=== PATIENT | female | born 1995 | race Caucasian/White ===

== ENCOUNTER → 2017-09-01 | Outpatient (CLI) | payer SELFPAY ==
--- NOTE | 2017-09-01 12:49 | Diagnostic Imaging Report ---
PROCEDURE: US OB SINGLE FETUS <14 WKS. TECHNIQUE: Multiple Real-time grayscale images were obtained over the gravid uterus in various projections. INDICATION: Uncertain dates. FINDINGS: There is a gestational sac within the uterus containing a single live embryo. Embryonic heart motion was noted and a rate of 158 BPM was recorded. The crown/rump length suggests the estimated gestational age is 7 weeks plus/minus 1/2 week. There are no obvious embryonic abnormalities identified. The amniotic fluid volume is within normal limits. At this time, it is not certain where the placenta will develop. The right ovary was not well visualized. The left ovary is unremarkable. IMPRESSION: 1. There is a single live intrauterine of approximately 7 weeks gestation plus/minus 1/2 week. The EDC is 04/20/2018. 2. There are no obvious embryonic abnormalities identified. Dictated by: Dictated on workstation # [id number]
== END ==
LOC: RAD 10:06
PROVIDERS: ATTEND Family Medicine
DX: Z34.01 Encounter for supervision of normal first pregnancy, first trimester (principal); Z3A.01 Less than 8 weeks gestation of pregnancy
CPT/HCPCS: 76801

== ENCOUNTER → 2017-11-27 | Outpatient (CLI) | payer MEDICAID ==
--- NOTE | 2017-11-27 14:20 | Diagnostic Imaging Report ---
INDICATION: survey TECHNIQUE: Multiple real-time grayscale images were obtained over the gravid uterus. COMPARISON: 09/01/2017. FINDINGS: The prior OB ultrasound exam of 09/01/2017 noted a single live embryo of approximately 7 weeks gestation +/- one-half week. On this exam, the fetus is again identified. The fetus is cephalic in presentation and heart motion is noted with a rate of 143 bpm recorded. There are no abnormalities identified; however, the four-chamber heart view, the three-vessel cord, and the cord insertion are not well imaged. A short-term (4-6 weeks) follow-up ultrasound exam would be recommended for further study. The growth parameters are fairly uniform and have progressed as expected since the prior exam. The amniotic fluid volume is within normal limits. The placenta is anterior and there is no previa. The cervix is identified and measures 4.5 cm in length. IMPRESSION: 1. There is a single live fetus of approximately 19 weeks 3 days gestation +/- 1.5 weeks. The EDC remains April 20, 2018. 2. There are no abnormalities identified; however, the four-chamber heart view, the cord, and the cord insertion are not well imaged. Recommendations as above. 3. The growth parameters are fairly uniform and have progressed as expected since the prior exam. Biometrical measurements are as follows: Biparietal 4.5 cm, age 19 weeks 5 days. Head circumference 16.9 cm, age 19 weeks 4 days. Abdominal circumference 14.0 cm, age 19 weeks 3 days. Femur length 3.1 cm, age 19 weeks 5 days. Sonographic estimate age: 18 weeks 5 days. Sonographic estimated date of delivery: 04/20/18. Estimated Weight: 298 gm (+/- 43 gm). LMP percentile: 51%. heart rate: 143 beats per minute. number: 1 of 1. Dictated by: Dictated on workstation # [id number]
== END ==
LOC: RAD 10:10
PROVIDERS: ATTEND Plastic Surgery
DX: Z36.89 Encounter for other specified antenatal screening (principal); Z3A.18 18 weeks gestation of pregnancy
CPT/HCPCS: 76805

== ENCOUNTER → 2018-01-01 | Outpatient (CLI) | payer MEDICAID ==
--- NOTE | 2018-01-01 19:10 | Diagnostic Imaging Report ---
INDICATION: Followup survey. TECHNIQUE: Multiple real-time grayscale images were obtained over the gravid uterus. COMPARISON: 11/27/2017. FINDINGS: There is a single live fetus in a breech presentation. heart rate was recorded at 146 beats per minute. Placenta is anterior. Amniotic fluid volume is normal. Followup survey demonstrates a four-chamber heart. There is a three-vessel cord with normal insertion. IMPRESSION: Unremarkable followup study completing the survey. No complicating features are detected. Dictated by: Dictated on workstation # [id number]
== END ==
LOC: RAD 14:42
PROVIDERS: ATTEND Family Medicine
DX: Z34.02 Encounter for supervision of normal first pregnancy, second trimester (principal); Z3A.00 Weeks of gestation of pregnancy not specified
CPT/HCPCS: 76816

== ENCOUNTER → 2018-03-03 | Outpatient (CLI) | payer MEDICAID ==
[2018-03-03 09:54] VITALS: BP 105/68
--- NOTE | 2018-03-03 10:34 | Diagnostic Imaging Report ---
INDICATION: Supervision of first in third trimester TECHNIQUE: The fetus was observed by the database modeler for purposes of a nonstress biophysical profile evaluation. FINDINGS: Intrauterine is currently in a cephalic presentation. The placenta is along the anterior aspect without evidence for previa. cardiac activity at 128 beats per minute. Lower limits of normal amount of amniotic fluid with an index at 6.4 cm. Biophysical Profile Scoring: breathin Body movement: 2 tone: 2 Amniotic fluid: 2 Total BPP Score: 8/8 IMPRESSION: 1. Normal biophysical profile score. 2. Borderline oligohydramnios. Dictated by: Dictated on workstation # [id number]
== END ==
LOC: RAD 09:05
PROVIDERS: ATTEND Family Medicine
DX: O36.8130 Decreased fetal movements, third trimester, not applicable or unspecified (principal); Z3A.00 Weeks of gestation of pregnancy not specified
CPT/HCPCS: 76819

== ENCOUNTER 2018-04-09 15:32 | Inpatient (IN) | payer MEDICAID ==
[2018-04-09] VITALS (12 sets, daily range): BP systolic 111–132; BP diastolic 58–92
[~2018-04-09] VITALS: Ht 157.5 cm; Wt 89.8 kg
[2018-04-09] MEDS: D5 LR IV SOLUTION 1,000 ML IV SCH ×2 (15:40→23:45)
[2018-04-09] MEDS ORDERED: DINOPROSTONE 10 MG (CERVIDIL) INSERT ONE (16:57)
--- OUTSIDE RECORDS SUMMARY | 2018-04-09 17:14 | XMS REPORT | Continuity of Care Document ---
Author Author [facility] Address Unknown Phone Unavailable Allergies Active Description [...] Disorder Of Childhood With Hyperactivity 12/01/2008 HARDIK UPLIDO DO 493.90 Asthma Unspecified 12/01/2008 RAE ALEXIS [...] CHRISTYA K 493.90 Asthma Unspecified 12/01/2008 PULIDO АЛЕКСАНДР CHRISTYA [...] HIDALGO APRN 493.90 Asthma Unspecified 12/01/2008 HARDIK PULIDO DO K 314.01 Attention Deficit Disorder Of [...] 380.10 Otitis Externa - Right Ear 02/10/2009 EATRAE COPELAND APRN L 380.10 Otitis Externa - [...] K 251.1 OTHER SPECIFIED HYPOGLYCEMIA 02/16/2009 EATON NEGATIVE NOTCHER, RAE L 251.1 OTHER SPECIFIED HYPOGLYCEMIA 02/16/2009 PULIDO DO, HARDIK K 251.1 OTHER SPECIFIED HYPOGLYCEMIA 02/16/2009 PULIDO DO, HARDIK K 251.1 OTHER SPECIFIED HYPOGLYCEMIA 02/16/2009 PULIDO DO, HARDIK K 251.1 OTHER SPECIFIED HYPOGLYCEMIA 02/16/2009 HIDALGO NEGATIVE NOTCHERYURYABELINO J 251.1 OTHER SPECIFIED HYPOGLYCEMIA 02/16/2009 EATON NEGATIVE NOTCHER, RAE L 251.1 OTHER SPECIFIED HYPOGLYCEMIA 02/16/2009 PULIDO DO, HARDIK K 251.1 OTHER SPECIFIED HYPOGLYCEMIA 02/16/2009 EATON NEGATIVE NOTCHER, RAE L 251.1 OTHER SPECIFIED HYPOGLYCEMIA 02/16/2009 EATON NEGATIVE NOTCHER, RAE L 251.1 OTHER SPECIFIED HYPOGLYCEMIA 02/16/2009 HIDALGO NEGATIVE NOTCHERSHANNON RiosFER J 251.1 OTHER SPECIFIED HYPOGLYCEMIA 02/16/2009 HIDALGO NEGATIVE NOTCHERSHANNON RiosFER J 251.1 OTHER SPECIFIED HYPOGLYCEMIA 02/16/2009 HIDALGO NEGATIVE NOTCHERSHANNON RiosFER J 251.1 OTHER SPECIFIED HYPOGLYCEMIA 02/16/2009 PULIDO DO, HARDIK K 251.1 OTHER SPECIFIED HYPOGLYCEMIA 02/16/2009 HIDALGO NEGATIVE NOTCHERSHANNON RiosFER J 251.1 OTHER SPECIFIED HYPOGLYCEMIA 02/16/2009 [...] DO HARDIK K 626.0 Amenorrhea 02/23/2009 EATON NEGATIVE NOTCHER, RAE L 256.4 POLYCYSTIC OVARIAN SYNDROME 02/23/2009 EATON NEGATIVE NOTCHER, RAE L 277.7 DYSMETABOLIC SYNDROME X 02/23/2009 EATON NEGATIVE NOTCHER, RAE L 462 Pharyngitis 02/23/2009 EATON NEGATIVE NOTCHER, RAE L 626.0 Amenorrhea 02/23/2009 PULIDO DO, [...] DO, HARDIK K 626.0 Amenorrhea 02/23/2009 HIDALGO NEGATIVE NOTCHERABELINO Rios J 256.4 POLYCYSTIC OVARIAN SYNDROME 02/23/2009 HIDALGO NEGATIVE NOTCHERABELINO Rios J 277.7 DYSMETABOLIC SYNDROME X 02/23/2009 HIDALGO ABELINO CARTAGENA J 462 Pharyngitis 02/23/2009 HIDALGO NEGATIVE NOTCHERABELINO Rios J 626.0 Amenorrhea 02/23/2009 EATON ORESTES CARTAGENASON L 256.4 POLYCYSTIC OVARIAN SYNDROME 02/23/2009 EATON NEGATIVE NOTCHERORESTES RiosSON L 277.7 DYSMETABOLIC SYNDROME X 02/23/2009 EATON NEGATIVE NOTCHER RAE L 462 Pharyngitis 02/23/2009 EATON NEGATIVE NOTCHER, RAE L 626.0 Amenorrhea 02/23/2009 PULIDO DO, HARDIK K 256.4 POLYCYSTIC OVARIAN SYNDROME 02/23/2009 PULIDO DO, HARDIK K 277.7 DYSMETABOLIC SYNDROME X 02/23/2009 PULIDO DO, HARDIK K 462 Pharyngitis 02/23/2009 PULIDO DO, HARDIK K 626.0 Amenorrhea 02/23/2009 EATON NEGATIVE NOTCHER, RAE L 256.4 POLYCYSTIC OVARIAN SYNDROME 02/23/2009 EATON NEGATIVE NOTCHER, RAE L 277.7 DYSMETABOLIC SYNDROME X 02/23/2009 EATON NEGATIVE NOTCHER, RAE L 462 Pharyngitis 02/23/2009 EATON NEGATIVE NOTCHER, RAE L 626.0 Amenorrhea 02/23/2009 EATON NEGATIVE NOTCHER RAE L 256.4 POLYCYSTIC OVARIAN SYNDROME 02/23/2009 EATON NEGATIVE NOTCHER, RAE L 277.7 DYSMETABOLIC SYNDROME X 02/23/2009 EATON NEGATIVE NOTCHER, RAE L 462 Pharyngitis 02/23/2009 EATON NEGATIVE NOTCHER, RAE L 626.0 Amenorrhea 02/23/2009 ABELINO HIDALGO [...] HIDALGO SHANNON CARTAGENAFER J 626.0 Amenorrhea 02/23/2009 PULIDO DO HARDIK [...] DO, HARDIK K 780.79 Malaise 03/09/2009 EATON NEGATIVE NOTCHERRAE Rios L 780.79 Malaise 03/09/2009 PULIDO DO, HARDIK K 780.79 Malaise 03/09/2009 PULIDO DO, HARDIK K 780.79 Malaise 03/09/2009 PULIDO DO, HARDIK K 780.79 Malaise 03/09/2009 ABELINO HIDALGO APRN 780.79 Malaise 03/09/2009 RAE ALEXIS APRN L 780.79 Malaise 03/09/2009 PULIDO DO, HARDIK K 780.79 Malaise 03/09/2009 EATDINORAH NEGATIVE NOTCHERRAE Rios L 780.79 Malaise 03/09/2009 EATRAE COPELAND [...] 465.9 Upper Respiratory Infection Acute 03/28/2009 EATON NEGATIVE NOTCHER, RAE L 465.9 Upper Respiratory Infection Acute 03/28/2009 PULIDO DO, HARDIK K 465.9 Upper Respiratory Infection Acute 03/28/2009 PULIDO DO, HARDIK K 465.9 Upper Respiratory Infection Acute 03/28/2009 PULIDO DO, HARDIK K 465.9 Upper Respiratory Infection Acute 03/28/2009 HIDALGO NEGATIVE NOTCHER, ABELINO J 465.9 Upper Respiratory Infection Acute 03/28/2009 EATON NEGATIVE NOTCHER, RAE L 465.9 Upper Respiratory Infection Acute 03/28/2009 PULIDO DO, HARDIK K 465.9 Upper Respiratory Infection Acute 03/28/2009 EATON NEGATIVE NOTCHER, RAE L 465.9 Upper Respiratory Infection Acute 03/28/2009 EATON NEGATIVE NOTCHER, RAE L 465.9 Upper Respiratory Infection Acute 03/28/2009 HIDALGO NEGATIVE NOTCHER, ABELINO J 465.9 Upper Respiratory Infection Acute 03/28/2009 HIDALGO NEGATIVE NOTCHER, ABELINO J 465.9 Upper Respiratory Infection Acute 03/28/2009 HIDALGO NEGATIVE NOTCHER, ABELINO J 465.9 Upper Respiratory Infection Acute 03/28/2009 PULIDO DO, HARDIK K 465.9 Upper Respiratory Infection Acute 03/28/2009 HIDALGO NEGATIVE NOTCHER, ABELINO J 465.9 Upper Respiratory Infection Acute [...] Asthma, Unspecified, With (acute) Exacerbation 03/07/2010 REUBEN NEGATIVE NOTCHER, RAE L 493.92 Asthma, Unspecified, With (acute) Exacerbation 03/07/2010 HARDIK PULIDO DO 493.92 Asthma, Unspecified, With (acute) Exacerbation 03/07/2010 HARDIK PULIDO DO 493.92 Asthma, Unspecified, With (acute) Exacerbation 03/07/2010 HARDIK PULIDO DO 493.92 Asthma, Unspecified, With (acute) Exacerbation 03/07/2010 ABELINO HIDALGO APRN 493.92 Asthma, Unspecified, With (acute) Exacerbation 03/07/2010 EATON NEGATIVE NOTCHERRAE Rios 493.92 Asthma, Unspecified, With (acute) Exacerbation 03/07/2010 HARDIK PULIDO DO 493.92 Asthma, Unspecified, With (acute) Exacerbation 03/07/2010 EATON NEGATIVE NOTCHERRAE Rios L 493.92 Asthma, Unspecified, With (acute) Exacerbation 03/07/2010 ELINORON NEGATIVE NOTCHERRAE Rios L 493.92 Asthma, Unspecified, With (acute) [...] APRNSON L 626.9 menses abnormal 10/01/2010 EATON NEGATIVE NOTCHERORESTES RiosSON L 706.1 ACNE 10/01/2010 PULIDO DO, HARDIK K 278.01 OBESITY MORBID 10/01/2010 PULIDO DO, HARDIK K 626.9 menses abnormal 10/01/2010 PULIDO DO, HARDIK K 706.1 ACNE 10/01/2010 EATON ORESTES CARTAGENASON L 278.01 OBESITY MORBID 10/01/2010 EATON ORESTES CARTAGENASON L 626.9 menses abnormal 10/01/2010 EATON NEGATIVE NOTCHERORESTES RiosSON L 706.1 ACNE 10/01/2010 EATON NEGATIVE NOTCHERORESTES RiosSON L 278.01 OBESITY MORBID 10/01/2010 EATON NEGATIVE NOTCHERORESTES RiosSON L 626.9 menses abnormal 10/01/2010 EATON [...] ALEXIS APRN 780.60 Fever, Unspecified 02/15/2011 EATON NEGATIVE NOTCHER, RAE L 786.2 Cough 02/15/2011 PULIDO DO, [...] HIDALGO ABELINO CARTAGENA 786.2 Cough 02/15/2011 EATON NEGATIVE NOTCHER, RAE L 478.19 Other Diseases Of Nasal Cavity And Sinuses 02/15/2011 EATON NEGATIVE NOTCHER, RAE L 780.60 Fever, Unspecified 02/15/2011 EATON NEGATIVE NOTCHER, RAE L 786.2 Cough 02/15/2011 PULIDO DO, HARDIK K 478.19 Other Diseases Of Nasal Cavity And Sinuses 02/15/2011 PULIDO DO, HARDIK K 780.60 Fever, Unspecified 02/15/2011 PULIDO DO, HARDIK K 786.2 Cough 02/15/2011 EATON NEGATIVE NOTCHER, RAE L 478.19 Other Diseases Of Nasal Cavity And Sinuses 02/15/2011 EATON NEGATIVE NOTCHER, RAE L 780.60 Fever, Unspecified 02/15/2011 EATON NEGATIVE NOTCHER, RAE L 786.2 Cough 02/15/2011 EATON NEGATIVE NOTCHER, RAE L 478.19 Other Diseases Of Nasal Cavity And Sinuses 02/15/2011 EATON NEGATIVE NOTCHER, RAE L 780.60 Fever, Unspecified 02/15/2011 EATON NEGATIVE NOTCHER, RAE L 786.2 Cough 02/15/2011 ABELINO HIDALGO [...] 054.9 HERPES SIMPLEX WITHOUT COMPLICATION 05/21/2011 EATON NEGATIVE NOTCHER, RAE L 034.0 Streptococcal Sore Throat 05/21/2011 EATON NEGATIVE NOTCHER, RAE L 054.9 HERPES SIMPLEX WITHOUT COMPLICATION [...] 054.9 HERPES SIMPLEX WITHOUT COMPLICATION 05/21/2011 EATON NEGATIVE NOTCHER, RAE L 034.0 Streptococcal Sore Throat 05/21/2011 EATON NEGATIVE NOTCHER, RAE L 054.9 HERPES SIMPLEX WITHOUT COMPLICATION 05/21/2011 PULIDO DO, HARDIK K 034.0 Streptococcal Sore Throat 05/21/2011 PULIDO DO, HARDIK K 054.9 HERPES SIMPLEX WITHOUT COMPLICATION 05/21/2011 EATON NEGATIVE NOTCHER, RAE L 034.0 Streptococcal Sore Throat 05/21/2011 EATON NEGATIVE NOTCHER, RAE L 054.9 HERPES SIMPLEX WITHOUT COMPLICATION 05/21/2011 EATON NEGATIVE NOTCHER, RAE L 034.0 Streptococcal Sore Throat 05/21/2011 EATON NEGATIVE NOTCHER, RAE L 054.9 HERPES SIMPLEX WITHOUT COMPLICATION [...] HERPES SIMPLEX WITHOUT COMPLICATION 05/21/2011 HIDALGO ABELINO CARATGENA 034.0 Streptococcal Sore Throat 05/21/2011 HIDALGO ABELINO [...] K 493.90 ASTHMA UNSPECIFIED 07/16/2011 PULIDO DO, HADRIK K 786.2 Cough 07/16/2011 EATON NEGATIVE NOTCHERORESTES RiosSON L 478.19 Other Diseases Of Nasal Cavity And Sinuses 07/16/2011 EATON NEGATIVE NOTCHERORESTESRAE L 493.90 ASTHMA UNSPECIFIED 07/16/2011 EATON NEGATIVE NOTCHERORESTES RiosSON L 786.2 Cough 07/16/2011 PULIDO DO, [...] CARTAGENASON L 493.90 ASTHMA UNSPECIFIED 07/16/2011 EATON NEGATIVE NOTCHER, RAE L 786.2 Cough 07/16/2011 PULIDO DO, [...] Diseases Of Nasal Cavity And Sinuses 07/16/2011 АЛЕКСАНРД PULIDO DOA K 493.90 ASTHMA UNSPECIFIED 07/16/2011 АЛЕКСАНДР PULIDO DOA K 786.2 Cough 07/16/2011 HIDALGOABELINO MUÑOZ APRN 478.19 Other Diseases Of Nasal Cavity And Sinuses 07/16/2011 ABELINO HIDAGLO APRN 493.90 ASTHMA UNSPECIFIED 07/16/2011 ABELINO HIDALGO [...] 07/25/2011 V67.9 Unspecified Follow-up Examination 07/25/2011 OWEN AMRCANO, GEOFFREY V67.9 Unspecified Follow-up Examination 07/25/2011 OWEN MARCANO, GEOFFREY V67.9 Unspecified Follow-up Examination 07/25/2011 OWEN MARCANO, GEOFFREY V67.9 Unspecified Follow-up Examination 07/25/2011 PULIDO DO, HARDIK K V67.9 Unspecified Follow-up Examination 07/25/2011 EATON NEGATIVE NOTCHER, RAE L V67.9 Unspecified Follow-up Examination 07/25/2011 PULIDO DO, HARDIK K V67.9 Unspecified Follow-up Examination 07/25/2011 PULIDO DO, HARDIK K V67.9 Unspecified Follow-up Examination 07/25/2011 PULIDO DO, HARDIK K V67.9 Unspecified Follow-up Examination 07/25/2011 ABELINO HIDALGO APRN J V67.9 Unspecified Follow-up Examination 07/25/2011 EATON NEGATIVE NOTCHER, RAE L V67.9 Unspecified Follow-up Examination 07/25/2011 PULIDO DO, HARDIK K V67.9 Unspecified Follow-up Examination 07/25/2011 EATON NEGATIVE NOTCHER, RAE L V67.9 Unspecified Follow-up Examination 07/25/2011 EATON NEGATIVE NOTCHER, RAE L V67.9 Unspecified Follow-up Examination 07/25/2011 [...] ALLERGIC RHINITIS DUE TO POLLEN 10/04/2011 EATON NEGATIVE NOTCHERRAE Rios L 477.0 ALLERGIC RHINITIS DUE TO POLLEN 10/04/2011 PULIDO DO, HARDIK K 477.0 ALLERGIC RHINITIS DUE TO POLLEN 10/04/2011 PULIDO DO, HARDIK K 477.0 ALLERGIC RHINITIS DUE TO POLLEN 10/04/2011 PULIDO DO, HARDIK K 477.0 ALLERGIC RHINITIS DUE TO POLLEN 10/04/2011 HIDALGO NEGATIVE NOTCHERABEILNO Rios J 477.0 ALLERGIC RHINITIS DUE TO POLLEN 10/04/2011 EATON NEGATIVE NOTCHER, RAE L 477.0 ALLERGIC RHINITIS DUE TO POLLEN 10/04/2011 PULIDO DO, HARDIK K 477.0 ALLERGIC RHINITIS DUE TO POLLEN 10/04/2011 EATON NEGATIVE NOTCHERRAE L 477.0 ALLERGIC RHINITIS DUE TO POLLEN 10/04/2011 EATON NEGATIVE NOTCHERRAE L 477.0 ALLERGIC RHINITIS DUE TO POLLEN 10/04/2011 HIDALGO NEGATIVE NOTCHERABELINO Rios J 477.0 ALLERGIC RHINITIS DUE TO POLLEN 10/04/2011 HIDALGO ABELINO CARTAGENA J 477.0 ALLERGIC RHINITIS DUE TO POLLEN 10/04/2011 HIDALGO NEGATIVE NOTCHERABELINO Rios J 477.0 ALLERGIC RHINITIS DUE TO POLLEN 10/04/2011 PULDIO DO, HARDIK K 477.0 ALLERGIC RHINITIS DUE [...] HARDIK PULIDO DO 463 TONSILLITIS 10/24/2011 EATON NEGATIVE NOTCHER, RAE L 463 TONSILLITIS 10/24/2011 PULIDO DO, HARDIK K 463 TONSILLITIS 10/24/2011 PULIDO DO, HARDIK K 463 TONSILLITIS 10/24/2011 PULIDO DO, HARDIK K 463 TONSILLITIS 10/24/2011 HIDALGO NEGATIVE NOTCHERABELINO Rios 463 TONSILLITIS 10/24/2011 EATON NEGATIVE NOTCHERORESTES RiosSON L 463 TONSILLITIS 10/24/2011 PULIDO DO HARDIK K 463 TONSILLITIS 10/24/2011 EATON NEGATIVE NOTCHER RAE L 463 TONSILLITIS 10/24/2011 EATON NEGATIVE NOTCHERORESTESRAE L 463 TONSILLITIS 10/24/2011 HIDALGO NEGATIVE NOTCHERABELINO Rios 463 TONSILLITIS 10/24/2011 HIDALGO NEGATIVE NOTCHERABELINO Rios 463 TONSILLITIS 10/24/2011 HIDALGO NEGATIVE NOTCHERABELINO Rios 463 TONSILLITIS 10/24/2011 PULIDO DOАЛЕКСАНДРA K 463 TONSILLITIS 10/24/2011 HIDALGO NEGATIVE NOTCHERABELINO Rios 463 TONSILLITIS 10/24/2011 PULIDO DO, HARDIK [...] K 465.9 UPPER RESPIRATORY INFECTION 03/05/2012 EATON NEGATIVE NOTCHERRAE Rios L 465.9 UPPER RESPIRATORY INFECTION 03/05/2012 PULIDO DO HARDIK K 465.9 UPPER RESPIRATORY INFECTION 03/05/2012 PULIDO DO HARDIK K 465.9 UPPER RESPIRATORY INFECTION 03/05/2012 PULIDO DO, HARDIK K 465.9 UPPER RESPIRATORY INFECTION 03/05/2012 HIDALGO ABELINO CRATAGENA 465.9 UPPER RESPIRATORY INFECTION 03/05/2012 EATON NEGATIVE NOTCHERRAE Rios L 465.9 UPPER RESPIRATORY INFECTION 03/05/2012 PULIDO DO HARDIK K 465.9 UPPER RESPIRATORY INFECTION 03/05/2012 ELINORDINORAH NEGATIVE NOTCHER, RAE L 465.9 UPPER RESPIRATORY INFECTION 03/05/2012 ELINORON NEGATIVE NOTCHER, RAE L 465.9 UPPER RESPIRATORY INFECTION 03/05/2012 HIDALGO NEGATIVE NOTCHERABELINO Rios J 465.9 UPPER RESPIRATORY INFECTION 03/05/2012 HIDALGO NEGATIVE NOTCHER, ABELINO J 465.9 UPPER RESPIRATORY INFECTION 03/05/2012 HIDALGO NEGATIVE NOTCHER, ABELINO J 465.9 UPPER RESPIRATORY INFECTION 03/05/2012 TESS CHRISTY HARDIK K 465.9 UPPER RESPIRATORY INFECTION 03/05/2012 HIDALGO NEGATIVE NOTCHER, ABELINO J 465.9 UPPER RESPIRATORY INFECTION 03/05/2012 PULIDO DO HARDIK K 465.9 UPPER RESPIRATORY INFECTION 03/31/2012 GEOFFREY WEAVER MD 461.9 SINUSITIS ACUTE [...] COMPRESSION ARTHRALGIA - SHOULDER REGION RIGHT 03/31/2012 OWEN MARCANO, GEOFFREY 786.2 cough 03/31/2012 OWNE MARCANO, GEOFFREY 461.9 SINUSITIS ACUTE 03/31/2012 GEOFFREY [...] APRN L 461.9 SINUSITIS ACUTE 03/31/2012 EATON NEGATIVE NOTCHERORESTES RiosSON L 525.9 tooth pain 03/31/2012 EATON NEGATIVE NOTCHERORESTES RiosSON L 719.41 COMPRESSION ARTHRALGIA - SHOULDER [...] PULIDO DO, HARDIK K 786.2 cough 03/31/2012 REUBNE HANKINSRAE Rios L 461.9 SINUSITIS ACUTE 03/31/2012 [...] MEDIA ACUTE SEROUS LEFT EAR 08/03/2012 EATON NEGATIVE NOTCHER, RAE L 493.92 ASTHMA WITH ACUTE EXACERBATION [...] 493.92 ASTHMA WITH ACUTE EXACERBATION 08/03/2012 EATON NEGATIVE NOTCHER, RAE L 381.01 OTITIS MEDIA ACUTE SEROUS BOTH EARS 08/03/2012 REUBEN CARTAGENA RAE L 493.92 ASTHMA WITH ACUTE EXACERBATION 08/03/2012 PULIDO АЛЕКСАНДР CHRISTYA K 381.01 OTITIS MEDIA ACUTE SEROUS BOTH EARS 08/03/2012 АЛЕКСАНДР PULIDO DOA K 493.92 ASTHMA WITH ACUTE EXACERBATION 08/03/2012 EATON NEGATIVE NOTCHER, RAE L 381.01 OTITIS MEDIA ACUTE SEROUS BOTH EARS 08/03/2012 EATON MITZI RAE L 493.92 ASTHMA WITH ACUTE EXACERBATION 08/03/2012 EATON NEGATIVE NOTCHER, RAE L 381.01 OTITIS MEDIA ACUTE SEROUS BOTH EARS 08/03/2012 EATON NEGATIVE NOTCHER, RAE L 493.92 ASTHMA WITH ACUTE EXACERBATION [...] MEDIA ACUTE SEROUS BOTH EARS 08/03/2012 HARDIK PULIDO DO K 493.92 ASTHMA WITH ACUTE EXACERBATION [...] pain feels crampy / colicky 04/15/2013 REUBEN NEGATIVE NOTCHER, RAE L 702 SKIN DISORDERS 04/15/2013 REUBEN [...] RAE L 702 SKIN DISORDERS 04/15/2013 ELINORDINORAH NEGATIVE NOTCHER, RAE L 789.00 abdominal pain feels crampy [...] CARTAGENA 461.8 OTHER ACUTE SINUSITIS 04/19/2013 EATON NEGATIVE NOTCHER RAE L 461.8 OTHER ACUTE SINUSITIS 04/19/2013 PULIDO DO, HARDIK K 461.8 OTHER ACUTE SINUSITIS 04/19/2013 EATON NEGATIVE NOTCHER RAE L 461.8 OTHER ACUTE SINUSITIS 04/19/2013 EATON NEGATIVE NOTCHER RAE L 461.8 OTHER ACUTE SINUSITIS 04/19/2013 HIDALGO ABELINO CARTAGENA 461.8 OTHER ACUTE SINUSITIS 04/19/2013 ABELINO HIDALGO APRN 461.8 OTHER ACUTE SINUSITIS 04/19/2013 HIDALGO ABELINO CARTAGENA 461.8 OTHER ACUTE SINUSITIS 04/19/2013 PULIDO DO, HARDIK K 461.8 OTHER ACUTE SINUSITIS 04/19/2013 HIDALGO NEGATIVE NOTCHERABELINO Rios 461.8 OTHER ACUTE SINUSITIS 04/19/2013 PULIDO DO, HARDIK K 461.8 OTHER ACUTE SINUSITIS 07/06/2013 PULIDO DO, HARDIK K 686.8 BACTERID 07/06/2013 PULIDO DO, HARDIK K 686.8 BACTERID 07/06/2013 PULIDO DO, HARDIK K 686.8 BACTERID 07/06/2013 HIDALGO ABELINO CARTAGENA 686.8 BACTERID 07/06/2013 EATON NEGATIVE NOTCHERORESTES RiosSON L 686.8 BACTERID 07/06/2013 PULIDO DO, HARDIK K 686.8 BACTERID 07/06/2013 EATON NEGATIVE NOTCHER RAE L 686.8 BACTERID 07/06/2013 EATON NEGATIVE NOTCHER RAE L 686.8 BACTERID 07/06/2013 ABELINO HIDALGO [...] RAE L 462 sore throat 07/20/2013 EATON NEGATIVE NOTCHER, RAE L 845.00 ANKLE SPRAIN LEFT 07/20/2013 EATON MITZI RAE L E880.9 a fall from stairs 07/20/2013 PULIDO DO, HARDIK K 462 sore throat 07/20/2013 PULIDO DO, HARDIK K 845.00 ANKLE SPRAIN LEFT 07/20/2013 PULIDO DO, HARDIK K E880.9 a fall from stairs 07/20/2013 EATON NEGATIVE NOTCHER, RAE L 462 sore throat 07/20/2013 EATON NEGATIVE NOTCHER, RAE L 845.00 ANKLE SPRAIN LEFT 07/20/2013 EATON NEGATIVE NOTCHER, RAE L E880.9 a fall from stairs 07/20/2013 EATON NEGATIVE NOTCHER, RAE L 462 sore throat 07/20/2013 EATON NEGATIVE NOTCHER, RAE L 845.00 ANKLE SPRAIN LEFT 07/20/2013 [...] ALEXIS APRN 466.0 BRONCHITIS, ACUTE 11/04/2013 RAE ALEXIS APRN 466.0 BRONCHITIS, ACUTE 11/04/2013 ABELINO HIDALGO [...] DO 079.99 UNSPECIFIED VIRAL INFECTION 09/21/2014 HARDIK PLUIDO DO 478.19 OTHER DISEASES OF NASAL CAVITY [...] Procedures Code Description [place] [address] STREP A (IN-HOUSE) 07/23/2012 38368 SPIROMETRY 07/24/2012 37891 SPIROMETRY 08/24/2012 07726 BRONCHODILATION PRE/POST 08/24/2012 05219 RESPIRATORY FLOW VOLUME LOOP 08/24/2012 84392 ROUTINE VENIPUNCTURE 09/29/2012 50695 CMP 09/29/2012 11833 LIPID PANEL 09/29/2012 60753 A1C (RML) 09/29/2012 26044 INSULIN LEVEL 09/29/2012 02198 URINE TEST (IN- HOUSE) 03/23/2013 95644 INFLUENZA A & B (IN-HOUSE) 07/06/2013 68511 CULTURE URINE 09/28/2013 59837 UA LONG DIP 09/28/2013 2000F BLOOD PRESSURE CHECK 10/13/2013 16570 CHLAMYDIA PROBE/URINE 03/22/2014 50765 GC PROBE/URINE 03/22/2014 80569 SYPHILLIS-[facility] 04/21/2014 80568 HIV ([facility]) 04/21/2014 93248 UA LONG DIP 04/21/2014 56966 TEST, URINE (IN- HOUSE) 05/18/2014 90404 THERAPUTIC INJ SQ/IM 05/18/2014 J1050 DEPO PROVERA 05/18/2014 Results Test Result Range CULTURE, URINE - 09/15/17 16:14 CULTURE, URINE, ROUTINE SEE NOTE NRG CULTURE, GENITAL - 09/15/17 16:14 CULTURE, GENITAL SEE NOTE NRG SUREPATH PAP RFX HPV mRNA E6/E7 - 09/15/17 16:14 CLINICAL INFORMATION: NRG LMP: 07/10/17 NRG PREV. PAP: NRG PREV. 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 Type Provider Facility Loc./Unit Complaint [id number] 09/21/2014 13:01:00 09/21/2014 23:59:59 CLS Outpatient HARDIK PULIDO DO [id number] 08/01/2014 14:45:00 08/01/2014 23:59:59 CLS Outpatient HIDALGO NEGATIVE NOTCHER, ABELINO J [id number] 07/26/2014 11:27:00 07/26/2014 23:59:59 CLS Outpatient PULIDO DOHARDIK [id number] 07/25/2014 14:10:00 07/25/2014 23:59:59 CLS Outpatient HIDALGO NEGATIVE NOTCHERABELINO Rios [id number] 05/18/2014 13:50:00 05/18/2014 23:59:59 CLS Outpatient PULIDO DOHARDIK [id number] 05/02/2014 16:19:00 05/02/2014 23:59:59 CLS Outpatient HIDALGO NEGATIVE NOTCHERABELINO Rios [id number] 04/21/2014 16:37:00 04/21/2014 23:59:59 CLS Outpatient ABELINO HIDALGO APRN [id number] 04/02/2014 13:37:00 04/02/2014 23:59:59 CLS Outpatient HIDALGO ABELINO CARTAGENA [id number] 03/22/2014 15:29:00 03/22/2014 23:59:59 CLS Outpatient EATON NEGATIVE NOTCHERRAE Rios [id number] 11/04/2013 12:08:00 11/04/2013 23:59:59 CLS Outpatient EATON RAE CARTAGENA [id number] 10/13/2013 11:49:00 10/13/2013 23:59:59 CLS Outpatient PULIDO DOHARDIK [id number] 09/28/2013 12:47:00 09/28/2013 23:59:59 CLS Outpatient EATON NEGATIVE NOTCHERRAE Rios [id number] 08/05/2013 15:25:00 08/05/2013 23:59:59 CLS Outpatient HIDALGO NEGATIVE NOTCHERABELINO Rios [id number] 08/03/2013 18:16:00 08/03/2013 23:59:59 CLS Outpatient PULIDO DOHARDIK [id number] 07/20/2013 17:46:00 07/20/2013 23:59:59 CLS Outpatient PULIDO DOHARDIK [id number] 07/06/2013 14:19:00 07/06/2013 23:59:59 CLS Outpatient PULIDO DOHARDIK [id number] 05/25/2013 18:34:00 05/25/2013 23:59:59 CLS Outpatient EATON NEGATIVE NOTCHERRAE [id number] 04/19/2013 15:34:00 04/19/2013 23:59:59 CLS Outpatient TESS HARDIK Pura [id number] 04/15/2013 15:53:00 04/15/2013 23:59:59 CLS Outpatient GEOFFREY WEAVER MD [id number] 03/23/2013 18:36:00 03/23/2013 23:59:59 CLS Outpatient GEOFFREY WEAVER MD [id number] 09/29/2012 10:22:00 09/29/2012 23:59:59 CLS Outpatient GEOFFREY WEAVER MD [id number] 09/22/2012 18:41:00 09/22/2012 23:59:59 CLS Outpatient [id number] 08/24/2012 15:51:00 08/24/2012 23:59:59 CLS Outpatient [id number] 08/03/2012 15:49:00 08/03/2012 23:59:59 CLS Outpatient GEOFFREY WEAVER MD [id number] 07/23/2012 14:41:00 07/23/2012 23:59:59 CLS Outpatient GEOFFREY WEAVER MD [id number] 03/03/2018 09:05:00 03/03/2018 23:59:59 CLS Outpatient MATHEUS RAY DO [facility] RAD Z34.03 SUPERVISION OF FIRST PREG,THIRD TRIMESTER [id number] 01/01/2018 14:42:00 01/01/2018 23:59:59 CLS Outpatient MATHEUS RAY DO [facility] RAD SUPERVISION OF NORMAL FIRST IN SECOND TR [id number] 11/27/2017 10:10:00 11/27/2017 23:59:59 CLS Outpatient VINOD CARMEN MD [facility] RAD Z34.02 SUPERVISION OF NORMAL FIRST PREGANCY [id number] 08/18/2017 12:58:00 08/18/2017 23:59:59 CLS Outpatient MATHEUS RAY DO [facility] RAD Z34.01 SUPERVISION OF FIRST [id number] 01/27/2018 13:00:00 01/27/2018 23:59:59 CLS Outpatient RAE ALEXIS APRN [facility] [id number] 03/20/2018 09:00:00 Document Registration [id number] 02/03/2018 11:20:00 Document Registration [id number] 01/06/2018 14:40:00 Document Registration [id number] 11/10/2017 08:40:00 Document Registration [id number] 09/22/2017 12:20:00 Document Registration [id number] 09/15/2017 08:20:00 Document Registration
[2018-04-09] MEDS ORDERED: AMPICILLIN FOR IV USE 2,000 MG in NS (IVPB) 50 ML IV SCH (18:28)
[2018-04-09] MEDS ORDERED: DINOPROSTONE 10 MG (CERVIDIL) INSERT PV NR (18:30)
[2018-04-09 18:38] LABS: BASOPHILS % (AUTO) 0 % (0-10); EOSINOPHILS # (AUTO) 0.2 10^3/uL (0.0-0.3); EOSINOPHILS % (AUTO) 1 % (0-10); HEMATOCRIT 35 % (35-52); HEMOGLOBIN 12.2 G/DL (11.5-16.0); LYMPHOCYTES # (AUTO) 2.9 X 10^3 (1.0-4.0); LYMPHOCYTES % (AUTO) 20 % (12-44); MEAN CORPUSCULAR HEMOGLOBIN 31 PG (25-34); MEAN CORPUSCULAR HGB CONC 35 G/DL (32-36); MEAN CORPUSCULAR VOLUME 90 FL (80-99); MEAN PLATELET VOLUME 10.8 FL (7.4-10.4); MONOCYTES # (AUTO) 0.7 X 10^3 (0.0-1.0); MONOCYTES % (AUTO) 5 % (0-12); NEUTROPHILS # (AUTO) 10.6 X 10^3 (1.8-7.8); NEUTROPHILS % (AUTO) 74 % (42-75); PLATELET COUNT 256 10^3/uL (130-400); RED BLOOD COUNT 3.88 10^6/uL (4.35-5.85); RED CELL DISTRIBUTION WIDTH 13.1 % (10.0-14.5); WHITE BLOOD COUNT 14.3 10^3/uL (4.3-11.0)
[2018-04-09 19:05] LABS: NEUTROPHILS % (MANUAL) 69 %
[2018-04-09 19:06] LABS: BAND NEUTROPHILS 1 %; BASOPHILS % (MANUAL) 0 %; EOSINOPHILS % (MANUAL) 0 %; LYMPHOCYTES % (MANUAL) 26 %; MONOCYTES % (MANUAL) 4 %; RBC MORPH NORMAL
[2018-04-09] MEDS ORDERED: PREN1TAB79 PO (20:43)
[2018-04-10] VITALS (63 sets, daily range): BP systolic 99–145; BP diastolic 51–98
[2018-04-10] MEDS: CATHETER FLUSH 10 ML SYR IV SCH ×2 (01:35→10:52)
[2018-04-10] MEDS ORDERED: ZOLPIDEM 5 MG (AMBIEN) TAB PO ONE (01:45)
[2018-04-10] MEDS ORDERED: NS (IVPB) 50 ML ONE (07:54)
[2018-04-10] MEDS ORDERED: AMPICILLIN 2,000 MG/20 ML (IV USE) ONE (07:54)
[2018-04-10] MEDS: D5 LR IV SOLUTION 1,000 ML IV SCH ×3 (07:57→21:33)
[2018-04-10] MEDS ORDERED: OXYTOCIN/NORMAL SALINE 500 ML IV ONE (10:26)
[2018-04-10] MEDS ORDERED: OXYTOCIN/NORMAL SALINE 500 ML IV SCH (10:28)
[2018-04-10] MEDS ORDERED: LIDOCAINE/EPI 2% 1:200,00 (XYLOCAINE) 10 ML VIAL INJ ONE (11:00)
[2018-04-10] MEDS ORDERED: MINERAL OIL CONCENTRATE 99.9% 15 ML UDC PO ONE (11:00)
--- NOTE | 2018-04-10 11:49 | Labor Progress Note ---
Labor Progress Note Labor Progress Note Date Seen by Provider: Apr 10, 2018 Time Seen by Provider: 09:15 Subjective: Patient sleeping this AM. Did well with Cervidil overnight. Denies any ctxs or LOF. Objective: VS - Last 72 Hours, by Label 04/09/18 04/09/18 04/09/18 04/09/18 15:25 15:45 16:15 16:45 Temp 98.0 Pulse 99 85 70 88 Resp 20 20 20 20 B/P (MAP) 124/82 (96) 118/73 (88) 114/66 (82) 111/64 (80) O2 Delivery Room Air Room Air Room Air Room Air 04/09/18 04/09/18 04/09/18 04/09/18 17:15 17:45 18:15 18:45 Pulse 68 80 80 88 Resp 18 18 18 18 B/P (MAP) 124/66 (85) 120/71 (87) 116/71 (86) 132/92 (105) O2 Delivery Room Air Room Air Room Air Room Air 04/09/18 04/09/18 04/09/18 04/09/18 19:14 19:45 20:08 22:27 Temp 98.0 Pulse 79 88 93 81 Resp 18 18 18 18 B/P (MAP) 125/71 (89) 112/58 (76) 119/70 (86) 122/67 (85) O2 Delivery Room Air Room Air Room Air Room Air 04/10/18 04/10/18 04:25 07:45 Temp 98.0 97.4 Pulse 67 Resp 18 B/P (MAP) 121/72 (88) O2 Delivery Room Air Cervical exam: /-3 Presentation: Vertex heart tones: Reactive Tocometer: None Assessment/Plan: Magan Arce is a (22 /Para / ,Gestational Age (wks)38.3 wga here for IOL IUGR Oligohydramnios GBS + - Start Pitocin now - Start Ampicillin now Vitals - Labs Vital Signs - I&O Vital Signs Date Time Temp Pulse Resp B/P (MAP) Pulse Ox O2 Delivery O2 Flow Rate FiO2 04/10/18 07:45 97.4 04/10/18 04:25 98.0 67 18 121/72 (88) Room Air 04/09/18 22:27 81 18 122/67 (85) Room Air 04/09/18 20:08 98.0 93 18 119/70 (86) Room Air 04/09/18 19:45 88 18 112/58 (76) Room Air 04/09/18 19:14 79 18 125/71 (89) Room Air 04/09/18 18:45 88 18 132/92 (105) Room Air 04/09/18 18:15 80 18 116/71 (86) Room Air 04/09/18 17:45 80 18 120/71 (87) Room Air 04/09/18 17:15 68 18 124/66 (85) Room Air 04/09/18 16:45 88 20 111/64 (80) Room Air 04/09/18 16:15 98.0 70 20 114/66 (82) Room Air 04/09/18 15:45 85 20 118/73 (88) Room Air 04/09/18 15:25 99 20 124/82 (96) Room Air I & O 04/10/18 07:00 Intake Total 2000 ml Balance 2000 ml Labs Laboratory Tests 04/09/18 15:40: White Blood Count 14.3H, Red Blood Count 3.88L, Hemoglobin 12.2, Hematocrit 35, Mean Corpuscular Volume 90, Mean Corpuscular Hemoglobin 31, Mean Corpuscular Hemoglobin Concent 35, Red Cell Distribution Width 13.1, Platelet Count 256, Mean Platelet Volume 10.8H, Neutrophils (%) (Auto) 74, Lymphocytes (%) (Auto) 20 , Monocytes (%) (Auto) 5, Eosinophils (%) (Auto) 1, Basophils (%) (Auto) 0, Neutrophils # (Auto) 10.6H, Lymphocytes # (Auto) 2.9, Monocytes # (Auto) 0.7, Eosinophils # (Auto) 0.2, Basophils # (Auto) 0.0, Neutrophils % (Manual) 69, Lymphocytes % (Manual) 26, Monocytes % (Manual) 4, Eosinophils % (Manual) 0, Basophils % (Manual) 0, Band Neutrophils 1, Blood Morphology Comment NORMAL JUAN JOSÉ MAX MD Apr 10, 2018 11:49 am
[2018-04-10] MEDS: AMPICILLIN FOR IV USE 1,000 MG in NS (IVPB) 50 ML IV SCH ×3 (11:53→20:00)
[2018-04-10] MEDS ORDERED: BUTORPHANOL INJ 2 MG/ML (STADOL) VIAL ONE (14:30)
[2018-04-10] MEDS ORDERED: BUTORPHANOL INJ 2 MG/ML (STADOL) VIAL IV PRN (14:45)
[2018-04-10] MEDS ORDERED: BUTORPHANOL INJ 2 MG/ML (STADOL) VIAL IV ONE (14:45)
[2018-04-10] MEDS ORDERED: SUFENTA 0.6MCG/ML BUPIVA 0.125 100 ML ONE (19:52)
[2018-04-10] MEDS ORDERED: LIDOCAINE PF 2% 5 ML (XYLOCAINE) VIAL ONE (19:57)
[2018-04-10] MEDS ORDERED: fentaNYL INJECTION 100 MCG/2 ML AMP ONE (19:57)
[2018-04-10] MEDS ORDERED: BUPIVACAINE 0.25% 30 ML (SENSORCAINE) VIAL ONE (19:57)
[2018-04-10] MEDS ORDERED: LACTATED RINGERS 1,000 ML IV ONE ×2 (20:32)
[2018-04-10] MEDS ORDERED: EPIDURAL (SUFENTA 0.6MCG/ML BUPIVA 0.125%) 100 ML BAG EPI PRN (20:45)
[2018-04-10] MEDS ORDERED: NALOXONE 0.4 MG/ML 1 ML (NARCAN) VIAL IV PRN (20:45)
[2018-04-10] MEDS ORDERED: METOCLOPRAMIDE INJ 10 MG/2 ML (REGLAN) IV PRN (20:45)
[2018-04-10] MEDS ORDERED: ONDANSETRON 4 MG/2 ML (SDV) Z0FRAN IV PRN (20:45)
[2018-04-11] VITALS (17 sets, daily range): BP systolic 97–141; BP diastolic 56–77
[2018-04-11] MEDS: AMPICILLIN FOR IV USE 1,000 MG in NS (IVPB) 50 ML IV SCH (00:39)
[2018-04-11] MEDS ORDERED: LIDOCAINE/EPI 2% 1:200,00 (XYLOCAINE) 10 ML VIAL ONE (01:29)
--- NOTE | 2018-04-11 02:40 | OB Labor & Delivery Record ---
Vag Delivery Note Vag Delivery Note Date of Delivery: 04/11/18 Preoperative Diagnosis: Magan Arce is a 22 1,Gestational Age (wks) 38with 5days Postoperative Diagnosis: Same Surgeon: ERMA BRADFORD Anesthesia: Epidural Delivery Type: Spontaneous vaginal Findings: Viable male infant, apgars 5/8, weight 5#1 Lacerations: first degree perineal, right periurethral Intact placenta with 3 vessel cord. No nuchal cord, body cord or shoulder dystocia Estimated Blood Loss: 200 ml Complications: None Condition: Stable Description of Procedure: The patient is a G1 now P1 who presented for IOL due to abnormal biophysical profile. She was admitted and informed consent was obtained. Her labor course was unremarkable. She progressed to complete dilatation and began to push. She was then set up for delivery. The 's head was delivered atraumatically in the JANEY position. The shoulders and remainder of the 's body were then delivered without difficulty. Upon delivery, the infant was placed on maternal abdomen and the mouth and nares were bulb suctioned. The cord was doubly clamped and cut and the was handed off to the pediatric staff. An intact placenta with 3-vessel cord delivered via Jenaro and there was found to be minimal bleeding.~ Vigorous fundal massage was performed and the fundus was found to be firm. IV oxytocin was given. Examination of the vagina and perineum revealed a first degree perineal laceration repaired in the usual fashion with 3-0 rapide suture and right periurethral laceration hemostatic and not requiring repair. Following the repair, sponge, instrument and needle counts were correct. Mom and baby were both in stable condition in the labor suite. Vitals - Labs Vital Signs - I&O Vital Signs 04/11/18 04/11/18 00:15 01:15 Temp 98.7 Pulse 73 Resp 20 B/P (MAP) 125/68 (87) Pulse Ox 93 O2 Delivery Room Air ERMA BRADFORD MD Apr 11, 2018 2:40 am
[2018-04-11] MEDS ORDERED: OXYTOCIN/NORMAL SALINE 500 ML IV SCH (03:31)
[2018-04-11] MEDS ORDERED: WITCH HAZEL(TUCKS) 40 EA JAR TOP PRN (03:45)
[2018-04-11] MEDS ORDERED: BENZOCAINE/MENTHOL (DERMOPLAST) 56 ML CAN TP PRN (03:45)
[2018-04-11] MEDS: IBUPROFEN 600 MG (MOTRIN) TAB PO SCH ×4 (04:07→22:25)
[2018-04-11] MEDS ORDERED: CATHETER FLUSH 10 ML SYR IV SCH (06:00)
[2018-04-11] MEDS: PRENATAL VITAMIN 1 EA TAB PO SCH (08:56)
--- NOTE | 2018-04-11 09:08 | Anesthesia-Regional Post-Op ---
Regional Patient Condition Mental Status: Alert, Oriented x3 Circulation: Same as Pre-Op Headache: Absent Sensation: Full Recovery Motor Block: Absent Post Op Complications Complications None Follow Up Care/Instructions Patient Instructions None needed. Anesthesia/Patient Condition Patient is doing well, no complaints, stable vital signs, no apparent adverse anesthesia problems. No complications reported per nursing. LILLIE BELLAMY CRNA Apr 11, 2018 09:08
[2018-04-12] MEDS: IBUPROFEN 600 MG (MOTRIN) TAB PO SCH ×4 (03:49→22:18)
[2018-04-12 03:56] VITALS: BP 111/75
[2018-04-12 05:57] LABS: BASOPHILS % (AUTO) 0 % (0-10); EOSINOPHILS # (AUTO) 0.1 10^3/uL (0.0-0.3); EOSINOPHILS % (AUTO) 1 % (0-10); HEMATOCRIT 25 % (35-52); HEMOGLOBIN 8.7 G/DL (11.5-16.0); LYMPHOCYTES # (AUTO) 3.3 X 10^3 (1.0-4.0); LYMPHOCYTES % (AUTO) 28 % (12-44); MEAN CORPUSCULAR HEMOGLOBIN 32 PG (25-34); MEAN CORPUSCULAR HGB CONC 35 G/DL (32-36); MEAN CORPUSCULAR VOLUME 93 FL (80-99); MEAN PLATELET VOLUME 10.3 FL (7.4-10.4); MONOCYTES # (AUTO) 0.5 X 10^3 (0.0-1.0); MONOCYTES % (AUTO) 4 % (0-12); NEUTROPHILS % (AUTO) 67 % (42-75); PLATELET COUNT 192 10^3/uL (130-400); RED CELL DISTRIBUTION WIDTH 13.1 % (10.0-14.5)
[2018-04-12 08:00] VITALS: BP 117/74
[2018-04-12] MEDS: PRENATAL VITAMIN 1 EA TAB PO SCH (08:19)
[2018-04-12 14:00] VITALS: BP 112/69
--- NOTE | 2018-04-12 18:04 | Postpartum Progress Note ---
Note Note Day # 1 Subjective: Patient is without complaints. Ambulating, voiding. Tolerating a regular diet without nausea or vomiting. Normal lochia. Pain is well controlled with oral pain medications. Breast feeding. Objective: Vital Signs 04/12/18 14:00 Temp 98.4 Pulse 106 Resp 18 B/P (MAP) 112/69 (83) Pulse Ox 96 O2 Delivery Room Air Physical Exam: General - Alert and oriented, no apparent distress Abdomen - Soft, appropriately tender to palpation, non-distended, fundus firm at umbilicus Extremities - no edema Assessment: G1 post- day # 1, status post spontaneous vaginal delivery. Recovering well, hemodynamically stable Asymptomatic anemia Plan: Routine care. Encourage breast feeding. Encourage ambulation. Ferrous sulfate supplementation. Plan for discharge tomorrow Vitals - Labs Vital Signs - I&O Vital Signs Date Time Temp Pulse Resp B/P (MAP) Pulse Ox O2 Delivery O2 Flow Rate FiO2 04/12/18 14:00 98.4 106 18 112/69 (83) 96 Room Air 04/12/18 08:00 97.9 90 18 117/74 (88) 100 Room Air 04/12/18 03:56 98.0 84 18 111/75 (87) Room Air 04/11/18 22:00 98.4 97 18 108/61 (77) Room Air Labs Laboratory Tests 04/12/18 04:59: White Blood Count 12.0H, Red Blood Count 2.70L, Hemoglobin 8.7#L, Hematocrit 25L , Mean Corpuscular Volume 93, Mean Corpuscular Hemoglobin 32, Mean Corpuscular Hemoglobin Concent 35, Red Cell Distribution Width 13.1, Platelet Count 192, Mean Platelet Volume 10.3, Neutrophils (%) (Auto) 67, Lymphocytes (%) (Auto) 28 , Monocytes (%) (Auto) 4, Eosinophils (%) (Auto) 1, Basophils (%) (Auto) 0, Neutrophils # (Auto) 8.0H, Lymphocytes # (Auto) 3.3, Monocytes # (Auto) 0.5, Eosinophils # (Auto) 0.1, Basophils # (Auto) 0.0 ERMA BRADFORD MD Apr 12, 2018 6:04 pm
[2018-04-12 20:46] VITALS: BP 106/73
[2018-04-13 02:30] VITALS: BP 113/83
[2018-04-13] MEDS: IBUPROFEN 600 MG (MOTRIN) TAB PO SCH ×2 (04:19→09:35)
[2018-04-13] MEDS ORDERED: FERROUS SULF 325 MG (IRON) TAB PO SCH (07:00)
[2018-04-13] MEDS: PRENATAL VITAMIN 1 EA TAB PO SCH (07:41)
[2018-04-13 09:35] VITALS: BP 116/75
[2018-04-13] MEDS ORDERED: IBUP-844 PO (13:58)
--- NOTE | 2018-04-13 14:00 | Discharge Summary ---
Diagnosis/Chief Complaint Date of Admission Apr 09, 2018 at 15:32 Date of Discharge Admission Diagnosis Admission Diagnosis 38w3d IOL for IUG, non-reassuring BPP 0/8 GBS + Discharge Diagnosis 38w3d IOL for IUGR, non-reassuring BPP 0/8 - s/p 1st degree perineal laceration, repaired GBS + - adequate antibiotic treatment Discharge Summary-OBS Procedures None. Discharge Physical Examination Allergies: Coded Allergies: No Known Drug Allergies (Unverified , 04/09/18) Vitals & I&Os Vital Sign - Last 12Hours Date Time Temp Pulse Resp B/P (MAP) Pulse Ox O2 Delivery O2 Flow Rate FiO2 04/13/18 09:35 97.5 80 16 116/75 (89) 100 Room Air General Appearance: Alert, Oriented X3, Cooperative Psych/Mental Status: Mood NL Hospital Course Routine course Discharge Instructions to patient/family Please see electronic discharge instructions given to patient. Discharge Medications Reviewed and agree with Discharge Medication list on patient's Discharge Instruction sheet Clinical Quality Measures DVT/VTE Risk/Contraindication: Risk Factor Score Per Nursin RFS Level Per Nursing on Admit: 3=High HARDIK PULIDO DO Apr 13, 2018 14:00
--- NOTE | 2018-04-13 14:00 | Discharge Instructions ---
Discharge Inst-[facility] Depart Medications New, Converted or Re-Newed RX: Other (over the counter) New Medications: Ibuprofen (Ibu) 600 Mg Tablet 600 MG PO Q6H PRN for CRAMPS, #90 TAB 0 Refills Continued Medications: Vit W-Ca,Fe,FA(<1 mg) ( Vitamins) 1 Each Tablet 1 EACH PO DAILY, TAB Follow Up/Instructions Goal/Follow Up: Follow-up with Dr. Pike in 6 weeks. Activity Activity: Activity as Tolerated Driving Instructions: You May Drive Nothing Inside Vagina: No Douching, No Needles, No Tampons Diet Discharge Diet: No Restrictions Symptoms to Report to : Bleeding Excessive, Pain Increased, Fever Over 101 Degrees F, Vaginal Bleeding Increase, Vaginal Discharge Foul, Shortness of Breath For Any Problems or Questions: Contact Your Physician HARDIK PULIDO DO Apr 13, 2018 14:00
[2018-04-13 16:05] VITALS: BP 116/75
== END 2018-04-13 16:05 | disposition home or self-care (01) | DRG 806 ==
LOC: LDRP 15:32
PROVIDERS: ADMIT Family Medicine; ATTEND Family Medicine
PROC: 3E0P7GC Introduction of Other Therapeutic Substance into Female Reproductive, Via Natural or Artificial Opening (ICD-10-PCS; 2018-04-09)
PROC: 10E0XZZ Delivery of Products of Conception, External Approach (ICD-10-PCS; principal; 2018-04-11)
PROC: 0HQ9XZZ Repair Perineum Skin, External Approach (ICD-10-PCS; 2018-04-11)
DX: O36.5930 Maternal care for other known or suspected poor fetal growth, third trimester, not applicable or unspecified (principal); O41.03X0 Oligohydramnios, third trimester, not applicable or unspecified; O70.0 First degree perineal laceration during delivery; O90.81 Anemia of the puerperium; O99.824 Streptococcus B carrier state complicating childbirth; O99.62 Diseases of the digestive system complicating childbirth; K21.9 Gastro-esophageal reflux disease without esophagitis; O99.344 Other mental disorders complicating childbirth; F41.9 Anxiety disorder, unspecified; O99.284 Endocrine, nutritional and metabolic diseases complicating childbirth; E28.2 Polycystic ovarian syndrome; O99.334 Smoking (tobacco) complicating childbirth; F17.210 Nicotine dependence, cigarettes, uncomplicated; F90.9 Attention-deficit hyperactivity disorder, unspecified type; O99.52 Diseases of the respiratory system complicating childbirth; J45.909 Unspecified asthma, uncomplicated; O28.3 Abnormal ultrasonic finding on antenatal screening of mother; Z3A.38 38 weeks gestation of pregnancy; Z37.0 Single live birth
CPT/HCPCS: 36415; 85007; 85025; 85027; 86850; 86900; 86901

== ENCOUNTER → 2018-04-09 | Outpatient (CLI) | payer MEDICAID ==
[~2018-04-09] MED LIST: IBUP-844 PO; LACTATED RINGERS 1,000 ML IV ONE; PREN1TAB79 PO
--- OUTSIDE RECORDS SUMMARY | 2018-04-09 15:26 | XMS REPORT ---
Author Author ABELINO HIDALGO [facility] Address [address] [place] [address] Care Team Providers Care Drainage Engineer Name Role Phone ABELINO HIDALGO Unavailable PROBLEMS Type Condition ICD9-CM Code ZOY06-TA Code Onset Dates Condition Status SNOMED Code Problem Smoking (tobacco) complicating , third trimester O99.333 Active 024794614 Problem Supervision of normal first in third trimester Z34.03 Active 26738613 Problem Heartburn R12 Active 66577296 Problem Constipation, unspecified K59.00 Active 55735050 Problem Diseases of the digestive system complicating , third trimester O99.613 Active 62788655 Problem Obesity complicating in third trimester O99.213 Active 613277000468 Problem UTI (urinary tract infection) in in third trimester O23.43 Active 103435176 Problem Asthma exacerbation, mild J45.901 Active 320433335 Problem Amniotic fluid index borderline low O28.8 Active 20941732 Problem 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 Active 5652654411900 Problem Tobacco abuse Z72.0 Active 27981047 Problem Spotting complicating , first trimester O26.851 Active 210501559 Problem Unspecified sexually transmitted disease A64 Active 3113378 Problem Irregular periods N92.6 Active 22102476 Problem Other infections with a predominantly sexual mode of transmission complicating , unspecified trimester O98.319 Active 86707707 Problem Nausea and vomiting during prior to 22 weeks gestation O21.9 Active 47454867 Problem Other specified related conditions, third trimester O26.893 Active 79875329 ALLERGIES Substance Reaction Event Type Date Status Ritalin hives Drug Allergy Mar, Active ENCOUNTERS Encounter Location Date Diagnosis [facility] [address] [id number] [place] [id number] Apr, [facility] [address] [place] [address] AVE [id number], [place] [id number] Mar, [facility] [id number][place] [address] Mar, Third trimester Z34.93 and Tobacco abuse Z72.0 [facility]ITALInvivodataP[facility] HERRERA [employer] ManagementYumiko [address] [id number][place] [id number] Feb, Encounter for immunization Z23 ; Smoking (tobacco) complicating , third trimester O99.333 ; Unspecified sexually transmitted disease A64 ; Supervision of normal first in third trimester Z34.03 ; Obesity complicating in third trimester O99.213 ; Heartburn R12 ; Other specified related conditions, third trimester O26.893 ; UTI (urinary tract infection) in in third trimester O23.43 ; 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 ; Asthma exacerbation, mild J45.901 ; Diseases of the digestive system complicating , third trimester O99.613 and Constipation, unspecified K59.00 [facility] [employer] [place], [place] [address] [id number], [place] [address] Feb, [facility]ITAL[facility] Networks[address] [id number], [place] [id number] Feb, Supervision of normal first in third trimester Z34.03 ; Smoking (tobacco) complicating , third trimester O99.333 ; Other specified bacterial agents as the cause of diseases classified elsewhere B96.89 ; Acute sinusitis, unspecified J01.90 ; Asthma exacerbation, mild J45.901 ; Diseases of the respiratory system complicating , third trimester O99.513 ; Amniotic fluid index borderline low O28.8 ; Constipation, unspecified K59.00 and Diseases of the digestive system complicating , third trimester O99.613 [facility] VEL[address] [id number], [place] [id number] Jan, Encounter for immunization Z23 ; Supervision of normal first in third trimester Z34.03 ; Smoking (tobacco) complicating , third trimester O99.333 ; Obesity complicating in third trimester O99.213 ; Other specified related conditions, third trimester O26.893 ; Heartburn R12 ; Decreased movements in third trimester, single or unspecified fetus O36.8130 and 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 [facility] [address] [facility] [id number], [place] [address] 14 Jan, 2018 Supervision of normal first in third trimester Z34.03 ; Smoking (tobacco) complicating , third trimester O99.333 ; Obesity complicating in third trimester O99.213 ; Heartburn R12 ; Other specified related conditions, third trimester O26.893 ; Increased urinary frequency R35.0 and UTI (urinary tract infection) in in third trimester O23.43 [address] [employer] [address] [id number], [place] [address] Jan, Dental caries K02.9 [facility]ITALTal MedicalTER [employer] Management[address] [id number], [place] [address] Jan, Dental examination Z01.20 [facility] [id number], [place] [address] Dec, Supervision of normal first in second trimester Z34.02 ; Tobacco smoking complicating in second trimester O99.332 ; Obesity complicating , second trimester O99.212 and Nausea and vomiting during prior to 22 weeks gestation O21.9 [facility] [id number], [place] [address] Nov, [facility] [address]00565100[address], [place] [address] Nov, Supervision of normal first in second trimester Z34.02 ; Tobacco smoking complicating in second trimester O99.332 and Obesity complicating , second trimester O99.212 [facility]ITALTal MedicalTER [address] [id number], [place] [address] October, Supervision of normal first in second trimester Z34.02 ; UTI (urinary tract infection) in in second trimester O23.42 ; Nausea and vomiting during prior to 22 weeks gestation O21.9 ; Obesity complicating , second trimester O99.212 and Tobacco smoking complicating in second trimester O99.332 [facility]ALT[facility] MedicalTER [address] [id number], [place] [address] October, Dental caries K02.9 ; Weight loss R63.4 and Second trimester Z34.92 [facility] [address] [id number], [place] [address] Sep, Supervision of normal first in first trimester Z34.01 ; Smoking (tobacco) complicating , first trimester O99.331 ; Obesity complicating in first trimester O99.211 ; Nausea and vomiting during prior to 22 weeks gestation O21.9 ; Other specified related conditions, first trimester O26.891 ; Unspecified sexually transmitted disease A64 and Other infections with a predominantly sexual mode of transmission complicating , unspecified trimester O98.319 [facility] [address] [id number], [place] [address] Sep, Other specified related conditions, first trimester O26.891 [facility] [address] [facility] [id number], [place] [address] Sep, Other maternal infectious and parasitic diseases complicating , second trimester O98.812 and Chlamydial infection A74.9 [facility] [address] [id number], [place] [address] Sep, Supervision of normal first in first trimester Z34.01 [facility] [employer] [id number], [place] [address] Aug, Supervision of normal first in first trimester Z34.01 ; Smoking (tobacco) complicating , first trimester O99.331 ; Spotting complicating , first trimester O26.851 ; Nausea and vomiting during prior to 22 weeks gestation O21.9 ; Dysuria R30.0 and Other specified related conditions, first trimester O26.891 [facility] [employer] [id number], [place] [address] Jul, [facility]ENTERBplatsHERRERA [address] [id number] [place] [address] Jul, Supervision of normal first in first trimester Z34.01 ; Smoking (tobacco) complicating , first trimester O99.331 and Obesity complicating in first trimester O99.211 [facility] [address] [facility] [id number], [place] [id number] 20 Jul, 2017 Encounter for test, result unknown Z32.00 [facility] HERR[facility]A [address] [place] [address] [id number], [place] [id number] 28 Mar, 2017 Strep pharyngitis J02.0 and URI with cough and congestion J06.[address] [id number], [place] [address] Feb, [facility] HERRERA[address] [id number], [place] [address] Feb, Encounter for Depo-Provera contraception Z30.42 [facility] HERRERA[address] [id number], [place] [address] Feb, Acute bronchitis, unspecified organism J20.9 ; Tobacco abuse Z72.0 ; Tobacco abuse counseling Z71.6 and Scabies B86 [address] [id number], [place] [address] Dec, Encounter for contraceptive management, unspecified Z30.9 ; Routine gynecological examination Z01.419 ; Screening for STD sexually transmitted disease Z11.3 and Encounter for Depo-Provera contraception Z30.42 [facility] HERRERA[address] [id number], [place] [id number] Nov, Urinary tract infection, site unspecified N39.0 [facility] HERRERA[address] [id number], [place] [address] Sep, Frequent urination R35.0 ; Missed period N92.6 and Contraception Z30.[address] [id number], [place] [address] Aug, Bronchitis J40 ; Tobacco abuse Z72.0 and Tobacco abuse counseling Z71.[address] [id number], [place] [address] Apr, Acute bronchitis J20.9 ; Tobacco abuse Z72.0 and Tobacco abuse counseling Z71.6 [facility] ROBISONHERRERA Iraida [address] [id number], [place] [address] Dec, Sprain of right ankle 845.00 and Strain of left foot 845.10 [facility] Khoury [address] [address] [id number], [place] [id number] October, Encounter for contraceptive management V25.9 [facility]ITAL[facility] Carroll[address] [place] [address] [id number], [place] [address] Sep, Dental examination V72.2 [facility] [address]00565100[place], [place] [address] Sep, [facility] [id number] [place] [address]69 Sep, [facility] [id number] [place] [address]- 7919 Jul, [facility] [id number] [place] [address] 1348 Jul, [facility] [id number] [place] [address]- 7978 Jul, [facility] [id number] [place] [address]- [address]277 Jul, [facility] [address]00565100[place], [place] [address] Jul, [facility] [id number] [place] [address]- 5018 Jul, [facility] [address]00565100[place], [place] [address] Jul, [facility] [id number] [place] [address]- 4590 Jul, [facility] [address] [id number], [place] [address] Jul, [facility] [place] [facility] [address] [id number] [place] [address] Jul, 2014 [facility] [place] [facility] [address] [id number] [place] [address] Jul, 2014 [facility] [place] [facility] [address] [id number] [place] [address]- 6014 Apr, [facility] [place] [facility] [address] [id number] [place] [address]- 8446 Apr, [facility] [place] [facility] [address] [id number] [place] [address]- 0495 Apr, [facility] [place] [facility] [address] [id number] [place] [address]- 0509 Apr, [facility] [place] [facility] [address] [id number] [place] [address]- 2492 Apr, [facility] [place] [facility] [address] [id number] [place] [address]- 9391 Mar, [facility] [place] [facility] [address] [id number] [place] [address]- 6397 Mar, [facility] [place] [facility] [address] [id number] [place] [address]- 8287 Mar, [facility] [place] [facility] [address] [id number] [place] [address]- 7512 Mar, [facility] [place] [facility] [address] [id number] [place] [address]- 3248 Mar, [facility] [place] [facility] [address] [id number] [place] [address]- 1591 Mar, [facility] [place] [facility] [address] [id number] [place] [address]85 Mar, [facility] [place] [facility] [address] [id number] [place] [address]- 6599 Mar, [facility] [place] [facility] [address] [id number] [place] [address]- 8324 Mar, [facility] [place] [facility] [address] [id number] [place] [address]- 9300 Mar, [facility] [place] [facility] [address] [id number] [place] [address]- 3027 Mar, [facility] [place] [facility] [address] [id number] [place] [address]- 6834 Feb, [facility] [place] [facility] [address] [id number] [place] [address]- 0390 Feb, [facility] [place] [facility] [address] [id number] [place] [address]- 7303 Dec, [facility] [place] [facility] [address] [id number] [place] [address]- 5241 Dec, [facility] [place] [facility] [address] [id number] [place] [address]- 8671 October, [facility] [place] [facility] [address] [id number] [place] [address]- 5454 October, [facility] [place] [facility] [address] [id number] [place] [address]- 3596 Sep, [facility] [place] [facility] [address] [id number] [place] [address]- 6937 Sep, [facility] [place] [facility] [address] [id number] [place] [address]- 7249 Sep, [facility] [place] [facility] [address] [id number] [place] [address]- 8137 Sep, [facility] [place] [facility] [address] [id number] [place] [address]- 3082 Sep, [facility] [place] [facility] [address] [id number] [place] [address]- 7669 Sep, [facility] [place] [facility] [address] [id number] [place] [address]- 2456 Sep, [facility] [place] [facility] [address] [id number] [place] [address]- 0157 Jul, [facility] [place] [facility] [address] [id number] [place]- 2466 Jul, [facility] [place] [facility] [address] [id number] [place] [address]- 2246 Jul, [facility] [place] [facility] [address] [id number] [place] [address]- 6456 Jul, [facility] [place] [facility] [address] [id number] [place] [address]- 2546 Jul, [facility] [place] [facility] [address] [id number] [place] [address]- 4556 Jul, [facility] [place] [facility] [address] [id number] [place] [address]- 0029 Jun, [facility] [place] [facility] [address] [id number] [place] [address]- 9348 Jun, [facility] [place] [facility] [address] [id number] [place] [address]- 9885 Jun, [facility] [place] [facility] [address] [facility] [id number] [place] [address]- 8687 Jun, [facility] [place] [facility] [address] [facility] [id number] [place] [address]472 May, [facility] [place] [facility] [address] [id number] [place] [address] 2546 May, [facility] [place] [facility] [address] [id number] [place] [address]- 2543 Mar, [facility] [place] [facility] [address] [id number] [place] [address]- 2485 Mar, [facility] [place] [facility] [address] [id number] [place]- 116[address] Mar, [facility] [place] [facility] [address] [id number] [place] 9279 Mar, [facility] [address] [id number] [place] [address]- 4910 Mar, [facility] [place] [facility] [address] [id number] [place] [address]- 4825 Sep, [facility] [place] [facility] [address] [id number] [place] [address]- 4836 Sep, [facility] [place] [facility] [address] [id number] [place] [address]- 0116 Sep, [facility] [address] [id number] [place] [address]- 2203 Aug, [facility] [place] [facility] [address] [id number] [place] [address]- 3677 Jul, [facility] [place] [facility] [address] [id number] [place] [address]- 7416 Jul, [facility] [place] [facility] [address] [id number] [place] [address]- 0332 Jul, [facility] [place] [facility] [address] [id number] [place] [address]- 8544 Jun, [facility] [place] [facility] [address] [id number] [place] [address]- 8293 Jun, [facility] [place] [facility] [address] [id number], [place] [address]- 3255 Mar, [facility] [place] [facility] [address] [id number], [place] [address]- 5192 Feb, [facility] [place] [facility] [address] [id number] [place] [address]- 1407 Feb, [facility] [place] [facility] [address] [id number] [place] [address]- 7245 October, [facility] [place] [facility] [address] [id number] [place] [address]- 6464 Sep, [facility] [place] [facility] [address] [id number], [place] [address]- 6[address] 13 Sep, 2011 [facility] [place] [facility] [address] [id number], [place] [address]- 5616 Sep, [facility] [place] [facility] [address] [facility] [id number], [place] [address]- 2546 Aug, [facility] [address] [id number] [place] [id number] Jul, [facility] [place] [facility] [address] [id number], [place] [address] 2546 Jun, [facility] [address] [id number] [place] [id number] Jun, [facility] [place] [facility] [address] [facility] [id number], [place] [address] 2546 May, [facility] [place] [facility] [address] [id number], [place] [address]- 4596 Apr, [facility] [place] [facility] [address] [id number], [place] [address]- 2403 Jan, [facility] [place] [facility] [address] [id number], [place] [address]- 2332 Sep, [facility] [place] [facility] [address] [id number], [place] [address]- 9945 15 Jul, 2010 [facility] [place] [facility] [address] [id number], [place] [address]- 8766 Feb, [facility] [place] [facility] [address] [id number], [place] [address]- 0906 May, [facility] [place] [facility] [address] [id number], [place] [address]- 6176 May, [facility] [place] [facility] [address] [facility] [id number], [place] [address]- 4698 Apr, [facility] [place] [facility] [address] [facility] [id number], [place] [address]- 2156 Mar, [facility] [place] [facility] [address] [facility] [id number] [place] [address]- 8819 Mar, [facility] [address] [facility] [id number], [place] [address]- 5826 Feb, [facility] [address] [facility] [id number], [place] [address]- 9423 Jan, [facility] [address] [facility] [id number], [place] [address]- 3292 Nov, IMMUNIZATIONS No Known Immunizations SOCIAL HISTORY Never Assessed REASON FOR VISIT OB f/u. sonali wagner PLAN OF CARE Activity Details Follow Up 1 Week, 1 Week Reason: VITAL SIGNS Height 62 in 2018-03-27 Weight 191.6 lbs 2018-03-27 Temperature 97.2 degrees Fahrenheit 2018-03-27 Heart Rate 97 bpm 2018-03-27 Respiratory Rate 18 2018-03-27 Oximetry 99 % 2018-03-27 BMI 35.044 kg/m2 2018-03-27 Blood pressure systolic 120 mmHg 2018-03-27 Blood pressure diastolic 80 mmHg 2018-03-27 MEDICATIONS Medication Instructions Dosage Frequency Start Date End Date Duration Status Ventolin HFA 108 (90 Base) MCG/ACT Inhalation every 6 hrs 2 puffs as needed 6h 13 Feb, 2018 Active Ondansetron 4 MG Orally every six hours as needed 1 tablet Aug, 30 days Active RESULTS Name Result Date Reference Range UA OB DIP (IN HOUSE) 2018-03-27 Glucose negative Protein trace PROCEDURES Procedure Date Ordered Result Body Site URINE-NO MICRO Mar 27, 2018 INSTRUCTIONS MEDICATIONS ADMINISTERED No Known Medications MEDICAL (GENERAL) HISTORY Type Description Date Medical History : due date 04/18/2018 Medical History asthma- Normal PFT 2012 Medical History allergies Medical History acid reflux Medical History anxiety Medical History PCOS Medical History ADHD Medical History Scabies Surgical History tonsillectomy and adenoidectomy Surgical History oral surgery Hospitalization History overdose on sleeping medication age 9
--- OUTSIDE RECORDS SUMMARY | 2018-04-09 15:26 | XMS REPORT ---
Author Author MATHEUS RAY Organization [facility] Address [address] [place] [address] Care Team Providers Care Corporate Executive Name Role Phone MATHEUS RAY Unavailable PROBLEMS Type Condition ICD9-CM Code EJD44-KR Code Onset Dates Condition Status SNOMED Code Problem Smoking (tobacco) complicating , third trimester O99.333 Active 405720265 Problem Supervision of normal first in third trimester Z34.03 Active 82499496 Problem Heartburn R12 Active 20716206 Problem Constipation, unspecified K59.00 Active 42471213 Problem Diseases of the digestive system complicating , third trimester O99.613 Active 10733007 Problem Obesity complicating in third trimester O99.213 Active 937055055965 Problem UTI (urinary tract infection) in in third trimester O23.43 Active 148080871 Problem Asthma exacerbation, mild J45.901 Active 043923197 Problem Amniotic fluid index borderline low O28.8 Active 97453099 Problem 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 Active 6009765429274 Problem Tobacco abuse Z72.0 Active 87216546 Problem Spotting complicating , first trimester O26.851 Active 503672761 Problem Unspecified sexually transmitted disease A64 Active 7189094 Problem Irregular periods N92.6 Active 28621479 Problem Other infections with a predominantly sexual mode of transmission complicating , unspecified trimester O98.319 Active 31771871 Problem Nausea and vomiting during prior to 22 weeks gestation O21.9 Active 41670082 Problem Other specified related conditions, third trimester O26.893 Active 61837335 ALLERGIES Substance Reaction Event Type Date Status Ritalin hives Drug Allergy Mar, Active ENCOUNTERS Encounter Location Date Diagnosis [facility] [address] [id number] [place] [id number] Apr, [facility] [address] [id number][place] [id number] Mar, [address] [id number][place] [id number] Mar, Supervision of normal first in third trimester Z34.03 ; Smoking (tobacco) complicating , third trimester O99.333 ; Obesity complicating in third trimester O99.213 ; Heartburn R12 ; Other specified related conditions, third trimester O26.893 and 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 [id number][place] [id number] Mar, Third trimester Z34.93 and Tobacco abuse Z72.[address] [id number][place] [id number] Feb, Encounter for immunization Z23 ; Smoking [...] third trimester O99.613 and Constipation, unspecified K59.[address] [id number][place] [id number] Feb, [address] [id number][place] [id number] Feb, Supervision of normal first in third [...] digestive system complicating , third trimester O99.613 [facility] [address] [id number][place] [id number] Jan, Encounter for immunization Z23 ; Supervision of normal first in third trimester Z34.03 ; Smoking (tobacco) complicating , third trimester O99.333 ; Obesity complicating in third trimester O99.213 ; Other specified related conditions, third trimester O26.893 ; Heartburn R12 ; Decreased movements in third trimester, single or unspecified fetus O36.8130 and 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 [address] [place] [id number] Jan, Supervision of normal first in third trimester Z34.03 ; Smoking (tobacco) complicating , third trimester O99.333 ; Obesity complicating in third trimester O99.213 ; Heartburn R12 ; Other specified related conditions, third trimester O26.893 ; Increased urinary frequency R35.0 and UTI (urinary tract infection) in in third trimester O23.43 [facility] [id number], [place] [id number] Jan, Dental caries K02.9 [facility] [employer] [facility] [id number] [place] [id number] Jan, Dental examination Z01.20 [address] [place] [id number] Dec, Supervision of normal first in second trimester Z34.02 ; Tobacco smoking complicating in second trimester O99.332 ; Obesity complicating , second trimester O99.212 and Nausea and vomiting during prior to 22 weeks gestation O21.9 [address] [id number] [id number] Nov, [facility] [place] [address] [id number] [place] [id number] Nov, Supervision of normal first in second trimester Z34.02 ; Tobacco smoking complicating in second trimester O99.332 and Obesity complicating , second trimester O99.212 [facility] [id number] [place] [id number] October, Supervision of normal first in second trimester Z34.02 ; UTI (urinary tract infection) in in second trimester O23.42 ; Nausea and vomiting during prior to 22 weeks gestation O21.9 ; Obesity complicating , second trimester O99.212 and Tobacco smoking complicating in second trimester O99.[address] [id number][place] [id number] October, Dental caries K02.9 ; Weight loss R63.4 and Second trimester Z34.[address] [id number], [place] [id number] Sep, Supervision of normal first in first [...] of transmission complicating , unspecified trimester O98.[address] [id number][place] [id number] Sep, Other specified related conditions, first trimester O26.891 [facility] [address] [facility] [id number], [place] [id number] Sep, Other maternal infectious and parasitic diseases complicating , second trimester O98.812 and Chlamydial infection A74.9 [address] [id number], [place] [id number] Sep, Supervision of normal first in first trimester Z34.01 [address] [facility] [address] [id number], [place] [id number] Aug, Supervision of normal first in first trimester Z34.01 ; Smoking (tobacco) complicating , first trimester O99.331 ; Spotting complicating , first trimester O26.851 ; Nausea and vomiting during prior to 22 weeks gestation O21.9 ; Dysuria R30.0 and Other specified related conditions, first trimester O26.891 [facility] [address] [place] [address] [id number], [place] [id number] Jul, [facility] [address] [id number], [place] [address] Jul, Supervision of normal first in first trimester Z34.01 ; Smoking (tobacco) complicating , first trimester O99.331 and Obesity complicating in first trimester O99.[address] [id number], [place] [id number] Jul, Encounter for test, result unknown Z32.00 [facility] [address] [id number] [place] [id number] Mar, Strep pharyngitis J02.0 and URI with cough and congestion J06.[address] [id number], [place] [id number] Feb, [facility] [address] [id number], [place] [id number] Feb, Encounter for Depo-Provera contraception Z30.42 [facility] [address] [id number], [place] [id number] Feb, Acute bronchitis, unspecified organism J20.9 ; Tobacco abuse Z72.0 ; Tobacco abuse counseling Z71.6 and Scabies B86 [address] [id number], [place] [id number] Dec, Encounter for contraceptive management, unspecified Z30.9 ; Routine gynecological examination Z01.419 ; Screening for STD sexually transmitted disease Z11.3 and Encounter for Depo-Provera contraception Z30.42 [facility] [address] [id number], [place] [id number] Nov, Urinary tract infection, site unspecified N39.[address] [id number], [place] [id number] Sep, Frequent urination R35.0 ; Missed period N92.6 and Contraception Z30.9 [facility] [address] [facility] [id number], [place] [id number] Aug, Bronchitis J40 ; Tobacco abuse Z72.0 and Tobacco abuse counseling Z71.[address] [id number], [place] [id number] Apr, Acute bronchitis J20.9 ; Tobacco abuse Z72.0 and Tobacco abuse counseling Z71.[address] [id number], [place] [id number] Dec, Sprain of right ankle 845.00 and Strain of left foot 845.[address] [id number], [place] [id number] October, Encounter for contraceptive management V25.[address] [id number], [place] [id number] Sep, Dental examination V72.2 [facility] [id number] [place] [address] Sep, [facility] [id number] [place] [address] Sep, [facility] [id number] [place] [address] Jul, [facility] [id number] [place] [address] Jul, [facility] [id number] [place] [address]- 9846 Jul, [facility] [id number] [place] [address]- [address]35 Jul, [facility] [id number] [place] [address]- 4557 Jul, [facility] [id number] [place] [address]201 Jul, [facility] [place] [facility] [address] [id number] [place] [address] Jul, 2014 [facility] [place] [facility] [address] [id number] [place] [address]- [address] Jul, 2014 [facility] [place] [facility] [address] [id number] [place] [address]- [address] Jul, 2014 [facility] [place] [facility] [address] [id number] [place] [address]- [address]39 Jul, 2014 [facility] [place] [facility] [address] [id number] [place] [address] Jul, 2014 [facility] [place] [facility] [address] [id number] [place] [address] Apr, [facility] [place] [facility] [address] [id number] [place] [address] Apr, [facility] [place] [facility] [address] [id number] [place] [address]- [address] Apr, [facility] [place] [facility] [address] [id number] [place] [address]- [address] Apr, [facility] [place] [facility] [address] [id number] [place] [address]- 2094 Apr, [facility] [place] [facility] [address] [facility] [id number] [place] [address]- 0436 30 Mar, 2014 [facility] [place] [facility] [address] [id number], [place] [address] 30 Mar, 2014 [facility] [place] [facility] [address] [id number] [place] [address]- 4785 Mar, [facility] [place] [facility] [address] [id number] [place] [address]- 2636 14 Mar, 2014 [facility] [place] [facility] [address] [id number], [place] [address]- [address] 11 Mar, 2014 [facility] [place] [facility] [address] [id number], [place] [address] 39[address] Mar, [facility] [place] [facility] [address] [id number] [place] [address]- 1717 Mar, [facility] [place] [facility] [address] [id number] [place] [address]74 Mar, [facility] [place] [facility] [address] [id number] [place] [address]- 5853 Mar, [facility] [place] [facility] [address] [id number] [place] [address]- 5206 Mar, [facility] [place] [facility] [address] [id number] [place] [address]- 8363 Mar, [facility] [place] [facility] [address] [id number] [place] [address]- 1585 Feb, [facility] [place] [facility] [address] [id number] [place] [address]- 8873 Feb, [facility] [place] [facility] [address] [id number] [place] [address]- 8193 Dec, [facility] [place] [facility] [address] [id number] [place] [address]- 8365 Dec, [facility] [place] [facility] [address] [id number] [place] [address]- 1873 October, [facility] [place] [facility] [address] [id number] [place] [address]- 2472 October, [facility] [place] [facility] [address] [id number] [place] [address]- 5039 Sep, [facility] [place] [facility] [address] [id number] [place] [address]- 9093 Sep, [facility] [place] [facility] [address] [id number] [place] [address]- 7342 Sep, [facility] [place] [facility] [address] [id number] [place] [address]- 7158 Sep, [facility] [place] [facility] [address] [id number] [place] [address]- 2633 Sep, [facility] [place] [facility] [address] [id number] [place] [address]- 4843 Sep, [facility] [place] [facility] [address] [id number] [place] [address]- 4296 Sep, [facility] [place] [facility] [address] [id number] [place] [address]- 3895 Jul, [facility] [place] [facility] [address] [id number] [place] [address]- 0840 Jul, [facility] [place] [facility] [address] [id number] [place] [address]- 1455 Jul, [facility] [place] [facility] [address] [id number] [place] [address]- 5074 Jul, [facility] [place] [facility] [address] [id number] [place] [address]- 6084 Jul, [facility] [place] [facility] [address] [id number] [place] [address]- 1402 Jul, [facility] [place] [facility] [address] [id number] [place] [address]- 0330 Jun, [facility] [place] [facility] [address] [id number] [place] [address]- 7380 Jun, [facility] [place] [facility] [address] [id number] [place] [address]- 5039 Jun, [facility] [place] [facility] [address] [id number] [place] [address]- 7988 Jun, [facility] [place] [facility] [address] [id number] [place] [address]- 4264 May, [facility] [place] [facility] [address] [id number] [place] [address]- 7168 May, [facility] [place] [facility] [address] [id number] [place] [address]- 5240 Mar, [facility] [address] [id number] [place] [address]- 2079 Mar, [facility] [place] [facility] [address] [id number] [place] [address] Mar, [facility] [place] [facility] [address] [id number] [place] [address]- 4573 Mar, [facility] [place] [facility] [address] [id number] [place] [address]- 5472 Mar, [facility] [place] [facility] [address] [id number] [place] [address]- 0566 Sep, [facility] [place] [facility] [address] [id number] [place] [address]- 4938 Sep, [facility] [place] [facility] [address] [id number] [place] [address]- 3971 Sep, [facility] [place] [facility] [address] [id number] [place] [address]- 9352 Aug, [facility] [place] [facility] [address] [id number] [place] [address]- 4517 Jul, [facility] [place] [facility] [address] [id number] [place] [address]- 2673 Jul, [facility] [place] [facility] [address] [id number] [place] [address]- 1651 Jul, [facility] [place] [facility] [address] [id number] [place] [address]- 7265 Jun, [facility] [place] [facility] [address] [id number] [place] [address]- 2167 Jun, [facility] [place] [facility] [address] [id number] [place] [address]- 2342 Mar, [facility] [place] [facility] [address] [id number] [place] [address]- 1093 Feb, [facility] [place] [facility] [address] [id number] [place] [address]- 2546 13 Feb, 2012 [facility] [address] [id number] [place] [address]- 9676 October, [facility] [address] [id number] [place] [address]- 2546 Sep, [facility] [address] [id number] [place] [address]- 2546 Sep, [facility] [address] [id number] [place] [address]- 2546 Sep, [facility] [address] [id number] [place] [address]- 2546 Aug, [facility] [address] [id number] [place] [id number] Jul, [facility] [address] [id number], [place] [address]- 2766 Jun, [facility] [address] [id number], [place] [id number] Jun, [facility] [address] [id number], [place] [address]- 0046 May, [facility] [address] [facility] [id number], [place] [address]- 2546 Apr, [facility] [address] [id number] [place] [address]- 2546 Jan, [facility] [place] [facility] [address] [id number], [place] [address]- 2546 Sep, [facility] [address] [id number], [place] [address]- [address] 15 Jul, 2010 [facility] [place] [facility] [address] [id number], [place] [address]- 2546 15 Feb, 2010 [facility] [address] [id number], [place] [address]- 0046 May, [facility] [address] [id number], [place] [address]- 9071 May, [facility] [address]00565100[place], [place] [address]- [address] Apr, [facility] [address]00565100[place], [place] [address]- 7207 Mar, [facility] [address]00565100[place], [place] [address]- 8394 Mar, [facility] [address]00565100[place], [place] [address]- 2653 Feb, [facility] [address]00565100[place], [place] [address]- [address] Jan, [facility] [address]00565100[place], [place] [address]- 1819 Nov, IMMUNIZATIONS No Known Immunizations SOCIAL HISTORY Never Assessed REASON FOR VISIT [facility] OF CARE Activity Details Follow Up 1 Week Reason:OB Visit - 38 weeks VITAL SIGNS Height 62 in 2018-04-03 Weight 197.2 lbs 2018-04-03 Heart Rate 80 bpm 2018-04-03 Respiratory Rate 16 2018-04-03 BMI 36.068 kg/m2 2018-04-03 Blood pressure systolic 122 mmHg 2018-04-03 Blood pressure diastolic 70 mmHg 2018-04-03 MEDICATIONS Medication Instructions Dosage Frequency Start Date End Date Duration Status Ondansetron 4 MG Orally every six hours as needed 1 tablet Aug, 30 days Active Ventolin HFA 108 (90 Base) MCG/ACT Inhalation every 6 hrs 2 puffs as needed 6h 13 Feb, 2018 Active RESULTS Name Result Date Reference Range UA OB DIP (IN HOUSE) 2018-04-03 Glucose neg Protein neg PROCEDURES Procedure Date Ordered Result Body Site URINE-NO MICRO Apr 03, 2018 INSTRUCTIONS MEDICATIONS ADMINISTERED No Known Medications [...]
--- OUTSIDE RECORDS SUMMARY | 2018-04-09 15:27 | XMS REPORT ---
Author Author MATHEUS RAY Organization [facility] Address [address] [place] [address] Care Team Providers Care Locum Tenens Psychiatrist Name Role Phone MATHEUS RAY Unavailable PROBLEMS Type Condition ICD9-CM Code [id number] Code Onset Dates Condition Status SNOMED Code Problem Smoking (tobacco) complicating , third trimester O99.333 Active 893346880 Problem Supervision of normal first in third trimester Z34.03 Active 31894743 Problem Heartburn R12 Active 93917983 Problem Constipation, unspecified K59.00 Active 19999551 Problem Diseases of the digestive system complicating , third trimester O99.613 Active 10696094 Problem Obesity complicating in third trimester O99.213 Active 482056593770 Problem UTI (urinary tract infection) in in third trimester O23.43 Active 561238424 Problem Asthma exacerbation, mild J45.901 Active 333145525 Problem Amniotic fluid index borderline low O28.8 Active 31034769 Problem 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 Active 3975174975368 Problem Tobacco abuse Z72.0 Active 38836541 Problem Spotting complicating , first trimester O26.851 Active 001416785 Problem Unspecified sexually transmitted disease A64 Active 0489131 Problem Irregular periods N92.6 Active 47395765 Problem Other infections with a predominantly sexual mode of transmission complicating , unspecified trimester O98.319 Active 78036356 Problem Nausea and vomiting during prior to 22 weeks gestation O21.9 Active 85943253 Problem Other specified related conditions, third trimester O26.893 Active 54968339 ALLERGIES No Information ENCOUNTERS Encounter Location Date Diagnosis [facility] [address] [id number] [place] [id number] Apr, [facility] [address] [id number] [place] [id number] Mar, [facility] [id number] [place] [id number] Feb, Encounter for immunization Z23 ; Smoking [...] third trimester O99.613 and Constipation, unspecified K59.00 [facility] [id number] [id number] Feb, [address] [id number][place] [address] Feb, Supervision of normal first in third [...] digestive system complicating , third trimester O99.[address] [id number][place] [address] Jan, Encounter for immunization Z23 ; Supervision of normal first in third trimester Z34.03 ; Smoking (tobacco) complicating , third trimester O99.333 ; Obesity complicating in third trimester O99.213 ; Other specified related conditions, third trimester O26.893 ; Heartburn R12 ; Decreased movements in third trimester, single or unspecified fetus O36.8130 and 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 [id number][place] [address] Jan, Supervision of normal first in third trimester Z34.03 ; Smoking (tobacco) complicating , third trimester O99.333 ; Obesity complicating in third trimester O99.213 ; Heartburn R12 ; Other specified related conditions, third trimester O26.893 ; Increased urinary frequency R35.0 and UTI (urinary tract infection) in in third trimester O23.[address] [address] [address] [id number], [place] [id number] Jan, Dental caries K02.9 [facility] [address] [id number][place] [id number] Jan, Dental examination Z01.20 [facility] [address] [id number][place] [address] Dec, Supervision of normal first in second trimester Z34.02 ; Tobacco smoking complicating in second trimester O99.332 ; Obesity complicating , second trimester O99.212 and Nausea and vomiting during prior to 22 weeks gestation O21.9 [facility] [address] [id number][place] [id number] Nov, [facility] [address] [id number][place] [id number] Nov, Supervision of normal first in second trimester Z34.02 ; Tobacco smoking complicating in second trimester O99.332 and Obesity complicating , second trimester O99.212 [facility] [id number][place] [id number] October, Supervision of normal first in second trimester Z34.02 ; UTI (urinary tract infection) in in second trimester O23.42 ; Nausea and vomiting during prior to 22 weeks gestation O21.9 ; Obesity complicating , second trimester O99.212 and Tobacco smoking complicating in second trimester O99.332 [facility] SoftwareE [id number], [place] [address] October, Dental caries K02.9 ; Weight loss R63.4 and Second trimester Z34.92 [facility] E [id number][place] [id number] Sep, Supervision of normal first in first [...] of transmission complicating , unspecified trimester O98.319 [facility] [address] [id number] [place] [address] Sep, Other specified related conditions, first trimester O26.891 [facility] [address] [facility] [id number][place] [address] Sep, Other maternal infectious and parasitic diseases complicating , second trimester O98.812 and Chlamydial infection A74.9 [facility] [id number] [place] [address] Sep, Supervision of normal first in first trimester Z34.01 [facility] [id number] [place] [id number] Aug, Supervision of normal first in first trimester Z34.01 ; Smoking (tobacco) complicating , first trimester O99.331 ; Spotting complicating , first trimester O26.851 ; Nausea and vomiting during prior to 22 weeks gestation O21.9 ; Dysuria R30.0 and Other specified related conditions, first trimester O26.891 [facility] [address] [id number] [place] [address] Jul, [facility] [id number] [place] [address] Jul, Supervision of normal first in first trimester Z34.01 ; Smoking (tobacco) complicating , first trimester O99.331 and Obesity complicating in first trimester O99.211 [facility] [address] [facility] [id number] [place] [id number] Jul, Encounter for test, result unknown Z32.[address] [id number], [place] [address] Mar, Strep pharyngitis J02.0 and URI with cough and congestion J06.[address] [id number], [place] [id number] Feb, [address] [id number], [place] [address] Feb, Encounter for Depo-Provera contraception Z30.[address] [id number], [place] [address] Feb, Acute bronchitis, unspecified organism J20.9 ; Tobacco abuse Z72.0 ; Tobacco abuse counseling Z71.6 and Scabies B86 [facility] [address] [facility] [id number], [place] [id number] Dec, Encounter for contraceptive management, unspecified Z30.9 ; Routine gynecological examination Z01.419 ; Screening for STD sexually transmitted disease Z11.3 and Encounter for Depo-Provera contraception Z30.[address] [id number], [place] [address] Nov, Urinary tract infection, site unspecified N39.[address] [id number], [place] [address] Sep, Frequent urination R35.0 ; Missed period N92.6 and Contraception Z30.[address] [id number], [place] [address] Aug, Bronchitis J40 ; Tobacco abuse Z72.0 and Tobacco abuse counseling Z71.[address] [id number], [place] [address] Apr, Acute bronchitis J20.9 ; Tobacco abuse Z72.0 and Tobacco abuse counseling Z71.[address] [id number], [place] [address] Dec, Sprain of right ankle 845.00 and Strain of left foot 845.10 [facility] [address] [facility] [address] [id number], [place] [id number] October, Encounter for contraceptive management V25.9 [facility] [address] [facility] [address] [id number], [place] [address] Sep, Dental examination V72.2 [facility] [address]00565100[place], [place] [address] 14 Sep, 2014 [facility] [id number] [place] [address] Sep, [facility] [id number] [place] [address]249 Jul, [facility] [id number] [place] [address]956 Jul, 2014 [facility] [id number] [place] [address]861 Jul, 2014 [facility] [address]00565100[place], [place] [address] Jul, [facility] [id number] [place] [address] 4668 Jul, 2014 [facility] [address]00565100[place], [place] [address] Jul, [facility] [address]00565100[place], [place] [address] Jul, 2014 [facility] [address]00565100[place], [place] [address] Jul, 2014 [facility] [id number] [place] [address]707[address] 6315 Jul, 2014 [facility] [address]00565100[place], [place] [address] Jul, 2014 [facility] [address]00565100[place], [place] [address] Jul, [facility] [place] [facility] [address] [id number] [place] [address]137 Apr, [facility] [place] [facility] [address] [id number] [place] [address] Apr, [facility] [place] [facility] [address] [id number] [place]- [address]959 Apr, [facility] [place] [facility] [address] [id number] [place] [address]- 9558 Apr, [facility] [place] [facility] [address] [id number] [place] [address] 7643 Apr, [facility] [place] [facility] [address] [id number] [place] [address] 40[address] Mar, [facility] [place] [facility] [address] [id number] [place] [address] 6245 Mar, [facility] [place] [facility] [address] [id number], [place] [address] Mar, [facility] [place] [facility] [address] [id number] [place] [address]- 978[address] Mar, [facility] [place] [facility] [address] [id number], [place] [address] Mar, [facility] [place] [facility] [address] [id number], [place] [address] Mar, [facility] [place] [facility] [address] [id number], [place] [address] 37[address] Mar, [facility] [place] [facility] [address] [id number], [place] [address]- 9352 Mar, [facility] [place] [facility] [address] [id number], [place] [address] 4870 Mar, [facility] [place] [facility] [address] [id number], [place] [address]- 8270 Mar, [facility] [place] [facility] [address] [id number], [place] [address]- 9468 Mar, [facility] [address] [id number] [place] [address]- 3395 Feb, [facility] [place] [facility] [address] [id number] [place] [address]- 8240 Feb, [facility] [place] [facility] [address] [id number] [place] [address]- 7218 Dec, [facility] [place] [facility] [address] [id number] [place] [address]- 2063 Dec, [facility] [place] [facility] [address] [id number] [place] [address]- 6075 October, [facility] [place] [facility] [address] [id number] [place] [address]- 8510 October, [facility] [address] [id number] [place] [address]- 1164 Sep, [facility] [place] [facility] [address] [id number] [place] [address]- 9489 Sep, [facility] [place] [facility] [address] [id number] [place] [address]- 4178 Sep, [facility] [place] [facility] [address] [facility] [id number] [place] [address]- 7277 Sep, [facility] [place] [facility] [address] [id number] [place] [address]- 5698 Sep, [facility] [place] [facility] [address] [id number], [place] [address]- 8837 Sep, [facility] [place] [facility] [address] [id number] [place] [address]- 8915 Sep, [facility] [place] [facility] [address] [id number] [place] [address]- 2282 Jul, [facility] [place] [facility] [address] [id number] [place] [address]- 2383 Jul, [facility] [place] [facility] [address] [id number] [place] [address]- 6599 Jul, [facility] [place] [facility] [address] [id number] [place] [address]- 6139 Jul, [facility] [place] [facility] [address] [id number] [place] [address]- 9347 Jul, [facility] [place] [facility] [address] [id number] [place] [address]- 5549 Jul, [facility] [place] [facility] [address] [id number] [place] [address]- 5271 Jun, [facility] [place] [facility] [address] [id number] [place] [address]- 8188 Jun, [facility] [place] [facility] [address] [id number] [place] [address]- 7030 Jun, [facility] [place] [facility] [address] [id number] [place] [address]- 4592 Jun, [facility] [place] [facility] [address] [id number] [place] [address]- 9091 May, [facility] [place] [facility] [address] [id number] [place] [address]- 9183 May, [facility] [place] [facility] [address] [id number] [place] [address]- 1756 Mar, [facility] [place] [facility] [address] [id number], [place] [address]- 7698 Mar, [facility] [place] [facility] [address] [id number] [place] [address]- 6385 Mar, [facility] [place] [facility] [address] [id number] [place] [address]- 1802 Mar, [facility] [place] [facility] [address] [id number] [place] [address]- 2498 Mar, [facility] [place] [facility] [address] [id number], [place] [address]- 2772 15 Sep, 2012 [facility] [address] [id number] [place] [address]- 3717 Sep, [facility] [address] [id number] [place] [address]- 2241 Sep, [facility] [address] [id number] [place] [address]- 7793 Aug, [facility] [address] [id number] [place] [address]- 7235 Jul, [facility] [address] [id number] [place] [address]- 9953 Jul, [facility] [address] [id number] [place]- 1326 Jul, [facility] [address] [id number] [place] [address]- 9981 Jun, [facility] [address] [id number] [place] [address]- 0075 Jun, [facility] [address] [id number] [place] [address]- 4014 Mar, [facility] [address] [id number] [place] [address]- 3770 Feb, [facility] [address] [id number] [place] [address]- 8076 Feb, [facility] [place] [facility] [address] [id number] [place] [address]- 8480 October, [facility] [address] [id number] [place] [address]- 1157 Sep, [facility] [place] [facility] [address] [id number] [place] [address]- 0568 Sep, [facility] [address] [id number], [place] [address]- 6232 Sep, [facility] [place] [facility] [address] [id number], [place] [address]- 2546 Aug, [facility] [address] [id number] [place] [id number] Jul, [facility] [place] [facility] [address] [facility] [id number] [place] [address] 2546 Jun, [facility] [address] [facility] [id number][place] [id number] Jun, [facility] [place] [facility] [address] [id number] [place] [address]- 1996 May, [facility] [place] [facility] [address] [id number] [place] [address]- 8876 Apr, [facility] [place] [facility] [address] [facility] [id number] [place] [address]- 0896 Jan, [facility] [place] [facility] [address] [place] [address]- 5617 Sep, [facility] [place] [facility] [address] [facility] [id number], [place] [address]- 8090 Jul, [facility] [place] [facility] [address] [facility] [id number] [place] [address]- 6093 Feb, [facility] [place] [facility] [address] [facility] [id number], [place]11[place]- 1024 May, [facility] [place] [facility] [address] [facility] [id number], [place] [address]- 7983 May, [facility] [place] [facility] [address] [facility] [id number], [place] [address]- 1594 Apr, [facility] [place] [facility] [address] [id number] [place] [address]- 8259 23 Mar, 2009 [facility] [place] [facility] [address] [facility] [id number], [place] [address]- 0356 Mar, [facility] [place] [facility] [address] [facility] [id number], [place] [address]- 2384 Feb, [facility] [address] [facility] [id number] [place] [address]- 8210 Jan, [facility] [address] [facility] [id number], [place] [address]- 7694 Nov, IMMUNIZATIONS No Known Immunizations SOCIAL HISTORY Never Assessed REASON FOR VISIT Medication question PLAN OF CARE VITAL SIGNS MEDICATIONS Unknown Medications RESULTS No Results PROCEDURES No Known procedures INSTRUCTIONS MEDICATIONS ADMINISTERED No Known Medications MEDICAL [...]
--- OUTSIDE RECORDS SUMMARY | 2018-04-09 15:27 | XMS REPORT ---
Author Author MATHEUS RAY Organization [facility] Address [address] [place] [address] Care Team Providers Care Hip Hop Artist Name Role Phone MATHEUS RAY Unavailable PROBLEMS Type Condition ICD9-CM Code TPP16-ZE Code Onset Dates Condition Status SNOMED Code Problem Smoking (tobacco) complicating , third trimester O99.333 Active 361861700 Problem Supervision of normal first in third trimester Z34.03 Active 93993553 Problem Heartburn R12 Active 22497017 Problem Constipation, unspecified K59.00 Active 14575100 Problem Diseases of the digestive system complicating , third trimester O99.613 Active 16237855 Problem Obesity complicating in third trimester O99.213 Active 562518155904 Problem UTI (urinary tract infection) in in third trimester O23.43 Active 775331310 Problem Asthma exacerbation, mild J45.901 Active 786967884 Problem Amniotic fluid index borderline low O28.8 Active 25580311 Problem 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 Active 3261366355056 Problem Tobacco abuse Z72.0 Active 42243169 Problem Spotting complicating , first trimester O26.851 Active 923071197 Problem Unspecified sexually transmitted disease A64 Active 9016832 Problem Irregular periods N92.6 Active 21402447 Problem Other infections with a predominantly sexual mode of transmission complicating , unspecified trimester O98.319 Active 95383800 Problem Nausea and vomiting during prior to 22 weeks gestation O21.9 Active 20260864 Problem Other specified related conditions, third trimester O26.893 Active 08854481 ALLERGIES Substance Reaction Event Type Date Status Ritalin hives Drug Allergy Feb, Active ENCOUNTERS Encounter Location Date Diagnosis [facility] [address] [id number] [place] [id number] Apr, [facility] [address] [id number][place] [id number] Mar, [facility] [address] [place], [place] [address] [id number][place] [id number] Mar, Third trimester Z34.93 and Tobacco abuse Z72.0 [facility]Sojo StudiosPura [facility] TuxeboYumiko [facility] [id number][place] [address] Feb, Encounter for immunization Z23 ; Smoking [...] third trimester O99.613 and Constipation, unspecified K59.00 [facility]ERR[facility] [address] [place] [address] [id number][place] [id number] Feb, [facility]ERSi[facility]2 [address] [id number], [place] [id number] Feb, Supervision of normal first in third [...] digestive system complicating , third trimester O99.613 [facility] VEL[address] [id number], [place] [address] Jan, Encounter for immunization Z23 ; Supervision of normal first in third trimester Z34.03 ; Smoking (tobacco) complicating , third trimester O99.333 ; Obesity complicating in third trimester O99.213 ; Other specified related conditions, third trimester O26.893 ; Heartburn R12 ; Decreased movements in third trimester, single or unspecified fetus O36.8130 and 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 [facility] [address] [facility] [id number], [place] [id number] 14 Jan, 2018 Supervision of normal first in third trimester Z34.03 ; Smoking (tobacco) complicating , third trimester O99.333 ; Obesity complicating in third trimester O99.213 ; Heartburn R12 ; Other specified related conditions, third trimester O26.893 ; Increased urinary frequency R35.0 and UTI (urinary tract infection) in in third trimester O23.43 [facility]ENTEREndocrine TechnologyTER [address] [id number], [place] [address] Jan, Dental caries K02.9 [facility]ENTEREndocrine TechnologyTER [address] [facility] [address] [id number], [place] [address] Jan, Dental examination Z01.20 [address]00565[address] [address] Dec, Supervision of normal first in second trimester Z34.02 ; Tobacco smoking complicating in second trimester O99.332 ; Obesity complicating , second trimester O99.212 and Nausea and vomiting during prior to 22 weeks gestation O21.[address] [id number], [place] [address] Nov, [address] [id number] [address] Nov, Supervision of normal first in second trimester Z34.02 ; Tobacco smoking complicating in second trimester O99.332 and Obesity complicating , second trimester O99.212 [facility]ENTEREndocrine TechnologyTER [address] [id number], [place] [address] October, Supervision of normal first in second trimester Z34.02 ; UTI (urinary tract infection) in in second trimester O23.42 ; Nausea and vomiting during prior to 22 weeks gestation O21.9 ; Obesity complicating , second trimester O99.212 and Tobacco smoking complicating in second trimester O99.332 [facility]ENTEREndocrine TechnologyTER [address] [id number], [place] [address] October, Dental caries K02.9 ; Weight loss R63.4 and Second trimester Z34.92 [facility]ENTEREndocrine TechnologyTER [address] [id number], [place] [id number] Sep, Supervision of normal first in first [...] of transmission complicating , unspecified trimester O98.319 [facility] CENTERAbiogenixHERRERA [address] [id number], [place] [address] Sep, Other specified related conditions, first trimester O26.891 [facility]ENTERGlobal QuorumVEL [address] [facility] [id number], [place] [id number] Sep, Other maternal infectious and parasitic diseases complicating , second trimester O98.812 and Chlamydial infection A74.9 [facility] [address] [id number], [place] [address] Sep, Supervision of normal first in first trimester Z34.01 [facility]ENTEREndocrine TechnologyTER [address] [id number], [place] [address] Aug, Supervision of normal first in first trimester Z34.01 ; Smoking (tobacco) complicating , first trimester O99.331 ; Spotting complicating , first trimester O26.851 ; Nausea and vomiting during prior to 22 weeks gestation O21.9 ; Dysuria R30.0 and Other specified related conditions, first trimester O26.891 [facility]ENTEREndocrine TechnologyTER [address] [id number], [place] [address] Jul, [facility]ENTEREndocrine TechnologyTER [address] [id number], [place] [address] Jul, Supervision of normal first in first trimester Z34.01 ; Smoking (tobacco) complicating , first trimester O99.331 and Obesity complicating in first trimester O99.[address] [id number], [place] [address] 20 Jul, 2017 Encounter for test, result unknown Z32.[address] [id number], [place] [address] Mar, Strep pharyngitis J02.0 and URI with cough and congestion J06.[address] [id number], [place] [id number] Feb, [address] [id number] [place] [id number] Feb, Encounter for Depo-Provera contraception Z30.[address] [id number], [place] [address] Feb, Acute bronchitis, unspecified organism J20.9 ; Tobacco abuse Z72.0 ; Tobacco abuse counseling Z71.6 and Scabies B86 [address] [id number], [place] [address] Dec, Encounter for contraceptive management, unspecified Z30.9 ; Routine gynecological examination Z01.419 ; Screening for STD sexually transmitted disease Z11.3 and Encounter for Depo-Provera contraception Z30.[address] [id number], [place] [address] Nov, Urinary tract infection, site unspecified N39.0 [facility] [address] [id number], [place] [address] Sep, Frequent urination R35.0 ; Missed period N92.6 and Contraception Z30.[address] [id number] [place] [id number] Aug, Bronchitis J40 ; Tobacco abuse Z72.0 and Tobacco abuse counseling Z71.[address] [id number], [place] [address] Apr, Acute bronchitis J20.9 ; Tobacco abuse Z72.0 and Tobacco abuse counseling Z71.6 [facility] CENTERPura Khoury [facility] [address] [id number], [place] [address] Dec, Sprain of right ankle 845.00 and Strain of left foot 845.10 [facility]ENTERBLANQUITA Khoury [facility] [address] [id number], [place] [address] October, Encounter for contraceptive management V25.9 [facility]ENTERBLANQUITA Khoury [facility] [id number], [place] [address] Sep, Dental examination V72.2 [facility] [address]00565100[place], [place] [address] Sep, [facility] [id number] [place] [address] Sep, [facility] [id number] [place] [address] Jul, [facility] [id number] [place] [address]17 Jul, [facility] [id number] [place] [address] Jul, [facility] [id number] [place] [address]13 Jul, [facility] [address]00565100[place], [place] [address] Jul, [facility] [address] [id number], [place] [address] Jul, [facility] [address] [place] [address] Jul, [facility] [id number] [place] [address] 3840 Jul, [facility] [id number] [place] [address] 6[address] Jul, [facility] [place] [facility] [address] [id number] [place] [address] Jul, 2014 [facility] [place] [facility] [address] [id number] [place] [address] Jul, 2014 [facility] [place] [facility] [address] [id number] [place] [address]- [address] Apr, [facility] [place] [facility] [address] [id number] [place] [address] Apr, [facility] [place] [facility] [address] [id number] [place] [address] Apr, [facility] [place] [facility] [address] [id number] [place] [address] 6084 Apr, [facility] [place] [facility] [address] [id number] [place] [address]- [address] Apr, [facility] [place] [facility] [address] [id number] [place] [address]- 0080 Mar, [facility] [place] [facility] [address] [id number] [place] [address]- 6693 Mar, [facility] [place] [facility] [address] [id number] [place] [address]- 0066 Mar, [facility] [place] [facility] [address] [id number] [place] [address]- 9[address] Mar, [facility] [place] [facility] [address] [id number] [place] [address]- 1422 Mar, [facility] [place] [facility] [address] [id number] [place] [address]- 39[address] Mar, [facility] [place] [facility] [address] [id number] [place] [address]- 4770 Mar, [facility] [place] [facility] [address] [id number] [place] [address]- 9018 Mar, [facility] [place] [facility] [address] [id number] [place] [address]- 2546 Mar, [facility] [place] [facility] [address] [id number] [place] [address] Mar, [facility] [place] [facility] [address] [id number] [place] [address]- 3719 Mar, [facility] [place] [facility] [address] [id number] [place] [address]- 8815 Feb, [facility] [place] [facility] [address] [id number] [place] [address]- 3468 Feb, [facility] [place] [facility] [address] [id number] [place] [address]- 7517 Dec, [facility] [place] [facility] [address] [id number] [place] [address]- 3836 Dec, [facility] [place] [facility] [address] [id number] [place] [address]- 3161 October, [facility] [place] [facility] [address] [id number] [place] [address]- 7413 October, [facility] [place] [facility] [address] [id number] [place] [address]- 4978 Sep, [facility] [place] [facility] [address] [id number] [place] [address]- 5881 Sep, [facility] [place] [facility] [address] [id number] [place] [address]- 8600 Sep, [facility] [place] [facility] [address] [id number] [place] [address]- 5418 Sep, [facility] [place] [facility] [address] [id number] [place] [address]- 1316 Sep, [facility] [place] [facility] [address] [id number] [place] [address]- 5808 Sep, [facility] [place] [facility] [address] [id number] [place] [address]- 7012 Sep, [facility] [place] [facility] [address] [id number] [place] [address]- 2805 Jul, [facility] [place] [facility] [address] [id number] [place] [address]- 6296 Jul, [facility] [place] [facility] [address] [id number] [place] [address]- 7106 Jul, [facility] [place] [facility] [address] [id number] [place] [address]- 2466 Jul, [facility] [place] [facility] [address] [id number] [place] [address]- 6714 Jul, [facility] [place] [facility] [address] [id number] [place] [address]- 0696 Jul, [facility] [place] [facility] [address] [id number] [place] [address]- 9378 Jun, [facility] [place] [facility] [address] [id number] [place] [address]- 7969 Jun, [facility] [place] [facility] [address] [id number] [place] [address]- 8692 Jun, [facility] [place] [facility] [address] [id number] [place] [address]- 3684 Jun, [facility] [place] [facility] [address] [id number] [place] [address]- 3523 May, [facility] [place] [facility] [address] [id number] [place] [address]- 0058 May, [facility] [place] [facility] [address] [id number] [place] [address]- 9675 Mar, [facility] [place] [facility] [address] [id number] [place] [address]- 3828 Mar, [facility] [place] [facility] [address] [id number] [place] [address]- 9939 24 Mar, 2013 [facility] [place] [facility] [address] [id number] [place] [address]- 0800 Mar, [facility] [address] [id number] [place] [address]- 2603 Mar, [facility] [address] [id number] [place] [address]- 4713 Sep, [facility] [address] [id number] [place] [address]- 5143 Sep, [facility] [place] [facility] [address] [id number] [place] [address]- 0594 Sep, [facility] [address] [id number] [place] [address]- 5033 Aug, [facility] [address] [id number] [place] [address]- 8974 Jul, [facility] [address] [id number] [place] [address]- 3680 Jul, [facility] [place] [facility] [address] [id number] [place] [address]- 9705 Jul, [facility] [address] [id number] [place] [address]- 1609 Jun, [facility] [address] [id number] [place] [address]- 7182 Jun, [facility] [address] [id number], [place] [address]- [address]8 Mar, [facility] [place] [facility] [address] [id number], [place] [address]- 5022 Feb, [facility] [place] [facility] [address] [id number] [place] [address]- 6804 Feb, [facility] [place] [facility] [address] [id number] [place] [address]- 3813 October, [facility] [place] [facility] [address] [id number] [place] [address]- 3182 Sep, [facility] [place] [facility] [address] [facility] [id number], [place] [address]- [address]46 13 Sep, 2011 [facility] [address] [facility] [id number], [place] [address]- 0216 Sep, [facility] [address] [facility] [id number], [place] [address]- 2546 Aug, [facility] [address] [id number] [id number] Jul, [facility] [address] [facility] [id number], [place] [address]- 2546 Jun, [facility] [address] [id number], [place] [address] Jun, [facility] [address]65100[place], [place] [address]- [address]46 May, [facility] [address]65100[place], [place] [address]- 7646 Apr, [facility] [address]65100[place], [place] [address]- 8936 Jan, [facility] [address]65100[place], [place] [address]- 8726 Sep, [facility] [address]65100[place], [place] [address]- [address] 15 Jul, 2010 [facility] [address]65100[place], [place] [address]- 1276 15 Feb, 2010 [facility] [place] [facility] [address] [facility] [id number], [place] [address]- 2406 May, [facility] [place] [facility] [address] [facility] [id number], [place] [address]- 5859 May, [facility] [place] [facility] [address] [facility] [id number], [place] [address]- 9196 Apr, [facility] [place] [facility] [address] [id number], [place] [address]- 9016 Mar, [facility] [place] [facility] [address] [facility] [id number], [place] [address]- 8[address] Mar, [facility] [address] [facility] [id number], [place] [address]- 8420 Feb, [facility] [address] [facility] [id number], [place] [address]- 7250 Jan, [facility] [address] [facility] [id number], [place] [address]- 5150 Nov, IMMUNIZATIONS No Known Immunizations SOCIAL HISTORY Never Assessed REASON FOR VISIT OB f/u PLAN OF CARE Activity Details Follow Up 1-2 weeks Reason:OB follow up VITAL SIGNS Height 62 in 2018-03-05 Weight 189.8 lbs 2018-03-05 Heart Rate 84 bpm 2018-03-05 Respiratory Rate 16 2018-03-05 BMI 34.715 kg/m2 2018-03-05 Blood pressure systolic 122 mmHg 2018-03-05 Blood pressure diastolic 68 mmHg 2018-03-05 MEDICATIONS Medication Instructions Dosage Frequency Start Date End Date Duration Status PredniSONE 20 mg Orally Once a day 2 tablets 24h Feb, Feb, 5 days Active Ondansetron 4 MG Orally every six hours as needed 1 tablet Aug, 30 days Not-Taking Complete 14-0.4 MG Orally Once a day 1 tablet 24h 30 days Active MiraLax - Orally Once a day 1 packet mixed with 8 ounces of fluid 24h Feb, Aug, 30 day(s) Active Tylenol 325 MG Orally every 4 hrs 1 tablet as needed 4h Not-Taking Promethazine-Codeine 6.25-10 MG/5ML Orally every 6 hrs 5 ml as needed 6h Feb, Feb, 10 days Active Amoxicillin 500 mg Orally 2 times a day 2 capsules 12h Feb,Feb 10 day(s) Active Ventolin HFA 108 (90 Base) MCG/ACT Inhalation every 6 hrs 2 puffs as needed 6h Feb, Active Benzonatate 200 mg Orally Three times a day 1 capsule as needed 8h Feb, Feb, 10 days Active MiraLax - Orally Once a day as directed 24h Feb, Feb, 0 days Active RESULTS Name Result Date Reference Range Ultrasound : OB, Limited 2018-03-05 PROCEDURES Procedure Date Ordered Result Body Site OB US, LIMITED, FETUS(S) Mar 05, 2018 INSTRUCTIONS MEDICATIONS ADMINISTERED No Known Medications [...]
--- OUTSIDE RECORDS SUMMARY | 2018-04-09 15:27 | XMS REPORT ---
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 Name Role Phone MATHEUS RAY Unavailable PROBLEMS Type Condition ICD9-CM Code [id number] Code Onset Dates Condition Status SNOMED Code Problem Smoking (tobacco) complicating , third trimester O99.333 Active 632862575 Problem Supervision of normal first in third trimester Z34.03 Active 14332338 Problem Heartburn R12 Active 26753726 Problem Constipation, unspecified K59.00 Active 77519823 Problem Diseases of the digestive system complicating , third trimester O99.613 Active 31186215 Problem Obesity complicating in third trimester O99.213 Active 078314886601 Problem UTI (urinary tract infection) in in third trimester O23.43 Active 595108439 Problem Asthma exacerbation, mild J45.901 Active 747997052 Problem Amniotic fluid index borderline low O28.8 Active 46454062 Problem 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 Active 0120843155754 Problem Tobacco abuse Z72.0 Active 09457395 Problem Spotting complicating , first trimester O26.851 Active 761342890 Problem Unspecified sexually transmitted disease A64 Active 6625346 Problem Irregular periods N92.6 Active 46825166 Problem Other infections with a predominantly sexual mode of transmission complicating , unspecified trimester O98.319 Active 94587876 Problem Nausea and vomiting during prior to 22 weeks gestation O21.9 Active 79168137 Problem Other specified related conditions, third trimester O26.893 Active 55973763 ALLERGIES Substance Reaction Event Type Date Status Ritalin hives Drug Allergy Feb, Active ENCOUNTERS Encounter Location Date Diagnosis [facility] [address] [id number] [place] [id number] Apr, [facility] [address] [id number] STATE [place] [id number] Mar, [facility] [address] [place], [place] [address] [id number] STATE UNIVERSITY[place] [id number] Mar, Third trimester Z34.93 and Tobacco abuse Z72.0 [facility] Connect[facility]ura [facility]ERRER[facility] STYLIGHTYumiko [facility] [id number] STATE UNIVERSITY[place] [address] Feb, Encounter for immunization Z23 ; Smoking [...] third trimester O99.613 and Constipation, unspecified K59.00 [facility] [address] STYLIGHT[address] [place] [address] [id number] STATE UNIVERSITY[place] [id number] Feb, [facility] Medical[address] [id number][place] [id number] Feb, Supervision of normal first in third [...] digestive system complicating , third trimester O99.613 [facility] VEL[address] [id number][place] [address] Jan, Encounter for immunization Z23 ; Supervision of normal first in third trimester Z34.03 ; Smoking (tobacco) complicating , third trimester O99.333 ; Obesity complicating in third trimester O99.213 ; Other specified related conditions, third trimester O26.893 ; Heartburn R12 ; Decreased movements in third trimester, single or unspecified fetus O36.8130 and 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 [facility] 120 [facility] [id number], [place] [id number] 14 Jan, 2018 Supervision of normal first in third trimester Z34.03 ; Smoking (tobacco) complicating , third trimester O99.333 ; Obesity complicating in third trimester O99.213 ; Heartburn R12 ; Other specified related conditions, third trimester O26.893 ; Increased urinary frequency R35.0 and UTI (urinary tract infection) in in third trimester O23.43 [facility] [id number] STATE UNIVERSITY, [place] [address] Jan, Dental caries K02.9 [facility] STYLIGHT[address] [facility] [address] [id number] STATE UNIVERSITY[place] [address] Jan, Dental examination Z01.20 [address]00565[address] [address] Dec, Supervision of normal first in second trimester Z34.02 ; Tobacco smoking complicating in second trimester O99.332 ; Obesity complicating , second trimester O99.212 and Nausea and vomiting during prior to 22 weeks gestation O21.[address] [id number], [place] [id number] Nov, [place] [id number] [address] Nov, Supervision of normal first in second trimester Z34.02 ; Tobacco smoking complicating in second trimester O99.332 and Obesity complicating , second trimester O99.212 [facility] [address] [id number] STATE UNIVERSITY[place] [address] October, Supervision of normal first in second trimester Z34.02 ; UTI (urinary tract infection) in in second trimester O23.42 ; Nausea and vomiting during prior to 22 weeks gestation O21.9 ; Obesity complicating , second trimester O99.212 and Tobacco smoking complicating in second trimester O99.332 [facility] [address] [id number] STATE UNIVERSITY[place] [address] October, Dental caries K02.9 ; Weight loss R63.4 and Second trimester Z34.92 [facility] [address] [id number] STATE UNIVERSITY[place] [id number] Sep, Supervision of normal first in first [...] of transmission complicating , unspecified trimester O98.319 [facility]ITALBitpagosHERRERA [address] [id number] STATE UNIVERSITY, [place] [address] Sep, Other specified related conditions, first trimester O26.891 [facility]ITALEdSurgeVEL 120 [facility] [id number], [place] [address] Sep, Other maternal infectious and parasitic diseases complicating , second trimester O98.812 and Chlamydial infection A74.9 [facility] [address] [id number] STATE UNIVERSITY, [place] [address] Sep, Supervision of normal first in first trimester Z34.01 [facility] [address] [id number] STATE UNIVERSITY[place] [id number] Aug, Supervision of normal first in first trimester Z34.01 ; Smoking (tobacco) complicating , first trimester O99.331 ; Spotting complicating , first trimester O26.851 ; Nausea and vomiting during prior to 22 weeks gestation O21.9 ; Dysuria R30.0 and Other specified related conditions, first trimester O26.891 [facility] [address] [id number] STATE UNIVERSITY[place] [address] Jul, [facility] [address] [id number] STATE UNIVERSITY[place] [id number] Jul, Supervision of normal first in first trimester Z34.01 ; Smoking (tobacco) complicating , first trimester O99.331 and Obesity complicating in first trimester O99.[address] [id number], [place] [id number] 20 Jul, 2017 Encounter for test, result unknown Z32.[address] [id number] STATE UNIVERSITY[place] [address] Mar, Strep pharyngitis J02.0 and URI with cough and congestion J06.[address] [id number] STATE UNIVERSITY[place] [address] Feb, [address] [id number] [place] [id number] Feb, Encounter for Depo-Provera contraception Z30.[address] [id number] STATE UNIVERSITY, [place] [address] Feb, Acute bronchitis, unspecified organism J20.9 ; Tobacco abuse Z72.0 ; Tobacco abuse counseling Z71.6 and Scabies B86 [address] [id number], [place] [address] Dec, Encounter for contraceptive management, unspecified Z30.9 ; Routine gynecological examination Z01.419 ; Screening for STD sexually transmitted disease Z11.3 and Encounter for Depo-Provera contraception Z30.[address] [id number] STATE UNIVERSITY[place] [id number] Nov, Urinary tract infection, site unspecified N39.0 [facility] [address] [id number] STATE UNIVERSITY[place] [address] Sep, Frequent urination R35.0 ; Missed period N92.6 and Contraception Z30.[address] [id number] [place] [id number] Aug, Bronchitis J40 ; Tobacco abuse Z72.0 and Tobacco abuse counseling Z71.[address] [id number] STATE UNIVERSITY[place] [id number] Apr, Acute bronchitis J20.9 ; Tobacco abuse Z72.0 and Tobacco abuse counseling Z71.6 [facility] Khoury [facility] [id number] STATE UNIVERSITY, [place] [id number] Dec, Sprain of right ankle 845.00 and Strain of left foot 845.10 [facility]ITALBLANQUITA Khoury [facility] [address] [id number] STATE UNIVERSITY[place] [id number] October, Encounter for contraceptive management V25.9 [facility]ITA Khoury [facility] [id number] STATE UNIVERSITY, [place] [address] Sep, Dental examination V72.2 [facility] [address]00565100[place], [place] [address] Sep, [facility] [id number] [place] [address] Sep, [facility] [id number] [place] [address]- 1481 Jul, [facility] [id number] [place] [address]- 7205 Jul, [facility] [address] [place] [address]- [address] Jul, [facility] [id number] [place] [address]- 4204 Jul, [facility] [address]65100[place], [place] [address] Jul, [facility] [address] [id number], [place] [address] Jul, [facility] [address] [place] [address]- 7270 Jul, [facility] [id number] [place] [address]- 3338 Jul, [facility] [id number] [place] [address]- 78[address] Jul, [facility] [place] [facility] [address] [id number] [place] [address] Jul, 2014 [facility] [place] [facility] [address] [id number] [place] [address]361 Jul, 2014 [facility] [place] [facility] [address] [id number] [place] [address]158 Apr, [facility] [place] [facility] [address] [id number] [place] [address]- 7882 Apr, [facility] [place] [facility] [address] [id number] [place] [address]- 6483 Apr, [facility] [place] [facility] [address] [id number] [place] [address]- 1342 Apr, [facility] [place] [facility] [address] [id number] [place] [address]- 3278 Apr, [facility] [place] [facility] [address] [id number] [place] [address]- 9346 Mar, [facility] [place] [facility] [address] [id number] [place] [address]- 6907 Mar, [facility] [place] [facility] [address] [id number] [place] [address]- 3299 Mar, [facility] [place] [facility] [address] [id number] [place] [address]- 0566 Mar, [facility] [place] [facility] [address] [id number] [place] [address]- 4070 Mar, [facility] [place] [facility] [address] [id number] [place] [address]- 2216 Mar, [facility] [place] [facility] [address] [id number] [place] [address]- 1820 Mar, [facility] [place] [facility] [address] [id number] [place] [address]- 9244 Mar, [facility] [place] [facility] [address] [id number] [place] [address]- 2546 Mar, [facility] [place] [facility] [address] [id number] [place] 8980 Mar, [facility] [place] [facility] [address] [id number] [place] [address]- 9630 Mar, [facility] [place] [facility] [address] [id number] [place] [address]- 8652 Feb, [facility] [place] [facility] [address] [id number] [place] [address]- 2620 Feb, [facility] [place] [facility] [address] [id number] [place] [address]- 7414 Dec, [facility] [place] [facility] [address] [id number] [place] [address]- 3969 Dec, [facility] [place] [facility] [address] [id number] [place] [address]- 4624 October, [facility] [place] [facility] [address] [id number] [place] [address]- 0958 October, [facility] [place] [facility] [address] [id number] [place] [address]- 1678 Sep, [facility] [place] [facility] [address] [id number] [place] [address]- 7254 Sep, [facility] [place] [facility] [address] [id number] [place] [address]- 4096 Sep, [facility] [place] [facility] [address] [id number] [place] [address]- 3889 Sep, [facility] [place] [facility] [address] [id number] [place] [address]- 6222 Sep, [facility] [place] [facility] [address] [id number] [place] [address]- 5739 Sep, [facility] [place] [facility] [address] [id number] [place] [address]- 1709 Sep, [facility] [place] [facility] [address] [id number] [place] [address]- 9988 Jul, [facility] [place] [facility] [address] [id number] [place] [address]- 7076 Jul, [facility] [place] [facility] [address] [id number] [place] [address]- 6916 Jul, [facility] [place] [facility] [address] [id number] [place] [address]- 7116 Jul, [facility] [place] [facility] [address] [id number] [place] [address]- 1409 Jul, [facility] [place] [facility] [address] [id number] [place] [address]- 7016 Jul, [facility] [place] [facility] [address] [id number] [place] [address]- 7433 Jun, [facility] [place] [facility] [address] [id number] [place] [address]- 7370 Jun, [facility] [place] [facility] [address] [id number] [place] [address]- 0401 Jun, [facility] [place] [facility] [address] [id number] [place] [address]- 6051 Jun, [facility] [place] [facility] [address] [id number] [place] [address]- 8896 May, [facility] [place] [facility] [address] [id number] [place] [address]- 9163 May, [facility] [place] [facility] [address] [id number] [place] [address]- 5814 Mar, [facility] [place] [facility] [address] [id number] [place] [address]- 5273 Mar, [facility] [place] [facility] [address] [id number] [place] [address]- 7429 24 Mar, 2013 [facility] [place] [facility] [address] [id number] [place] [address]- 1623 Mar, [facility] [address] [id number] [place] [address]- 9416 Mar, [facility] [address] [id number] [place] [address]- 7138 Sep, [facility] [address] [id number] [place] [address]- 5198 Sep, [facility] [place] [facility] [address] [id number] [place] [address]- 3417 Sep, [facility] [address] [id number] [place] [address]- 7462 Aug, [facility] [address] [id number] [place] [address]- 8708 Jul, [facility] [address] [id number] [place] [address]- 5387 Jul, [facility] [place] [facility] [address] [id number] [place] [address]- 3672 Jul, [facility] [address] [id number] [place] [address]- 8430 Jun, [facility] [address] [id number] [place] [address]- 3179 Jun, [facility] [address] [id number], [place] [address]- 2749 Mar, [facility] [place] [facility] [address] [id number], [place] [address]- 2161 Feb, [facility] [place] [facility] [address] [id number] [place] [address]- 7351 Feb, [facility] [place] [facility] [address] [id number] [place] [address]- 3211 October, [facility] [place] [facility] [address] [id number] [place] [address]- 9736 Sep, [facility] [place] [facility] [address] [facility] [id number], [place] [address]- 2546 13 Sep, 2011 [facility] [address] [facility] [id number], [place] [address]- [address] Sep, [facility] [address] [facility] [id number], [place] [address]- 2546 Aug, [facility] [address] [id number], [place] [id number] Jul, [facility] [address] [facility] [id number], [place] [address]- 2546 Jun, [facility] [address] [id number], [place] [id number] Jun, [facility] [address], [place] [address]- 2546 May, [facility] [address]100[place], [place] [address]- 7966 Apr, [facility] [address]100[place], [place] [address]- 3406 Jan, [facility] [address]100[place], [place] [address]- 2786 Sep, [facility] [address], [place] [address]- 3606 15 Jul, 2010 [facility] [address], [place] [address] 15 Feb, 2010 [facility] [place] [facility] [address] [facility] [id number], [place] [address]- 3716 May, [facility] [place] [facility] [address] [facility] [id number], [place] [address]- 1126 May, [facility] [place] [facility] [address] [facility] [id number], [place] [address]- 2426 Apr, [facility] [place] [facility] [address] [id number], [place] [address]- 5276 Mar, [facility] [place] [facility] [address] [facility] [id number], [place] [address]- 4325 Mar, [facility] [address] [facility] [id number], [place] [address]- 3728 Feb, [facility] [address] [facility] [id number], [place] [address]- 1945 Jan, [facility] [address] [facility] [id number], [place] [address]- 4044 Nov, IMMUNIZATIONS Vaccine Route Administration Date Status FLULAVAL QUAD 0.5ML (6 MO & UP) 2018 IM Intramuscular Mar 20, 2018 Administered SOCIAL HISTORY Never Assessed REASON FOR VISIT OB f/u Olegario SANDOVAL PLAN OF CARE Activity Details Follow Up 1 Week Reason: Pending Test UA OB DIP (IN HOUSE) Pending Test GC/CHLAMYDIA (SWAB OR URINE)-RAPID VITAL SIGNS Height 62 in 2018-03-20 Weight 194.5 lbs 2018-03-20 Heart Rate 80 bpm 2018-03-20 Respiratory Rate 16 2018-03-20 BMI 35.575 kg/m2 2018-03-20 Blood pressure systolic 120 mmHg 2018-03-20 Blood pressure diastolic 68 mmHg 2018-03-20 MEDICATIONS Medication Instructions Dosage Frequency Start Date End Date Duration Status Tylenol 325 MG Orally every 4 hrs 1 tablet as needed 4h Active Ondansetron 4 MG Orally every six hours as needed 1 tablet Aug, 30 days Active Complete 14-0.4 MG Orally Once a day 1 tablet 24h 30 days Active Ventolin HFA 108 (90 Base) MCG/ACT Inhalation every 6 hrs 2 puffs as needed 6h Feb, Active MiraLax - Orally Once a day 1 packet mixed with 8 ounces of fluid 24h Feb, Aug, 30 day(s) Active RESULTS Name Result Date Reference Range Ultrasound : OB, Limited 2018-03-20 PROCEDURES Procedure Date Ordered Result Body Site FLULAVAL QUAD 0.5ML (6 MO AND UP) 2018 Mar 20, 2018 SINGLE IMMUNIZATION ADMIN Mar 20, 2018 LAB NOT BILLED BY [facility] Mar 20, 2018 URINE-NO MICRO Mar 20, 2018 OB US, LIMITED, FETUS(S) Mar 20, 2018 INSTRUCTIONS MEDICATIONS ADMINISTERED No Known Medications [...]
--- OUTSIDE RECORDS SUMMARY | 2018-04-09 15:28 | XMS REPORT ---
Author Author MATHEUS RAY Organization [facility] Address [address] [place] [address] Care Team Providers Care Data Processing Equipment Repairer Name Role Phone MATHEUS RAY Unavailable PROBLEMS Type Condition ICD9-CM Code [id number] Code Onset Dates Condition Status SNOMED Code Problem Smoking (tobacco) complicating , third trimester O99.333 Active 125541257 Problem Supervision of normal first in third trimester Z34.03 Active 88153787 Problem Heartburn R12 Active 67643139 Problem Constipation, unspecified K59.00 Active 63342157 Problem Diseases of the digestive system complicating , third trimester O99.613 Active 86073146 Problem Obesity complicating in third trimester O99.213 Active 273078851767 Problem UTI (urinary tract infection) in in third trimester O23.43 Active 059115271 Problem Asthma exacerbation, mild J45.901 Active 323107313 Problem Amniotic fluid index borderline low O28.8 Active 52501483 Problem 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 Active 6070388344669 Problem Tobacco abuse Z72.0 Active 92406950 Problem Spotting complicating , first trimester O26.851 Active 458050266 Problem Unspecified sexually transmitted disease A64 Active 8753325 Problem Irregular periods N92.6 Active 13093311 Problem Other infections with a predominantly sexual mode of transmission complicating , unspecified trimester O98.319 Active 57598787 Problem Nausea and vomiting during prior to 22 weeks gestation O21.9 Active 20511167 Problem Other specified related conditions, third trimester O26.893 Active 31675968 ALLERGIES Substance Reaction Event Type Date Status Ritalin hives Drug Allergy Jan, Active ENCOUNTERS Encounter Location Date Diagnosis [facility] [address] [id number] [place] [id number] Apr, [facility] [address] [id number][place] [id number] Feb, [facility] [address] [id number], [place] [id number] Feb, [address] [id number][place] [id number] Feb, Supervision of normal first in third [...] digestive system complicating , third trimester O99.[address] [id number][place] [address] Jan, Encounter for immunization Z23 ; Supervision of normal first in third trimester Z34.03 ; Smoking (tobacco) complicating , third trimester O99.333 ; Obesity complicating in third trimester O99.213 ; Other specified related conditions, third trimester O26.893 ; Heartburn R12 ; Decreased movements in third trimester, single or unspecified fetus O36.8130 and 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 [id number][place] [address] Jan, Supervision of normal first in third trimester Z34.03 ; Smoking (tobacco) complicating , third trimester O99.333 ; Obesity complicating in third trimester O99.213 ; Heartburn R12 ; Other specified related conditions, third trimester O26.893 ; Increased urinary frequency R35.0 and UTI (urinary tract infection) in in third trimester O23.43 [facility] [address] [id number][place] [id number] Jan, Dental caries K02.[address] [id number][place] [id number] Jan, Dental examination Z01.[address] [id number][place] [address] Dec, Supervision of normal first in second trimester Z34.02 ; Tobacco smoking complicating in second trimester O99.332 ; Obesity complicating , second trimester O99.212 and Nausea and vomiting during prior to 22 weeks gestation O21.[address] [id number][place] [address] Nov, [id number] [address] Nov, Supervision of normal first in second trimester Z34.02 ; Tobacco smoking complicating in second trimester O99.332 and Obesity complicating , second trimester O99.212 [facility]reeze[facility] [id number][place] [address] October, Supervision of normal first in second trimester Z34.02 ; UTI (urinary tract infection) in in second trimester O23.42 ; Nausea and vomiting during prior to 22 weeks gestation O21.9 ; Obesity complicating , second trimester O99.212 and Tobacco smoking complicating in second trimester O99.332 [facility] [id number], [place] [address] October, Dental caries K02.9 ; Weight loss R63.4 and Second trimester Z34.92 [facility] [id number], [place] [address] Sep, Supervision of normal first in first [...] of transmission complicating , unspecified trimester O98.[address] [id number], [place] [id number] Sep, Other specified related conditions, first trimester O26.891 [facility] [address] [facility] [id number], [place] [address] Sep, Other maternal infectious and parasitic diseases complicating , second trimester O98.812 and Chlamydial infection A74.9 [facility] [address] [id number], [place] [address] Sep, Supervision of normal first in first trimester Z34.01 [facility] [address] [id number], [place] [address] Aug, Supervision of normal first in first trimester Z34.01 ; Smoking (tobacco) complicating , first trimester O99.331 ; Spotting complicating , first trimester O26.851 ; Nausea and vomiting during prior to 22 weeks gestation O21.9 ; Dysuria R30.0 and Other specified related conditions, first trimester O26.[address] [id number], [place] [id number] Jul, [facility] [address] [id number], [place] [address] Jul, Supervision of normal first in first trimester Z34.01 ; Smoking (tobacco) complicating , first trimester O99.331 and Obesity complicating in first trimester O99.[address] [id number], [place] [id number] Jul, Encounter for test, result unknown Z32.00 [facility] [address] [id number], [place] [address] Mar, Strep pharyngitis J02.0 and URI with cough and congestion J06.9 [facility] [address] [place] [address] [id number], [place] [id number] Feb, [facility] [address] [place] [id number] [place] [id number] 16 Feb, 2016 Encounter for Depo-Provera contraception Z30.42 [facility] [address] [place] [address] [id number], [place] [id number] Feb, Acute bronchitis, unspecified organism J20.9 ; Tobacco abuse Z72.0 ; Tobacco abuse counseling Z71.6 and Scabies B86 [facility] [address] [facility] [id number], [place] [address] Dec, Encounter for contraceptive management, unspecified Z30.9 ; Routine gynecological examination Z01.419 ; Screening for STD sexually transmitted disease Z11.3 and Encounter for Depo-Provera contraception Z30.[address] [id number], [place] [id number] Nov, Urinary tract infection, site unspecified N39.[address] [id number], [place] [address] Sep, Frequent urination R35.0 ; Missed period N92.6 and Contraception Z30.[address] [id number], [place] [address] Aug, Bronchitis J40 ; Tobacco abuse Z72.0 and Tobacco abuse counseling Z71.[address] [id number], [place] [address] Apr, Acute bronchitis J20.9 ; Tobacco abuse Z72.0 and Tobacco abuse counseling Z71.[address] [id number], [place] [address] Dec, Sprain of right ankle 845.00 and Strain of left foot 845.[address] [id number], [place] [address] October, Encounter for contraceptive management V25.[address] [id number], [place] [address] Sep, Dental examination V72.2 [facility] [address] [id number], [place] [address] Sep, [facility] [address] [id number], [place] [address]- [address] Sep, [facility] [address] [id number] [place] [address] Jul, 2014 [facility] [place] [facility] [address] [id number] [place] [address] Jul, 2014 [facility] [place] [facility] [address] [id number] [place] [address] Jul, 2014 [facility] [place] [facility] [address] [facility] [id number] [place] [address] Jul, 2014 [facility] [place] [facility] [address] [id number] [place] [address] Jul, 2014 [facility] [place] [facility] [address] [facility] [id number] [place] [address] Jul, 2014 [facility] [place] [facility] [address] [facility] [id number] [place] [address] Jul, 2014 [facility] [place] [facility] [address] [facility] [id number] [place] [address] Jul, 2014 [facility] [place] [facility] [address] [facility] [id number] [place] [address] Jul, 2014 [facility] [place] [facility] [address] [facility] [id number] [place] [address] Jul, 2014 [facility] [place] [facility] [address] [facility] [id number] [place] [address] Jul, 2014 [facility] [place] [facility] [address] [facility] [id number], [place] [address] Apr, [facility] [place] [facility] [address] [facility] [id number] [place] [address]- [address] Apr, [facility] [place] [facility] [address] [facility] [id number] [place] [address] Apr, [facility] [place] [facility] [address] [facility] [id number], [place] [address] Apr, [facility] [place] [facility] [address] [facility] [id number], [place] [address] Apr, [facility] [place] [facility] [address] [id number] [place] [address] Mar, [facility] [place] [facility] [address] [id number] [place] [address] Mar, [facility] [place] [facility] [address] [id number] [place] [address] Mar, [facility] [place] [facility] [address] [id number] [place] [address] 1889 Mar, [facility] [place] [facility] [address] [id number] [place] [address]- 4628 Mar, [facility] [place] [facility] [address] [id number] [place] [address]- 5[address] Mar, [facility] [place] [facility] [address] [id number] [place] [address]- 6488 Mar, [facility] [place] [facility] [address] [id number] [place] [address]- [address]1 Mar, [facility] [place] [facility] [address] [id number] [place] [address] 1931 Mar, [facility] [place] [facility] [address] [id number] [place] [address]- 1106 Mar, [facility] [place] [facility] [address] [id number] [place] [address]- 2099 Mar, [facility] [place] [facility] [address] [id number] [place] [address]- 0125 Feb, [facility] [place] [facility] [address] [id number] [place] [address]- 0672 Feb, [facility] [place] [facility] [address] [id number] [place] [address] Dec, [facility] [place] [facility] [address] [id number] [place] [address] Dec, [facility] [place] [facility] [address] [id number] [place] [address]- 277[address] October, [facility] [place] [facility] [address] [id number] [place] [address]- [address] October, [facility] [place] [facility] [address] [id number] [place] [address]- [address]20 Sep, [facility] [place] [facility] [address] [id number] [place] [address]- 5949 Sep, [facility] [place] [facility] [address] [id number] [place] [address]- [address] Sep, [facility] [place] [facility] [address] [id number] [place] [address]- 27[address] Sep, [facility] [place] [facility] [address] [facility] [id number] [place] [address]- 8847 Sep, [facility] [place] [facility] [address] [id number] [place] [address]- 9175 Sep, [facility] [place] [facility] [address] [id number] [place] [address]- 8410 Sep, [facility] [place] [facility] [address] [id number] [place] [address]- 2356 Jul, [facility] [place] [facility] [address] [facility] [id number] [place] [address]- 4077 Jul, [facility] [place] [facility] [address] [id number] [place] [address]- 5787 Jul, [facility] [place] [facility] [address] [id number] [place] [address]- 0801 Jul, [facility] [place] [facility] [address] [id number] [place] [address]- 7202 Jul, [facility] [place] [facility] [address] [id number] [place] [address]- 9311 Jul, [facility] [place] [facility] [address] [id number] [place] [address]- 2546 Jun, [facility] [place] [facility] [address] [id number] [place] [address]- 5075 Jun, [facility] [place] [facility] [address] [id number] [place] [address]- 7740 Jun, [facility] [place] [facility] [address] [id number] [place] [address]- 2771 Jun, [facility] [place] [facility] [address] [id number] [place] [address]- 4105 May, [facility] [place] [facility] [address] [id number] [place] [address]- 4318 May, [facility] [place] [facility] [address] [id number] [place] [address]90 Mar, [facility] [place] [facility] [address] [id number] [place] [address]- 0500 Mar, [facility] [place] [facility] [address] [id number] [place] [address]- 6813 Mar, [facility] [place] [facility] [address] [id number] [place] 7029 Mar, [facility] [place] [facility] [address] [id number] [place] [address]- 2438 Mar, [facility] [place] [facility] [address] [id number] [place] [address]- 5756 Sep, [facility] [place] [facility] [address] [id number] [place] [address]- 0103 Sep, [facility] [place] [facility] [address] [id number] [place] [address]- 7744 Sep, [facility] [place] [facility] [address] [id number] [place] [address]- 6359 Aug, [facility] [place] [facility] [address] [id number] [place] [address]- 4437 Jul, [facility] [place] [facility] [address] [id number] [place] [address]- 1111 Jul, [facility] [address] [id number] [place] [address]- 5336 Jul, [facility] [address] [id number] [place] [address]- 0566 Jun, [facility] [address] [id number] [place] [address]- 2170 Jun, [facility] [address] [id number] [place] [address]- 2922 Mar, [facility] [address] [id number] [place] [address]- 1257 Feb, [facility] [address] [id number] [place] [address]- 7334 Feb, [facility] [address] [id number] [place] [address]- 7771 October, [facility] [address] [id number], [place] [address]- 9316 Sep, [facility] [address] [id number], [place] [address]- 1248 Sep, [facility] [address] [id number], [place] [address]- 8939 Sep, [facility] [address] [id number], [place] [address]- 1586 Aug, [facility] [address] [facility] [id number], [place] [id number] Jul, [facility] [address] [id number], [place] [address]- 5[address] Jun, [facility] [address] [facility] [id number], [place] [id number] Jun, [facility] [address] [id number], [place] [address]- 3[address] May, [facility] [address]00565100[place], [place] [address]- 4056 Apr, [facility] [id number] [place] [address]- 3988 Jan, [facility] [address]00565100[place], [place] [address]- 0749 Sep, [facility] [id number] [place] [address]- 9536 Jul, [facility] [id number] [place] [address]- 8857 Feb, [facility] [id number] [place] [address]- 8710 May, [facility] [id number] [place] [address]58- 8258 May, [facility] [id number] [place] [address]- 3739 Apr, [facility] [address]00565100[place], [place] [address]- 7497 Mar, [facility] [id number] [place] [address]- 8669 Mar, [facility] [address]00565100[place], [place] [address]- 2178 Feb, [facility] [address]00565100[place], [place] [address]- 2277 Jan, [facility] [address] [id number], [place] [address]- 9141 Nov, IMMUNIZATIONS Vaccine Route Administration Date Status TDAP (BOOSTRIX) IM Intramuscular Feb 20, 2018 Administered SOCIAL HISTORY Never Assessed REASON FOR VISIT OB f/u-LORI salazar PLAN OF CARE Activity Details Follow Up 2 Weeks, 2 Weeks Reason: Pending Test UA OB DIP (IN HOUSE) Pending Test Ultrasound : OB, Limited VITAL SIGNS Height 62 in 2018-02-20 Weight 190.6 lbs 2018-02-20 Temperature 96.9 degrees Fahrenheit 2018-02-20 Heart Rate 80 bpm 2018-02-20 Respiratory Rate 16 2018-02-20 BMI 34.861 kg/m2 2018-02-20 Blood pressure systolic 110 mmHg 2018-02-20 Blood pressure diastolic 72 mmHg 2018-02-20 MEDICATIONS Medication Instructions Dosage Frequency Start Date End Date Duration Status Tylenol 325 MG Orally every 4 hrs 1 tablet as needed 4h Active Ondansetron 4 MG Orally every six hours as needed 1 tablet Aug, 30 days Active Complete 14-0.4 MG Orally Once a day 1 tablet 24h 30 days Active RESULTS Name Result Date Reference Range Biophysical Profile () w/ NST PROCEDURES Procedure Date Ordered Result Body Site TDAP (BOOSTRIX) Feb 20, 2018 SINGLE IMMUNIZATION ADMIN Feb 20, 2018 URINE-NO MICRO Feb 20, 2018 OB US, LIMITED, FETUS(S) Feb 20, 2018 INSTRUCTIONS MEDICATIONS ADMINISTERED No Known [...]
--- OUTSIDE RECORDS SUMMARY | 2018-04-09 15:28 | XMS REPORT ---
Author Author MATHEUS RAY Organization [facility] Address [address] [place] [address] Care Team Providers Care Bleach Boiler Filler Name Role Phone MATHEUS RAY Unavailable PROBLEMS Type Condition ICD9-CM Code QOF34-XT Code Onset Dates Condition Status SNOMED Code Problem Smoking (tobacco) complicating , third trimester O99.333 Active 185561124 Problem Supervision of normal first in third trimester Z34.03 Active 79729497 Problem Heartburn R12 Active 29824821 Problem Constipation, unspecified K59.00 Active 78006994 Problem Diseases of the digestive system complicating , third trimester O99.613 Active 17714776 Problem Obesity complicating in third trimester O99.213 Active 273264586503 Problem UTI (urinary tract infection) in in third trimester O23.43 Active 314363117 Problem Asthma exacerbation, mild J45.901 Active 615054456 Problem Amniotic fluid index borderline low O28.8 Active 63775138 Problem 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 Active 0672837848558 Problem Tobacco abuse Z72.0 Active 89762378 Problem Spotting complicating , first trimester O26.851 Active 644755066 Problem Unspecified sexually transmitted disease A64 Active 2570781 Problem Irregular periods N92.6 Active 69204082 Problem Other infections with a predominantly sexual mode of transmission complicating , unspecified trimester O98.319 Active 15993794 Problem Nausea and vomiting during prior to 22 weeks gestation O21.9 Active 86537129 Problem Other specified related conditions, third trimester O26.893 Active 42555645 ALLERGIES Substance Reaction Event Type Date Status Ritalin hives Drug Allergy Jan, Active ENCOUNTERS Encounter Location Date Diagnosis [facility] [address] [id number] [place] [id number] Apr, [facility] [address] [id number] [id number] Feb, [facility] [address] [id number][place] [id number] Feb, [address] [id number][place] [id number] Feb, Supervision of normal first in third [...] digestive system complicating , third trimester O99.[address] [id number][place] [address] Jan, Encounter for immunization Z23 ; Supervision of normal first in third trimester Z34.03 ; Smoking (tobacco) complicating , third trimester O99.333 ; Obesity complicating in third trimester O99.213 ; Other specified related conditions, third trimester O26.893 ; Heartburn R12 ; Decreased movements in third trimester, single or unspecified fetus O36.8130 and 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 [id number], [place] [id number] Jan, Supervision of normal first in third trimester Z34.03 ; Smoking (tobacco) complicating , third trimester O99.333 ; Obesity complicating in third trimester O99.213 ; Heartburn R12 ; Other specified related conditions, third trimester O26.893 ; Increased urinary frequency R35.0 and UTI (urinary tract infection) in in third trimester O23.43 [facility] [address] [id number][place] [id number] Jan, Dental caries K02.[address] [id number][place] [id number] Jan, Dental examination Z01.[address] [id number][place] [address] Dec, Supervision of normal first in second trimester Z34.02 ; Tobacco smoking complicating in second trimester O99.332 ; Obesity complicating , second trimester O99.212 and Nausea and vomiting during prior to 22 weeks gestation O21.[address] [id number][place] [address] Nov, [address] [id number] [address] Nov, Supervision of normal first in second trimester Z34.02 ; Tobacco smoking complicating in second trimester O99.332 and Obesity complicating , second trimester O99.212 [facility] [id number][place] [address] October, Supervision of normal first in second trimester Z34.02 ; UTI (urinary tract infection) in in second trimester O23.42 ; Nausea and vomiting during prior to 22 weeks gestation O21.9 ; Obesity complicating , second trimester O99.212 and Tobacco smoking complicating in second trimester O99.332 [facility] [id number][place] [address] October, Dental caries K02.9 ; Weight loss R63.4 and Second trimester Z34.92 [facility] [id number][place] [address] Sep, Supervision of normal first in first [...] of transmission complicating , unspecified trimester O98.319 [facility] [address] [id number], [place] [address] Sep, Other specified related conditions, first trimester O26.891 [facility] [address] [facility] [id number][place] [address] Sep, Other maternal infectious and parasitic diseases complicating , second trimester O98.812 and Chlamydial infection A74.9 [facility] [address] [id number][place] [address] Sep, Supervision of normal first in first trimester Z34.01 [facility] [address] [id number][place] [address] Aug, Supervision of normal first in first trimester Z34.01 ; Smoking (tobacco) complicating , first trimester O99.331 ; Spotting complicating , first trimester O26.851 ; Nausea and vomiting during prior to 22 weeks gestation O21.9 ; Dysuria R30.0 and Other specified related conditions, first trimester O26.[address] [id number], [place] [id number] Jul, [facility] [address] [id number], [place] [address] Jul, Supervision of normal first in first trimester Z34.01 ; Smoking (tobacco) complicating , first trimester O99.331 and Obesity complicating in first trimester O99.[address] [id number], [place] [address] Jul, Encounter for test, result unknown Z32.00 [facility] [address] [id number], [place] [id number] Mar, Strep pharyngitis J02.0 and URI with cough and congestion J06.9 [facility] [place] [address] [id number], [place] [id number] Feb, [facility] [address] [place] [place] [id number] [place] [id number] 16 Feb, 2016 Encounter for Depo-Provera contraception Z30.42 [facility] [place] [address] [id number], [place] [address] Feb, Acute bronchitis, unspecified organism J20.9 ; Tobacco abuse Z72.0 ; Tobacco abuse counseling Z71.6 and Scabies B86 [facility] [address] [facility] [id number][place] [address] Dec, Encounter for contraceptive management, unspecified Z30.9 ; Routine gynecological examination Z01.419 ; Screening for STD sexually transmitted disease Z11.3 and Encounter for Depo-Provera contraception Z30.[address] [id number], [place] [address] Nov, Urinary tract infection, site unspecified N39.[address] [id number], [place] [address] Sep, Frequent urination R35.0 ; Missed period N92.6 and Contraception Z30.[address] [id number], [place] [address] Aug, Bronchitis J40 ; Tobacco abuse Z72.0 and Tobacco abuse counseling Z71.[address] [id number], [place] [address] Apr, Acute bronchitis J20.9 ; Tobacco abuse Z72.0 and Tobacco abuse counseling Z71.[address] [id number], [place] [address] Dec, Sprain of right ankle 845.00 and Strain of left foot 845.[address] [id number], [place] [address] October, Encounter for contraceptive management V25.[address] [id number], [place] [id number] Sep, Dental examination V72.2 [facility] [address] [id number] [address] Sep, [facility] [address] [id number] [address] Sep, [facility] [address] [id number] [place] [address] Jul, 2014 [facility] [place] [facility] [address] [id number] [place] [address] Jul, 2014 [facility] [place] [facility] [address] [id number] [place] [address] Jul, 2014 [facility] [place] [facility] [address] [facility] [id number] [place] [address] Jul, 2014 [facility] [place] [facility] [address] [id number] [place] [address] Jul, 2014 [facility] [place] [facility] [address] [facility] [id number] [place] [address] Jul, 2014 [facility] [place] [facility] [address] [facility] [id number] [place] [address] Jul, 2014 [facility] [place] [facility] [address] [facility] [id number] [place] [address] Jul, 2014 [facility] [place] [facility] [address] [facility] [id number] [place] [address]60 Jul, 2014 [facility] [place] [facility] [address] [facility] [id number] [place] [address]- [address] Jul, 2014 [facility] [place] [facility] [address] [facility] [id number] [place] [address]- [address] Jul, 2014 [facility] [place] [facility] [address] [facility] [id number], [place] [address] Apr, [facility] [place] [facility] [address] [facility] [id number] [place] [address]- [address]86 Apr, [facility] [place] [facility] [address] [facility] [id number] [place] [address] Apr, [facility] [place] [facility] [address] [facility] [id number], [place] [address] Apr, [facility] [place] [facility] [address] [facility] [id number][place] [address]- [address] Apr, [facility] [place] [facility] [address] [id number] [place] [address]- 9263 Mar, [facility] [place] [facility] [address] [id number] [place] [address] Mar, [facility] [place] [facility] [address] [id number] [place] [address]- [address]686 Mar, [facility] [place] [facility] [address] [id number] [place] [address]- 7586 Mar, [facility] [place] [facility] [address] [id number] [place] [address]- [address]287 Mar, [facility] [place] [facility] [address] [id number] [place] [address]- 1147 Mar, [facility] [place] [facility] [address] [id number] [place] [address]- 6527 Mar, [facility] [place] [facility] [address] [id number] [place] [address]- 9817 Mar, [facility] [place] [facility] [address] [id number] [place] [address]- 6196 Mar, [facility] [place] [facility] [address] [id number] [place] [address]- [address]205 Mar, [facility] [place] [facility] [address] [id number] [place] [address]- 5884 Mar, [facility] [place] [facility] [address] [id number] [place] [address]- 7174 Feb, [facility] [place] [facility] [address] [id number] [place] [address]- 7219 Feb, [facility] [place] [facility] [address] [id number] [place] [address] Dec, [facility] [place] [facility] [address] [id number] [place] [address] Dec, [facility] [place] [facility] [address] [id number] [place] [address]- 9735 October, [facility] [place] [facility] [address] [id number] [place] [address]- [address] October, [facility] [place] [facility] [address] [id number] [place] [address]- 2391 Sep, [facility] [place] [facility] [address] [id number] [place] [address]- 1849 Sep, [facility] [place] [facility] [address] [id number] [place] [address]- 3130 Sep, [facility] [place] [facility] [address] [id number] [place] [address]- 1742 Sep, [facility] [place] [facility] [address] [facility] [id number] [place] [address]- 6[address] Sep, [facility] [place] [facility] [address] [id number] [place] [address]- 6663 Sep, [facility] [place] [facility] [address] [id number] [place] [address]- 0794 Sep, [facility] [place] [facility] [address] [id number] [place] [address]- 2379 Jul, [facility] [place] [facility] [address] [facility] [id number] [place] [address]- 6991 Jul, [facility] [place] [facility] [address] [id number] [place] [address]- 4713 Jul, [facility] [place] [facility] [address] [id number] [place] [address]- 7767 Jul, [facility] [place] [facility] [address] [id number] [place] [address]- 1637 Jul, [facility] [place] [facility] [address] [id number] [place] [address]- 7[address] Jul, [facility] [place] [facility] [address] [id number] [place] [address]- 2546 Jun, [facility] [place] [facility] [address] [id number] [place] [address]- 3603 Jun, [facility] [place] [facility] [address] [id number] [place] [address]- 6501 Jun, [facility] [place] [facility] [address] [id number] [place] [address]- 2598 Jun, [facility] [place] [facility] [address] [id number] [place] [address]- 7695 May, [facility] [place] [facility] [address] [id number] [place] [address]- 7970 May, [facility] [place] [facility] [address] [id number] [place]- 1737 Mar, [facility] [place] [facility] [address] [id number] [place] [address]- 4886 Mar, [facility] [place] [facility] [address] [id number] [place] [address]- 9847 Mar, [facility] [place] [facility] [address] [id number] [place] 3257 Mar, [facility] [place] [facility] [address] [id number] [place] [address]- 2027 Mar, [facility] [place] [facility] [address] [id number] [place] [address]- 2409 Sep, [facility] [place] [facility] [address] [id number] [place] [address]- 6383 Sep, [facility] [place] [facility] [address] [id number] [place] [address]- 2240 Sep, [facility] [place] [facility] [address] [id number] [place] [address]- 2125 Aug, [facility] [place] [facility] [address] [id number] [place] [address]- 9691 Jul, [facility] [place] [facility] [address] [id number] [place] [address]- 1468 Jul, [facility] [address] [id number] [place] [address]- 6482 Jul, [facility] [address] [id number] [place] [address]- 8156 Jun, [facility] [address] [id number] [place] [address]- 7547 Jun, [facility] [address] [id number] [place] [address]- 0301 Mar, [facility] [address] [id number] [place] [address]- 3297 Feb, [facility] [address] [id number] [place] [address]- 6318 Feb, [facility] [address] [id number] [place] [address]- 9358 October, [facility] [address] [id number][place] [address]- 9760 Sep, [facility] [address] [id number][place] [address]- 7617 Sep, [facility] [address] [id number], [place] [address]- 6[address] Sep, [facility] [address] [id number], [place] [address]- 6 Aug, [facility] [address] [facility] [id number][place] [id number] Jul, [facility] [address] [id number], [place] [address]- 7[address] Jun, [facility] [address] [facility] [id number], [place] [id number] Jun, [facility] [address] [id number], [place] [address]- 1806 May, [facility] [address]00565100[place], [place] [address] 0[address] Apr, [facility] [address] [place] [address]- 2058 Jan, [facility] [address]00565100[place], [place] [address] Sep, [facility] [id number] [place] [address]- 8261 Jul, [facility] [id number] [place] [address] 431292- 9336 Feb, [facility] [id number] [place] [address]- 5481 May, [facility] [id number] [place] [address]- 6338 May, [facility] [id number] [place] [address]65- 9532 Apr, [facility] [address] [place] [address]- 1135 Mar, [facility] [id number] [place] [address]11[address]- 1531 Mar, [facility] [address]00565100[place], [place] [address]- 8773 Feb, [facility] [address]00565100[place] [address] Jan, [facility] [address] [id number] [address]- 2425 Nov, IMMUNIZATIONS No Known Immunizations SOCIAL HISTORY Never Assessed REASON FOR VISIT OB f/u Olegario SANDOVAL PLAN OF CARE Activity Details Follow Up 2 Weeks Reason: Pending Test UA OB DIP (IN HOUSE) VITAL SIGNS Height 62 in 2018-02-03 Weight 189.4 lbs 2018-02-03 Heart Rate 80 bpm 2018-02-03 Respiratory Rate 16 2018-02-03 BMI 34.642 kg/m2 2018-02-03 Blood pressure systolic 120 mmHg 2018-02-03 Blood pressure diastolic 68 mmHg 2018-02-03 MEDICATIONS Medication Instructions Dosage Frequency Start Date End Date Duration Status Gummies/DHA & FA 0.4-32.5 MG Orally Once a day as directed 24h Dec, 30 days Active Macrobid 100 mg Orally every 12 hrs 1 capsule with food 12h Jan, Jan, 7 day(s) Active Complete 14-0.4 MG Orally Once a day 1 tablet 24h 30 days Not-Taking Ondansetron 4 MG Orally every six hours as needed 1 tablet Aug, 30 days Active RESULTS No Results PROCEDURES Procedure Date Ordered Result Body Site URINE-NO MICRO Feb 03, 2018 URINALYSIS, AUTO, W/O SCOPE Feb 03, 2018 LAB NOT BILLED BY [facility] Feb 03, 2018 INSTRUCTIONS MEDICATIONS ADMINISTERED No Known [...]
--- OUTSIDE RECORDS SUMMARY | 2018-04-09 15:29 | XMS REPORT ---
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 Active 3958380090391 Problem Tobacco abuse Z72.0 Active 29504292 Problem Irregular periods N92.6 Active 40645532 Problem Nausea and vomiting during prior to 22 weeks gestation O21.9 Active 74090556 Problem Other specified related conditions, third trimester O26.893 Active 02964333 Problem Smoking (tobacco) complicating , third trimester O99.333 Active 558241342 Problem UTI (urinary tract infection) in in third trimester O23.43 Active 611137004 Problem Obesity complicating in third trimester O99.213 Active 035326627675 Problem Heartburn R12 Active 18315386 Problem Supervision of normal first in third trimester Z34.03 Active 01738018 ALLERGIES Substance Reaction Event Type Date Status Ritalin hives Drug Allergy Dec, Active ENCOUNTERS Encounter Location Date Diagnosis [facility] [address] [id number] [place] [id number] Apr, [facility] [address] [id number] [place] [id number] Feb, [facility] [address] [id number] [place] [id number] Jan, Encounter for immunization Z23 ; Supervision of normal first in third trimester Z34.03 ; Smoking (tobacco) complicating , third trimester O99.333 ; Obesity complicating in third trimester O99.213 ; Other specified related conditions, third trimester O26.893 ; Heartburn R12 ; Decreased movements in third trimester, single or unspecified fetus O36.8130 and 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 [id number][place] [id number] Jan, Supervision of normal first in third trimester Z34.03 ; Smoking (tobacco) complicating , third trimester O99.333 ; Obesity complicating in third trimester O99.213 ; Heartburn R12 ; Other specified related conditions, third trimester O26.893 ; Increased urinary frequency R35.0 and UTI (urinary tract infection) in in third trimester O23.43 [facility] [address] [id number], [place] [id number] Jan, Dental caries K02.9 [facility] [id number][place] [id number] Jan, Dental examination Z01.[address] [id number] [place] [id number] Dec, Supervision of normal first in second trimester Z34.02 ; Tobacco smoking complicating in second trimester O99.332 ; Obesity complicating , second trimester O99.212 and Nausea and vomiting during prior to 22 weeks gestation O21.[address] [id number][place] [id number] Nov, [address] [place] [id number] Nov, Supervision of normal first in second trimester Z34.02 ; Tobacco smoking complicating in second trimester O99.332 and Obesity complicating , second trimester O99.212 [facility] [id number][place] [id number] October, Supervision of normal first in second trimester Z34.02 ; UTI (urinary tract infection) in in second trimester O23.42 ; Nausea and vomiting during prior to 22 weeks gestation O21.9 ; Obesity complicating , second trimester O99.212 and Tobacco smoking complicating in second trimester O99.332 [facility] [address] [id number], [place] [id number] October, Dental caries K02.9 ; Weight loss R63.4 and Second trimester Z34.92 [facility] [address] [employer] [address] [id number], [place] [id number] Sep, Supervision of normal first in first [...] of transmission complicating , unspecified trimester O98.319 [facility] [address] [employer] [address] [id number], [place] [id number] Sep, Other specified related conditions, first trimester O26.891 [facility] [address] [facility] [id number][place] [id number] Sep, Other maternal infectious and parasitic diseases complicating , second trimester O98.812 and Chlamydial infection A74.9 [facility] [address] [employer] [address] [id number], [place] [id number] Sep, Supervision of normal first in first trimester Z34.01 [facility] [address] [employer] [address] [id number], [place] [id number] Aug, Supervision of normal first in first trimester Z34.01 ; Smoking (tobacco) complicating , first trimester O99.331 ; Spotting complicating , first trimester O26.851 ; Nausea and vomiting during prior to 22 weeks gestation O21.9 ; Dysuria R30.0 and Other specified related conditions, first trimester O26.891 [facility] [address] [employer] [address] [id number], [place] [id number] Jul, [facility] [id number][place] [id number] Jul, Supervision of normal first in first trimester Z34.01 ; Smoking (tobacco) complicating , first trimester O99.331 and Obesity complicating in first trimester O99.[address] [id number], [place] [id number] Jul, Encounter for test, result unknown Z32.[address] [id number], [place] [id number] Mar, Strep pharyngitis J02.0 and URI with cough and congestion J06.[address] [id number] [place] [id number] Feb, [facility] [address] [id number], [place] [id number] Feb, Encounter for Depo-Provera contraception Z30.42 [facility] [address] [id number], [place] [id number] Feb, Acute bronchitis, unspecified organism J20.9 ; Tobacco abuse Z72.0 ; Tobacco abuse counseling Z71.6 and Scabies B86 [address] [id number], [place] [id number] Dec, Encounter for contraceptive management, unspecified Z30.9 ; Routine gynecological examination Z01.419 ; Screening for STD sexually transmitted disease Z11.3 and Encounter for Depo-Provera contraception Z30.42 [facility] [address] [id number], [place] [id number] Nov, Urinary tract infection, site unspecified N39.0 [facility] [address] [id number] [place] [id number] Sep, Frequent urination R35.0 ; Missed period N92.6 and Contraception Z30.[address] [id number], [place] [id number] Aug, Bronchitis J40 ; Tobacco abuse Z72.0 and Tobacco abuse counseling Z71.[address] [id number], [place] [id number] Apr, Acute bronchitis J20.9 ; Tobacco abuse Z72.0 and Tobacco abuse counseling Z71.6 [facility] [address] [facility] [address] [id number], [place] [id number] Dec, Sprain of right ankle 845.00 and Strain of left foot 845.[address] [id number], [place] [id number] October, Encounter for contraceptive management V25.[address] [id number], [place] [id number] Sep, Dental examination V72.2 [facility] [id number] [place] [address] Sep, [facility] [address] [address] Sep, [facility] [id number] [place] [address] Jul, [facility] [address] [address] Jul, [facility] [id number] [place] [address] Jul, [facility] [id number] [place] [address] Jul, [facility] [id number] [place] [address]94 Jul, [facility] [address] [address] Jul, [facility] [id number] [place] [address] Jul, [facility] [address] [address] Jul, 2014 [facility] [place] [facility] [address] [id number] [place] [address] Jul, 2014 [facility] [place] [facility] [address] [id number] [place] [address] Jul, 2014 [facility] [place] [facility] [address] [id number] [place] [address] Jul, 2014 [facility] [place] [facility] [address] [id number] [place] [address] Apr, [facility] [place] [facility] [address] [id number] [place] [address] Apr, [facility] [place] [facility] [address] [id number] [place] [address]60 Apr, [facility] [place] [facility] [address] [id number] [place] [address]71 Apr, [facility] [place] [facility] [address] [id number] [place] [address] Apr, [facility] [place] [facility] [address] [id number] [place] [address] Mar, [facility] [place] [facility] [address] [id number] [place] [address]- [address] 30 Mar, 2014 [facility] [place] [facility] [address] [id number], [place] [address] Mar, [facility] [place] [facility] [address] [id number], [place] [address] 14 Mar, 2014 [facility] [place] [facility] [address] [id number], [place] [address] Mar, [facility] [place] [facility] [address] [id number], [place] [address]- [address] Mar, [facility] [place] [facility] [address] [id number] [place] [address]- 91[address] Mar, [facility] [place] [facility] [address] [id number] [place] [address] 1617 Mar, [facility] [place] [facility] [address] [id number] [place] [address]- [address] Mar, [facility] [place] [facility] [address] [id number] [place] [address]- [address] Mar, [facility] [place] [facility] [address] [id number] [place] [address]- 5247 Mar, [facility] [place] [facility] [address] [id number] [place] [address]- [address] Feb, [facility] [place] [facility] [address] [id number] [place] [address]- [address]38 Feb, [facility] [place] [facility] [address] [id number] [place] [address]- 8474 Dec, [facility] [place] [facility] [address] [id number] [place] [address]- [address] Dec, [facility] [address] [id number] [place] [address] October, [facility] [place] [facility] [address] [id number] [place] [address]- [address]85 October, [facility] [place] [facility] [address] [id number] [place] [address]- 8[address] Sep, [facility] [place] [facility] [address] [id number] [place] [address]- 7804 Sep, [facility] [place] [facility] [address] [id number] [place] [address]- [address] Sep, [facility] [place] [facility] [address] [id number] [place] [address]- 4461 Sep, [facility] [place] [facility] [address] [id number] [place] [address]- 1808 Sep, [facility] [place] [facility] [address] [id number] [place] [address]- 3212 Sep, [facility] [place] [facility] [address] [id number] [place] [address]- 1155 Sep, [facility] [place] [facility] [address] [id number] [place] [address]- 8830 Jul, [facility] [place] [facility] [address] [id number] [place] [address]- 3460 Jul, [facility] [place] [facility] [address] [id number] [place] [address]- 6557 Jul, [facility] [place] [facility] [address] [id number] [place] [address]- 5440 Jul, [facility] [place] [facility] [address] [id number] [place] [address]- 0804 Jul, [facility] [place] [facility] [address] [id number] [place] [address]- 3245 Jul, [facility] [place] [facility] [address] [id number] [place] [address]- 7851 Jun, [facility] [place] [facility] [address] [id number] [place] [address]- [address]32 Jun, [facility] [place] [facility] [address] [id number] [place] [address]- 1244 Jun, [facility] [place] [facility] [address] [id number] [place] [address]- 4803 Jun, [facility] [place] [facility] [address] [id number], [place] [address]- 69[address] May, [facility] [place] [facility] [address] [id number] [place] [address]- 4626 May, [facility] [place] [facility] [address] [facility] [id number] [place] [address]- 3635 Mar, [facility] [place] [facility] [address] [id number] [place] [address]- 6940 Mar, [facility] [place] [facility] [address] [id number] [place] [address]- 5408 Mar, [facility] [address] [id number] [place] [address]- 6459 Mar, [facility] [address] [id number] [place] [address] 2546 Mar, [facility] [address] [id number] [place] [address]- 7553 Sep, [facility] [address] [id number] [place] [address]- 8649 Sep, [facility] [address] [id number] [place] [address]- 8969 Sep, [facility] [address] [id number] [place] [address] 2546 Aug, [facility] [address] [id number] [place] [address]- 7634 Jul, [facility] [address] [id number] [place] [address]- 2442 Jul, [facility] [address] [id number] [place] [address]- 8981 Jul, [facility] [address] [facility] [id number] [place] [address]- 2656 Jun, [facility] [address] [id number] [place] [address]- 8679 Jun, [facility] [address] [id number] [place] [address]- 0736 Mar, [facility] [address] [id number] [place] [address]- 4016 Feb, [facility] [address] [id number] [place] [address]- 2546 Feb, [facility] [address] [id number] [place] [address]- 2052 October, [facility] [address] [id number] [place] [address]- 5056 Sep, [facility] [place] [facility] [address] [id number] [place] [address]- 4386 Sep, [facility] [place] [facility] [address] [id number] [place] [address]- 2546 Sep, [facility] [place] [facility] [address] [id number] [place] [address]- 2546 Aug, [facility] [address] [id number][place] [id number] Jul, [facility] [address] [id number] [place] [address]- 4976 Jun, [facility] [address] [id number] [place] [id number] Jun, [facility] [address] [id number], [place] [address]- 0166 May, [facility] [place] [facility] [address] [id number] [place] [address]- 6850 Apr, [facility] [place] [facility] [address] [id number], [place] [address]- 5[address] Jan, [facility] [place] [facility] [address] [id number], [place] [address]- 3506 Sep, [facility] [place] [facility] [address] [id number], [place] [address]- 2546 Jul, [facility] [place] [facility] [address] [id number], [place] [address]- 2546 Feb, [facility] [place] [facility] [address] [id number] [place] [address]- 5646 May, [facility] [place] [facility] [address] [id number], [place] [address]- 2546 May, [facility] [place] [facility] [address] [id number], [place] [address]- 3788 Apr, [facility] [address] [facility] [id number] [place] [address] 2546 Mar, [facility] [address] [facility] [id number], [place] [address]- 2546 Mar, [facility] [address] [facility] [id number], [place] [address]- 2546 Feb, [facility] [address] [facility] [id number], [place] [address]- 2546 Jan, [facility] [address] [facility] [id number], [place] [address] 2546 Nov, IMMUNIZATIONS No Known Immunizations SOCIAL HISTORY Never Assessed REASON FOR VISIT OB f/uKatie Boudreaux ma PLAN OF CARE Activity Details Follow Up 3-4 weeks Reason: VITAL SIGNS Height 62 in 2018-01-06 Weight 180.8 lbs 2018-01-06 Temperature 96.9 degrees Fahrenheit 2018-01-06 Heart Rate 86 bpm 2018-01-06 Respiratory Rate 16 2018-01-06 Oximetry 97 % 2018-01-06 BMI 33.069 kg/m2 2018-01-06 Blood pressure systolic 122 mmHg 2018-01-06 Blood pressure diastolic 62 mmHg 2018-01-06 MEDICATIONS Medication Instructions Dosage Frequency Start Date End Date Duration Status Complete 14-0.4 MG Orally Once a day 1 tablet 24h 30 days Active Gummies/DHA & FA 0.4-32.5 MG Orally Once a day as directed 24h Dec, 30 days Active Ondansetron 4 MG Orally every six hours as needed 1 tablet Aug, 30 days Not-Taking RESULTS No Results PROCEDURES Procedure Date Ordered Result Body Site URINE-NO MICRO January 06, 2018 LAB NOT BILLED BY [facility] January 06, 2018 VENIPUNCT, ROUTINE* January 06, 2018 INSTRUCTIONS MEDICATIONS ADMINISTERED No Known Medications MEDICAL (GENERAL) HISTORY Type Description Date Medical History : due date 04/18/2018 Medical History asthma- Normal PFT 2012 Medical History allergies Medical History acid reflux Medical History anxiety Medical History PCOS Medical History ADHD Surgical History tonsillectomy and adenoidectomy Surgical History oral surgery Hospitalization History overdose on sleeping medication age 9
--- OUTSIDE RECORDS SUMMARY | 2018-04-09 15:29 | XMS REPORT ---
Author Author CATRACHITO MULLINS [facility] Address [address] [place] [address] Care Team Providers Care Crime Specialist Name Role Phone MULLINS, CATRACHITO Unavailable PROBLEMS Type Condition ICD9-CM Code BPE26-XH Code Onset Dates Condition Status SNOMED Code Problem Smoking (tobacco) complicating , third trimester O99.333 Active 511309290 Problem Supervision of normal first in third trimester Z34.03 Active 96387593 Problem Heartburn R12 Active 54399996 Problem Constipation, unspecified K59.00 Active 67264586 Problem Diseases of the digestive system complicating , third trimester O99.613 Active 73150914 Problem Obesity complicating in third trimester O99.213 Active 779033526178 Problem UTI (urinary tract infection) in in third trimester O23.43 Active 374181148 Problem Asthma exacerbation, mild J45.901 Active 877643798 Problem Amniotic fluid index borderline low O28.8 Active 35400959 Problem 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 Active 7424666936819 Problem Tobacco abuse Z72.0 Active 80602091 Problem Spotting complicating , first trimester O26.851 Active 173602460 Problem Unspecified sexually transmitted disease A64 Active 1776404 Problem Irregular periods N92.6 Active 94205322 Problem Other infections with a predominantly sexual mode of transmission complicating , unspecified trimester O98.319 Active 96267602 Problem Nausea and vomiting during prior to 22 weeks gestation O21.9 Active 74114069 Problem Other specified related conditions, third trimester O26.893 Active 18566062 ALLERGIES Substance Reaction Event Type Date Status Ritalin hives Drug Allergy Jan, Active ENCOUNTERS Encounter Location Date Diagnosis [facility] [address] [id number] [place] [id number] Apr, [facility] [address] [id number] [place] [id number] Feb, [facility] [id number] [place] [id number] Feb, [address] [id number] [place] [id number] Feb, Supervision of normal first in third [...] digestive system complicating , third trimester O99.[address] [id number] LAKE[place] [address] Jan, Encounter for immunization Z23 ; Supervision of normal first in third trimester Z34.03 ; Smoking (tobacco) complicating , third trimester O99.333 ; Obesity complicating in third trimester O99.213 ; Other specified related conditions, third trimester O26.893 ; Heartburn R12 ; Decreased movements in third trimester, single or unspecified fetus O36.8130 and 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 [id number] [place] [id number] Jan, Supervision of normal first in third trimester Z34.03 ; Smoking (tobacco) complicating , third trimester O99.333 ; Obesity complicating in third trimester O99.213 ; Heartburn R12 ; Other specified related conditions, third trimester O26.893 ; Increased urinary frequency R35.0 and UTI (urinary tract infection) in in third trimester O23.43 [facility] [address] [place], [place] [address] [id number][place] [id number] Jan, Dental caries K02.9 [facility] [id number][place] [id number] Jan, Dental examination Z01.[address] [id number] [place] [address] Dec, Supervision of normal first in second trimester Z34.02 ; Tobacco smoking complicating in second trimester O99.332 ; Obesity complicating , second trimester O99.212 and Nausea and vomiting during prior to 22 weeks gestation O21.[address] [id number] [place] [id number] Nov, [address] [id number] [place] [address] Nov, Supervision of normal first in second trimester Z34.02 ; Tobacco smoking complicating in second trimester O99.332 and Obesity complicating , second trimester O99.[address] [facility] [address] [id number], [place] [address] October, Supervision of normal first in second trimester Z34.02 ; UTI (urinary tract infection) in in second trimester O23.42 ; Nausea and vomiting during prior to 22 weeks gestation O21.9 ; Obesity complicating , second trimester O99.212 and Tobacco smoking complicating in second trimester O99.[address] [facility] [address] [id number][place] [address] October, Dental caries K02.9 ; Weight loss R63.4 and Second trimester Z34.[address] [facility] [address] [id number], [place] [address] Sep, Supervision of normal first in first [...] of transmission complicating , unspecified trimester O98.319 [facility] [id number], [place] [address] Sep, Other specified related conditions, first trimester O26.[address] [id number] [place] [address] Sep, Other maternal infectious and parasitic diseases complicating , second trimester O98.812 and Chlamydial infection A74.[address] [id number], [place] [address] Sep, Supervision of normal first in first trimester Z34.01 [facility] [id number], [place] [address] Aug, Supervision of normal first in first trimester Z34.01 ; Smoking (tobacco) complicating , first trimester O99.331 ; Spotting complicating , first trimester O26.851 ; Nausea and vomiting during prior to 22 weeks gestation O21.9 ; Dysuria R30.0 and Other specified related conditions, first trimester O26.[address] [id number][place] [id number] Jul, [facility] [id number][place] [address] Jul, Supervision of normal first in first trimester Z34.01 ; Smoking (tobacco) complicating , first trimester O99.331 and Obesity complicating in first trimester O99.[address] [id number] [place] [address] Jul, Encounter for test, result unknown Z32.00 [facility] [id number][place] [id number] Mar, Strep pharyngitis J02.0 and URI with cough and congestion J06.[address] [id number], [place] [address] Feb, [facility] [address] [place] [address] [id number], [place] [id number] Feb, Encounter for Depo-Provera contraception Z30.42 [facility] [employer] [place] [address] [id number], [place] [id number] Feb, Acute bronchitis, unspecified organism J20.9 ; Tobacco abuse Z72.0 ; Tobacco abuse counseling Z71.6 and Scabies B86 [facility] [address] [facility] [id number] [place] [address] Dec, Encounter for contraceptive management, unspecified Z30.9 ; Routine gynecological examination Z01.419 ; Screening for STD sexually transmitted disease Z11.3 and Encounter for Depo-Provera contraception Z30.[address] [id number], [place] [id number] Nov, Urinary tract infection, site unspecified N39.[address] [id number], [place] [address] Sep, Frequent urination R35.0 ; Missed period N92.6 and Contraception Z30.[address] [id number], [place] [address] Aug, Bronchitis J40 ; Tobacco abuse Z72.0 and Tobacco abuse counseling Z71.[address] [id number], [place] [address] Apr, Acute bronchitis J20.9 ; Tobacco abuse Z72.0 and Tobacco abuse counseling Z71.[address] [id number], [place] [address] Dec, Sprain of right ankle 845.00 and Strain of left foot 845.[address] [id number], [place] [id number] October, Encounter for contraceptive management V25.[address] [id number], [place] [address] Sep, Dental examination V72.2 [facility] [address] [address] Sep, [facility] [address] [id number] [address] Sep, [facility] [address] [place] [address] 18 Jul, 2014 [facility] [place] [facility] [address] [id number] [place] [address] Jul, 2014 [facility] [place] [facility] [address] [id number] [place] [address] Jul, 2014 [facility] [place] [facility] [address] [id number] [place] [address] Jul, 2014 [facility] [place] [facility] [address] [id number] [place] [address] Jul, 2014 [facility] [place] [facility] [address] [id number] [place] [address] Jul, 2014 [facility] [place] [facility] [address] [facility] [id number] [place] [address] Jul, 2014 [facility] [place] [facility] [address] [facility] [id number] [place] [address] Jul, 2014 [facility] [place] [facility] [address] [id number] [place] [address] Jul, 2014 [facility] [place] [facility] [address] [facility] [id number] [place] [address] 1787 Jul, 2014 [facility] [place] [facility] [address] [facility] [id number] [place] [address]77 Jul, 2014 [facility] [place] [facility] [address] [facility] [id number] [place] [address] Apr, [facility] [place] [facility] [address] [id number] [place] [address] Apr, [facility] [place] [facility] [address] [facility] [id number] [place] [address] 17 Apr, 2014 [facility] [place] [facility] [address] [id number] [place] [address] 10 Apr, 2014 [facility] [place] [facility] [address] [facility] [id number] [place] [address] 4985 Apr, [facility] [place] [facility] [address] [id number] [place] [address] Mar, [facility] [place] [facility] [address] [id number] [place] [address] Mar, [facility] [place] [facility] [address] [id number] [place] [address] 17[address] Mar, [facility] [place] [facility] [address] [id number] [place] [address]- 67[address] Mar, [facility] [place] [facility] [address] [id number] [place] [address] Mar, [facility] [place] [facility] [address] [id number] [place] [address] Mar, [facility] [place] [facility] [address] [id number] [place] [address] 1988 Mar, [facility] [place] [facility] [address] [id number] [place] [address] Mar, [facility] [place] [facility] [address] [id number] [place] [address]- [address]69 Mar, [facility] [place] [facility] [address] [id number] [place] [address]- 1613 Mar, [facility] [place] [facility] [address] [id number] [place] [address] Mar, [facility] [place] [facility] [address] [id number] [address] Feb, [facility] [place] [facility] [address] [id number] [place] [address]- 8809 Feb, [facility] [place] [facility] [address] [id number] [place] [address]- 8637 Dec, [facility] [place] [facility] [address] [id number] [place] [address]- 1198 Dec, [facility] [place] [facility] [address] [id number] [place] [address]- [address]329 October, [facility] [address] [id number] [place] [address] October, [facility] [place] [facility] [address] [id number] [place] [address]- [address] Sep, [facility] [place] [facility] [address] [id number] [place] [address]- 3043 Sep, [facility] [place] [facility] [address] [id number] [place] [address]- [address]7 Sep, [facility] [place] [facility] [address] [id number] [place] [address]- 2144 Sep, [facility] [place] [facility] [address] [id number] [place] [address]- 5066 Sep, [facility] [place] [facility] [address] [id number] [place] [address]- 5536 Sep, [facility] [place] [facility] [address] [id number] [place] [address]- 5064 Sep, [facility] [place] [facility] [address] [id number] [place] [address]- 7730 Jul, [facility] [place] [facility] [address] [id number] [place] [address]- [address]201 Jul, [facility] [place] [facility] [address] [id number] [place] [address]- 9519 Jul, [facility] [place] [facility] [address] [id number] [place] [address]- [address]759 Jul, [facility] [place] [facility] [address] [id number] [place] [address]- 9358 Jul, [facility] [place] [facility] [address] [id number] [place] [address]- 7639 Jul, [facility] [place] [facility] [address] [id number] [place] [address]- 3543 Jun, [facility] [place] [facility] [address] [id number] [place] [address]- 8353 Jun, [facility] [place] [facility] [address] [id number] [place] [address]- 0833 Jun, [facility] [place] [facility] [address] [id number] [place] [address]- 6595 Jun, [facility] [place] [facility] [address] [id number] [place] [address]- 2489 May, [facility] [place] [facility] [address] [id number] [place] [address]- 7131 May, [facility] [place] [facility] [address] [id number] [place] [address]- 8850 Mar, [facility] [place] [facility] [address] [id number] [place] [address]- 2368 Mar, [facility] [place] [facility] [address] [id number] [address]- [address] Mar, [facility] [place] [facility] [address] [id number] [place] [address]- 7610 Mar, [facility] [place] [facility] [address] [id number] [place] [address]- 68[address] Mar, [facility] [place] [facility] [address] [id number] [place] [address]- 9813 Sep, [facility] [place] [facility] [address] [id number] [place] [address]- 6282 Sep, [facility] [place] [facility] [address] [id number] [place] [address]- 1810 Sep, [facility] [place] [facility] [address] [id number] [place] [address]- 1336 Aug, [facility] [place] [facility] [address] [id number] [place] [address]- 8087 Jul, [facility] [place] [facility] [address] [id number] [place] [address]- 6099 Jul, [facility] [address] [id number] [place] [address]- 3461 Jul, [facility] [address] [id number] [place] [address]- 4484 Jun, [facility] [address] [id number] [place] [address]- 6065 Jun, [facility] [address] [id number] [place] [address]- 7032 Mar, [facility] [address] [id number] [place] [address]- 4502 Feb, [facility] [address] [id number] [place] [address]- 7205 Feb, [facility] [address] [id number] [place] [address]- 6848 October, [facility] [address] [id number] [place] [address]- 5372 Sep, [facility] [address] [id number] [place] [address]- 6738 Sep, [facility] [address] [id number] [place] [address]- 9870 Sep, [facility] [address] [id number] [place] [address]- [address]23 Aug, [facility] [address] [facility] [id number] [place] [address] Jul, [facility] [address] [id number] [place] [address]- 1524 Jun, [facility] [address] [facility] [id number] [place] [id number] Jun, [facility] [address] [id number] [place] [address]- 2896 May, [facility] [address] [address] Apr, [facility] [address] [address] Jan, [facility] [address] [address]- 2265 Sep, [facility] [address] [place] [address]- 3739 Jul, [facility] [address] [address]8 Feb, [facility] [id number] [place] [address]- 2750 May, [facility] [address] [place] [address]- 2110 May, [facility] [id number] [place] [address]- [address]473 Apr, [facility] [address] [address]- 0432 Mar, [facility] [address] [place] [address]- 6875 Mar, [facility] [address] [address] 7108 Feb, [facility] [address] [address]- 1107 Jan, [facility] [address] [address]- 8[address] Nov, IMMUNIZATIONS No Known Immunizations SOCIAL HISTORY Never Assessed REASON FOR VISIT te PLAN OF CARE Activity Details Follow Up prn Reason:ZURI with HYG VITAL SIGNS Height 62 in 2018-02-02 Blood pressure systolic 99 mmHg 2018-02-02 Blood pressure diastolic 51 mmHg 2018-02-02 MEDICATIONS Medication Instructions Dosage Frequency Start Date End Date Duration Status Ondansetron 4 MG Orally every six hours as needed 1 tablet Aug, 30 days Not-Taking Complete 14-0.4 MG Orally Once a day 1 tablet 24h 30 days Active Gummies/DHA & FA 0.4-32.5 MG Orally Once a day as directed 24h Dec, 30 days Not-Taking RESULTS No Results PROCEDURES Procedure Date Ordered Result Body Site EXTRAC ERUPTED TOOTH/EXPOSED ROOT Feb 02, 2018 INSTRUCTIONS MEDICATIONS ADMINISTERED No Known Medications [...]
--- OUTSIDE RECORDS SUMMARY | 2018-04-09 15:29 | XMS REPORT ---
Author Author CATRACHITO MULLINS [facility] Address [address] [place] [address] Care Team Providers Care Vest Busheler Name Role Phone MULLINS, CATRACHITO Unavailable PROBLEMS Type Condition ICD9-CM Code KYN40-JR Code Onset Dates Condition Status SNOMED Code Problem Smoking (tobacco) complicating , third trimester O99.333 Active 716295534 Problem Supervision of normal first in third trimester Z34.03 Active 57740075 Problem Heartburn R12 Active 99182013 Problem Constipation, unspecified K59.00 Active 96074077 Problem Diseases of the digestive system complicating , third trimester O99.613 Active 23512754 Problem Obesity complicating in third trimester O99.213 Active 248847896214 Problem UTI (urinary tract infection) in in third trimester O23.43 Active 385579413 Problem Asthma exacerbation, mild J45.901 Active 659524772 Problem Amniotic fluid index borderline low O28.8 Active 50311208 Problem 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 Active 8476337550933 Problem Tobacco abuse Z72.0 Active 90871684 Problem Spotting complicating , first trimester O26.851 Active 626868233 Problem Unspecified sexually transmitted disease A64 Active 0261972 Problem Irregular periods N92.6 Active 63383397 Problem Other infections with a predominantly sexual mode of transmission complicating , unspecified trimester O98.319 Active 98515131 Problem Nausea and vomiting during prior to 22 weeks gestation O21.9 Active 62442573 Problem Other specified related conditions, third trimester O26.893 Active 96963584 ALLERGIES Substance Reaction Event Type Date Status Ritalin hives Drug Allergy Jan, Active ENCOUNTERS Encounter Location Date Diagnosis [facility] [address] [id number] [place] [id number] Apr, [facility] [address] [id number] [place] [id number] Feb, [facility] [id number] [place] [id number] Feb, [address] [id number][place] [id number] Feb, Supervision of normal first in third [...] digestive system complicating , third trimester O99.[address] [id number][place] [id number] Jan, Encounter for immunization Z23 ; Supervision of normal first in third trimester Z34.03 ; Smoking (tobacco) complicating , third trimester O99.333 ; Obesity complicating in third trimester O99.213 ; Other specified related conditions, third trimester O26.893 ; Heartburn R12 ; Decreased movements in third trimester, single or unspecified fetus O36.8130 and 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 [id number][place] [address] Jan, Supervision of normal first in third trimester Z34.03 ; Smoking (tobacco) complicating , third trimester O99.333 ; Obesity complicating in third trimester O99.213 ; Heartburn R12 ; Other specified related conditions, third trimester O26.893 ; Increased urinary frequency R35.0 and UTI (urinary tract infection) in in third trimester O23.43 [facility] [address] [place], [place] [address] [id number][place] [id number] Jan, Dental caries K02.9 [facility] [id number], [place] [address] Jan, Dental examination Z01.[address] [id number][place] [address] Dec, Supervision of normal first in second trimester Z34.02 ; Tobacco smoking complicating in second trimester O99.332 ; Obesity complicating , second trimester O99.212 and Nausea and vomiting during prior to 22 weeks gestation O21.[address] [id number], [place] [address] Nov, [address] [id number][place] [address] Nov, Supervision of normal first in second trimester Z34.02 ; Tobacco smoking complicating in second trimester O99.332 and Obesity complicating , second trimester O99.[address] [facility] [address] [id number], [place] [id number] October, Supervision of normal first in second trimester Z34.02 ; UTI (urinary tract infection) in in second trimester O23.42 ; Nausea and vomiting during prior to 22 weeks gestation O21.9 ; Obesity complicating , second trimester O99.212 and Tobacco smoking complicating in second trimester O99.332 [facility] [id number][place] [address] October, Dental caries K02.9 ; Weight loss R63.4 and Second trimester Z34.92 [facility] [id number], [place] [address] Sep, Supervision of normal first in first [...] of transmission complicating , unspecified trimester O98.319 [facility] [id number], [place] [address] Sep, Other specified related conditions, first trimester O26.[address] [id number], [place] [address] Sep, Other maternal infectious and parasitic diseases complicating , second trimester O98.812 and Chlamydial infection A74.[address] [id number], [place] [address] Sep, Supervision of normal first in first trimester Z34.01 [facility] [id number][place] [address] Aug, Supervision of normal first in first trimester Z34.01 ; Smoking (tobacco) complicating , first trimester O99.331 ; Spotting complicating , first trimester O26.851 ; Nausea and vomiting during prior to 22 weeks gestation O21.9 ; Dysuria R30.0 and Other specified related conditions, first trimester O26.[address] [id number], [place] [address] Jul, [facility] [id number][place] [id number] Jul, Supervision of normal first in first trimester Z34.01 ; Smoking (tobacco) complicating , first trimester O99.331 and Obesity complicating in first trimester O99.[address] [id number][place] [id number] Jul, Encounter for test, result unknown Z32.00 [facility] [id number], [place] [id number] Mar, Strep pharyngitis J02.0 and URI with cough and congestion J06.[address] [id number], [place] [address] Feb, [facility] [employer] [place] [address] [id number], [place] [id number] Feb, Encounter for Depo-Provera contraception Z30.42 [facility] [address] [place] [address] [id number], [place] [address] Feb, Acute bronchitis, unspecified organism J20.9 ; Tobacco abuse Z72.0 ; Tobacco abuse counseling Z71.6 and Scabies B86 [facility] [address] [facility] [id number], [place] [address] Dec, Encounter for contraceptive management, unspecified Z30.9 ; Routine gynecological examination Z01.419 ; Screening for STD sexually transmitted disease Z11.3 and Encounter for Depo-Provera contraception Z30.[address] [id number], [place] [id number] Nov, Urinary tract infection, site unspecified N39.[address] [id number], [place] [address] Sep, Frequent urination R35.0 ; Missed period N92.6 and Contraception Z30.[address] [id number], [place] [address] Aug, Bronchitis J40 ; Tobacco abuse Z72.0 and Tobacco abuse counseling Z71.[address] [id number], [place] [address] Apr, Acute bronchitis J20.9 ; Tobacco abuse Z72.0 and Tobacco abuse counseling Z71.[address] [id number], [place] [address] Dec, Sprain of right ankle 845.00 and Strain of left foot 845.[address] [id number], [place] [address] October, Encounter for contraceptive management V25.[address] [id number], [place] [address] Sep, Dental examination V72.2 [facility] [id number] [address] Sep, [facility] [address] [id number] [address] Sep, [facility] [address] [place] [address] 18 Jul, 2014 [facility] [place] [facility] [address] [id number] [place] [address] Jul, 2014 [facility] [place] [facility] [address] [id number] [place] [address] Jul, 2014 [facility] [place] [facility] [address] [id number] [place] [address] Jul, 2014 [facility] [place] [facility] [address] [id number] [place] [address] Jul, 2014 [facility] [place] [facility] [address] [id number] [place] [address] Jul, 2014 [facility] [place] [facility] [address] [facility] [id number] [place] [address] Jul, 2014 [facility] [place] [facility] [address] [facility] [id number] [place] [address] Jul, 2014 [facility] [place] [facility] [address] [id number] [place] [address] Jul, 2014 [facility] [place] [facility] [address] [facility] [id number] [place] [address] Jul, 2014 [facility] [place] [facility] [address] [facility] [id number] [place] [address] Jul, 2014 [facility] [place] [facility] [address] [facility] [id number] [place] [address] Apr, [facility] [place] [facility] [address] [id number] [place] [address] 1469 Apr, [facility] [place] [facility] [address] [facility] [id number] [place] [address] 17 Apr, 2014 [facility] [place] [facility] [address] [id number] [place] [address] 10 Apr, 2014 [facility] [place] [facility] [address] [facility] [id number] [place] [address] Apr, [facility] [place] [facility] [address] [id number] [place] [address] Mar, [facility] [place] [facility] [address] [id number] [place] [address] Mar, [facility] [place] [facility] [address] [id number] [place] [address] Mar, [facility] [place] [facility] [address] [id number] [place] [address] Mar, [facility] [place] [facility] [address] [id number] [place] [address] Mar, [facility] [place] [facility] [address] [id number] [place] [address] Mar, [facility] [place] [facility] [address] [id number] [place] [address] Mar, [facility] [place] [facility] [address] [id number] [place] [address]- 1394 Mar, [facility] [place] [facility] [address] [id number] [place] [address] Mar, [facility] [place] [facility] [address] [id number] [place] [address]- [address]859 Mar, [facility] [place] [facility] [address] [id number] [place] [address]- 2788 Mar, [facility] [place] [facility] [address] [id number] [address] Feb, [facility] [place] [facility] [address] [id number] [place] [address]- [address] Feb, [facility] [place] [facility] [address] [id number] [place] [address]- [address]27 Dec, [facility] [place] [facility] [address] [id number] [place] [address]- [address] Dec, [facility] [place] [facility] [address] [id number] [place] [address] October, [facility] [address] [id number] [place] [address] October, [facility] [place] [facility] [address] [id number] [place] [address]- 9316 Sep, [facility] [place] [facility] [address] [id number] [place] [address]- [address] Sep, [facility] [place] [facility] [address] [id number] [place] [address]- [address] Sep, [facility] [place] [facility] [address] [id number] [place] [address]- 1798 Sep, [facility] [place] [facility] [address] [id number] [place] [address]- [address] Sep, [facility] [place] [facility] [address] [id number] [place] [address]- 9536 Sep, [facility] [place] [facility] [address] [id number] [place] [address]- 5843 Sep, [facility] [place] [facility] [address] [id number] [place] [address] Jul, [facility] [place] [facility] [address] [id number] [place] [address] Jul, [facility] [place] [facility] [address] [id number] [place] [address]- 3868 Jul, [facility] [place] [facility] [address] [id number] [place] [address]- 8632 Jul, [facility] [place] [facility] [address] [id number] [place] [address]- [address]507 Jul, [facility] [place] [facility] [address] [id number] [place] [address]- 9829 Jul, [facility] [place] [facility] [address] [id number] [place] [address] Jun, [facility] [place] [facility] [address] [id number] [place] [address]- 9903 Jun, [facility] [place] [facility] [address] [id number] [place] [address]- 7459 Jun, [facility] [place] [facility] [address] [id number] [place] [address]- 6001 Jun, [facility] [place] [facility] [address] [id number] [place] [address]- 9228 May, [facility] [place] [facility] [address] [id number] [place] [address]- 4094 May, [facility] [place] [facility] [address] [id number] [place] [address]- 9920 Mar, [facility] [place] [facility] [address] [id number] [place] [address]- 4483 Mar, [facility] [place] [facility] [address] [id number] [address]- 7608 Mar, [facility] [place] [facility] [address] [id number] [place] [address]- 2883 Mar, [facility] [place] [facility] [address] [id number] [address]- 1604 Mar, [facility] [place] [facility] [address] [id number] [address]- 4078 Sep, [facility] [place] [facility] [address] [id number] [address]- [address]858 Sep, [facility] [place] [facility] [address] [id number] [address]- [address] Sep, [facility] [place] [facility] [address] [id number] [address] Aug, [facility] [place] [facility] [address] [id number] [address]- [address] Jul, [facility] [place] [facility] [address] [id number] [place] [address]- 7818 Jul, [facility] [address] [id number] [place] [address]- 4563 Jul, [facility] [address] [id number] [place] [address]- 0236 Jun, [facility] [address] [id number] [place] [address]- 1756 Jun, [facility] [address] [id number] [place] [address]- 1397 Mar, [facility] [address] [id number] [place] [address]- 9066 Feb, [facility] [address] [id number] [place] [address]- 9216 Feb, [facility] [address] [id number] [place] [address]- 4782 October, [facility] [address] [id number] [place] [address]- 5303 Sep, [facility] [address] [id number] [place] [address]- 5416 Sep, [facility] [address] [id number] [address]- 3847 Sep, [facility] [address] [id number] [address]- 45[address] Aug, [facility] [address] [facility] [id number], [place] [address] Jul, [facility] [address] [id number] [address]- [address] Jun, [facility] [address] [facility] [id number], [place] [id number] Jun, [facility] [address] [id number] [place] [address]- 1676 May, [facility] [address]00565100[place] [address] Apr, [facility] [address]00565100[place] [address] Jan, [facility] [address]00565100[place] [address]- 2857 Sep, [facility] [address]00565100[place] [address]- 5630 Jul, [facility] [address]00565100[place] [address]- [address]90 Feb, [facility] [id number] [place] [address]- 9990 May, [facility] [id number] [place] [address]- 0518 May, [facility] [id number] [place] [address]- 4464 Apr, [facility] [address]00565100[place] [address]- 6539 Mar, [facility] [address]00565100[place] [address]- 7586 Mar, [facility] [address]00565100[place] 4464 Feb, [facility] [address]00565100[place] [address]- 4897 Jan, [facility] [address] [id number] [address]- 1009 Nov, IMMUNIZATIONS No Known Immunizations SOCIAL HISTORY Never Assessed REASON FOR VISIT toothache PLAN OF CARE Activity Details Follow Up 1 Week Reason:TE #15 VITAL SIGNS Height 62 in 2018-01-27 Blood pressure systolic 99 mmHg 2018-01-27 Blood pressure diastolic 62 mmHg 2018-01-27 MEDICATIONS Medication Instructions Dosage Frequency Start Date End Date Duration Status Ondansetron 4 MG Orally every six hours as needed 1 tablet Aug, 30 days Not-Taking Complete 14-0.4 MG Orally Once a day 1 tablet 24h 30 days Not-Taking Gummies/DHA & FA 0.4-32.5 MG Orally Once a day as directed 24h Dec, 30 days Active RESULTS No Results PROCEDURES Procedure Date Ordered Result Body Site LTD ORAL EVALUATION - PROBLEM FOCUS Jan 27, 2018 INTRAORL-PERIAPICAL 1 FILM [id number] Jan 27, 2018 BITEWING - SINGLE FILM Jan 27, 2018 INSTRUCTIONS MEDICATIONS ADMINISTERED No Known [...]
--- OUTSIDE RECORDS SUMMARY | 2018-04-09 15:30 | XMS REPORT ---
Author Author MATHEUS RAY [facility] Address [address] [place] [address] Care Team Providers Care Anodic Operator Name Role Phone MATHEUS RAY Unavailable PROBLEMS Type Condition ICD9-CM Code QOL63-FH Code Onset Dates Condition Status SNOMED Code Problem Obesity complicating , second trimester O99.212 Active 761912737480 Problem Tobacco smoking complicating in second trimester O99.332 Active 379247833 Problem Supervision of normal first in second trimester Z34.02 Active 55040917 Problem Other specified related conditions, third trimester O26.893 Active 13228334 Problem Tobacco abuse counseling Z71.6 Active 675630699 Problem Smoking (tobacco) complicating , third trimester O99.333 Active 997596845 Problem Irregular periods N92.6 Active 15868889 Problem Tobacco abuse Z72.0 Active 12413039 Problem UTI (urinary tract infection) in in third trimester O23.43 Active 708667474 Problem Obesity complicating in third trimester O99.213 Active 877915275860 Problem Heartburn R12 Active 84011307 Problem Supervision of normal first in third trimester Z34.03 Active 06985497 Problem Smoking (tobacco) complicating , first trimester O99.331 Active 442404865 Problem Supervision of normal first in first trimester Z34.01 Active 69186505 Problem Scabies B86 Active 591621485 Problem Obesity complicating in first trimester O99.211 Active 435749721625 Problem Other specified related conditions, first trimester O26.891 Active 69916218 Problem Spotting complicating , first trimester O26.851 Active 619040032 Problem Dysuria R30.0 Active 90991989 Problem Unspecified sexually transmitted disease A64 Active 4779567 Problem Nausea and vomiting during prior to 22 weeks gestation O21.9 Active 81439369 Problem Other infections with a predominantly sexual mode of transmission complicating , unspecified trimester O98.319 Active 15134835 ALLERGIES Substance Reaction Event Type Date Status Ritalin hives Drug Allergy Nov, Active ENCOUNTERS Encounter Location Date Diagnosis [facility] [id number] [id number] Apr, [address] [id number][place] [id number] Feb, [address] [place] [id number] Jan, Encounter for immunization Z23 ; Supervision of normal first in third trimester Z34.03 ; Smoking (tobacco) complicating , third trimester O99.333 ; Obesity complicating in third trimester O99.213 ; Other specified related conditions, third trimester O26.893 ; Heartburn R12 and Decreased movements in third trimester, single or unspecified fetus O36.8130 [place] [id number] [place] [id number] Jan, Supervision of normal first in third trimester Z34.03 ; Smoking (tobacco) complicating , third trimester O99.333 ; Obesity complicating in third trimester O99.213 ; Heartburn R12 ; Other specified related conditions, third trimester O26.893 ; Increased urinary frequency R35.0 and UTI (urinary tract infection) in in third trimester O23.43 [facility] [id number][place] [id number] Jan, Dental caries K02.9 [facility] K[facility] [id number][place] [id number] Jan, Dental examination Z01.[address] [id number][place] [id number] Dec, Supervision of normal first in second trimester Z34.02 ; Tobacco smoking complicating in second trimester O99.332 ; Obesity complicating , second trimester O99.212 and Nausea and vomiting during prior to 22 weeks gestation O21.[address] [id number][place] [id number] Nov, [facility] [address] [facility] [id number] [place] [id number] Nov, Supervision of normal first in second trimester Z34.02 ; Tobacco smoking complicating in second trimester O99.332 and Obesity complicating , second trimester O99.212 [facility] [employer] [address] [id number][place] [id number] October, Supervision of normal first in second trimester Z34.02 ; UTI (urinary tract infection) in in second trimester O23.42 ; Nausea and vomiting during prior to 22 weeks gestation O21.9 ; Obesity complicating , second trimester O99.212 and Tobacco smoking complicating in second trimester O99.332 [facility] [employer] E [id number][place] [id number] October, Dental caries K02.9 ; Weight loss R63.4 and Second trimester Z34.92 [facility]ITALInternet [employer] E [id number], [place] [id number] Sep, Supervision of normal first in first [...] of transmission complicating , unspecified trimester O98.319 [facility]ITAL[facility] [employer] E [id number], [place] [id number] Sep, Other specified related conditions, first trimester O26.891 [facility] [place] [address] [facility] [id number] [place] [id number] Sep, Other maternal infectious and parasitic diseases complicating , second trimester O98.812 and Chlamydial infection A74.9 [facility]ITAL[facility] [employer] [facility] [id number][place] [id number] Sep, Supervision of normal first in first trimester Z34.[address] [id number][place] [id number] Aug, Supervision of normal first in first trimester Z34.01 ; Smoking (tobacco) complicating , first trimester O99.331 ; Spotting complicating , first trimester O26.851 ; Nausea and vomiting during prior to 22 weeks gestation O21.9 ; Dysuria R30.0 and Other specified related conditions, first trimester O26.891 [facility] [address]ERR[address] [id number][place] [id number] Jul, [address] [id number][place] [id number] Jul, Supervision of normal first in first trimester Z34.01 ; Smoking (tobacco) complicating , first trimester O99.331 and Obesity complicating in first trimester O99.211 [address] [place] [id number] Jul, Encounter for test, result unknown Z32.00 [facility] [address] [id number][place] [id number] Mar, Strep pharyngitis J02.0 and URI with cough and congestion J06.9 [facility] [address] [id number], [place] [id number] Feb, [address] [id number], [place] [id number] Feb, Encounter for Depo-Provera contraception Z30.[address] [id number], [place] [address] Feb, Acute bronchitis, unspecified organism J20.9 ; Tobacco abuse Z72.0 ; Tobacco abuse counseling Z71.6 and Scabies B86 [address] [id number], [place] [address] Dec, Encounter for contraceptive management, unspecified Z30.9 ; Routine gynecological examination Z01.419 ; Screening for STD sexually transmitted disease Z11.3 and Encounter for Depo-Provera contraception Z30.42 [facility]ATION[facility] HERRERA [address] [facility] [address] [id number], [place] [id number] Nov, Urinary tract infection, site unspecified N39.0 [facility]ATIONPura ROB[address]HERRERA[address] [id number], [place] [id number] Sep, Frequent urination R35.0 ; Missed period N92.6 and Contraception Z30.9 [facility]ATIONPura ROB[address]ERRERA[address] [id number][place] [address] Aug, Bronchitis J40 ; Tobacco abuse Z72.0 and Tobacco abuse counseling Z71.[address] [id number], [place] [address] Apr, Acute bronchitis J20.9 ; Tobacco abuse Z72.0 and Tobacco abuse counseling Z71.[address] [id number], [place] [address] Dec, Sprain of right ankle 845.00 and Strain of left foot 845.10 [facility] [address] [id number], [place] [id number] October, Encounter for contraceptive management V25.9 [facility]ATIONPura [address]ER[address] [id number], [place] [address] Sep, Dental examination V72.2 [facility] [address] [address] Sep, [facility] [address] [place] [address] Sep, [facility] [address]00565100[place], [place] [address] Jul, [facility] [address] [place] [address] Jul, [facility] [address]65100[place], [place] [address] Jul, [facility] [address] [place] [address] Jul, 2014 [facility] [place] [facility] [address] [id number] [place] [address] Jul, 2014 [facility] [place] [facility] [address] [id number] [place] [address] Jul, 2014 [facility] [place] [facility] [address] [id number] [place] [address] Jul, 2014 [facility] [place] [facility] [address] [id number] [place] [address] Jul, 2014 [facility] [place] [facility] [address] [id number] [place] [address] Jul, 2014 [facility] [place] [facility] [address] [facility] [id number] [place] [address] Jul, 2014 [facility] [place] [facility] [address] [facility] [id number] [place] [address] Jul, 2014 [facility] [place] [facility] [address] [facility] [id number] [place] [address] Apr, [facility] [place] [facility] [address] [facility] [id number] [place] [address] Apr, [facility] [place] [facility] [address] [facility] [id number] [place] [address] Apr, [facility] [place] [facility] [address] [facility] [id number] [place] [address] Apr, [facility] [place] [facility] [address] [facility] [id number] [place] [address] Apr, [facility] [place] [facility] [address] [facility] [id number] [place] [address] Mar, [facility] [place] [facility] [address] [id number] [place] [address] Mar, [facility] [place] [facility] [address] [facility] [id number] [place] [address] Mar, [facility] [place] [facility] [address] [id number] [place] [address] Mar, [facility] [place] [facility] [address] [id number] [place] [address]- [address] Mar, [facility] [place] [facility] [address] [id number] [place] [address] 267[address] Mar, [facility] [place] [facility] [address] [id number] [place] [address] Mar, [facility] [place] [facility] [address] [id number] [place] [address] Mar, [facility] [place] [facility] [address] [id number] [place] [address] Mar, [facility] [place] [facility] [address] [id number] [place] [address]60 Mar, [facility] [place] [facility] [address] [id number] [place] [address]- 4[address] Mar, [facility] [place] [facility] [address] [id number] [place] [address] Feb, [facility] [place] [facility] [address] [id number] [place] [address]- [address] Feb, [facility] [place] [facility] [address] [id number], [place] [address] Dec, [facility] [place] [facility] [address] [id number], [place] [address] Dec, [facility] [place] [facility] [address] [id number] [place] [address]- [address]879 October, [facility] [place] [facility] [address] [id number] [place] [address] 8747 October, [facility] [place] [facility] [address] [id number] [place] [address]- [address] Sep, [facility] [place] [facility] [address] [id number] [place] [address]- [address] 23 Sep, 2013 [facility] [place] [facility] [address] [id number] [place] [address]- [address] Sep, [facility] [place] [facility] [address] [id number] [place] [address]- 7626 Sep, [facility] [place] [facility] [address] [id number] [place] [address]- 3[address] Sep, [facility] [place] [facility] [address] [id number] [place] [address]- 4[address] Sep, [facility] [place] [facility] [address] [id number] [place] [address]- 7105 Sep, [facility] [place] [facility] [address] [id number] [place] [address]- 7471 Jul, [facility] [place] [facility] [address] [id number] [place] [address]- 9479 Jul, [facility] [place] [facility] [address] [id number] [place] [address]- [address] Jul, [facility] [place] [facility] [address] [id number] [place] [address]- 8608 Jul, [facility] [place] [facility] [address] [facility] [id number] [place] [address]- 76[address] Jul, [facility] [place] [facility] [address] [id number] [place] [address]- 7637 Jul, [facility] [place] [facility] [address] [id number] [place] [address]- 55[address] Jun, [facility] [place] [facility] [address] [id number] [place] [address]- 2648 Jun, [facility] [place] [facility] [address] [facility] [id number] [place] [address]- 70[address] 14 Jun, 2013 [facility] [place] [facility] [address] [id number] [place] [address] Jun, [facility] [place] [facility] [address] [id number] [place] [address]- 4117 May, [facility] [place] [facility] [address] [id number] [place] [address]- 5742 May, [facility] [place] [facility] [address] [id number] [place] [address]- 0743 Mar, [facility] [place] [facility] [address] [id number] [place] [address]- 2329 Mar, [facility] [place] [facility] [address] [id number] [place] [address]- 0724 Mar, [facility] [place] [facility] [address] [id number] [place] [address]- 2914 Mar, [facility] [place] [facility] [address] [id number] [place] [address]- 0185 Mar, [facility] [place] [facility] [address] [id number] [place] [address]- 9916 Sep, [facility] [place] [facility] [address] [id number] [place] [address]- 0661 Sep, [facility] [place] [facility] [address] [id number] [place] [address]- 4289 Sep, [facility] [place] [facility] [address] [id number], [place] [address]- 80[address] Aug, [facility] [place] [facility] [address] [id number], [place] [address]- 9656 Jul, [facility] [place] [facility] [address] [id number] [place] [address]- 9388 Jul, [facility] [place] [facility] [address] [id number], [place] [address]- 6[address] Jul, [facility] [place] [facility] [address] [id number] [place] [address]- 5398 Jun, [facility] [place] [facility] [address] [id number] [place] [address]- 1880 Jun, [facility] [address] [id number] [place] [address]- 6030 Mar, [facility] [place] [facility] [address] [id number] [place] [address]- 6426 Feb, [facility] [address] [id number] [place] [address]- 2901 Feb, [facility] [place] [facility] [address] [id number] [place] [address]- 6173 October, [facility] [address] [id number] [place] [address]- 3512 Sep, [facility] [address] [id number] [place] [address]- 9519 Sep, [facility] [address] [place] [address]- [address] Sep, [facility] [address] [id number] [place] [address]- 4341 Aug, [facility] [id number], [place] [address] Jul, [facility] [address] [facility] [id number], [place] [address]- [address] Jun, [facility] [id number], [place] [address] Jun, [facility] [address] [id number] [place] [address] 2546 May, [facility] [place] [facility] [address] [id number] [place] [address]- 9523 Apr, [facility] [place] [facility] [address] [id number] [place] [address] 2546 Jan, [facility] [place] [facility] [address] [facility] [id number] [place] [address]- 2906 Sep, [facility] [place] [facility] [address] [id number], [place] [address] 15 Jul, 2010 [facility] [address]65100[place], [place] [address] Feb, [facility] [address]00565100[place], [place] [address]- 4[address] May, [facility] [address]65100[place], [place] [address]- [address]24 May, [facility] [address]65100[place], [place] [address]- 9863 Apr, [facility] [address] [place] [address]- [address] Mar, [facility] [address]65100[place], [place] [address]- 4839 Mar, [facility] [address]65100[place], [place] [address]- 1699 Feb, [facility] [address]65100[place], [place] [address]- 8[address] Jan, [facility] [address]65100[place], [place] [address] Nov, IMMUNIZATIONS No Known Immunizations SOCIAL HISTORY Never Assessed REASON FOR VISIT [facility] OF CARE Activity Details Follow Up 3-4 weeks Reason: Pending Test UA OB DIP (IN HOUSE) VITAL SIGNS Height 62 in 2017-12-11 Weight 176 lbs 2017-12-11 Temperature 97.2 degrees Fahrenheit 2017-12-11 Heart Rate 78 bpm 2017-12-11 Respiratory Rate 16 2017-12-11 BMI 32.191 kg/m2 2017-12-11 Blood pressure systolic 122 mmHg 2017-12-11 Blood pressure diastolic 62 mmHg 2017-12-11 MEDICATIONS Medication Instructions Dosage Frequency Start Date End Date Duration Status Ondansetron 4 MG Orally every six hours as needed 1 tablet Aug, 30 days Not-Taking Complete 14-0.4 MG Orally Once a day 1 tablet 24h 30 days Not-Taking RESULTS Name Result Date Reference Range Ultrasound : OB, Follow-up PROCEDURES Procedure Date Ordered Result Body Site URINE-NO MICRO December 11, 2017 INSTRUCTIONS MEDICATIONS ADMINISTERED No Known Medications MEDICAL [...]
--- OUTSIDE RECORDS SUMMARY | 2018-04-09 15:30 | XMS REPORT ---
Author Author MATHEUS RAY [facility] Address [address] [place] [address] Care Team Providers Care Non Licensed Operator Name Role Phone MATHEUS RAY Unavailable PROBLEMS Type Condition ICD9-CM Code XIF48-LE Code Onset Dates Condition Status SNOMED Code Problem Obesity complicating , second trimester O99.212 Active 386756510366 Problem Tobacco smoking complicating in second trimester O99.332 Active 381391566 Problem Supervision of normal first in second trimester Z34.02 Active 63277852 Problem Other specified related conditions, third trimester O26.893 Active 08029194 Problem Tobacco abuse counseling Z71.6 Active 374008441 Problem Smoking (tobacco) complicating , third trimester O99.333 Active 107967309 Problem Irregular periods N92.6 Active 97474480 Problem Tobacco abuse Z72.0 Active 62042334 Problem UTI (urinary tract infection) in in third trimester O23.43 Active 081625935 Problem Obesity complicating in third trimester O99.213 Active 695317039338 Problem Heartburn R12 Active 61114159 Problem Supervision of normal first in third trimester Z34.03 Active 61586179 Problem Smoking (tobacco) complicating , first trimester O99.331 Active 800204793 Problem Supervision of normal first in first trimester Z34.01 Active 57638631 Problem Scabies B86 Active 604514814 Problem Obesity complicating in first trimester O99.211 Active 089678332480 Problem Other specified related conditions, first trimester O26.891 Active 15465522 Problem Spotting complicating , first trimester O26.851 Active 140594084 Problem Dysuria R30.0 Active 29408298 Problem Unspecified sexually transmitted disease A64 Active 0653466 Problem Nausea and vomiting during prior to 22 weeks gestation O21.9 Active 84463406 Problem Other infections with a predominantly sexual mode of transmission complicating , unspecified trimester O98.319 Active 26081175 ALLERGIES No Information ENCOUNTERS Encounter Location Date Diagnosis [facility] [id number] [id number] Apr, [facility] [address] [id number] [id number] Jan, [address] [id number] Jan, Supervision of normal first in third trimester Z34.03 ; Smoking (tobacco) complicating , third trimester O99.333 ; Obesity complicating in third trimester O99.213 ; Heartburn R12 ; Other specified related conditions, third trimester O26.893 ; Increased urinary frequency R35.0 and UTI (urinary tract infection) in in third trimester O23.43 [facility] [address] [place] [address] [id number][place] [id number] Jan, Dental caries K02.9 [facility] H[facility] [address] [place] [address] [id number] [id number] Jan, Dental examination Z01.[address] [place] [id number] Dec, Supervision of normal first in second trimester Z34.02 ; Tobacco smoking complicating in second trimester O99.332 ; Obesity complicating , second trimester O99.212 and Nausea and vomiting during prior to 22 weeks gestation O21.9 [address] [id number] [id number] Nov, [id number] [id number] Nov, Supervision of normal first in second trimester Z34.02 ; Tobacco smoking complicating in second trimester O99.332 and Obesity complicating , second trimester O99.212 [facility] mim[address]On[address] [place] [address] [id number], [place] [id number] October, Supervision of normal first in second trimester Z34.02 ; UTI (urinary tract infection) in in second trimester O23.42 ; Nausea and vomiting during prior to 22 weeks gestation O21.9 ; Obesity complicating , second trimester O99.212 and Tobacco smoking complicating in second trimester O99.332 [facility] [address] [id number][place] [id number] October, Dental caries K02.9 ; Weight loss R63.4 and Second trimester Z34.92 [facility] [address] [id number][place] [id number] Sep, Supervision of normal first in first [...] of transmission complicating , unspecified trimester O98.319 [facility] [address] [id number][place] [address] Sep, Other specified related conditions, first trimester O26.891 [facility] [address] [facility] [id number][place] [id number] Sep, Other maternal infectious and parasitic diseases complicating , second trimester O98.812 and Chlamydial infection A74.9 [facility] [address] [id number][place] [id number] Sep, Supervision of normal first in first trimester Z34.01 [facility] [address] [id number][place] [id number] Aug, Supervision of normal first in first trimester Z34.01 ; Smoking (tobacco) complicating , first trimester O99.331 ; Spotting complicating , first trimester O26.851 ; Nausea and vomiting during prior to 22 weeks gestation O21.9 ; Dysuria R30.0 and Other specified related conditions, first trimester O26.891 [facility] [address] [id number][place] [id number] Jul, [facility] [address]ERA[address] [id number][place] [id number] Jul, Supervision of normal first in first trimester Z34.01 ; Smoking (tobacco) complicating , first trimester O99.331 and Obesity complicating in first trimester O99.[address] [id number], [place] [id number] Jul, Encounter for test, result unknown Z32.00 [facility] [address]ERA[address] [id number], [place] [id number] Mar, Strep pharyngitis J02.0 and URI with cough and congestion J06.9 [facility] [address]ERA[address] [id number], [place] [id number] Feb, [facility] [address]On[address] [place] [address] [id number], [place] [id number] Feb, Encounter for Depo-Provera contraception Z30.42 [facility] [address]ERRERA[address] [id number], [place] [id number] Feb, Acute bronchitis, unspecified organism J20.9 ; Tobacco abuse Z72.0 ; Tobacco abuse counseling Z71.6 and Scabies B86 [address] [id number][place] [id number] Dec, Encounter for contraceptive management, unspecified Z30.9 ; Routine gynecological examination Z01.419 ; Screening for STD sexually transmitted disease Z11.3 and Encounter for Depo-Provera contraception Z30.42 [facility] [address] [id number], [place] [id number] Nov, Urinary tract infection, site unspecified N39.0 [facility] mim[address]On[address] [place], [place] [address] [id number], [place] [id number] Sep, Frequent urination R35.0 ; Missed period N92.6 and Contraception Z30.9 [facility] [address] [place] [address] [id number], [place] [id number] Aug, Bronchitis J40 ; Tobacco abuse Z72.0 and Tobacco abuse counseling Z71.6 [address] [facility] [address] [id number][place] [id number] Apr, Acute bronchitis J20.9 ; Tobacco abuse Z72.0 and Tobacco abuse counseling Z71.6 [facility] [address] [id number], [place] [address] Dec, Sprain of right ankle 845.00 and Strain of left foot 845.[address] [id number], [place] [id number] October, Encounter for contraceptive management V25.9 [facility] HERRERA[address] [id number], [place] [id number] Sep, Dental examination V72.2 [facility] [id number] [place] [address] Sep, [facility] [id number] [place] [address] Sep, [facility] [id number] [place] [address]96- 0472 Jul, [facility] [id number] [place] [address]- 7955 Jul, [facility] [id number] [place] [address]- [address]277 Jul, [facility] [id number] [place] [address]- 5682 Jul, [facility] [id number] [place] [address]3984- 9245 Jul, [facility] [id number] [place] [address]2491- 8703 Jul, [facility] [id number] [place] [address]52- [address] Jul, [facility] [place] [facility] [address] [id number] [place] [address] Jul, 2014 [facility] [place] [facility] [address] [id number] [place] [address]24 Jul, 2014 [facility] [place] [facility] [address] [id number] [place] [address]- 7867 Jul, 2014 [facility] [place] [facility] [address] [id number] [place] [address] 4809 Jul, 2014 [facility] [place] [facility] [address] [id number] [place] [address] 1802 Apr, [facility] [place] [facility] [address] [id number] [place] [address]- 5044 Apr, [facility] [place] [facility] [address] [id number] [place] [address]- 5097 Apr, [facility] [place] [facility] [address] [id number] [place] [address]- 8522 Apr, [facility] [place] [facility] [address] [id number] [place] [address]- 4504 Apr, [facility] [place] [facility] [address] [id number] [place] [address]- 7651 30 Mar, 2014 [facility] [place] [facility] [address] [id number] [place] [address]- 1719 30 Mar, 2014 [facility] [place] [facility] [address] [id number] [place] [address]- 1422 14 Mar, 2014 [facility] [place] [facility] [address] [id number] [place] [address]- 4218 14 Mar, 2014 [facility] [place] [facility] [address] [id number] [place] [address]- 1437 Mar, [facility] [place] [facility] [address] [id number] [place] [address]- 6939 Mar, [facility] [place] [facility] [address] [id number] [place] [address]- 1660 Mar, [facility] [place] [facility] [address] [id number] [place] [address]- 7896 Mar, [facility] [place] [facility] [address] [id number] [place]- [address]578 Mar, [facility] [place] [facility] [address] [id number] [place] [address]- 0377 Mar, [facility] [place] [facility] [address] [id number] [place] [address]- 9441 Mar, [facility] [place] [facility] [address] [id number] [place] [address]- 1392 Feb, [facility] [place] [facility] [address] [id number] [place] [address]- 4395 Feb, [facility] [place] [facility] [address] [id number] [place] [address]- 6773 Dec, [facility] [place] [facility] [address] [id number] [place] [address]- 1204 Dec, [facility] [place] [facility] [address] [id number] [place] [address]- 3396 October, [facility] [place] [facility] [address] [id number] [place] [address]- 8299 October, [facility] [place] [facility] [address] [id number] [place] [address]- 2333 Sep, [facility] [place] [facility] [address] [id number] [place] [address]- 2929 Sep, [facility] [place] [facility] [address] [id number] [place] [address]- 1903 Sep, [facility] [place] [facility] [address] [id number] [place] [address]- 6471 Sep, [facility] [place] [facility] [address] [id number] [place] [address]- 8638 Sep, [facility] [place] [facility] [address] [id number] [place] [address]- 4715 Sep, [facility] [place] [facility] [address] [id number] [place] [address]- 8113 Sep, [facility] [place] [facility] [address] [id number] [place] [address]- 5659 Jul, [facility] [place] [facility] [address] [id number] [place] [address]- 4206 Jul, [facility] [place] [facility] [address] [id number] [place] [address]- 8437 Jul, [facility] [place] [facility] [address] [id number] [place] [address]- 8902 Jul, [facility] [place] [facility] [address] [id number] [place] [address]- 2477 Jul, [facility] [place] [facility] [address] [id number] [place] [address]- 6483 Jul, [facility] [place] [facility] [address] [id number] [place] [address]- 4556 Jun, [facility] [place] [facility] [address] [id number] [place] [address]- 5503 Jun, [facility] [place] [facility] [address] [id number] [place] [address]- 3675 Jun, [facility] [place] [facility] [address] [id number] [place] [address]- 9345 Jun, [facility] [place] [facility] [address] [id number] [place] [address]- 1413 May, [facility] [place] [facility] [address] [id number] [place] [address]- 0122 May, [facility] [place] [facility] [address] [id number] [place] [address]- 7234 Mar, [facility] [place] [facility] [address] [id number] [place] [address]- 5636 Mar, [facility] [address] [id number] [place] [address]- 5181 Mar, [facility] [place] [facility] [address] [id number] [place] [address]- 8490 Mar, [facility] [place] [facility] [address] [id number] [place] [address]- 4593 Mar, [facility] [place] [facility] [address] [id number] [place] [address]- 7515 Sep, [facility] [place] [facility] [address] [id number] [place] [address]- 7884 Sep, [facility] [place] [facility] [address] [id number] [place] [address]- 3192 Sep, [facility] [place] [facility] [address] [id number] [place] [address]- 9748 Aug, [facility] [place] [facility] [address] [id number] [place] [address]- 7274 Jul, [facility] [place] [facility] [address] [id number] [place] [address]- 6838 Jul, [facility] [place] [facility] [address] [id number] [place] [address]- 7175 Jul, [facility] [place] [facility] [address] [id number] [address]- 9801 Jun, [facility] [place] [facility] [address] [id number] [place] [address]- 4266 Jun, [facility] [place] [facility] [address] [id number] [place] [address]- 8262 Mar, [facility] [place] [facility] [address] [id number] [place] [address]- 0256 Feb, [facility] [place] [facility] [address] [id number] [place] [address]- 8937 13 Feb, 2012 [facility] [place] [facility] [address] [id number] [place] [address]- 2546 October, [facility] [address] [id number] [place] [address]- 1136 Sep, [facility] [address] [id number] [place] [address]- 2546 Sep, [facility] [address] [id number] [place] [address]- 2546 Sep, [facility] [address] [id number] [place] [address]- 2546 Aug, [facility] [address] [id number] [place] [id number] Jul, [facility] [address] [facility] [id number] [place] [address]- 2546 Jun, [facility] [address] [id number][place] [id number] Jun, [facility] [address] [id number] [place] [address]- 2546 May, [facility] [address] [id number] [place] [address]- 0566 Apr, [facility] [address] [facility] [id number] [place] [address]- 2546 Jan, [facility] [address] [id number] [place] [address]- 2546 Sep, [facility] [place] [facility] [address] [id number] [address]- 2546 Jul, [facility] [place] [facility] [address] [id number] [place] [address]- 7896 Feb, [facility] [place] [facility] [address] [id number] [place] [address]- 2546 May, [facility] [place] [facility] [address] [id number] [place] [address]- 2546 May, [facility] [place] [facility] [address] [id number] [address]- 2460 Apr, [facility] [address] [address]- 4301 Mar, [facility] [address] [address]- 6728 Mar, [facility] [address] [address]- 0628 Feb, [facility] [address]- [address]690 Jan, [facility] [address] [address]- [address]692 Nov, IMMUNIZATIONS No Known Immunizations SOCIAL HISTORY Never Assessed REASON FOR VISIT PLAN OF CARE VITAL SIGNS MEDICATIONS Unknown [...]
--- OUTSIDE RECORDS SUMMARY | 2018-04-09 15:30 | XMS REPORT ---
Author Author MATHEUS RAY [facility] Address [address] [place] [address] Care Team Providers Care Railway Switchman Name Role Phone MATHEUS RAY Unavailable PROBLEMS Type Condition ICD9-CM Code UBN45-GU Code Onset Dates Condition Status SNOMED Code Problem Obesity complicating , second trimester O99.212 Active 748899147761 Problem Tobacco smoking complicating in second trimester O99.332 Active 534704260 Problem Supervision of normal first in second trimester Z34.02 Active 86628849 Problem Other specified related conditions, third trimester O26.893 Active 07956713 Problem Tobacco abuse counseling Z71.6 Active 910374036 Problem Smoking (tobacco) complicating , third trimester O99.333 Active 580191533 Problem Irregular periods N92.6 Active 29020804 Problem Tobacco abuse Z72.0 Active 88699222 Problem UTI (urinary tract infection) in in third trimester O23.43 Active 613182709 Problem Obesity complicating in third trimester O99.213 Active 390172432250 Problem Heartburn R12 Active 18559680 Problem Supervision of normal first in third trimester Z34.03 Active 12038885 Problem Smoking (tobacco) complicating , first trimester O99.331 Active 791679631 Problem Supervision of normal first in first trimester Z34.01 Active 74953426 Problem Scabies B86 Active 287951094 Problem Obesity complicating in first trimester O99.211 Active 946628271219 Problem Other specified related conditions, first trimester O26.891 Active 31282575 Problem Spotting complicating , first trimester O26.851 Active 285970311 Problem Dysuria R30.0 Active 59008887 Problem Unspecified sexually transmitted disease A64 Active 3985090 Problem Nausea and vomiting during prior to 22 weeks gestation O21.9 Active 75527944 Problem Other infections with a predominantly sexual mode of transmission complicating , unspecified trimester O98.319 Active 80322740 ALLERGIES Substance Reaction Event Type Date Status Rittamy hives Drug Allergy October, Active ENCOUNTERS Encounter Location Date Diagnosis [facility] [id number] [id number] Apr, [place] [id number] [id number] Jan, [place] [id number] [place] [id number] Jan, Supervision of normal first in third trimester Z34.03 ; Smoking (tobacco) complicating , third trimester O99.333 ; Obesity complicating in third trimester O99.213 ; Heartburn R12 ; Other specified related conditions, third trimester O26.893 ; Increased urinary frequency R35.0 and UTI (urinary tract infection) in in third trimester O23.43 [facility] [place] [address] [id number][place] [id number] Jan, Dental caries K02.9 [facility] HERRERA [employer] [place] [address] [id number][place] [id number] Jan, Dental examination Z01.20 [address] [id number] Dec, Supervision of normal first in second trimester Z34.02 ; Tobacco smoking complicating in second trimester O99.332 ; Obesity complicating , second trimester O99.212 and Nausea and vomiting during prior to 22 weeks gestation O21.[address] [id number][place] [id number] Nov, [place] [id number] [id number] Nov, Supervision of normal first in second trimester Z34.02 ; Tobacco smoking complicating in second trimester O99.332 and Obesity complicating , second trimester O99.212 [facility] [employer] [place] [address] [id number], [place] [id number] October, Supervision of normal first in second trimester Z34.02 ; UTI (urinary tract infection) in in second trimester O23.42 ; Nausea and vomiting during prior to 22 weeks gestation O21.9 ; Obesity complicating , second trimester O99.212 and Tobacco smoking complicating in second trimester O99.332 [facility] [address] [id number][place] [id number] October, Dental caries K02.9 ; Weight loss R63.4 and Second trimester Z34.[address] [id number], [place] [id number] Sep, Supervision of normal first in first [...] of transmission complicating , unspecified trimester O98.319 [address] [address] [id number], [place] [id number] Sep, Other specified related conditions, first trimester O26.891 [facility] [address] [facility] [place] [id number], [place] [id number] Sep, Other maternal infectious and parasitic diseases complicating , second trimester O98.812 and Chlamydial infection A74.[address] [place] [address] [id number][place] [id number] Sep, Supervision of normal first in first trimester Z34.01 [address] [address] [id number], [place] [address] Aug, Supervision of normal first in first trimester Z34.01 ; Smoking (tobacco) complicating , first trimester O99.331 ; Spotting complicating , first trimester O26.851 ; Nausea and vomiting during prior to 22 weeks gestation O21.9 ; Dysuria R30.0 and Other specified related conditions, first trimester O26.[address] [facility] [address] [id number], [place] [id number] Jul, [facility] [address]ER[address] [id number], [place] [id number] Jul, Supervision of normal first in first trimester Z34.01 ; Smoking (tobacco) complicating , first trimester O99.331 and Obesity complicating in first trimester O99.211 [address]65100[place] [id number] Jul, Encounter for test, result unknown Z32.[address] [id number], [place] [id number] Mar, Strep pharyngitis J02.0 and URI with cough and congestion J06.9 [facility] [address] [id number], [place] [id number] Feb, [facility] [address] [id number], [place] [id number] Feb, Encounter for Depo-Provera contraception Z30.42 [facility] [address] [id number], [place] [id number] Feb, Acute bronchitis, unspecified organism J20.9 ; Tobacco abuse Z72.0 ; Tobacco abuse counseling Z71.6 and Scabies B86 [address] [id number], [place] [address] Dec, Encounter for contraceptive management, unspecified Z30.9 ; Routine gynecological examination Z01.419 ; Screening for STD sexually transmitted disease Z11.3 and Encounter for Depo-Provera contraception Z30.42 [facility] [address] [id number], [place] [id number] Nov, Urinary tract infection, site unspecified N39.0 [facility]ITAL[facility] [employer] [place] [address] AV [id number], [place] [id number] Sep, Frequent urination R35.0 ; Missed period N92.6 and Contraception Z30.9 [facility] [address] [id number], [place] [address] Aug, Bronchitis J40 ; Tobacco abuse Z72.0 and Tobacco abuse counseling Z71.6 [facility] [address] [facility] [address] [id number], [place] [address] Apr, Acute bronchitis J20.9 ; Tobacco abuse Z72.0 and Tobacco abuse counseling Z71.6 [facility] [address] [facility] [address] [id number], [place] [id number] Dec, Sprain of right ankle 845.00 and Strain of left foot 845.10 [facility] [address] [place] [address] AVE [id number], [place] [id number] October, Encounter for contraceptive management V25.[address] [place] [id number], [place] [id number] Sep, Dental examination V72.2 [facility] [id number] [place] [address] Sep, [facility] [id number] [place] [address]- 9816 Sep, [facility] [id number] [place] [address]- 1065 Jul, [facility] [id number] [place] [address]- [address]604 Jul, [facility] [id number] [place] [address]- 2215 Jul, [facility] [id number] [place] [address]- 3633 Jul, [facility] [id number] [place] [address]- 2306 Jul, [facility] [id number] [place] [address]- 3110 Jul, [facility] [id number] [place] [address]42- 7245 Jul, 2014 [facility] [place] [facility] [address] [id number] [place] [address] Jul, 2014 [facility] [place] [facility] [address] [id number] [place] [address] 3870 Jul, 2014 [facility] [place] [facility] [address] [facility] [id number] [place] [address]- [address]67 Jul, 2014 [facility] [place] [facility] [address] [id number] [place] [address]- 9810 Jul, 2014 [facility] [place] [facility] [address] [facility] [id number] [place] [address]- [address] Apr, [facility] [place] [facility] [address] [facility] [id number] [place] [address]- 0937 Apr, [facility] [place] [facility] [address] [facility] [id number], [place] [address]- [address]65 Apr, [facility] [place] [facility] [address] [facility] [id number], [place] [address]- [address] Apr, [facility] [place] [facility] [address] [facility] [id number] [place] [address]- 8148 Apr, [facility] [place] [facility] [address] [facility] [id number] [place] [address]- 0677 30 Mar, 2014 [facility] [place] [facility] [address] [facility] [id number], [place] [address] 30 Mar, 2014 [facility] [place] [facility] [address] [facility] [id number], [place] [address]- 99[address] 14 Mar, 2014 [facility] [place] [facility] [address] [facility] [id number], [place] [address]- 1538 14 Mar, 2014 [facility] [place] [facility] [address] [facility] [id number], [place] [address]- 0[address] 11 Mar, 2014 [facility] [place] [facility] [address] [facility] [id number], [place] [address]- 9[address] 11 Mar, 2014 [facility] [place] [facility] [address] [id number] [place] [address]- 0715 Mar, [facility] [place] [facility] [address] [id number] [place] [address]- 0461 Mar, [facility] [place] [facility] [address] [id number] [place] [address]- 6136 Mar, [facility] [place] [facility] [address] [id number] [place] [address]- 8367 Mar, [facility] [place] [facility] [address] [id number] [place] [address]- 2834 Mar, [facility] [place] [facility] [address] [id number] [place] [address]- 7672 Feb, [facility] [place] [facility] [address] [id number] [place] [address]- 9841 Feb, [facility] [place] [facility] [address] [id number] [place] [address]- 8265 Dec, [facility] [place] [facility] [address] [id number] [place] [address]- 6811 Dec, [facility] [place] [facility] [address] [id number] [place] [address]- 6222 October, [facility] [place] [facility] [address] [id number] [place] [address]- 9330 October, [facility] [place] [facility] [address] [id number] [place] [address]- 4789 Sep, [facility] [place] [facility] [address] [id number] [place] [address]- 1916 Sep, [facility] [place] [facility] [address] [id number] [place] [address]- 6052 Sep, [facility] [place] [facility] [address] [id number] [place] [address]- 0311 Sep, [facility] [place] [facility] [address] [id number] [place] [address]- 3735 Sep, [facility] [place] [facility] [address] [id number] [place] [address]- 8330 Sep, [facility] [place] [facility] [address] [id number] [place] [address]- 5259 Sep, [facility] [place] [facility] [address] [id number] [place] [address]- 1241 Jul, [facility] [place] [facility] [address] [id number] [place] [address]- 2185 Jul, [facility] [place] [facility] [address] [id number] [place] [address]- 8281 Jul, [facility] [place] [facility] [address] [id number] [place] [address]- 9257 Jul, [facility] [place] [facility] [address] [id number] [place] [address]- 1703 Jul, [facility] [place] [facility] [address] [id number] [place] [address]- 6572 Jul, [facility] [place] [facility] [address] [id number] [place] [address]- 0991 Jun, [facility] [place] [facility] [address] [id number] [place] [address]- 7483 Jun, [facility] [place] [facility] [address] [id number] [place] [address]- 6832 Jun, [facility] [place] [facility] [address] [id number] [place] [address]- 3328 Jun, [facility] [place] [facility] [address] [id number] [place] [address]- 5886 May, [facility] [place] [facility] [address] [id number] [place] [address]- 2487 May, [facility] [place] [facility] [address] [facility] [id number] [place] [address]- 1278 Mar, [facility] [place] [facility] [address] [id number] [place] [address]- 6719 Mar, [facility] [address] [id number] [place] [address]- 9343 Mar, [facility] [place] [facility] [address] [id number] [place] [address]- 8191 Mar, [facility] [address] [id number] [place] [address]- 5116 Mar, [facility] [place] [facility] [address] [id number] [place] [address]- 5986 Sep, [facility] [place] [facility] [address] [id number] [place] [address]- 3762 Sep, [facility] [place] [facility] [address] [id number] [place] [address]- 1816 Sep, [facility] [place] [facility] [address] [id number] [place] [address]- 0584 Aug, [facility] [address] [id number] [place] [address]- 6447 Jul, [facility] [place] [facility] [address] [id number] [place] [address]- 4701 Jul, [facility] [place] [facility] [address] [id number] [place] [address]- 7798 Jul, [facility] [place] [facility] [address] [id number] [place] [address]- 2398 Jun, [facility] [place] [facility] [address] [id number] [place] [address]- 3821 Jun, [facility] [place] [facility] [address] [id number] [place] [address]- 0031 Mar, [facility] [place] [facility] [address] [id number] [place] [address]- 2676 Feb, [facility] [place] [facility] [address] [id number] [place] [address]- 7971 Feb, [facility] [address] [id number] [place] [address]- 2546 October, [facility] [address] [id number] [place] [address]- 2546 Sep, [facility] [address] [id number] [place] [address]- 2546 Sep, [facility] [place] [facility] [address] [id number] [place] [address]- 2546 Sep, [facility] [address] [id number] [place] [address]- 2546 Aug, [facility] [address] [id number][place] [id number] Jul, [facility] [address] [id number] [place] [address]- 2546 Jun, [facility] [address] [id number][place] [address] Jun, [facility] [address] [id number] [place] [address]- 2546 May, [facility] [place] [facility] [address] [id number], [place] [address]- 2546 Apr, [facility] [place] [facility] [address] [id number], [place] [address]- 2546 Jan, [facility] [place] [facility] [address] [id number], [place] [address]- 2546 Sep, [facility] [place] [facility] [address] [id number] [place] [address]- 2546 Jul, [facility] [place] [facility] [address] [id number] [place] [address]- 2546 Feb, [facility] [place] [facility] [address] [id number], [place] [address]- 2546 May, [facility] [place] [facility] [address] [id number], [place] [address] 2546 May, [facility] [address] [facility] [id number], [place] [address] 2546 Apr, [facility] [address] [facility] [id number], [place] [address] 2546 Mar, [facility] [address] [facility] [id number], [place] [address] 2546 Mar, [facility] [address] [facility] [id number], [place] [address] 2546 Feb, [facility] [address] [facility] [id number], [place] [address]- [address]46 Jan, [facility] [address] [facility] [id number], [place] [address]- 4426 Nov, IMMUNIZATIONS No Known Immunizations SOCIAL HISTORY Never Assessed REASON FOR VISIT OB visit--recheck STD---FARNAZ nicole PLAN OF CARE Activity Details Follow Up 4 Weeks Reason: VITAL SIGNS Height 62 in 2017-11-10 Weight 171.4 lbs 2017-11-10 Temperature 97.7 degrees Fahrenheit 2017-11-10 Heart Rate 63 bpm 2017-11-10 Respiratory Rate 16 2017-11-10 BMI 31.349 kg/m2 2017-11-10 Blood pressure systolic 110 mmHg 2017-11-10 Blood pressure diastolic 62 mmHg 2017-11-10 MEDICATIONS Medication Instructions Dosage Frequency Start Date End Date Duration Status Ondansetron 4 MG Orally every six hours as needed 1 tablet Aug, 30 days Active Complete 14-0.4 MG Orally Once a day 1 tablet 24h 30 days Active Macrobid 100 mg Orally 2 times a day 1 capsule with food 12h October, October, 7 day(s) Active Amoxicillin 500 mg Orally 2 times a day 2 capsule 12h October,October 10 day(s) Active RESULTS No Results PROCEDURES Procedure Date Ordered Result Body Site URINALYSIS, AUTO, W/O SCOPE November 10, 2017 URINE-NO MICRO November 10, 2017 DRUG TEST PRSMV DIR OPT OBS November 10, 2017 LAB NOT BILLED BY [facility] November 10, 2017 INSTRUCTIONS MEDICATIONS ADMINISTERED No Known Medications [...]
--- OUTSIDE RECORDS SUMMARY | 2018-04-09 15:31 | XMS REPORT ---
Author Author ABELINO HIDALGO [facility] Address [address] [place] [address] Care Team Providers Care Tail Dogger Name Role Phone ABELINO HIDALGO Unavailable PROBLEMS Type Condition ICD9-CM Code VDC70-IT Code Onset Dates Condition Status SNOMED Code Problem Nausea and vomiting during prior to 22 weeks gestation O21.9 Active 87724979 Problem Other specified related conditions, first trimester O26.891 Active 90839328 Problem Dysuria R30.0 Active 68512792 Problem Obesity complicating , second trimester O99.212 Active 176701262228 Problem Supervision of normal first in second trimester Z34.02 Active 86386951 Problem Unspecified sexually transmitted disease A64 Active 4498940 Problem Spotting complicating , first trimester O26.851 Active 345239018 Problem Tobacco smoking complicating in second trimester O99.332 Active 705689773 Problem Other infections with a predominantly sexual mode of transmission complicating , unspecified trimester O98.319 Active 40461986 Problem Tobacco abuse Z72.0 Active 20659588 Problem Tobacco abuse counseling Z71.6 Active 610289592 Problem Smoking (tobacco) complicating , first trimester O99.331 Active 598226686 Problem Irregular periods N92.6 Active 76499342 Problem Obesity complicating in first trimester O99.211 Active 952191489331 Problem Scabies B86 Active 014066716 Problem Supervision of normal first in first trimester Z34.01 Active 65552324 ALLERGIES Substance Reaction Event Type Date Status Ritalin hives Drug Allergy October, Active ENCOUNTERS Encounter Location Date Diagnosis [facility] [address] [id number] [place] [id number] Jan, [facility] [address] [id number] [place] [id number] Jan, [facility] [address] [place] [address] AVE [id number] [place] [id number] Jan, Dental examination Z01.20 [facility] [address] [facility] [id number][place] [id number] Dec, Supervision of normal first in second trimester Z34.02 ; Tobacco smoking complicating in second trimester O99.332 ; Obesity complicating , second trimester O99.212 and Nausea and vomiting during prior to 22 weeks gestation O21.9 [facility] [address] [id number][place] [id number] Nov, [address] [id number][place] [id number] Nov, Supervision of normal first in second trimester Z34.02 ; Tobacco smoking complicating in second trimester O99.332 and Obesity complicating , second trimester O99.212 [facility] CandyHERRERA [employer] [facility] [id number][place] [id number] October, Supervision of normal first in second trimester Z34.02 ; UTI (urinary tract infection) in in second trimester O23.42 ; Nausea and vomiting during prior to 22 weeks gestation O21.9 ; Obesity complicating , second trimester O99.212 and Tobacco smoking complicating in second trimester O99.332 [facility] [id number] [place] [id number] October, Dental caries K02.9 ; Weight loss R63.4 and Second trimester Z34.92 [facility] CandyHERRERA [employer] [facility] [id number], [place] [id number] Sep, Supervision of normal first in first [...] of transmission complicating , unspecified trimester O98.319 [facility] [address] [id number], [place] [id number] Sep, Other specified related conditions, first trimester O26.[address] [id number], [place] [address] Sep, Other maternal infectious and parasitic diseases complicating , second trimester O98.812 and Chlamydial infection A74.9 [facility]ITAL[facility]ura HERRERA [address] [place] [address] [id number], [place] [id number] Sep, Supervision of normal first in first trimester Z34.01 [facility]ENTERBLANQUITA Khoury [facility] [id number][place] [address] Aug, Supervision of normal first in first trimester Z34.01 ; Smoking (tobacco) complicating , first trimester O99.331 ; Spotting complicating , first trimester O26.851 ; Nausea and vomiting during prior to 22 weeks gestation O21.9 ; Dysuria R30.0 and Other specified related conditions, first trimester O26.891 [facility] HERRERA [address] [place], [place] [address] [id number], [place] [id number] Jul, [facility] HERRERA [address] [place] [address] [id number][place] [address] Jul, Supervision of normal first in first trimester Z34.01 ; Smoking (tobacco) complicating , first trimester O99.331 and Obesity complicating in first trimester O99.[address] [id number], [place] [address] Jul, Encounter for test, result unknown Z32.[address] [address] [address] [id number], [place] [id number] Mar, Strep pharyngitis J02.0 and URI with cough and congestion J06.9 [facility]ENTERBLANQUITA [address] [id number], [place] [id number] Feb, [facility]ENTERBodyMedia HERRERA Medical Direct ClubYumiko BANNER [id number], [place] [id number] Feb, Encounter for Depo-Provera contraception Z30.42 [facility] HERRERA [address] [facility] [address] [id number], [place] [id number] Feb, Acute bronchitis, unspecified organism J20.9 ; Tobacco abuse Z72.0 ; Tobacco abuse counseling Z71.6 and Scabies B86 [facility] [address] [facility] [id number] [place] [id number] Dec, Encounter for contraceptive management, unspecified Z30.9 ; Routine gynecological examination Z01.419 ; Screening for STD sexually transmitted disease Z11.3 and Encounter for Depo-Provera contraception Z30.[address] [id number], [place] [id number] Nov, Urinary tract infection, site unspecified N39.[address] [id number], [place] [address] Sep, Frequent urination R35.0 ; Missed period N92.6 and Contraception Z30.[address] [id number], [place] [id number] Aug, Bronchitis J40 ; Tobacco abuse Z72.0 and Tobacco abuse counseling Z71.[address] [id number], [place] [address] Apr, Acute bronchitis J20.9 ; Tobacco abuse Z72.0 and Tobacco abuse counseling Z71.[address] [id number], [place] [address] Dec, Sprain of right ankle 845.00 and Strain of left foot 845.[address] [id number], [place] [address] October, Encounter for contraceptive management V25.[address] [id number], [place] [id number] Sep, Dental examination V72.2 [facility] [address] [id number] [address] Sep, [facility] [address] [id number] [address] 13 Sep, 2014 [facility] [place] [facility] [address] [id number] [place] [address] Jul, 2014 [facility] [place] [facility] [address] [id number] [place] [address] Jul, 2014 [facility] [place] [facility] [address] [facility] [id number] [place] [address] Jul, 2014 [facility] [place] [facility] [address] [id number] [place] [address] Jul, 2014 [facility] [place] [facility] [address] [facility] [id number] [place] [address] Jul, 2014 [facility] [place] [facility] [address] [facility] [id number] [place] [address] Jul, 2014 [facility] [place] [facility] [address] [facility] [id number] [place] [address] Jul, 2014 [facility] [place] [facility] [address] [facility] [id number] [place] [address] Jul, 2014 [facility] [place] [facility] [address] [facility] [id number] [place] [address] Jul, 2014 [facility] [place] [facility] [address] [facility] [id number] [place] [address]9 Jul, 2014 [facility] [place] [facility] [address] [facility] [id number], [place] [address] Jul, 2014 [facility] [place] [facility] [address] [facility] [id number] [place] [address] Apr, [facility] [place] [facility] [address] [facility] [id number][place] [address] Apr, [facility] [place] [facility] [address] [facility] [id number], [place] [address] Apr, [facility] [place] [facility] [address] [facility] [id number][place] [address] Apr, [facility] [place] [facility] [address] [id number] [place] [address]- [address] Apr, [facility] [place] [facility] [address] [id number] [place] [address] Mar, [facility] [place] [facility] [address] [id number] [place] [address] Mar, [facility] [place] [facility] [address] [id number] [place] [address] Mar, [facility] [place] [facility] [address] [id number] [place] [address] Mar, [facility] [place] [facility] [address] [id number] [place] [address]- [address] Mar, [facility] [place] [facility] [address] [id number] [place] [address] Mar, [facility] [place] [facility] [address] [id number] [place] [address] Mar, [facility] [place] [facility] [address] [id number] [place] [address]29 Mar, [facility] [place] [facility] [address] [facility] [id number] [place] [address] Mar, [facility] [place] [facility] [address] [id number] [place] [address]- 5195 Mar, [facility] [place] [facility] [address] [id number] [place] [address] Mar, [facility] [place] [facility] [address] [id number] [place] [address]- 9130 Feb, [facility] [place] [facility] [address] [id number] [place] [address]- [address]389 Feb, [facility] [place] [facility] [address] [facility] [id number] [place] [address]- [address]79 Dec, [facility] [place] [facility] [address] [id number] [place] [address]- 1761 Dec, [facility] [place] [facility] [address] [id number] [place] [address]- [address] October, [facility] [place] [facility] [address] [id number] [place] [address]- 2469 October, [facility] [place] [facility] [address] [id number] [place] [address]- 0696 Sep, [facility] [place] [facility] [address] [id number] [place] [address]- 9389 Sep, [facility] [place] [facility] [address] [id number] [place] [address]- 1463 Sep, [facility] [place] [facility] [address] [id number] [place] [address]- 7402 Sep, [facility] [place] [facility] [address] [id number] [place] [address]- 9645 Sep, [facility] [place] [facility] [address] [id number] [place] [address] Sep, [facility] [place] [facility] [address] [id number] [place] [address]- [address]708 Sep, [facility] [place] [facility] [address] [id number] [place] [address]- 2944 Jul, [facility] [place] [facility] [address] [id number] [place] [address]- 7[address] Jul, [facility] [place] [facility] [address] [id number] [place] [address]- 8199 Jul, [facility] [place] [facility] [address] [id number] [place] [address]- 2785 Jul, [facility] [place] [facility] [address] [id number] [place] [address]- [address]386 Jul, [facility] [place] [facility] [address] [id number] [place] [address]- 2546 Jul, [facility] [place] [facility] [address] [id number] [place] [address] 1946 Jun, [facility] [place] [facility] [address] [id number] [place] [address]- 4671 Jun, [facility] [place] [facility] [address] [id number] [place] [address]- 6749 Jun, [facility] [place] [facility] [address] [id number] [place] [address]- 4147 Jun, [facility] [place] [facility] [address] [id number] [place] [address]- 3369 May, [facility] [place] [facility] [address] [id number] [place] [address]- 8501 May, [facility] [place] [facility] [address] [id number] [place] [address]- 6168 Mar, [facility] [place] [facility] [address] [id number] [place] [address]- 0561 Mar, [facility] [place] [facility] [address] [id number] [place] [address]- 1825 Mar, [facility] [place] [facility] [address] [id number] [place] [address]- 3428 Mar, [facility] [place] [facility] [address] [id number] [place] [address]- 0081 Mar, [facility] [place] [facility] [address] [id number] [place] [address]- 5550 Sep, [facility] [place] [facility] [address] [id number] [place] [address]- 2584 Sep, [facility] [place] [facility] [address] [id number] [place] [address]- 6000 Sep, [facility] [place] [facility] [address] [id number] [place] [address]- 6627 Aug, [facility] [place] [facility] [address] [id number] [place] [address]- 2693 13 Jul, 2012 [facility] [address] [id number] [place] [address]- 9145 Jul, [facility] [place] [facility] [address] [id number] [place] [address]- 5476 Jul, [facility] [place] [facility] [address] [id number] [place] [address]- 0205 Jun, [facility] [place] [facility] [address] [id number] [place] [address]- 9153 Jun, [facility] [place] [facility] [address] [id number] [place] [address]- 0027 Mar, [facility] [address] [id number] [place] [address]- 3237 Feb, [facility] [place] [facility] [address] [facility] [id number] [place] [address]- 5623 Feb, [facility] [address] [id number] [place] [address]- 1486 October, [facility] [address] [id number], [place] [address] Sep, [facility] [address] [facility] [id number][place] [address]- [address]676 Sep, [facility] [place] [facility] [address] [facility] [id number], [place] [address]- [address] Sep, [facility] [place] [facility] [address] [id number], [place] [address] Aug, [facility] [id number], [place] [id number] Jul, [facility] [place] [facility] [address] [id number] [place] [address] 2546 Jun, [facility] [address] [id number], [place] [id number] [place], [facility] [address] [facility] [id number] [address] May, [facility] [address] [facility] [id number], [place] [address] Apr, [facility] [address] [facility] [id number] [address] Jan, [facility] [address]00565100[place] [address] Sep, [facility] [address] [facility] [id number], [place] [address] Jul, [facility] [address] [id number] [address] Feb, [facility] [address]00565100[place] [address] May, [facility] [address]00565100[place] [address] May, [facility] [address]00565100[place] [address] Apr, [facility] [address]00565100[place] [address] Mar, [facility] [address]00565100[place] [address]46 Mar, [facility] [address]00565100[place] [address] Feb, [facility] [address] [id number], [place] [address]- [address] Jan, [facility] [address]00565100[place], [place] [address]- [address]26 Nov, IMMUNIZATIONS No Known Immunizations SOCIAL HISTORY Never Assessed REASON FOR VISIT 16 wks 5 days . Sharp pains in lower abdomen area and cervix area. Dizzy when she stands up and feels weak.Symptoms for two days. bferrisma PLAN OF CARE Activity Details Follow Up prn, 1 Week Reason:OBGYN VITAL SIGNS Height 62 in 2017-11-03 Weight 168.4 lbs 2017-11-03 Temperature 96.5 degrees Fahrenheit 2017-11-03 Heart Rate 103 bpm 2017-11-03 Respiratory Rate 16 2017-11-03 Oximetry 98 % 2017-11-03 BMI 30.80 kg/m2 2017-11-03 Blood pressure systolic 106 mmHg 2017-11-03 Blood pressure diastolic 64 mmHg 2017-11-03 MEDICATIONS Medication Instructions Dosage Frequency Start Date End Date Duration Status Ondansetron 4 MG Orally every six hours as needed 1 tablet Aug, 30 days Not-Taking Amoxicillin 500 mg Orally 2 times a day 2 capsule 12h October,October 10 day(s) Active Complete 14-0.4 MG Orally Once a day 1 tablet 24h 30 days Active RESULTS Name Result Date Reference Range UA LONG DIP (IN HOUSE) 2017-11-03 Lot # [id number] Exp date 01/07 Clarity CLEAR Color YELLOW Odor NONE GLU NEGATIVE RAMONA NEGATIVE KET NEGATIVE SG 1.025 BLO NEGATIVE pH 6.0 Protein NEGATIVE URO 1.0 NIT NEGATIVE LORETTA NEGATIVE Lot # Exp date PROCEDURES Procedure Date Ordered Result Body Site URINALYSIS, AUTO, W/O SCOPE November 03, 2017 INSTRUCTIONS MEDICATIONS ADMINISTERED No Known Medications [...]
--- OUTSIDE RECORDS SUMMARY | 2018-04-09 15:31 | XMS REPORT ---
Author Author MATHEUS RAY Organization [facility] Address [address] [place] [address] Care Team Providers Care Aviation Safety Inspector Name Role Phone MATHEUS RAY Unavailable PROBLEMS Type Condition ICD9-CM Code [id number] Code Onset Dates Condition Status SNOMED Code Problem Nausea and vomiting during prior to 22 weeks gestation O21.9 Active 43864368 Problem Other specified related conditions, first trimester O26.891 Active 44262341 Problem Dysuria R30.0 Active 63523393 Problem Obesity complicating , second trimester O99.212 Active 497069328723 Problem Supervision of normal first in second trimester Z34.02 Active 55665490 Problem Unspecified sexually transmitted disease A64 Active 0404835 Problem Spotting complicating , first trimester O26.851 Active 413095957 Problem Tobacco smoking complicating in second trimester O99.332 Active 034404622 Problem Other infections with a predominantly sexual mode of transmission complicating , unspecified trimester O98.319 Active 30472661 Problem Tobacco abuse Z72.0 Active 78661558 Problem Tobacco abuse counseling Z71.6 Active 585139482 Problem Smoking (tobacco) complicating , first trimester O99.331 Active 596584158 Problem Irregular periods N92.6 Active 63594078 Problem Obesity complicating in first trimester O99.211 Active 012541529230 Problem Scabies B86 Active 348868121 Problem Supervision of normal first in first trimester Z34.01 Active 56048379 ALLERGIES Substance Reaction Event Type Date Status Ritalin hives Drug Allergy Sep, Active ENCOUNTERS Encounter Location Date Diagnosis [facility] [address] [id number] [place] [id number] Jan, [facility] [address] [id number] [place] [id number] Jan, [facility] [address] [facility] [id number][place] [address] Dec, Supervision of normal first in second trimester Z34.02 ; Tobacco smoking complicating in second trimester O99.332 ; Obesity complicating , second trimester O99.212 and Nausea and vomiting during prior to 22 weeks gestation O21.9 [facility] [address] [facility] [id number][place] [id number] Nov, [facility] [address] [facility] [id number][place] [address] Nov, Supervision of normal first in second trimester Z34.02 ; Tobacco smoking complicating in second trimester O99.332 and Obesity complicating , second trimester O99.212 [facility] solutionTER [employer] [facility] [address] [id number] [place] [address] October, Supervision of normal first in second trimester Z34.02 ; UTI (urinary tract infection) in in second trimester O23.42 ; Nausea and vomiting during prior to 22 weeks gestation O21.9 ; Obesity complicating , second trimester O99.212 and Tobacco smoking complicating in second trimester O99.332 [facility] [address] [id number] [place]LAND[place] [id number] October, Dental caries K02.9 ; Weight loss R63.4 and Second trimester Z34.92 [facility] [address] [id number] [place]LAND[place] [id number] Sep, Supervision of normal first in first [...] of transmission complicating , unspecified trimester O98.319 [facility] [address] [id number] [place]LAND[place] [id number] Sep, Other specified related conditions, first trimester O26.[address] [id number][place] [id number] Sep, Other maternal infectious and parasitic diseases complicating , second trimester O98.812 and Chlamydial infection A74.9 [facility]ERR[facility] [address] [place] [address] AVE [id number] [place] [id number] Sep, Supervision of normal first in first trimester Z34.01 [facility] [address] [place] [address] AVE [id number] [place] [id number] Aug, Supervision of normal first in first trimester Z34.01 ; Smoking (tobacco) complicating , first trimester O99.331 ; Spotting complicating , first trimester O26.851 ; Nausea and vomiting during prior to 22 weeks gestation O21.9 ; Dysuria R30.0 and Other specified related conditions, first trimester O26.891 [facility] [address] [id number] [place]LAND[place] [id number] Jul, [facility] [address] [id number] [place]LAND[place] [id number] Jul, Supervision of normal first in first trimester Z34.01 ; Smoking (tobacco) complicating , first trimester O99.331 and Obesity complicating in first trimester O99.[address] [id number], [place] [id number] Jul, Encounter for test, result unknown Z32.00 [facility] [employer] [place] [address] AVE [id number] [place]LAND[place] [address] Mar, Strep pharyngitis J02.0 and URI with cough and congestion J06.9 [facility] [employer] [place], [place] [address] [id number] [place]LAND[place] [address] Feb, [facility] [employer] [id number] [place] [id number] 16 Feb, 2016 Encounter for Depo-Provera contraception Z30.42 [facility] [employer] [place], [place] [address] [id number] ISLAND[place] [address] Feb, Acute bronchitis, unspecified organism J20.9 ; Tobacco abuse Z72.0 ; Tobacco abuse counseling Z71.6 and Scabies B86 [facility] [address] [facility] [id number][place] [id number] Dec, Encounter for contraceptive management, unspecified Z30.9 ; Routine gynecological examination Z01.419 ; Screening for STD sexually transmitted disease Z11.3 and Encounter for Depo-Provera contraception Z30.[address] [id number] [place]LAND[place] [id number] Nov, Urinary tract infection, site unspecified N39.[address] [id number] [place]LAND[place] [address] Sep, Frequent urination R35.0 ; Missed period N92.6 and Contraception Z30.[address] [id number] [place]LAND[place] [address] Aug, Bronchitis J40 ; Tobacco abuse Z72.0 and Tobacco abuse counseling Z71.[address] [id number] [place]LAND[place] [address] Apr, Acute bronchitis J20.9 ; Tobacco abuse Z72.0 and Tobacco abuse counseling Z71.[address] [id number] [place]LAND[place] [address] Dec, Sprain of right ankle 845.00 and Strain of left foot 845.[address] [id number] [place] [address] October, Encounter for contraceptive management V25.[address] [id number] [place] [address] Sep, Dental examination V72.2 [facility] [address] [id number] [address] Sep, [facility] [address] [id number] [address] Sep, [facility] [address] [id number] [address] Jul, 2014 [facility] [place] [facility] [address] [id number] [place] [address] Jul, 2014 [facility] [place] [facility] [address] [id number] [place] [address] Jul, 2014 [facility] [place] [facility] [address] [facility] [id number] [place] [address] Jul, 2014 [facility] [place] [facility] [address] [id number] [place] [address] Jul, 2014 [facility] [place] [facility] [address] [id number] [place] [address] Jul, 2014 [facility] [place] [facility] [address] [facility] [id number] [place] [address] Jul, 2014 [facility] [place] [facility] [address] [facility] [id number] [place] [address] Jul, 2014 [facility] [place] [facility] [address] [facility] [id number] [place] [address] Jul, 2014 [facility] [place] [facility] [address] [facility] [id number] [place] [address] Jul, 2014 [facility] [place] [facility] [address] [facility] [id number] [place] [address] Jul, 2014 [facility] [place] [facility] [address] [facility] [id number] [address] Apr, [facility] [place] [facility] [address] [facility] [id number] [place] [address] Apr, [facility] [place] [facility] [address] [facility] [id number] [place] [address] Apr, [facility] [place] [facility] [address] [facility] [id number][place] [address] Apr, [facility] [place] [facility] [address] [facility] [id number][place] [address] Apr, [facility] [place] [facility] [address] [id number] [place] [address] Mar, [facility] [place] [facility] [address] [id number] [place] [address] Mar, [facility] [place] [facility] [address] [id number] [place] [address] Mar, [facility] [place] [facility] [address] [id number] [place] [address] Mar, [facility] [place] [facility] [address] [id number] [place] [address] Mar, [facility] [place] [facility] [address] [id number] [place] [address] Mar, [facility] [place] [facility] [address] [id number] [place] [address] 30[address] Mar, [facility] [place] [facility] [address] [id number] [place] [address]- 4465 Mar, [facility] [place] [facility] [address] [id number] [place] [address]- 1537 Mar, [facility] [place] [facility] [address] [id number] [place] [address]- 3112 Mar, [facility] [place] [facility] [address] [id number] [place] [address]- [address] Mar, [facility] [place] [facility] [address] [id number] [place] [address] 48[address] Feb, [facility] [place] [facility] [address] [id number] [place] [address]- 2494 Feb, [facility] [place] [facility] [address] [id number] [place] [address] Dec, [facility] [place] [facility] [address] [id number] [place] [address]- 3[address] Dec, [facility] [place] [facility] [address] [id number] [place] [address]- 1324 October, [facility] [place] [facility] [address] [id number] [place] [address]- 1686 October, [facility] [place] [facility] [address] [id number] [place] [address]- [address] Sep, [facility] [place] [facility] [address] [id number] [place] [address]- 2817 Sep, [facility] [place] [facility] [address] [id number] [place] [address]- [address] Sep, [facility] [place] [facility] [address] [id number] [place] [address]- 6[address] Sep, [facility] [place] [facility] [address] [facility] [id number] [place] [address]- [address]999 Sep, [facility] [place] [facility] [address] [id number] [place] [address]60 Sep, [facility] [place] [facility] [address] [id number] [place] [address]- 2569 Sep, [facility] [place] [facility] [address] [id number] [place] [address]- 7934 Jul, [facility] [place] [facility] [address] [facility] [id number] [place] [address]- 6[address] Jul, [facility] [place] [facility] [address] [id number] [place] [address]- 9944 Jul, [facility] [place] [facility] [address] [id number] [place] [address]- 1436 Jul, [facility] [place] [facility] [address] [id number] [place] [address]- 1396 Jul, [facility] [place] [facility] [address] [id number] [place] [address]- 4085 Jul, [facility] [place] [facility] [address] [id number] [place] [address]- 8232 Jun, [facility] [place] [facility] [address] [id number] [place] [address] Jun, [facility] [place] [facility] [address] [id number] [place] [address]- 5597 Jun, [facility] [place] [facility] [address] [id number] [place] [address]- 0940 Jun, [facility] [place] [facility] [address] [id number] [place] [address]- [address]45 May, [facility] [place] [facility] [address] [id number] [place] [address]- 4299 May, [facility] [place] [facility] [address] [id number] [place] [address]- 8489 Mar, [facility] [place] [facility] [address] [id number] [place] [address]- 1022 Mar, [facility] [place] [facility] [address] [id number] [place] [address]- 9030 Mar, [facility] [place] [facility] [address] [id number] [place] [address]- 3025 Mar, [facility] [place] [facility] [address] [id number] [place] [address]- 0776 Mar, [facility] [place] [facility] [address] [id number] [address]- 9947 Sep, [facility] [place] [facility] [address] [id number] [place] [address]- 8274 Sep, [facility] [place] [facility] [address] [id number] [place] [address]- 8241 Sep, [facility] [place] [facility] [address] [id number] [place] [address]- 8907 Aug, [facility] [place] [facility] [address] [id number] [place] [address]- 8009 Jul, [facility] [place] [facility] [address] [id number] [place] [address]- 6648 Jul, [facility] [address] [id number] [place] [address]- 2199 Jul, [facility] [place] [facility] [address] [id number] [place] [address]- 9446 Jun, [facility] [address] [id number] [place] [address]- 5338 Jun, [facility] [place] [facility] [address] [id number] [place] [address]- 0096 Mar, [facility] [address] [id number] [place] [address]- 3656 Feb, [facility] [address] [id number] [place] [address]- 3985 Feb, [facility] [address] [id number] [place] [address]- 7958 October, [facility] [address] [id number] [place] [address]- 4678 Sep, [facility] [address] [id number] [address]- 4930 Sep, [facility] [address] [id number][place] [address] Sep, [facility] [address] [id number] [address]- 1186 Aug, [facility] [address] [place] [address] [id number][place] [id number] Jul, [facility] [address] [id number], [place] [address] 2546 Jun, [facility] [address] [facility] [id number][place] [address] Jun, [facility] [address] [id number], [place] [address]- [address] May, [facility] [address]00565100[place], [place] [address] Apr, [facility] [address] [place] [address] Jan, [facility] [address]00565100[place], [place] [address] 3936 Sep, [facility] [id number] [place] [address]- 4938 Jul, [facility] [id number] [place] [address]- 9713 Feb, [facility] [id number] [place] [address]- 5853 May, [facility] [id number] [place] [address]- 6883 May, [facility] [id number] [place] [address]- 1398 Apr, [facility] [address]00565100[place], [place] [address] 1262 Mar, [facility] [address] [place] [address]- 3175 Mar, [facility] [address]00565100[place], [place] [address]- 5686 Feb, [facility] [address]65100[place] [address]- 3466 Jan, [facility] [address] [id number] [address] 8465 Nov, IMMUNIZATIONS No Known Immunizations SOCIAL HISTORY Never Assessed REASON FOR VISIT OB f/u--12 weeks and 4 days, abdominal pain with little urine at times----FARNAZ nicole PLAN OF CARE Activity Details Follow Up 4 Weeks Reason: VITAL SIGNS Height 62 in 2017-10-06 Weight 170.2 lbs 2017-10-06 Temperature 96.8 degrees Fahrenheit 2017-10-06 Heart Rate 81 bpm 2017-10-06 Respiratory Rate 16 2017-10-06 BMI 31.13 kg/m2 2017-10-06 Blood pressure systolic 122 mmHg 2017-10-06 Blood pressure diastolic 68 mmHg 2017-10-06 MEDICATIONS Medication Instructions Dosage Frequency Start Date End Date Duration Status Ondansetron 4 MG Orally every six hours as needed 1 tablet Aug, 30 days Active Complete 14-0.4 MG Orally Once a day 1 tablet 24h 30 days Active RESULTS No Results PROCEDURES No Known procedures INSTRUCTIONS MEDICATIONS ADMINISTERED No Known Medications MEDICAL (GENERAL) HISTORY Type Description Date Medical History asthma- Normal PFT 2012 Medical History allergies Medical History acid reflux Medical History anxiety Medical History PCOS Medical History ADHD Surgical History tonsillectomy and adenoidectomy Surgical History oral surgery Hospitalization History overdose on sleeping medication age 9
--- OUTSIDE RECORDS SUMMARY | 2018-04-09 15:32 | XMS REPORT ---
Author Author MATHEUS RAY Organization [facility] Address [address] [place] [address] Care Team Providers Care Nuclear Scientist Name Role Phone MATHEUS RAY Unavailable PROBLEMS Type Condition ICD9-CM Code [id number] Code Onset Dates Condition Status SNOMED Code Problem Nausea and vomiting during prior to 22 weeks gestation O21.9 Active 25015587 Problem Other specified related conditions, first trimester O26.891 Active 38694832 Problem Dysuria R30.0 Active 44345637 Problem Obesity complicating , second trimester O99.212 Active 197399658429 Problem Supervision of normal first in second trimester Z34.02 Active 47430578 Problem Unspecified sexually transmitted disease A64 Active 8567777 Problem Spotting complicating , first trimester O26.851 Active 585931035 Problem Tobacco smoking complicating in second trimester O99.332 Active 157387264 Problem Other infections with a predominantly sexual mode of transmission complicating , unspecified trimester O98.319 Active 55737941 Problem Tobacco abuse Z72.0 Active 10514392 Problem Tobacco abuse counseling Z71.6 Active 590648745 Problem Smoking (tobacco) complicating , first trimester O99.331 Active 497727630 Problem Irregular periods N92.6 Active 69757776 Problem Obesity complicating in first trimester O99.211 Active 622993318677 Problem Scabies B86 Active 090986452 Problem Supervision of normal first in first trimester Z34.01 Active 78297324 ALLERGIES No Information ENCOUNTERS Encounter Location Date Diagnosis [facility] [address] [facility] [place] [id number] [place] [id number] Jan, [facility] [address] [id number] [place] [id number] Jan, [facility] [address] [facility] [place] [id number] [place] [id number] Dec, Supervision of normal first in second trimester Z34.02 ; Tobacco smoking complicating in second trimester O99.332 ; Obesity complicating , second trimester O99.212 and Nausea and vomiting during prior to 22 weeks gestation O21.9 [facility] [address] [id number] [place] [id number] Nov, [facility] [address] [id number] [place] [id number] Nov, Supervision of normal first in second trimester Z34.02 ; Tobacco smoking complicating in second trimester O99.332 and Obesity complicating , second trimester O99.[address] [address] [facility] [address] [id number] [place] [id number] October, Supervision of normal first in second trimester Z34.02 ; UTI (urinary tract infection) in in second trimester O23.42 ; Nausea and vomiting during prior to 22 weeks gestation O21.9 ; Obesity complicating , second trimester O99.212 and Tobacco smoking complicating in second trimester O99.332 [address] [address] [id number] [place] [id number] October, Dental caries K02.9 ; Weight loss R63.4 and Second trimester Z34.92 [facility] [id number] [place] [id number] Sep, Supervision of normal first in first [...] of transmission complicating , unspecified trimester O98.319 [facility] [facility] [id number] [place] [id number] Sep, Other specified related conditions, first trimester O26.891 [facility] [address] [facility] [place] [id number] [place] [id number] Sep, Other maternal infectious and parasitic diseases complicating , second trimester O98.812 and Chlamydial infection A74.[address] [id number] [place] [id number] Sep, Supervision of normal first in first trimester Z34.[address] [id number] [place] [address] Aug, Supervision of normal first in first trimester Z34.01 ; Smoking (tobacco) complicating , first trimester O99.331 ; Spotting complicating , first trimester O26.851 ; Nausea and vomiting during prior to 22 weeks gestation O21.9 ; Dysuria R30.0 and Other specified related conditions, first trimester O26.[address] [id number] [place] [address] Jul, [address] [id number] [place] [address] Jul, Supervision of normal first in first trimester Z34.01 ; Smoking (tobacco) complicating , first trimester O99.331 and Obesity complicating in first trimester O99.211 [facility] [address] [id number] [place] [address] Jul, Encounter for test, result unknown Z32.[address] [id number] [place] [id number] Mar, Strep pharyngitis J02.0 and URI with cough and congestion J06.[address] [id number] [place] [address] Feb, [id number] [place] [id number] Feb, Encounter for Depo-Provera contraception Z30.[address] [id number] [place] [address] Feb, Acute bronchitis, unspecified organism J20.9 ; Tobacco abuse Z72.0 ; Tobacco abuse counseling Z71.6 and Scabies B86 [facility] [address] [facility] [place] [id number] [place] [id number] Dec, Encounter for contraceptive management, unspecified Z30.9 ; Routine gynecological examination Z01.419 ; Screening for STD sexually transmitted disease Z11.3 and Encounter for Depo-Provera contraception Z30.[address] [id number] [place] [address] Nov, Urinary tract infection, site unspecified N39.[address] [id number] [place] [address] Sep, Frequent urination R35.0 ; Missed period N92.6 and Contraception Z30.[address] [id number] [place] [id number] Aug, Bronchitis J40 ; Tobacco abuse Z72.0 and Tobacco abuse counseling Z71.[address] [id number] [place] [address] Apr, Acute bronchitis J20.9 ; Tobacco abuse Z72.0 and Tobacco abuse counseling Z71.[address] [id number] [place] [address] Dec, Sprain of right ankle 845.00 and Strain of left foot 845.[address] [id number] [place] [address] October, Encounter for contraceptive management V25.[address] [id number] [place] [address] Sep, Dental examination V72.2 [facility] [address] [address] 14 Sep, 2014 [facility] [address] [id number] [address] 13 Sep, 2014 [facility] [id number] [place] [address] Jul, 2014 [facility] [place] [facility] [address] [id number] [place] [address] Jul, 2014 [facility] [place] [facility] [address] [facility] [id number] [place] [address] Jul, 2014 [facility] [place] [facility] [address] [facility] [id number] [place] [address] Jul, 2014 [facility] [place] [facility] [address] [facility] [id number] [place] [address] Jul, 2014 [facility] [place] [facility] [address] [facility] [id number] [place] [address] Jul, 2014 [facility] [place] [facility] [address] [facility] [id number] [place] [address] Jul, 2014 [facility] [place] [facility] [address] [facility] [id number] [place] [address] Jul, 2014 [facility] [place] [facility] [address] [facility] [id number] [place] [address] Jul, 2014 [facility] [place] [facility] [address] [facility] [id number] [place] [address] Jul, 2014 [facility] [place] [facility] [address] [facility] [id number] [place] [address] Jul, 2014 [facility] [place] [facility] [address] [facility] [id number] [place] [address] Apr, [facility] [place] [facility] [address] [facility] [id number], [place] [address] Apr, [facility] [place] [facility] [address] [facility] [id number] [place] [address] 17 Apr, 2014 [facility] [place] [facility] [address] [facility] [id number], [place] [address] Apr, [facility] [place] [facility] [address] [facility] [id number] [address] Apr, [facility] [place] [facility] [address] [id number] [place] [address] Mar, [facility] [place] [facility] [address] [id number] [place] [address] Mar, [facility] [place] [facility] [address] [id number] [place] [address] Mar, [facility] [place] [facility] [address] [id number] [place] [address] Mar, [facility] [place] [facility] [address] [id number] [place] [address] Mar, [facility] [place] [facility] [address] [id number] [place] [address] Mar, [facility] [place] [facility] [address] [id number] [place] [address] Mar, [facility] [place] [facility] [address] [id number] [place] [address] Mar, [facility] [place] [facility] [address] [id number] [place] [address] Mar, [facility] [place] [facility] [address] [id number] [place] [address] Mar, [facility] [place] [facility] [address] [id number] [place] [address] Mar, [facility] [place] [facility] [address] [id number] [place] [address] Feb, [facility] [place] [facility] [address] [id number] [place] [address] Feb, [facility] [place] [facility] [address] [id number] [place] [address] Dec, [facility] [place] [facility] [address] [id number] [place] [address] Dec, [facility] [place] [facility] [address] [id number] [place] [address] October, [facility] [place] [facility] [address] [id number] [place] [address] October, [facility] [place] [facility] [address] [id number] [place] [address] Sep, [facility] [place] [facility] [address] [id number] [place] [address]- [address] Sep, [facility] [place] [facility] [address] [id number] [place] [address]- 7192 Sep, [facility] [place] [facility] [address] [id number] [place] [address]- 135[address] Sep, [facility] [place] [facility] [address] [id number] [place] [address]- 3626 Sep, [facility] [place] [facility] [address] [id number] [place] [address]- [address] Sep, [facility] [place] [facility] [address] [id number] [place] [address]- 4682 Sep, [facility] [place] [facility] [address] [id number] [place] [address]- 1828 Jul, [facility] [place] [facility] [address] [id number] [place] [address]- 3449 Jul, [facility] [place] [facility] [address] [id number] [place] [address]- 1507 Jul, [facility] [place] [facility] [address] [id number] [place] [address]- 37[address] Jul, [facility] [place] [facility] [address] [id number] [place] [address]- 9691 Jul, [facility] [place] [facility] [address] [id number] [place] [address]- 4887 Jul, [facility] [place] [facility] [address] [id number] [place] [address]- 4143 Jun, [facility] [place] [facility] [address] [id number] [place] [address]- 5844 Jun, [facility] [place] [facility] [address] [id number] [place] [address]- 0702 Jun, [facility] [place] [facility] [address] [id number] [place] [address]- 9130 Jun, [facility] [place] [facility] [address] [id number] [place] [address]- 0697 May, [facility] [place] [facility] [address] [id number] [place] [address]- 7243 May, [facility] [place] [facility] [address] [id number] [place] [address]- 65[address] Mar, [facility] [place] [facility] [address] [id number] [place] [address]- 8923 Mar, [facility] [place] [facility] [address] [id number] [place] [address]- 6163 Mar, [facility] [place] [facility] [address] [id number] [place] [address]- 5807 Mar, [facility] [place] [facility] [address] [id number] [place] [address]- 1681 Mar, [facility] [place] [facility] [address] [id number] [place] [address]- 3761 Sep, [facility] [place] [facility] [address] [id number] [place] [address]- 6195 Sep, [facility] [place] [facility] [address] [id number] [place] [address]- 8224 Sep, [facility] [place] [facility] [address] [id number] [place] [address]- 0752 Aug, [facility] [place] [facility] [address] [id number] [place] [address]- 4305 Jul, [facility] [place] [facility] [address] [id number], [place] [address]- 6[address] Jul, [facility] [address] [id number], [place] [address] Jul, [facility] [address] [facility] [id number] [address]- 7365 Jun, [facility] [address] [facility] [id number] [address]- [address]406 Jun, [facility] [address] [id number] [address] 5816 Mar, [facility] [address] [id number] [place] [address]- 3872 Feb, [facility] [place] [facility] [address] [facility] [id number], [place] [address]- 1534 Feb, [facility] [address] [facility] [id number] [address] 96[address] October, [facility] [address] [facility] [id number] [address] 7585 Sep, [facility] [address] [facility] [id number], [place] [address]- 4977 Sep, [facility] [address] [facility] [id number] [address] Sep, [facility] [address] [facility] [id number] [address]- [address] Aug, [facility] [address] [facility] [place] [id number] [place] [id number] Jul, [facility] [address] [id number] [address] 8[address] Jun, [facility] [address] [facility] [id number] [place] [id number] Jun, [facility] [address] [facility] [id number] [address]- [address]166 May, [facility] [address] [facility] [id number], [place] [address]- 120[address] Apr, [facility] [id number] [address] Jan, [facility] [id number] [address] Sep, [facility] [id number] [address] 15 Jul, 2010 [facility] [address] [id number] [address] 88[address] 15 Feb, 2010 [facility] [id number] [place] [address] 4523 May, [facility] [id number] [address] May, [facility] [address] [address] Apr, [facility] [id number] [address] 56[address] Mar, [facility] [address], [place] [address] 9583 Mar, [facility] [id number] [address] 4318 Feb, [facility] [id number] [address] Jan, [facility] [id number] [address] Nov, IMMUNIZATIONS No Known Immunizations SOCIAL HISTORY Never Assessed REASON FOR VISIT STD treatment PLAN OF CARE VITAL SIGNS MEDICATIONS Unknown [...]
--- OUTSIDE RECORDS SUMMARY | 2018-04-09 15:32 | XMS REPORT ---
Author Author MATHEUS RAY Organization [facility] Address [address] [place] [address] Care Team Providers Care Frame Bender Name Role Phone MATHEUS RAY Unavailable PROBLEMS Type Condition ICD9-CM Code [id number] Code Onset Dates Condition Status SNOMED Code Problem Nausea and vomiting during prior to 22 weeks gestation O21.9 Active 38233115 Problem Other specified related conditions, first trimester O26.891 Active 32365263 Problem Dysuria R30.0 Active 67165817 Problem Obesity complicating , second trimester O99.212 Active 691763676737 Problem Supervision of normal first in second trimester Z34.02 Active 56721445 Problem Unspecified sexually transmitted disease A64 Active 3483228 Problem Spotting complicating , first trimester O26.851 Active 745725502 Problem Tobacco smoking complicating in second trimester O99.332 Active 414155395 Problem Other infections with a predominantly sexual mode of transmission complicating , unspecified trimester O98.319 Active 30071507 Problem Tobacco abuse Z72.0 Active 02695268 Problem Tobacco abuse counseling Z71.6 Active 959611072 Problem Smoking (tobacco) complicating , first trimester O99.331 Active 565556056 Problem Irregular periods N92.6 Active 37105054 Problem Obesity complicating in first trimester O99.211 Active 343752368299 Problem Scabies B86 Active 783708292 Problem Supervision of normal first in first trimester Z34.01 Active 95135273 ALLERGIES No Information ENCOUNTERS Encounter Location Date Diagnosis [facility] [address] [facility] [id number] [place] [id number] Jan, [facility] [address] [facility] [id number] [place] [id number] Dec, Supervision of normal first in second trimester Z34.02 ; Tobacco smoking complicating in second trimester O99.332 ; Obesity complicating , second trimester O99.212 and Nausea and vomiting during prior to 22 weeks gestation O21.9 [facility] [place] [address] [facility] [id number] [place] [id number] Nov, [facility] [place] [address] [facility] [id number] [place] [address] Nov, Supervision of normal first in second trimester Z34.02 ; Tobacco smoking complicating in second trimester O99.332 and Obesity complicating , second trimester O99.212 [facility] [address] [id number][place] [address] October, Supervision of normal first in second trimester Z34.02 ; UTI (urinary tract infection) in in second trimester O23.42 ; Nausea and vomiting during prior to 22 weeks gestation O21.9 ; Obesity complicating , second trimester O99.212 and Tobacco smoking complicating in second trimester O99.332 [facility] [address] [id number][place] [id number] October, Dental caries K02.9 ; Weight loss R63.4 and Second trimester Z34.92 [facility] [id number][place] [id number] Sep, Supervision of normal first in first [...] of transmission complicating , unspecified trimester O98.319 [facility] [id number][place] [id number] Sep, Other specified related conditions, first trimester O26.891 [facility] [address] [facility] [id number] [place] [id number] Sep, Other maternal infectious and parasitic diseases complicating , second trimester O98.812 and Chlamydial infection A74.9 [facility] [id number][place] [id number] Sep, Supervision of normal first in first trimester Z34.01 [facility] [address] [place] [address] [id number][place] [address] Aug, Supervision of normal first in first trimester Z34.01 ; Smoking (tobacco) complicating , first trimester O99.331 ; Spotting complicating , first trimester O26.851 ; Nausea and vomiting during prior to 22 weeks gestation O21.9 ; Dysuria R30.0 and Other specified related conditions, first trimester O26.891 [facility] [id number][place] [id number] Jul, [facility] [id number][place] [id number] Jul, Supervision of normal first in first trimester Z34.01 ; Smoking (tobacco) complicating , first trimester O99.331 and Obesity complicating in first trimester O99.[address] [id number] [place] [id number] Jul, Encounter for test, result unknown Z32.00 [facility] [id number][place] [address] Mar, Strep pharyngitis J02.0 and URI with cough and congestion J06.[address] [id number], [place] [id number] Feb, [address] [id number] [place] [id number] 16 Feb, 2016 Encounter for Depo-Provera contraception Z30.42 [facility] [id number][place] [id number] 10 Feb, 2016 Acute bronchitis, unspecified organism J20.9 ; Tobacco abuse Z72.0 ; Tobacco abuse counseling Z71.6 and Scabies B86 [address]00565100[address] [id number] Dec, Encounter for contraceptive management, unspecified Z30.9 ; Routine gynecological examination Z01.419 ; Screening for STD sexually transmitted disease Z11.3 and Encounter for Depo-Provera contraception Z30.42 [facility] [address] [place] [address] [place] [id number], [place] [id number] Nov, Urinary tract infection, site unspecified N39.[address] [id number], [place] [address] Sep, Frequent urination R35.0 ; Missed period N92.6 and Contraception Z30.[address] [id number], [place] [id number] Aug, Bronchitis J40 ; Tobacco abuse Z72.0 and Tobacco abuse counseling Z71.[address] [id number], [place] [id number] Apr, Acute bronchitis J20.9 ; Tobacco abuse Z72.0 and Tobacco abuse counseling Z71.[address] [id number], [place] [address] Dec, Sprain of right ankle 845.00 and Strain of left foot 845.[address] [id number], [place] [id number] October, Encounter for contraceptive management V25.[address] [id number], [place] [id number] Sep, Dental examination V72.2 [facility] [address] [facility] [id number], [place] [address] Sep, [facility] [address]00565100[place], [place] [address] Sep, [facility] [address] [id number] [address] Jul, [facility] [id number] [place] [address] 18 Jul, 2014 [facility] [place] [facility] [address] [id number] [place] [address] Jul, 2014 [facility] [place] [facility] [address] [id number] [place] [address] Jul, 2014 [facility] [place] [facility] [address] [facility] [id number] [place] [address] Jul, 2014 [facility] [place] [facility] [address] [id number] [place] [address] Jul, 2014 [facility] [place] [facility] [address] [id number] [place] [address] Jul, 2014 [facility] [place] [facility] [address] [facility] [id number] [place] [address] Jul, 2014 [facility] [place] [facility] [address] [facility] [id number] [place] [address] Jul, 2014 [facility] [place] [facility] [address] [facility] [id number] [place] [address] Jul, 2014 [facility] [place] [facility] [address] [facility] [id number] [place] [address] Jul, 2014 [facility] [place] [facility] [address] [facility] [id number] [place] [address] Apr, [facility] [place] [facility] [address] [facility] [id number] [place] [address] Apr, [facility] [place] [facility] [address] [facility] [id number], [place] [address] 17 Apr, 2014 [facility] [place] [facility] [address] [id number] [place] [address] Apr, [facility] [place] [facility] [address] [facility] [id number] [place] [address] Apr, [facility] [place] [facility] [address] [facility] [id number], [place] [address] Mar, [facility] [place] [facility] [address] [id number] [place] [address] Mar, [facility] [place] [facility] [address] [id number] [place] [address] Mar, [facility] [place] [facility] [address] [id number] [place] [address] Mar, [facility] [place] [facility] [address] [id number] [place] [address] Mar, [facility] [place] [facility] [address] [id number] [place] [address]- [address] Mar, [facility] [place] [facility] [address] [id number] [place] [address] Mar, [facility] [place] [facility] [address] [id number] [place] [address] Mar, [facility] [place] [facility] [address] [id number] [place] [address] Mar, [facility] [place] [facility] [address] [id number] [place] [address]114 Mar, [facility] [place] [facility] [address] [id number] [place] [address] Mar, [facility] [place] [facility] [address] [id number] [place] [address] Feb, [facility] [place] [facility] [address] [id number] [place] [address] Feb, [facility] [place] [facility] [address] [id number] [place] [address] Dec, [facility] [place] [facility] [address] [id number] [place] [address] Dec, [facility] [place] [facility] [address] [id number] [place] [address] October, [facility] [place] [facility] [address] [id number], [place] [address] October, [facility] [place] [facility] [address] [id number] [place] [address]- [address] Sep, [facility] [place] [facility] [address] [id number] [place] [address]- [address] Sep, [facility] [place] [facility] [address] [id number] [place] [address]- 6[address] Sep, [facility] [place] [facility] [address] [id number] [place] [address]- 6946 Sep, [facility] [place] [facility] [address] [id number] [place] [address]- 4524 Sep, [facility] [place] [facility] [address] [id number] [place] [address]- 5017 Sep, [facility] [place] [facility] [address] [facility] [id number] [place] [address]- 1049 Sep, [facility] [place] [facility] [address] [id number] [place] [address]- 5121 Jul, [facility] [place] [facility] [address] [id number] [place] [address]- 6586 Jul, [facility] [place] [facility] [address] [facility] [id number] [place] [address]- 4033 Jul, [facility] [place] [facility] [address] [id number] [place] [address]- 1172 Jul, [facility] [place] [facility] [address] [id number], [place] [address]- 8668 Jul, [facility] [place] [facility] [address] [id number] [place] [address]- 0043 Jul, [facility] [place] [facility] [address] [id number] [place] [address]- 6809 Jun, [facility] [place] [facility] [address] [id number], [place] [address]- [address]227 Jun, [facility] [place] [facility] [address] [id number] [place] [address]- 7801 Jun, [facility] [place] [facility] [address] [id number] [place] [address]- 7382 Jun, [facility] [place] [facility] [address] [id number] [place] [address]- 9694 May, [facility] [place] [facility] [address] [id number] [place] [address]- 5953 May, [facility] [place] [facility] [address] [id number] [place] [address]- 6414 Mar, [facility] [place] [facility] [address] [id number] [place] [address]- 5013 Mar, [facility] [place] [facility] [address] [id number] [place] [address]- 0925 Mar, [facility] [place] [facility] [address] [id number] [place] [address] 4119 Mar, [facility] [place] [facility] [address] [id number] [place] [address]- 8932 Mar, [facility] [place] [facility] [address] [id number] [place] [address]- 6711 Sep, [facility] [place] [facility] [address] [id number] [place] [address]- 8216 Sep, [facility] [place] [facility] [address] [id number] [place] [address]- 4365 Sep, [facility] [place] [facility] [address] [id number] [place] [address]- 8658 Aug, [facility] [place] [facility] [address] [id number] [place] [address]- 5025 Jul, [facility] [place] [facility] [address] [id number] [place] [address]- 3900 Jul, [facility] [place] [facility] [address] [id number], [place] [address]- 5796 Jul, [facility] [address] [facility] [id number], [place] [address]- [address] Jun, [facility] [address] [facility] [id number], [place] [address]- 7594 Jun, [facility] [address] [facility] [id number] [place] [address]- 3056 Mar, [facility] [address] [id number], [place] [address]- 1379 Feb, [facility] [address] [id number] [place] [address]- 8657 Feb, [facility] [address] [facility] [id number], [place] [address]- [address]65 October, [facility] [address]00565100[place], [place] [address]32 Sep, [facility] [address] [facility] [id number], [place] [address]- 0896 Sep, [facility] [address] [facility] [id number], [place] [address] 5[address] Sep, [facility] [address] [facility] [id number], [place] [address]- 27[address] Aug, [facility] [id number] [place] [id number] Jul, [facility] [address] [facility] [id number], [place] [address]- [address] Jun, [facility] [address] [facility] [id number] [place] [address] Jun, [facility] [address] [facility] [id number], [place] [address]- 9576 May, [facility] [place] [facility] [address] [facility] [id number], [place] [address]- 5079 Apr, [facility] [address] [facility] [id number], [place] [address]96 Jan, [facility] [address] [id number], [place] [address] Sep, [facility] [address]00565100[place], [place] [address] 15 Jul, 2010 [facility] [address]00565100[place], [place] [address] 15 Feb, 2010 [facility] [address]00565100[place], [place] [address] May, [facility] [address]00565100[place], [place] [address] 9898 May, [facility] [address]00565100[place], [place] [address] 4732 Apr, [facility] [address]00565100[place], [place] [address] Mar, [facility] [address]00565100[place], [place] [address] 7919 Mar, [facility] [address]00565100[place], [place] [address] 3262 Feb, [facility] [address] [id number], [place] [address] 6287 Jan, [facility] [address] [id number], [place] [address] 6397 Nov, IMMUNIZATIONS No Known Immunizations SOCIAL HISTORY Never Assessed REASON FOR VISIT bloodwork-sumit elena PLAN OF CARE VITAL SIGNS MEDICATIONS Unknown Medications RESULTS No Results PROCEDURES Procedure Date Ordered Result Body Site HEPATITIS B SURFACE AG, EIA September 22, 2017 BLOOD SEROLOGY, QUALITATIVE September 22, 2017 HEPATITIS C AB TEST September 22, 2017 BLOOD TYPING, RH (D) September 22, 2017 COMPLETE CBC W/AUTO DIFF WBC September 22, 2017 RBC ANTIBODY SCREEN September 22, 2017 BLOOD TYPING, ABO September 22, 2017 VARICELLA-ZOSTER ANTIBODY September 22, 2017 RUBELLA ANTIBODY September 22, 2017 HIV-1 AG W/HIV-1 & HIV-2 AB September 22, 2017 Hemoglobin Test Send Out 0 dollar September 22, 2017 [facility] ANEUPLOIDY September 22, 2017 COMPREHEN METABOLIC PANEL September 22, 2017 VENIPUNCT, ROUTINE* September 22, 2017 INSTRUCTIONS MEDICATIONS ADMINISTERED No Known Medications MEDICAL (GENERAL) HISTORY Type Description Date Medical History asthma- Normal PFT 2012 Medical History allergies Medical History acid reflux Medical History anxiety Medical History PCOS Medical History ADHD Surgical History tonsillectomy and adenoidectomy Surgical History oral surgery Hospitalization History overdose on sleeping medication age 9
--- OUTSIDE RECORDS SUMMARY | 2018-04-09 15:32 | XMS REPORT ---
Author Author MATHEUS RAY Organization [facility] Address [address] [place] [address] Care Team Providers Care Center Machine Operator Name Role Phone MATHEUS RAY Unavailable PROBLEMS Type Condition ICD9-CM Code OUY00-XQ Code Onset Dates Condition Status SNOMED Code Problem Nausea and vomiting during prior to 22 weeks gestation O21.9 Active 49657326 Problem Other specified related conditions, first trimester O26.891 Active 59468211 Problem Dysuria R30.0 Active 70210340 Problem Obesity complicating , second trimester O99.212 Active 940064622094 Problem Supervision of normal first in second trimester Z34.02 Active 64090560 Problem Unspecified sexually transmitted disease A64 Active 5525228 Problem Spotting complicating , first trimester O26.851 Active 293456814 Problem Tobacco smoking complicating in second trimester O99.332 Active 050613630 Problem Other infections with a predominantly sexual mode of transmission complicating , unspecified trimester O98.319 Active 39641999 Problem Tobacco abuse Z72.0 Active 39394183 Problem Tobacco abuse counseling Z71.6 Active 687295413 Problem Smoking (tobacco) complicating , first trimester O99.331 Active 104755846 Problem Irregular periods N92.6 Active 25654900 Problem Obesity complicating in first trimester O99.211 Active 676128467816 Problem Scabies B86 Active 143155839 Problem Supervision of normal first in first trimester Z34.01 Active 68700507 ALLERGIES No Information ENCOUNTERS Encounter Location Date Diagnosis [facility] [address] [facility] [id number][place] [id number] Jan, [facility] [address] [id number] [place] [id number] Jan, [facility] [address] [facility] [id number][place] [id number] Dec, Supervision of normal first in second trimester Z34.02 ; Tobacco smoking complicating in second trimester O99.332 ; Obesity complicating , second trimester O99.212 and Nausea and vomiting during prior to 22 weeks gestation O21.9 [facility] [address] [id number][place] [id number] Nov, [facility] [address] [id number][place] [id number] Nov, Supervision of normal first in second trimester Z34.02 ; Tobacco smoking complicating in second trimester O99.332 and Obesity complicating , second trimester O99.[address] [address] [id number], [place] [id number] October, Supervision of normal first in second trimester Z34.02 ; UTI (urinary tract infection) in in second trimester O23.42 ; Nausea and vomiting during prior to 22 weeks gestation O21.9 ; Obesity complicating , second trimester O99.212 and Tobacco smoking complicating in second trimester O99.332 [address] [facility] [address] [id number][place] [id number] October, Dental caries K02.9 ; Weight loss R63.4 and Second trimester Z34.[address] [id number], [place] [id number] Sep, Supervision of normal first in first [...] of transmission complicating , unspecified trimester O98.[address] [address] [id number], [place] [id number] Sep, Other specified related conditions, first trimester O26.891 [facility] [address] [facility] [id number], [place] [id number] Sep, Other maternal infectious and parasitic diseases complicating , second trimester O98.812 and Chlamydial infection A74.[address] [id number][place] [address] Sep, Supervision of normal first in first trimester Z34.[address] [id number], [place] [id number] Aug, Supervision of normal first in first trimester Z34.01 ; Smoking (tobacco) complicating , first trimester O99.331 ; Spotting complicating , first trimester O26.851 ; Nausea and vomiting during prior to 22 weeks gestation O21.9 ; Dysuria R30.0 and Other specified related conditions, first trimester O26.[address] [id number][place] [id number] Jul, [address] [id number], [place] [address] Jul, Supervision of normal first in first trimester Z34.01 ; Smoking (tobacco) complicating , first trimester O99.331 and Obesity complicating in first trimester O99.211 [facility] [address] [id number], [place] [id number] Jul, Encounter for test, result unknown Z32.[address] [id number], [place] [address] Mar, Strep pharyngitis J02.0 and URI with cough and congestion J06.[address] [id number], [place] [address] Feb, [id number] [place] [id number] Feb, Encounter for Depo-Provera contraception Z30.[address] [id number], [place] [address] Feb, Acute bronchitis, unspecified organism J20.9 ; Tobacco abuse Z72.0 ; Tobacco abuse counseling Z71.6 and Scabies B86 [facility] [address] [facility] [id number], [place] [id number] Dec, Encounter for contraceptive management, unspecified Z30.9 ; Routine gynecological examination Z01.419 ; Screening for STD sexually transmitted disease Z11.3 and Encounter for Depo-Provera contraception Z30.[address] [id number], [place] [id number] Nov, Urinary tract infection, site unspecified N39.[address] [id number], [place] [address] Sep, Frequent urination R35.0 ; Missed period N92.6 and Contraception Z30.[address] [id number], [place] [address] Aug, Bronchitis J40 ; Tobacco abuse Z72.0 and Tobacco abuse counseling Z71.[address] [id number], [place] [id number] Apr, Acute bronchitis J20.9 ; Tobacco abuse Z72.0 and Tobacco abuse counseling Z71.[address] [id number], [place] [address] Dec, Sprain of right ankle 845.00 and Strain of left foot 845.[address] [id number], [place] [address] October, Encounter for contraceptive management V25.[address] [id number], [place] [id number] Sep, Dental examination V72.2 [facility] [address] [address] 14 Sep, 2014 [facility] [address] [id number] [address] 13 Sep, 2014 [facility] [address] [place] [address] Jul, 2014 [facility] [place] [facility] [address] [id number] [place] [address]34 Jul, 2014 [facility] [place] [facility] [address] [facility] [id number] [place] [address]- 6056 Jul, 2014 [facility] [place] [facility] [address] [facility] [id number] [place] [address] 4916 Jul, 2014 [facility] [place] [facility] [address] [facility] [id number] [place] [address]851 Jul, 2014 [facility] [place] [facility] [address] [facility] [id number] [place] [address]- 2844 Jul, 2014 [facility] [place] [facility] [address] [facility] [id number] [place] [address]- 6[address] Jul, 2014 [facility] [place] [facility] [address] [facility] [id number] [place] [address]- [address] Jul, 2014 [facility] [place] [facility] [address] [facility] [id number] [place] [address]- [address]389 Jul, 2014 [facility] [place] [facility] [address] [facility] [id number] [place] [address]- [address]14 Jul, 2014 [facility] [place] [facility] [address] [facility] [id number] [place] [address]- [address]336 Jul, 2014 [facility] [place] [facility] [address] [facility] [id number] [place] [address]- 7058 Apr, [facility] [place] [facility] [address] [facility] [id number] [place] [address] Apr, [facility] [place] [facility] [address] [facility] [id number] [place] [address]- [address] 17 Apr, 2014 [facility] [place] [facility] [address] [facility] [id number] [place] [address] Apr, [facility] [place] [facility] [address] [facility] [id number] [place] [address] Apr, [facility] [place] [facility] [address] [id number] [place] [address] 67[address] Mar, [facility] [place] [facility] [address] [id number] [place] [address] 1296 Mar, [facility] [place] [facility] [address] [id number] [place] [address]- [address]36 Mar, [facility] [place] [facility] [address] [id number] [place] [address]- 5957 Mar, [facility] [place] [facility] [address] [id number] [place] [address] Mar, [facility] [place] [facility] [address] [id number] [place] [address] 4023 Mar, [facility] [place] [facility] [address] [id number] [place] [address]- 7267 Mar, [facility] [place] [facility] [address] [id number] [place] [address]- 3660 Mar, [facility] [place] [facility] [address] [id number] [place] [address]- 3487 Mar, [facility] [place] [facility] [address] [id number] [place] [address]- 7936 Mar, [facility] [place] [facility] [address] [id number] [place] [address]- 2245 Mar, [facility] [place] [facility] [address] [id number] [place] [address]- 2085 Feb, [facility] [place] [facility] [address] [id number] [place] [address]- 4686 Feb, [facility] [place] [facility] [address] [id number] [place] [address]- 1087 Dec, [facility] [place] [facility] [address] [id number] [place] [address]- 73[address] Dec, [facility] [place] [facility] [address] [id number] [place] [address]- 57[address] October, [facility] [place] [facility] [address] [id number] [place] [address]- 8602 October, [facility] [place] [facility] [address] [id number] [place] [address]- 5103 Sep, [facility] [place] [facility] [address] [id number] [place] [address]- 8736 Sep, [facility] [place] [facility] [address] [id number] [place] [address]- 8706 Sep, [facility] [place] [facility] [address] [id number] [place] [address]- 4428 Sep, [facility] [place] [facility] [address] [id number] [place] [address]- 8407 Sep, [facility] [place] [facility] [address] [id number] [place] [address]- 1005 Sep, [facility] [place] [facility] [address] [id number] [place] [address]- 0814 Sep, [facility] [place] [facility] [address] [id number] [place] [address] Jul, [facility] [place] [facility] [address] [id number] [place] [address]- 2199 Jul, [facility] [place] [facility] [address] [id number] [place] [address]- 6873 Jul, [facility] [place] [facility] [address] [id number] [place] [address]- 2177 Jul, [facility] [place] [facility] [address] [id number] [place] [address]- 8012 Jul, [facility] [place] [facility] [address] [id number] [place] [address]- 8895 Jul, [facility] [place] [facility] [address] [id number] [place] [address]- 7536 Jun, [facility] [place] [facility] [address] [id number] [place] [address]- 9777 Jun, [facility] [place] [facility] [address] [id number] [place] [address]- 2301 Jun, [facility] [place] [facility] [address] [id number] [place] [address]- 8945 Jun, [facility] [place] [facility] [address] [id number] [place] [address]- 7729 May, [facility] [place] [facility] [address] [id number] [place] [address]- 1536 May, [facility] [place] [facility] [address] [id number] [place] [address]- 4209 Mar, [facility] [place] [facility] [address] [id number] [place] [address]- 4404 Mar, [facility] [place] [facility] [address] [id number] [place] [address]- 4459 Mar, [facility] [place] [facility] [address] [id number] [place] [address]- 9893 Mar, [facility] [place] [facility] [address] [id number] [place] [address]- 4713 Mar, [facility] [place] [facility] [address] [id number] [place] [address]- 7852 Sep, [facility] [place] [facility] [address] [id number] [place] [address]- 3342 Sep, [facility] [place] [facility] [address] [id number] [place] [address]- 8095 Sep, [facility] [place] [facility] [address] [id number] [place] [address]- 5381 Aug, [facility] [place] [facility] [address] [id number] [place] [address]- 8340 Jul, [facility] [place] [facility] [address] [id number] [place] [address]- 0566 Jul, [facility] [address] [id number] [place] [address]- 0581 Jul, [facility] [address] [facility] [id number] [place] [address]- 6883 Jun, [facility] [address] [facility] [id number] [place] [address]- 2935 Jun, [facility] [address] [id number] [place] [address]- 0478 Mar, [facility] [address] [id number] [place] [address]- 6078 Feb, [facility] [place] [facility] [address] [facility] [id number] [place] [address]- 1130 Feb, [facility] [address] [facility] [id number] [place] [address]- 0657 October, [facility] [address] [facility] [id number] [place] [address]- 8473 Sep, [facility] [address] [facility] [id number] [place] [address]- 9594 Sep, [facility] [address] [facility] [id number] [place] [address]- 7113 Sep, [facility] [address] [facility] [id number] [place] [address]- [address] Aug, [facility] [address] [facility] [id number], [place] [id number] Jul, [facility] [address] [id number] [place] [address]- 6554 Jun, [facility] [address] [facility] [id number], [place] [id number] Jun, [facility] [address] [facility] [id number] [place] [address]- 8516 May, [facility] [address] [facility] [id number] [place] [address] Apr, [facility] [address]00565100[place] [address] 1240 Jan, [facility] [address]00565100[place] [address] Sep, [facility] [address]00565100[place] [address]- [address]256 15 [address], [address] [facility] [address] [id number] [address]- 7612 15 Feb, 2010 [facility] [id number] [place] [address]- [address]8 May, [facility] [address]00565100[place] [address]40 May, [facility] [address]00565100[place] [address] 0729 Apr, [facility] [address]00565100[place] [address] 4082 Mar, [facility] [address]00565100[place] [address] 2374 Mar, [facility] [address]00565100[place] [address] 5670 Feb, [facility] [address]00565100[place] [address]809 Jan, [facility] [address]65100[place] [address]843 Nov, IMMUNIZATIONS No Known Immunizations SOCIAL HISTORY [...]
--- OUTSIDE RECORDS SUMMARY | 2018-04-09 15:33 | XMS REPORT ---
Author Author MATHEUS RAY Organization [facility] Address [address] [place] [address] Care Team Providers Care Principal Consultant Name Role Phone MATHEUS RAY Unavailable PROBLEMS Type Condition ICD9-CM Code TDZ33-FU Code Onset Dates Condition Status SNOMED Code Problem Nausea and vomiting during prior to 22 weeks gestation O21.9 Active 06826788 Problem Other specified related conditions, first trimester O26.891 Active 01987402 Problem Dysuria R30.0 Active 75691912 Problem Obesity complicating , second trimester O99.212 Active 804030655988 Problem Supervision of normal first in second trimester Z34.02 Active 81802314 Problem Unspecified sexually transmitted disease A64 Active 6679547 Problem Spotting complicating , first trimester O26.851 Active 306463123 Problem Tobacco smoking complicating in second trimester O99.332 Active 067724475 Problem Other infections with a predominantly sexual mode of transmission complicating , unspecified trimester O98.319 Active 02335109 Problem Tobacco abuse Z72.0 Active 14609643 Problem Tobacco abuse counseling Z71.6 Active 424504032 Problem Smoking (tobacco) complicating , first trimester O99.331 Active 908387904 Problem Irregular periods N92.6 Active 44533194 Problem Obesity complicating in first trimester O99.211 Active 971300790154 Problem Scabies B86 Active 261927141 Problem Supervision of normal first in first trimester Z34.01 Active 80790914 ALLERGIES Substance Reaction Event Type Date Status Ritalin hives Drug Allergy Aug, Active ENCOUNTERS Encounter Location Date Diagnosis [facility] [address] [facility] [id number] [place] [id number] Jan, [facility] [address] [facility] [id number] [place] [id number] Dec, Supervision of normal first in second trimester Z34.02 ; Tobacco smoking complicating in second trimester O99.332 ; Obesity complicating , second trimester O99.212 and Nausea and vomiting during prior to 22 weeks gestation O21.9 [facility] [address] [id number] [place] [id number] Nov, [facility] [address] [facility] [id number] [place] [id number] Nov, Supervision of normal first in second trimester Z34.02 ; Tobacco smoking complicating in second trimester O99.332 and Obesity complicating , second trimester O99.212 [email or web address] [id number][place] [id number] October, Supervision of normal first in second trimester Z34.02 ; UTI (urinary tract infection) in in second trimester O23.42 ; Nausea and vomiting during prior to 22 weeks gestation O21.9 ; Obesity complicating , second trimester O99.212 and Tobacco smoking complicating in second trimester O99.332 [email or web address] [id number][place] [id number] October, Dental caries K02.9 ; Weight loss R63.4 and Second trimester Z34.92 [email or web address] [id number][place] [id number] Sep, Supervision of normal first in first [...] , unspecified trimester O98.319 [email or web address] [id number][place] [id number] Sep, Other specified related conditions, first trimester O26.891 [facility] [address] [facility] [id number] [id number] Sep, Other maternal infectious and parasitic diseases complicating , second trimester O98.812 and Chlamydial infection A74.[address] [id number][place] [id number] Sep, Supervision of normal first in first trimester Z34.[address] [id number][place] [id number] Aug, Supervision of normal first in first trimester Z34.01 ; Smoking (tobacco) complicating , first trimester O99.331 ; Spotting complicating , first trimester O26.851 ; Nausea and vomiting during prior to 22 weeks gestation O21.9 ; Dysuria R30.0 and Other specified related conditions, first trimester O26.[address] [id number][place] [id number] Jul, [address] [id number] [place] [id number] Jul, Supervision of normal first in first trimester Z34.01 ; Smoking (tobacco) complicating , first trimester O99.331 and Obesity complicating in first trimester O99.211 [facility] [address] [facility] [id number][place] [address] Jul, Encounter for test, result unknown Z32.[address] [id number][place] [address] Mar, Strep pharyngitis J02.0 and URI with cough and congestion J06.[address] [id number][place] [id number] Feb, [address] [id number] [place] [id number] 16 Feb, 2016 Encounter for Depo-Provera contraception Z30.[address] [id number], [place] [id number] 10 Feb, 2016 Acute bronchitis, unspecified organism J20.9 ; Tobacco abuse Z72.0 ; Tobacco abuse counseling Z71.6 and Scabies B86 [facility] [address] [facility] [id number] [place] [id number] Dec, Encounter for contraceptive management, unspecified Z30.9 ; Routine gynecological examination Z01.419 ; Screening for STD sexually transmitted disease Z11.3 and Encounter for Depo-Provera contraception Z30.[address] [id number], [place] [id number] Nov, Urinary tract infection, site unspecified N39.[address] [id number], [place] [id number] Sep, Frequent urination R35.0 ; Missed period N92.6 and Contraception Z30.[address] [id number][place] [id number] Aug, Bronchitis J40 ; Tobacco abuse Z72.0 and Tobacco abuse counseling Z71.[address] [id number], [place] [address] Apr, Acute bronchitis J20.9 ; Tobacco abuse Z72.0 and Tobacco abuse counseling Z71.[address] [id number], [place] [address] Dec, Sprain of right ankle 845.00 and Strain of left foot 845.[address] [id number][place] [id number] October, Encounter for contraceptive management V25.[address] [id number][place] [id number] Sep, Dental examination V72.2 [facility] [address] [id number], [place] [address] Sep, [facility] [address] [id number] [address] Sep, [facility] [address] [id number] [address] Jul, [facility] [place] [facility] [address] [facility] [id number] [place] [address] 18 Jul, 2014 [facility] [place] [facility] [address] [id number] [place] [address] Jul, 2014 [facility] [place] [facility] [address] [id number] [place] [address] Jul, 2014 [facility] [place] [facility] [address] [id number] [place] [address] Jul, 2014 [facility] [place] [facility] [address] [id number] [place] [address] Jul, 2014 [facility] [place] [facility] [address] [id number] [place] [address] Jul, 2014 [facility] [place] [facility] [address] [facility] [id number] [place] [address] Jul, 2014 [facility] [place] [facility] [address] [facility] [id number] [place] [address] Jul, 2014 [facility] [place] [facility] [address] [facility] [id number] [place] [address] Jul, 2014 [facility] [place] [facility] [address] [facility] [id number] [place] [address] Jul, 2014 [facility] [place] [facility] [address] [facility] [id number], [place] [address] Apr, [facility] [place] [facility] [address] [id number], [place] [address] Apr, [facility] [place] [facility] [address] [id number] [place] [address] 17 Apr, 2014 [facility] [place] [facility] [address] [facility] [id number] [place] [address] Apr, [facility] [place] [facility] [address] [facility] [id number], [place] [address] Apr, [facility] [place] [facility] [address] [facility] [id number], [place] [address] Mar, [facility] [place] [facility] [address] [id number] [place] [address] Mar, [facility] [place] [facility] [address] [id number] [place] [address] Mar, [facility] [place] [facility] [address] [id number] [place] [address] Mar, [facility] [place] [facility] [address] [id number] [place] [address] Mar, [facility] [place] [facility] [address] [id number] [place] [address]84 Mar, [facility] [place] [facility] [address] [id number] [place] [address] Mar, [facility] [place] [facility] [address] [id number] [place] [address] Mar, [facility] [place] [facility] [address] [id number] [place] [address] Mar, [facility] [place] [facility] [address] [id number] [place] [address] Mar, [facility] [place] [facility] [address] [id number] [place] [address] Mar, [facility] [place] [facility] [address] [id number] [place] [address] Feb, [facility] [place] [facility] [address] [id number], [place] [address] Feb, [facility] [place] [facility] [address] [id number] [place] [address]99 Dec, [facility] [place] [facility] [address] [id number] [place] [address] Dec, [facility] [place] [facility] [address] [facility] [id number] [place] [address] October, [facility] [place] [facility] [address] [id number] [place] [address] October, [facility] [place] [facility] [address] [id number] [place] [address] Sep, [facility] [place] [facility] [address] [id number] [place] [address] Sep, [facility] [place] [facility] [address] [id number] [place] [address] Sep, [facility] [place] [facility] [address] [id number] [place] [address] Sep, [facility] [place] [facility] [address] [id number] [place] [address] 6690 Sep, [facility] [place] [facility] [address] [facility] [id number] [place] [address] Sep, [facility] [place] [facility] [address] [id number] [place] [address]- 1467 Sep, [facility] [place] [facility] [address] [id number] [place] [address] 88[address] Jul, [facility] [place] [facility] [address] [id number] [place] [address]- 2494 Jul, [facility] [place] [facility] [address] [id number] [place] [address]- [address] Jul, [facility] [place] [facility] [address] [id number] [place] [address]- [address] Jul, [facility] [place] [facility] [address] [id number] [place] [address] Jul, [facility] [place] [facility] [address] [id number] [place] [address]- 8538 Jul, [facility] [place] [facility] [address] [id number] [place] [address]- 9158 Jun, [facility] [place] [facility] [address] [id number], [place] [address] Jun, [facility] [address] [id number] [place] [address] 79[address] Jun, [facility] [place] [facility] [address] [id number] [place] [address] Jun, [facility] [place] [facility] [address] [facility] [id number] [place] [address]- [address]180 May, [facility] [place] [facility] [address] [id number] [place] [address] May, [facility] [place] [facility] [address] [id number] [place] [address]- 2063 Mar, [facility] [place] [facility] [address] [id number] [place] [address]- 0659 Mar, [facility] [place] [facility] [address] [facility] [id number] [place] [address]64 Mar, [facility] [place] [facility] [address] [id number] [place] [address]- 457[address] Mar, [facility] [place] [facility] [address] [facility] [id number], [place] [address] Mar, [facility] [place] [facility] [address] [facility] [id number], [place] [address] Sep, [facility] [place] [facility] [address] [id number], [place] [address] 6309 Sep, [facility] [place] [facility] [address] [facility] [id number], [place] [address]798 Sep, [facility] [place] [facility] [address] [id number], [place] [address] Aug, [facility] [place] [facility] [address] [facility] [id number], [place] [address]- [address] Jul, [facility] [place] [facility] [address] [facility] [id number], [place] [address] 9687 Jul, [facility] [place] [facility] [address] [id number] [place] [address] 8806 Jul, [facility] [place] [facility] [address] [id number] [place] [address]- 8324 Jun, [facility] [place] [facility] [address] [id number] [place] [address]- 9024 Jun, [facility] [place] [facility] [address] [id number] [place] [address]- 6868 Mar, [facility] [place] [facility] [address] [id number] [place] [address]- 7797 Feb, [facility] [place] [facility] [address] [id number] [place] [address] 8916 Feb, [facility] [place] [facility] [address] [facility] [id number] [place] [address]- 3728 October, [facility] [place] [facility] [address] [facility] [id number] [place] [address]- 5457 Sep, [facility] [place] [facility] [address] [id number] [place] [address]- 9512 Sep, [facility] [place] [facility] [address] [facility] [id number], [place] [address] 2838 Sep, [facility] [place] [facility] [address] [facility] [id number], [place] [address] 2836 Aug, [facility] [id number] [id number] Jul, [facility] [address] [id number], [place] [address] Jun, [facility] [address] [facility] [id number][place] [id number] Jun, [facility] [place] [facility] [address] [id number], [place] [address] 2546 May, [facility] [place] [facility] [address] [id number], [place] [address] 6[address] Apr, [facility] [address]00565100[place], [place] [address] Jan, [facility] [id number] [place] [address] Sep, [facility] [address]65100[place], [place] [address] Jul, [facility] [id number] [place] [address]337 Feb, [facility] [id number] [place] [address]- 0824 May, [facility] [id number] [place] [address]- 4704 May, [facility] [id number] [place] [address]- [address]281 Apr, [facility] [id number] [place] [address]- 1601 Mar, [facility] [id number] [place] [address]- 7943 Mar, [facility] [id number] [place] [address]- 6332 Feb, [facility] [address]65100[place], [place] [address] 97[address] Jan, [facility] [address]65100[place], [place] [address] Nov, IMMUNIZATIONS No Known Immunizations SOCIAL HISTORY Never Assessed REASON FOR VISIT OB f/u--check up--FARNAZ nicole PLAN OF CARE Activity Details Follow Up 4 Weeks Reason: Pending Test PAP REFLEX TO HPV IF ASCUS VITAL SIGNS Height 62 in 2017-09-15 Weight 172.2 lbs 2017-09-15 Temperature 97.8 degrees Fahrenheit 2017-09-15 Heart Rate 80 bpm 2017-09-15 Respiratory Rate 16 2017-09-15 BMI 31.496 kg/m2 2017-09-15 Blood pressure systolic 118 mmHg 2017-09-15 Blood pressure diastolic 60 mmHg 2017-09-15 MEDICATIONS Medication Instructions Dosage Frequency Start Date End Date Duration Status Complete 14-0.4 MG Orally Once a day 1 tablet 24h 30 days Active Ondansetron 4 MG Orally every six hours as needed 1 tablet Aug, 30 days Active Celexa 20 mg take 1 tablet (20 mg) by oral route once daily Apr, Not-Taking Amoxicillin 500 mg Orally every 8 hrs 1 capsule 8h Aug, Sep, 07 days Active RESULTS No Results PROCEDURES Procedure Date Ordered Result Body Site URINALYSIS, AUTO, W/O SCOPE September 15, 2017 URINE CULTURE/COLONY COUNT September 15, 2017 SPECIMEN HANDLING September 15, 2017 Bacterial Vaginosis In House September 15, 2017 TRICHOMONAS ASSAY W/OPTIC September 15, 2017 CULTURE, BACTERIA, OTHER September 15, 2017 No Charge September 15, 2017 INSTRUCTIONS MEDICATIONS ADMINISTERED No Known Medications MEDICAL (GENERAL) HISTORY Type Description Date Medical History asthma- Normal PFT 2012 Medical History allergies Medical History acid reflux Medical History anxiety Medical History PCOS Medical History ADHD Surgical History tonsillectomy and adenoidectomy Surgical History oral surgery Hospitalization History overdose on sleeping medication age 9
--- OUTSIDE RECORDS SUMMARY | 2018-04-09 15:33 | XMS REPORT ---
Author Author MATHEUS RAY Organization [facility] Address [address] [place] [address] Care Team Providers Care Benefits Clerk Name Role Phone MATHEUS RAY Unavailable PROBLEMS Type Condition ICD9-CM Code [id number] Code Onset Dates Condition Status SNOMED Code Problem Nausea and vomiting during prior to 22 weeks gestation O21.9 Active 86183303 Problem Other specified related conditions, first trimester O26.891 Active 55621928 Problem Dysuria R30.0 Active 10245716 Problem Obesity complicating , second trimester O99.212 Active 990056853645 Problem Supervision of normal first in second trimester Z34.02 Active 86483091 Problem Unspecified sexually transmitted disease A64 Active 8233904 Problem Spotting complicating , first trimester O26.851 Active 731933692 Problem Tobacco smoking complicating in second trimester O99.332 Active 723372560 Problem Other infections with a predominantly sexual mode of transmission complicating , unspecified trimester O98.319 Active 74559994 Problem Tobacco abuse Z72.0 Active 77989074 Problem Tobacco abuse counseling Z71.6 Active 876932454 Problem Smoking (tobacco) complicating , first trimester O99.331 Active 857147224 Problem Irregular periods N92.6 Active 10698027 Problem Obesity complicating in first trimester O99.211 Active 014480575934 Problem Scabies B86 Active 807469907 Problem Supervision of normal first in first trimester Z34.01 Active 41093721 ALLERGIES No Information ENCOUNTERS Encounter Location Date Diagnosis [facility] [address] [facility] [id number] [place] [id number] Dec, [facility] [address] [facility] [id number] [place] [id number] Dec, [facility] [address] [facility] [id number][place] [id number] Nov, [facility] [address] [facility] [id number] [place] [id number] Nov, Supervision of normal first in second trimester Z34.02 ; Tobacco smoking complicating in second trimester O99.332 and Obesity complicating , second trimester O99.212 [facility] [id number][place] [id number] October, Supervision of normal first in second trimester Z34.02 ; UTI (urinary tract infection) in in second trimester O23.42 ; Nausea and vomiting during prior to 22 weeks gestation O21.9 ; Obesity complicating , second trimester O99.212 and Tobacco smoking complicating in second trimester O99.332 [facility] [employer] E [id number][place] [id number] October, Dental caries K02.9 ; Weight loss R63.4 and Second trimester Z34.92 [facility] [id number][place] [address] Sep, Supervision of normal first in first [...] of transmission complicating , unspecified trimester O98.319 [facility] [id number][place] [id number] Sep, Other specified related conditions, first trimester O26.891 [facility] [place] [address] [id number] [place] [id number] Sep, Other maternal infectious and parasitic diseases complicating , second trimester O98.812 and Chlamydial infection A74.9 [facility] [id number][place] [address] Sep, Supervision of normal first in first trimester Z34.[address] [id number][place] [id number] Aug, Supervision of normal first in first trimester Z34.01 ; Smoking (tobacco) complicating , first trimester O99.331 ; Spotting complicating , first trimester O26.851 ; Nausea and vomiting during prior to 22 weeks gestation O21.9 ; Dysuria R30.0 and Other specified related conditions, first trimester O26.891 [facility] [address] [id number][place] [id number] Jul, [address] [id number][place] [id number] Jul, Supervision of normal first in first trimester Z34.01 ; Smoking (tobacco) complicating , first trimester O99.331 and Obesity complicating in first trimester O99.[address] [place] [id number] Jul, Encounter for test, result unknown Z32.00 [facility] [address] [id number][place] [id number] Mar, Strep pharyngitis J02.0 and URI with cough and congestion J06.9 [facility] [address] [id number][place] [id number] Feb, [address] [id number], [place] [address] Feb, Encounter for Depo-Provera contraception Z30.[address] [id number], [place] [address] Feb, Acute bronchitis, unspecified organism J20.9 ; Tobacco abuse Z72.0 ; Tobacco abuse counseling Z71.6 and Scabies B86 [address] [id number], [place] [id number] Dec, Encounter for contraceptive management, unspecified Z30.9 ; Routine gynecological examination Z01.419 ; Screening for STD sexually transmitted disease Z11.3 and Encounter for Depo-Provera contraception Z30.42 [facility] [address] [facility] [address] [id number], [place] [id number] Nov, Urinary tract infection, site unspecified N39.0 [facility] [address]ERA[address] [id number], [place] [address] Sep, Frequent urination R35.0 ; Missed period N92.6 and Contraception Z30.9 [facility] [address]ER[address] [id number], [place] [address] Aug, Bronchitis J40 ; Tobacco abuse Z72.0 and Tobacco abuse counseling Z71.[address] [id number], [place] [address] Apr, Acute bronchitis J20.9 ; Tobacco abuse Z72.0 and Tobacco abuse counseling Z71.[address] [id number], [place] [address] Dec, Sprain of right ankle 845.00 and Strain of left foot 845.10 [facility] [address] [id number], [place] [id number] October, Encounter for contraceptive management V25.9 [facility] [address] [id number], [place] [id number] Sep, Dental examination V72.2 [facility] [address]005[address] [address] Sep, [facility] [id number] [place] [address] Sep, [facility] [address]65100[place] [address] Jul, [facility] [address] [place] [address] Jul, [facility] [address]65100[place] [address] Jul, [facility] [address] [place] [address] Jul, 2014 [facility] [place] [facility] [address] [id number] [place] [address] Jul, 2014 [facility] [place] [facility] [address] [id number] [place] [address] Jul, 2014 [facility] [place] [facility] [address] [id number] [place] [address] Jul, 2014 [facility] [place] [facility] [address] [id number] [place] [address] Jul, 2014 [facility] [place] [facility] [address] [id number] [place] [address] Jul, 2014 [facility] [place] [facility] [address] [facility] [id number] [place] [address] Jul, 2014 [facility] [place] [facility] [address] [facility] [id number] [place] [address] Jul, 2014 [facility] [place] [facility] [address] [facility] [id number] [place] [address] Apr, [facility] [place] [facility] [address] [facility] [id number] [place] [address] Apr, [facility] [place] [facility] [address] [facility] [id number] [place] [address] Apr, [facility] [place] [facility] [address] [facility] [id number] [place] [address] Apr, [facility] [place] [facility] [address] [facility] [id number] [place] [address] Apr, [facility] [place] [facility] [address] [facility] [id number] [place] [address] Mar, [facility] [place] [facility] [address] [id number] [place] [address] Mar, [facility] [place] [facility] [address] [facility] [id number] [place] [address] Mar, [facility] [place] [facility] [address] [id number] [place] [address] Mar, [facility] [place] [facility] [address] [id number] [place] [address] Mar, [facility] [place] [facility] [address] [id number] [place] [address] Mar, [facility] [place] [facility] [address] [id number] [place] [address] Mar, [facility] [place] [facility] [address] [id number] [place] [address] Mar, [facility] [place] [facility] [address] [id number] [place] [address] Mar, [facility] [place] [facility] [address] [id number] [place] [address]265 Mar, [facility] [place] [facility] [address] [id number] [place] [address] Mar, [facility] [place] [facility] [address] [id number] [place] [address]141 Feb, [facility] [place] [facility] [address] [id number] [place] [address]851 Feb, [facility] [place] [facility] [address] [id number] [place] [address] Dec, [facility] [place] [facility] [address] [id number] [place] [address] Dec, [facility] [place] [facility] [address] [id number] [place] [address] October, [facility] [place] [facility] [address] [id number] [place] [address]058 October, [facility] [place] [facility] [address] [id number] [place] [address]55 Sep, [facility] [place] [facility] [address] [id number] [place] [address]- 3772 23 Sep, 2013 [facility] [place] [facility] [address] [id number] [place] [address]- 0462 Sep, [facility] [place] [facility] [address] [id number] [place] [address]- 3936 Sep, [facility] [place] [facility] [address] [id number] [place] [address]- 4133 Sep, [facility] [place] [facility] [address] [id number] [place] [address]- 7841 Sep, [facility] [place] [facility] [address] [id number] [place] [address]- 7380 Sep, [facility] [place] [facility] [address] [id number] [place] [address]- 3812 Jul, [facility] [place] [facility] [address] [id number] [place] [address]- [address] Jul, [facility] [place] [facility] [address] [id number] [place] [address]- 27[address] Jul, [facility] [place] [facility] [address] [id number] [place] [address]- 3457 Jul, [facility] [place] [facility] [address] [facility] [id number] [place] [address]- 0735 Jul, [facility] [place] [facility] [address] [id number] [place] [address]- 3450 Jul, [facility] [place] [facility] [address] [id number] [place] [address]- 1794 Jun, [facility] [place] [facility] [address] [id number] [place] [address]- 2817 Jun, [facility] [place] [facility] [address] [facility] [id number] [place] [address]- 6115 14 Jun, 2013 [facility] [place] [facility] [address] [id number] [place] [address]- 9827 Jun, [facility] [place] [facility] [address] [id number] [place] [address]- 4600 May, [facility] [place] [facility] [address] [id number] [place] [address]- 8032 May, [facility] [place] [facility] [address] [id number] [place] [address]- 6299 Mar, [facility] [place] [facility] [address] [id number] [place] [address]- 1631 Mar, [facility] [place] [facility] [address] [id number] [place] [address]- 3425 Mar, [facility] [place] [facility] [address] [id number] [place] [address]- 9511 Mar, [facility] [place] [facility] [address] [id number] [place] [address]- 9009 Mar, [facility] [place] [facility] [address] [id number] [place] [address]- 3563 Sep, [facility] [place] [facility] [address] [id number] [place] [address]- 1856 Sep, [facility] [place] [facility] [address] [id number] [place] [address]- 6906 Sep, [facility] [place] [facility] [address] [id number] [address]443 Aug, [facility] [place] [facility] [address] [id number] [place] [address]- 8479 Jul, [facility] [place] [facility] [address] [id number] [place] [address]- 4890 Jul, [facility] [place] [facility] [address] [id number] [place] [address]653 Jul, [facility] [place] [facility] [address] [id number] [place] [address]- 4154 Jun, [facility] [place] [facility] [address] [id number] [place] [address]- 8988 Jun, [facility] [address] [id number] [place] [address]- 3401 Mar, [facility] [place] [facility] [address] [id number] [place] [address]- 9316 Feb, [facility] [address] [id number] [place] [address]- 1621 Feb, [facility] [place] [facility] [address] [id number] [place] [address]- 9390 October, [facility] [address] [id number] [place] [address]- 7502 Sep, [facility] [address] [id number] [place] [address]- 7275 Sep, [facility] [id number] [place] [address] Sep, [facility] [address] [id number] [place] [address]- 0705 Aug, [facility] [place] [id number], [place] [id number] Jul, [facility] [address] [facility] [id number] [place] [address]- 1416 Jun, [facility] [id number], [place] [address] Jun, [facility] [address] [id number] [place] [address] 2546 May, [facility] [place] [facility] [address] [id number] [place] [address]- 8523 Apr, [facility] [place] [facility] [address] [id number] [place] [address] 2546 Jan, [facility] [place] [facility] [address] [facility] [id number] [place] [address]- 2146 Sep, [facility] [place] [facility] [address] [address]- 3[address] 15 Jul, 2010 [facility] [address] [address] 15 Feb, 2010 [facility] [address] [address] 11 May, 2009 [facility] [address] [address]- 4535 May, [facility] [address] [address]- 0773 Apr, [facility] [id number] [place] [address]- 6056 Mar, [facility] [address] [address] Mar, [facility] [address] [address] 2610 Feb, [facility] [address] [address]- [address]128 Jan, [facility] [address] [address]- 8286 Nov, IMMUNIZATIONS No Known Immunizations SOCIAL HISTORY Never Assessed REASON FOR VISIT PLAN OF CARE VITAL SIGNS MEDICATIONS Medication Instructions Dosage Frequency Start Date [...]
--- OUTSIDE RECORDS SUMMARY | 2018-04-09 15:33 | XMS REPORT ---
Author Author MATHEUS RAY Organization [facility] Address [address] [place] [address] Care Team Providers Care Anodize Machine Operator Name Role Phone MATHEUS RAY Unavailable PROBLEMS Type Condition ICD9-CM Code WDQ52-KL Code Onset Dates Condition Status SNOMED Code Problem Nausea and vomiting during prior to 22 weeks gestation O21.9 Active 01421226 Problem Other specified related conditions, first trimester O26.891 Active 05848696 Problem Dysuria R30.0 Active 50815644 Problem Obesity complicating , second trimester O99.212 Active 249823397377 Problem Supervision of normal first in second trimester Z34.02 Active 86029260 Problem Unspecified sexually transmitted disease A64 Active 2256669 Problem Spotting complicating , first trimester O26.851 Active 928742665 Problem Tobacco smoking complicating in second trimester O99.332 Active 787459985 Problem Other infections with a predominantly sexual mode of transmission complicating , unspecified trimester O98.319 Active 90645342 Problem Tobacco abuse Z72.0 Active 43574800 Problem Tobacco abuse counseling Z71.6 Active 565428320 Problem Smoking (tobacco) complicating , first trimester O99.331 Active 559558968 Problem Irregular periods N92.6 Active 21710921 Problem Obesity complicating in first trimester O99.211 Active 594749215227 Problem Scabies B86 Active 296580705 Problem Supervision of normal first in first trimester Z34.01 Active 89326603 ALLERGIES Substance Reaction Event Type Date Status Ritalin hives Drug Allergy Jul, Active ENCOUNTERS Encounter Location Date Diagnosis [facility] [address] [facility] [id number] [place] [id number] Dec, [facility] [address] [facility] [id number] [place] [id number] Dec, [facility] [address] [facility] [id number] [place] [id number] Nov, [facility] [place] [address] [facility] [id number][place] [address] Nov, Supervision of normal first in second trimester Z34.02 ; Tobacco smoking complicating in second trimester O99.332 and Obesity complicating , second trimester O99.[address] [id number][place] [id number] October, Supervision of normal first in second trimester Z34.02 ; UTI (urinary tract infection) in in second trimester O23.42 ; Nausea and vomiting during prior to 22 weeks gestation O21.9 ; Obesity complicating , second trimester O99.212 and Tobacco smoking complicating in second trimester O99.332 [address] [address] [facility] [id number][place] [id number] October, Dental caries K02.9 ; Weight loss R63.4 and Second trimester Z34.92 [facility] [id number][place] [address] Sep, Supervision of normal first in first [...] transmission complicating , unspecified trimester O98.319 [facility] [id number][place] [address] Sep, Other specified related conditions, first trimester O26.891 [facility] [address] [facility] [id number][place] [id number] Sep, Other maternal infectious and parasitic diseases complicating , second trimester O98.812 and Chlamydial infection A74.9 [facility] [id number][place] [address] Sep, Supervision of normal first in first trimester Z34.01 [facility] [address] [place] [address] [id number], [place] [address] Aug, Supervision of normal first in first trimester Z34.01 ; Smoking (tobacco) complicating , first trimester O99.331 ; Spotting complicating , first trimester O26.851 ; Nausea and vomiting during prior to 22 weeks gestation O21.9 ; Dysuria R30.0 and Other specified related conditions, first trimester O26.891 [facility] [address] [place] [address] [id number], [place] [id number] Jul, [facility] [employer] [place] [address] [id number], [place] [id number] Jul, Supervision of normal first in first trimester Z34.01 ; Smoking (tobacco) complicating , first trimester O99.331 and Obesity complicating in first trimester O99.211 [address]00565100[place] [address] Jul, Encounter for test, result unknown Z32.00 [facility] [employer] [place] [address] [id number], [place] [address] Mar, Strep pharyngitis J02.0 and URI with cough and congestion J06.9 [facility] [employer] [place] [address] [id number], [place] [address] Feb, [facility] [employer] [place] [address] [id number], [place] [id number] Feb, Encounter for Depo-Provera contraception Z30.[address] [id number], [place] [address] Feb, Acute bronchitis, unspecified organism J20.9 ; Tobacco abuse Z72.0 ; Tobacco abuse counseling Z71.6 and Scabies B86 [address] [id number][place] [address] Dec, Encounter for contraceptive management, unspecified Z30.9 ; Routine gynecological examination Z01.419 ; Screening for STD sexually transmitted disease Z11.3 and Encounter for Depo-Provera contraception Z30.[address] [id number], [place] [id number] Nov, Urinary tract infection, site unspecified N39.[address] [id number], [place] [address] Sep, Frequent urination R35.0 ; Missed period N92.6 and Contraception Z30.[address] [id number], [place] [address] Aug, Bronchitis J40 ; Tobacco abuse Z72.0 and Tobacco abuse counseling Z71.[address] [id number], [place] [address] Apr, Acute bronchitis J20.9 ; Tobacco abuse Z72.0 and Tobacco abuse counseling Z71.[address] [id number], [place] [address] Dec, Sprain of right ankle 845.00 and Strain of left foot 845.[address] [id number], [place] [address] October, Encounter for contraceptive management V25.[address] [id number], [place] [address] Sep, Dental examination V72.2 [facility] [address] [place] [address] Sep, [facility] [address] [place] [address] 4[address] Sep, [facility] [id number] [place] [address] Jul, [facility] [id number] [place] [address] 4201 Jul, [facility] [id number] [place] [address] Jul, 2014 [facility] [place] [facility] [address] [id number] [place] [address] Jul, 2014 [facility] [place] [facility] [address] [facility] [id number] [place] [address] Jul, 2014 [facility] [place] [facility] [address] [facility] [id number] [place] [address] Jul, 2014 [facility] [place] [facility] [address] [facility] [id number] [place] [address] Jul, 2014 [facility] [place] [facility] [address] [facility] [id number] [place] [address] 47[address] Jul, 2014 [facility] [place] [facility] [address] [facility] [id number] [place] [address] 1412 Jul, 2014 [facility] [place] [facility] [address] [facility] [id number] [place] [address] Jul, 2014 [facility] [place] [facility] [address] [facility] [id number] [place] [address]- 9627 Jul, 2014 [facility] [place] [facility] [address] [facility] [id number] [place] [address] Apr, [facility] [place] [facility] [address] [facility] [id number] [place] [address] 45[address] Apr, [facility] [place] [facility] [address] [facility] [id number] [place] [address]- 8397 Apr, [facility] [place] [facility] [address] [facility] [id number] [place] [address] 68[address] Apr, [facility] [place] [facility] [address] [facility] [id number] [place] [address] 6976 Apr, [facility] [place] [facility] [address] [facility] [id number] [place] [address] 8[address] Mar, [facility] [place] [facility] [address] [facility] [id number] [place] [address] 49[address] Mar, [facility] [place] [facility] [address] [id number] [place] [address] 8[address] 14 Mar, 2014 [facility] [place] [facility] [address] [id number] [place] [address] 8417 Mar, [facility] [place] [facility] [address] [id number] [place] [address] 8[address] Mar, [facility] [place] [facility] [address] [id number] [place] [address]- 1160 Mar, [facility] [place] [facility] [address] [id number] [place] [address]- 45[address] Mar, [facility] [place] [facility] [address] [id number] [place] [address] 58[address] Mar, [facility] [place] [facility] [address] [id number] [place] [address]- 0457 Mar, [facility] [place] [facility] [address] [id number] [place] [address]- 5378 Mar, [facility] [place] [facility] [address] [id number] [place] [address]- 2664 Mar, [facility] [place] [facility] [address] [id number] [place] [address]- 5[address] Feb, [facility] [place] [facility] [address] [id number] [place] [address]- 8437 Feb, [facility] [place] [facility] [address] [id number] [place] [address]- 8710 Dec, [facility] [place] [facility] [address] [id number] [place] [address]- 1159 Dec, [facility] [place] [facility] [address] [id number] [place] [address]- 7[address] October, [facility] [place] [facility] [address] [id number] [place] [address]- 8706 October, [facility] [place] [facility] [address] [id number] [place] [address]- 0252 Sep, [facility] [place] [facility] [address] [id number] [place] [address]- 7938 Sep, [facility] [place] [facility] [address] [id number] [place] [address]- 3519 Sep, [facility] [place] [facility] [address] [id number] [place] [address]- 6191 Sep, [facility] [place] [facility] [address] [id number] [place] [address]- 5067 Sep, [facility] [place] [facility] [address] [id number] [place] [address]- 9683 Sep, [facility] [place] [facility] [address] [id number] [place] [address]- 0417 Sep, [facility] [place] [facility] [address] [id number] [place] [address]- 2162 Jul, [facility] [place] [facility] [address] [id number] [place] [address]- 4178 Jul, [facility] [place] [facility] [address] [id number] [place] [address]- 7519 Jul, [facility] [place] [facility] [address] [id number] [place] [address]- 8326 Jul, [facility] [place] [facility] [address] [id number] [place] [address]- 4717 Jul, [facility] [place] [facility] [address] [id number] [place] [address]- 3012 Jul, [facility] [place] [facility] [address] [id number] [place] [address]- 7656 Jun, [facility] [place] [facility] [address] [id number] [place] [address]- 2910 Jun, [facility] [place] [facility] [address] [id number] [place] [address]- 2717 Jun, [facility] [place] [facility] [address] [id number] [place] [address]- 8820 14 Jun, 2013 [facility] [address] [id number] [place] [address]- 4266 May, [facility] [place] [facility] [address] [id number] [place] [address]- 7953 May, [facility] [address] [id number] [place] [address]- 9810 Mar, [facility] [address] [id number] [place] [address]- 0122 Mar, [facility] [address] [id number] [place] [address]- 3636 Mar, [facility] [address] [id number] [place] [address]- 5235 Mar, [facility] [address] [id number] [place] [address]- 5774 Mar, [facility] [address] [id number] [place] [address]- 2583 Sep, [facility] [address] [id number] [place] [address]- 5953 Sep, [facility] [address] [id number] [place] [address]- 9618 Sep, [facility] [place] [facility] [address] [id number] [place] [address]- 5519 Aug, [facility] [address] [id number] [place] [address]- 4741 Jul, [facility] [place] [facility] [address] [id number] [place] [address]- 8530 Jul, [facility] [place] [facility] [address] [id number] [place] [address]- 2546 Jul, [facility] [place] [facility] [address] [id number] [place] [address]- 6554 Jun, [facility] [address] [id number] [place] [address]- 6774 Jun, [facility] [place] [facility] [address] [id number] [place] [address]- 5326 Mar, [facility] [address] [facility] [id number] [place] [address]- 6030 Feb, [facility] [place] [facility] [address] [id number] [place] [address]- 4288 Feb, [facility] [place] [facility] [address] [id number] [place] [address]- 1968 October, [facility] [place] [facility] [address] [facility] [id number] [place] [address]- 5054 Sep, [facility] [address] [facility] [id number] [place] [address]- 6230 Sep, [facility] [address] [facility] [id number] [address]- 6798 Sep, [facility] [address] [facility] [id number], [place] [address]- 7516 Aug, [facility] [id number] [id number] Jul, [facility] [address] [facility] [id number][place] [address]- 3006 Jun, [facility] [address] [facility] [id number][place] [id number] Jun, [facility] [place] [facility] [address] [facility] [id number][place] [address]- 7076 May, [facility] [place] [facility] [address] [facility] [id number][place] [address]- 4496 Apr, [facility] [place] [facility] [address] [id number], [place] [address]- 5016 Jan, [facility] [place] [facility] [address] [facility] [id number], [place] [address] Sep, [facility] [address] [id number], [place] [address]- [address] 15 Jul, 2010 [facility] [address]00565100[place], [place] [address] 15 Feb, 2010 [facility] [address]00565100[place], [place] [address] 2546 May, [facility] [address]00565100[place], [place] [address] 2543 May, [facility] [address]00565100[place], [place] [address]- 3327 Apr, [facility] [address] [place] [address] 2540 Mar, [facility] [address] [place] [address]- 9034 Mar, [facility] [address]00565100[place], [place] [address]- 5679 Feb, [facility] [address]00565100[place], [place] [address]- 8058 Jan, [facility] [address]00565100[place], [place] [address]- [address] Nov, IMMUNIZATIONS No Known Immunizations SOCIAL HISTORY Never Assessed REASON FOR VISIT ob intake. Patient states she is 5 weeks along. bferrisma PLAN OF CARE Activity Details Follow Up 4 Weeks Reason: Pending Test GC/CHLAM URINE (STATE) VITAL SIGNS Height 62 in 2017-08-18 Weight 174.4 lbs 2017-08-18 Temperature 98.4 degrees Fahrenheit 2017-08-18 Heart Rate 90 bpm 2017-08-18 Respiratory Rate 18 2017-08-18 Oximetry 98 % 2017-08-18 BMI 31.898 kg/m2 2017-08-18 Blood pressure systolic 108 mmHg 2017-08-18 Blood pressure diastolic 78 mmHg 2017-08-18 MEDICATIONS Medication Instructions Dosage Frequency Start Date End Date Duration Status Permethrin 5 % as directed Feb, 1 dose Not-Taking Celexa 20 mg take 1 tablet (20 mg) by oral route once daily 10 Apr, 2014 Not-Taking Complete 14-0.4 MG Active Depo-Provera 150 MG/ML 1 ml Not-Taking Alprazolam 0.25 MG Orally Three times a day 1 tablet 8h Not-Taking RESULTS Name Result Date Reference Range Ultrasound : OB, Early <14 WEEKS 2017-09-02 PROCEDURES Procedure Date Ordered Result Body Site No Charge Aug 18, 2017 DRUG TEST PRSMV DIR OPT OBS Aug 18, 2017 URINE CULTURE/COLONY COUNT Aug 18, 2017 INSTRUCTIONS MEDICATIONS ADMINISTERED No Known Medications MEDICAL (GENERAL) HISTORY Type Description Date Medical History asthma- Normal PFT 2012 Medical History allergies Medical History acid reflux Medical History anxiety Medical History PCOS Medical History ADHD Surgical History tonsillectomy and adenoidectomy Surgical History oral surgery Hospitalization History overdose on sleeping medication age 9
--- OUTSIDE RECORDS SUMMARY | 2018-04-09 15:34 | XMS REPORT ---
Author ABELINO [facility] eClinical[employer] Address Unknown Phone Unavailable Care Team Providers Care Boat Painter Name Role Phone ABELINO HIDALGO CP Unavailable Allergies, Adverse Reactions, Alerts Substance Reaction Event Type Ritalin hives Drug Allergy Problems Problem Type Condition Code Onset Dates Condition Status Problem Tobacco abuse Z72.0 Active Assessment Frequent urination R35.0 Active Problem Irregular periods N92.6 Active Assessment Missed period N92.6 Active Assessment Contraception Z30.9 Active Medications Medication Code System Code Instructions Start Date End Date Status Dosage MARITO [facility] [address]-70 3-0.02 MG Orally Once a day October 13, 2015 1 tablet ProAir HFA [facility] [address]-54 108 (90 Base) MCG/ACT Inhalation every 4 hrs September 12, 2015 2 puffs as needed Procedures Procedure Coding System Code Date URINE TEST CPT-4 58308 October 13, 2015 Office Visit, Est Pt., Level 3 CPT-4 41975 October 13, 2015 URINALYSIS, AUTO, W/O SCOPE CPT-4 99289 October 13, 2015 Vital Signs Date/Time: October 13, 2015 Temperature 98.0 F Weight 218.3 lbs Height 62 in BMI 39.92 Index Blood Pressure Diastolic 80 mmHg Blood Pressure Systolic 122 mmHg Cardiac Monitoring Heart Rate 92 bpm BMIPercentile 98.32 % Wt Percentile 98.57 % Results Name Result Date Reference Range Unit Abnormality Flag TEST, URINE (IN HOUSE) ----RESULTS NEGATIVE 20151013 ----Lot # [id number] ----Control POSITIVE 20151013 ----Exp date 20151013 UA LONG DIP (IN HOUSE) ----[place] NEGATIVE 20151013 ----GLU NEGATIVE 20151013 ----SG 1.020 20151013 ----KET NEGATIVE 20151013 ----pH 6.5 20151013 ----Protein NEGATIVE 20151013 ----BLO NEGATIVE 20151013 ----[place] NEGATIVE 20151013 ----Color YELLOW 20151013 ----Odor NONE 20151013 ----Exp date 20151013 ----URO 0.2 20151013 ----NIT NEGATIVE 20151013 ----Clarity CLEAR 20151013 ----Lot # [id number] Summary Purpose eClinicalWorks Submission
--- OUTSIDE RECORDS SUMMARY | 2018-04-09 15:34 | XMS REPORT ---
Author Author RAE ALEXIS [facility] Address [address] [place] [address] Care Team Providers Care Side Stitching Machine Operator Name Role Phone RAE ALEXIS Unavailable PROBLEMS Type Condition ICD9-CM Code JCH06-CQ Code Onset Dates Condition Status SNOMED Code Problem Acute bronchitis, unspecified organism J20.9 Active 25402417 Problem Tobacco abuse counseling Z71.6 Active 898495882 Problem Tobacco abuse Z72.0 Active 17626091 Problem Scabies B86 Active 935558908 Problem Irregular periods N92.6 Active 33883864 ALLERGIES Unknown Allergies SOCIAL HISTORY No smoking Hx information available PLAN OF CARE VITAL SIGNS MEDICATIONS Unknown Medications RESULTS No Results PROCEDURES No Known procedures IMMUNIZATIONS No Known Immunizations
--- OUTSIDE RECORDS SUMMARY | 2018-04-09 15:34 | XMS REPORT ---
Author Author RONNELL HARLEY Organization [facility] Address [address] [place] [address] Care Team Providers Care Collection Teller Name Role Phone RONNELL HARLEY Unavailable PROBLEMS Type Condition ICD9-CM Code NEG18-JB Code Onset Dates Condition Status SNOMED Code Problem Acute bronchitis, unspecified organism J20.9 Active 78016659 Problem Tobacco abuse counseling Z71.6 Active 935356047 Problem Tobacco abuse Z72.0 Active 32934746 Assessment Encounter for Depo-Provera contraception Z30.42 16 Feb, 2016 Active 703267420 Problem Scabies B86 Active 476580408 Problem Irregular periods N92.6 Active 78228027 ALLERGIES Unknown Allergies SOCIAL HISTORY No smoking Hx information available PLAN OF CARE VITAL SIGNS MEDICATIONS Unknown Medications RESULTS Name Result Date Reference Range TEST, URINE (IN HOUSE) 2016-03-08 RESULTS NEG Lot # [id number] Control POS Exp date 09/20/2017 PROCEDURES Procedure Date Ordered Related Diagnosis Body Site URINE TEST Mar 08, 2016 DEPO PROVERA (150 MG/ML) Mar 08, 2016 THER/PROPH/DIAG INJ, SC/IM Mar 08, 2016 IMMUNIZATIONS Vaccine Route Administration Date Status DEPO PROVERA (150 MG/ML) IM Intramuscular Mar 08, 2016 Administered
--- OUTSIDE RECORDS SUMMARY | 2018-04-09 15:34 | XMS REPORT ---
Author Author NAVEEN SR [facility] Address [address] [place] [address] Care Team Providers Care Staff Design Engineer Name Role Phone NAVEEN SR Unavailable PROBLEMS Type Condition ICD9-CM Code ELK19-GA Code Onset Dates Condition Status SNOMED Code Problem Smoking (tobacco) complicating , first trimester O99.331 Active 696579896 Problem Supervision of normal first in first trimester Z34.01 Active 60328487 Problem Obesity complicating in first trimester O99.211 Active 344922447281 Problem Tobacco abuse Z72.0 Active 52208524 Problem Irregular periods N92.6 Active 06150194 Problem Scabies B86 Active 830412926 Problem Tobacco abuse counseling Z71.6 Active 129957217 Problem Unspecified sexually transmitted disease A64 Active 3034658 Problem Other infections with a predominantly sexual mode of transmission complicating , unspecified trimester O98.319 Active 58609026 Problem Other specified related conditions, first trimester O26.891 Active 57576240 Problem Nausea and vomiting during prior to 22 weeks gestation O21.9 Active 13979599 Problem Dysuria R30.0 Active 53932957 Problem Spotting complicating , first trimester O26.851 Active 641596531 ALLERGIES Substance Reaction Event Type Date Status Ritalin hives Drug Allergy Mar, Active ENCOUNTERS Encounter Location Date Diagnosis [facility] [employer] [id number] [place] [id number] October, [facility] [id number] [place] [id number] October, Dental caries K02.9 ; Weight loss R63.4 and Second trimester Z34.92 [facility] [address] [id number] [place] [id number] Sep, Supervision of normal first in first [...] of transmission complicating , unspecified trimester O98.319 [facility] [address] [id number] [place] [address] Sep, Other specified related conditions, first trimester O26.891 [facility] Apps[facility] [address] [facility] [id number][place] [id number] Sep, Other maternal infectious and parasitic diseases complicating , second trimester O98.812 and Chlamydial infection A74.[address] [facility] [address] [id number] [place] [address] Sep, Supervision of normal first in first trimester Z34.[address] [facility] [facility] [id number] [place] [id number] Aug, Supervision of normal first in first trimester Z34.01 ; Smoking (tobacco) complicating , first trimester O99.331 ; Spotting complicating , first trimester O26.851 ; Nausea and vomiting during prior to 22 weeks gestation O21.9 ; Dysuria R30.0 and Other specified related conditions, first trimester O26.[address] [address] [id number] [place] [id number] Jul, [facility] [id number] [place] [address] Jul, Supervision of normal first in first trimester Z34.01 ; Smoking (tobacco) complicating , first trimester O99.331 and Obesity complicating in first trimester O99.211 [facility] [address] [id number] [place] [id number] Jul, Encounter for test, result unknown Z32.[address] [id number] [place] [id number] Mar, Strep pharyngitis J02.0 and URI with cough and congestion J06.[address] [id number] [place] [address] Feb, [address] [id number] [place] [address] Feb, Encounter for Depo-Provera contraception Z30.[address] [id number] [place] [address] Feb, Acute bronchitis, unspecified organism J20.9 ; Tobacco abuse Z72.0 ; Tobacco abuse counseling Z71.6 and Scabies B86 [facility] [address] [facility] [id number][place] [address] Dec, Encounter for contraceptive management, unspecified Z30.9 ; Routine gynecological examination Z01.419 ; Screening for STD sexually transmitted disease Z11.3 and Encounter for Depo-Provera contraception Z30.[address] [id number] [place]AY[place] [address] Nov, Urinary tract infection, site unspecified N39.[address] [id number] [place] [address] Sep, Frequent urination R35.0 ; Missed period N92.6 and Contraception Z30.[address] [id number] [place] [address] Aug, Bronchitis J40 ; Tobacco abuse Z72.0 and Tobacco abuse counseling Z71.[address] [id number] [place] [address] Apr, Acute bronchitis J20.9 ; Tobacco abuse Z72.0 and Tobacco abuse counseling Z71.[address] [id number] [place] [address] Dec, Sprain of right ankle 845.00 and Strain of left foot 845.[address] [id number] [place] [address] October, Encounter for contraceptive management V25.9 [facility] [address] [id number] [place] [id number] Sep, Dental examination V72.2 [facility] [address] [facility] [id number][place] [address] Sep, [facility] [id number] [place] [address] Sep, [facility] [address]00565100[place] [address] Jul, [facility] [id number] [place] [address] Jul, [facility] [id number] [place] [address] Jul, [facility] [address]00565100[place] [address] Jul, [facility] [address]65100[place], [place] [address] Jul, [facility] [address]00565100[place] [address] Jul, [facility] [address]65100[place] [address] Jul, [facility] [place] [facility] [address]00565100[place], [place] [address] Jul, [facility] [address]00565100[place] [address] Jul, [facility] [address]00565100[place] [address] Jul, [facility] [place] [facility] [address]00565100[place] [address] Jul, [facility] [place] [facility] [address] [place] [address] Apr, [facility] [place] [facility] [address] [id number] [place] [address] Apr, [facility] [place] [facility] [address] [id number] [place] [address] Apr, [facility] [place] [facility] [address] [id number] [place] [address] Apr, [facility] [place] [facility] [address] [id number] [place] [address] Apr, [facility] [place] [facility] [address] [id number] [place] [address] Mar, [facility] [place] [facility] [address] [id number] [place] [address] Mar, [facility] [place] [facility] [address] [id number] [place] [address] Mar, [facility] [place] [facility] [address] [id number] [place] [address] Mar, [facility] [place] [facility] [address] [id number] [place] [address] Mar, [facility] [place] [facility] [address] [id number] [place] [address] Mar, [facility] [place] [facility] [address] [id number] [place] [address] Mar, [facility] [place] [facility] [address] [id number] [place] [address] Mar, [facility] [place] [facility] [address] [id number] [place] [address]- [address] Mar, [facility] [place] [facility] [address] [id number] [place] [address] Mar, [facility] [place] [facility] [address] [id number] [place] [address] Mar, [facility] [place] [facility] [address] [id number] [place] [address] Feb, [facility] [place] [facility] [address] [id number] [place] [address] Feb, [facility] [place] [facility] [address] [id number] [place] [address] Dec, [facility] [place] [facility] [address] [id number] [place] [address] Dec, [facility] [place] [facility] [address] [id number] [place] [address] October, [facility] [place] [facility] [address] [id number] [place] [address]- [address] October, [facility] [place] [facility] [address] [id number] [place] [address] Sep, [facility] [place] [facility] [address] [id number] [place] [address] Sep, [facility] [place] [facility] [address] [id number] [place] [address]- 3[address] Sep, [facility] [place] [facility] [address] [id number] [place] [address]- [address] Sep, [facility] [place] [facility] [address] [id number] [place] [address] 39[address] Sep, [facility] [place] [facility] [address] [id number] [place] [address]- [address]874 Sep, [facility] [place] [facility] [address] [id number] [place] [address]- [address] Sep, [facility] [place] [facility] [address] [id number] [place] [address]- [address] Jul, [facility] [place] [facility] [address] [id number] [place] [address] Jul, [facility] [place] [facility] [address] [id number] [place] [address]- [address] Jul, [facility] [place] [facility] [address] [id number] [place] [address]- [address] Jul, [facility] [place] [facility] [address] [id number] [place] [address]- [address] Jul, [facility] [place] [facility] [address] [id number] [place] [address] 2006 Jul, [facility] [place] [facility] [address] [id number] [place] [address] Jun, [facility] [place] [facility] [address] [id number] [place] [address]- 0047 Jun, [facility] [place] [facility] [address] [id number] [place] [address]- 3447 Jun, [facility] [place] [facility] [address] [id number] [place] [address]- 7299 Jun, [facility] [place] [facility] [address] [id number] [place] [address]- 5[address] May, [facility] [place] [facility] [address] [id number] [place] [address]- 8[address] May, [facility] [place] [facility] [address] [facility] [id number] [place] [address]- [address] Mar, [facility] [place] [facility] [address] [id number] [place] [address]- 1491 Mar, [facility] [place] [facility] [address] [id number], [place] [address]- [address] Mar, [facility] [place] [facility] [address] [id number] [place] [address]- 1249 Mar, [facility] [place] [facility] [address] [id number] [place] [address]- 1467 Mar, [facility] [place] [facility] [address] [facility] [id number], [place] [address]- 67[address] Sep, [facility] [place] [facility] [address] [id number] [place] [address]- 8[address] Sep, [facility] [address] [id number] [place] [address]- 4117 Sep, [facility] [place] [facility] [address] [id number] [place] [address]- 5345 Aug, [facility] [address] [id number] [place] [address]- 80[address] Jul, [facility] [place] [facility] [address] [id number] [place] [address]- 2726 Jul, [facility] [address] [id number] [place] [address]- [address]578 Jul, [facility] [address] [id number] [place] [address]- 6613 Jun, [facility] [address] [id number] [place] [address]- 9473 Jun, [facility] [address] [id number] [place] [address]- 9738 Mar, [facility] [address] [id number] [place] [address]- 2765 Feb, [facility] [address] [id number] [place] [address]- 5650 Feb, [facility] [address] [id number] [place] [address]- 3606 October, [facility] [place] [facility] [address] [id number] [place] [address]- [address]44 Sep, [facility] [place] [facility] [address] [id number] [place] [address]- 9330 Sep, [facility] [place] [facility] [address] [id number] [place] [address]- 8889 Sep, [facility] [place] [facility] [address] [id number][place] [address]- [address] Aug, [facility] [address] [facility] [id number][place] [address] Jul, [facility] [address] [id number], [place] [address]- [address] Jun, [facility] [address] [facility] [id number][place] [address] Jun, [facility] [place] [facility] [address] [id number][place] [address]- 6[address] May, [facility] [place] [facility] [address] [id number], [place] [address]- [address]758 Apr, [facility] [place] [facility] [address] [id number][place] [address]- [address] Jan, [facility] [place] [facility] [address] [facility] [id number], [place] [address]- [address] Sep, [facility] [place] [facility] [address] [id number][place] [address]- [address] Jul, [facility] [place] [facility] [address] [facility] [id number], [place] [address]- 388[address] Feb, [facility] [place] [facility] [address] [facility] [id number][place] [address]- 7697 May, [facility] [place] [facility] [address] [facility] [id number], [place] [address]- 0736 May, [facility] [place] [facility] [address] [facility] [id number], [place] [address]- 4616 Apr, [facility] [place] [facility] [address] [facility] [id number][place] [address]- 2611 Mar, [facility] [place] [facility] [address] [facility] [id number][place] [address]- [address] Mar, [facility] [place] [facility] [address] [facility] [id number][place] [address]- [address] 17 Feb, 2009 [facility] [place] [facility] [address] [id number], [place] [address]- 2546 Jan, [facility] [address] [facility] [id number] [place] [address] Nov, IMMUNIZATIONS No Known Immunizations SOCIAL HISTORY Never Assessed REASON FOR VISIT Cough, sore throat, cold sore, nasal drainage x 3 days. Suad ROSS PLAN OF CARE Activity Details Follow Up prn Reason: VITAL SIGNS Height 62 in 2017-04-19 Weight 181.1 lbs 2017-04-19 Temperature 96.9 degrees Fahrenheit 2017-04-19 Heart Rate 98 bpm 2017-04-19 Respiratory Rate 18 2017-04-19 BMI 33.12 kg/m2 2017-04-19 Blood pressure systolic 110 mmHg 2017-04-19 Blood pressure diastolic 60 mmHg 2017-04-19 MEDICATIONS Medication Instructions Dosage Frequency Start Date End Date Duration Status Amoxicillin 500 mg Orally 3 times a day 1 tablet 8h Mar, Apr, 10 days Active RESULTS Name Result Date Reference Range STREP A (IN HOUSE) 2017-04-19 STREP A POSITIVE Control + Lot # [id number] Exp date 12/09 PROCEDURES Procedure Date Ordered Result Body Site STREP A ASSAY W/OPTIC Apr 19, 2017 INSTRUCTIONS MEDICATIONS ADMINISTERED No Known Medications MEDICAL (GENERAL) HISTORY Type Description Date Medical History asthma- Normal PFT 2012 Medical History allergies Medical History acid reflux Medical History anxiety Medical History PCOS Medical History ADHD Surgical History tonsillectomy and adenoidectomy Surgical History oral surgery Hospitalization History overdose on sleeping medication age 9
--- OUTSIDE RECORDS SUMMARY | 2018-04-09 15:34 | XMS REPORT ---
Author Author REUBEN RAE [facility] Address [address] [place] [address] Care Team Providers Care Mold Stamper And Repairer Name Role Phone RAE ALEXIS Unavailable PROBLEMS Type Condition ICD9-CM Code NEU48-QU Code Onset Dates Condition Status SNOMED Code Problem Acute bronchitis, unspecified organism J20.9 Active 55791015 Problem Tobacco abuse counseling Z71.6 Active 809552844 Problem Tobacco abuse Z72.0 Active 57260581 Assessment Acute bronchitis, unspecified organism J20.9 Feb, Active 80571485 Problem Scabies B86 Active 619003265 Problem Irregular periods N92.6 Active 11214239 ALLERGIES Substance Reaction Event Type Date Status Ritalin hives Drug Allergy Feb, Active SOCIAL HISTORY No smoking Hx information available PLAN OF CARE VITAL SIGNS Height 62 in 2016-03-02 Weight 209.4 lbs 2016-03-02 Heart Rate 72 bpm 2016-03-02 Respiratory Rate 16 2016-03-02 BMI 38.30 kg/m2 2016-03-02 Blood pressure systolic 126 mmHg 2016-03-02 Blood pressure diastolic 70 mmHg 2016-03-02 MEDICATIONS Medication Instructions Dosage Frequency Start Date End Date Duration Status Alprazolam 0.25 MG Orally Three times a day 1 tablet 8h Active PredniSONE 20 mg Orally Once a day 2 tablet 24h Feb, Feb, 6 days Active Permethrin 5 % as directed Feb, 1 dose Active Celexa 20 mg take 1 tablet (20 mg) by oral route once daily Apr, Active Depo-Provera 150 MG/ML 1 ml Active RESULTS No Results PROCEDURES Procedure Date Ordered Related Diagnosis Body Site Office Visit, Est Pt., Level 3 Mar 02, 2016 IMMUNIZATIONS No Known Immunizations
--- OUTSIDE RECORDS SUMMARY | 2018-04-09 15:34 | XMS REPORT ---
Author Author REAGAN MARTIN Organization [facility] Address [address] [place] [address] Care Team Providers Care Supervisory Investigative Specialist Name Role Phone REAGAN MARTIN Unavailable PROBLEMS Type Condition ICD9-CM Code WGJ19-MQ Code Onset Dates Condition Status SNOMED Code Problem Nausea and vomiting during prior to 22 weeks gestation O21.9 Active 59368912 Problem Other specified related conditions, first trimester O26.891 Active 41572072 Problem Dysuria R30.0 Active 04350596 Problem Obesity complicating , second trimester O99.212 Active 956151791851 Problem Supervision of normal first in second trimester Z34.02 Active 23179582 Problem Unspecified sexually transmitted disease A64 Active 3070929 Problem Spotting complicating , first trimester O26.851 Active 634051361 Problem Tobacco smoking complicating in second trimester O99.332 Active 018429966 Problem Other infections with a predominantly sexual mode of transmission complicating , unspecified trimester O98.319 Active 64700969 Problem Tobacco abuse Z72.0 Active 89715871 Problem Tobacco abuse counseling Z71.6 Active 081088217 Problem Smoking (tobacco) complicating , first trimester O99.331 Active 391424940 Problem Irregular periods N92.6 Active 78222941 Problem Obesity complicating in first trimester O99.211 Active 900515056399 Problem Scabies B86 Active 545718098 Problem Supervision of normal first in first trimester Z34.01 Active 59469583 ALLERGIES No Information ENCOUNTERS Encounter Location Date Diagnosis [facility] [address] [facility] [id number] [id number] Dec, [facility] [address] [facility] [id number][place] [id number] Nov, [place] [address] [id number] [id number] Nov, Supervision of normal first in second trimester Z34.02 ; Tobacco smoking complicating in second trimester O99.332 and Obesity complicating , second trimester O99.212 [facility] [employer] [address] [id number][place] [id number] October, Supervision of normal first in second trimester Z34.02 ; UTI (urinary tract infection) in in second trimester O23.42 ; Nausea and vomiting during prior to 22 weeks gestation O21.9 ; Obesity complicating , second trimester O99.212 and Tobacco smoking complicating in second trimester O99.332 [facility] [employer] [address] [id number][place] [id number] October, Dental caries K02.9 ; Weight loss R63.4 and Second trimester Z34.92 [facility] [address] [id number][place] [id number] Sep, Supervision of normal first in first [...] of transmission complicating , unspecified trimester O98.319 [facility] [employer] [address] [id number][place] [id number] Sep, Other specified related conditions, first trimester O26.891 [facility] [address] [id number][place] [address] Sep, Other maternal infectious and parasitic diseases complicating , second trimester O98.812 and Chlamydial infection A74.9 [facility] [employer] [address] [id number][place] [id number] Sep, Supervision of normal first in first trimester Z34.01 [facility] [employer] [address] [id number][place] [id number] Aug, Supervision of normal first in first trimester Z34.01 ; Smoking (tobacco) complicating , first trimester O99.331 ; Spotting complicating , first trimester O26.851 ; Nausea and vomiting during prior to 22 weeks gestation O21.9 ; Dysuria R30.0 and Other specified related conditions, first trimester O26.891 [facility] [employer] [place], [place] [address] [id number][place] [id number] Jul, [facility] [employer] [place] [address] [id number], [place] [address] Jul, Supervision of normal first in first trimester Z34.01 ; Smoking (tobacco) complicating , first trimester O99.331 and Obesity complicating in first trimester O99.211 [address] [id number] Jul, Encounter for test, result unknown Z32.00 [facility] [employer] [place] [place] [address] [id number], [place] [id number] Mar, Strep pharyngitis J02.0 and URI with cough and congestion J06.9 [facility] [employer] [place] [address] [id number], [place] [id number] Feb, [facility] [employer] [place] [address] [id number][place] [id number] Feb, Encounter for Depo-Provera contraception Z30.42 [facility] [employer] [place], [place] [address] [id number][place] [id number] Feb, Acute bronchitis, unspecified organism J20.9 ; Tobacco abuse Z72.0 ; Tobacco abuse counseling Z71.6 and Scabies B[address] [place] [id number] [place] [id number] Dec, Encounter for contraceptive management, unspecified Z30.9 ; Routine gynecological examination Z01.419 ; Screening for STD sexually transmitted disease Z11.3 and Encounter for Depo-Provera contraception Z30.42 [facility] [employer] [place] [place] [id number] [place] [id number] Nov, Urinary tract infection, site unspecified N39.[address] [id number], [place] [id number] Sep, Frequent urination R35.0 ; Missed period N92.6 and Contraception Z30.[address] [id number], [place] [id number] Aug, Bronchitis J40 ; Tobacco abuse Z72.0 and Tobacco abuse counseling Z71.[address] [id number], [place] [address] Apr, Acute bronchitis J20.9 ; Tobacco abuse Z72.0 and Tobacco abuse counseling Z71.[address] [id number], [place] [id number] Dec, Sprain of right ankle 845.00 and Strain of left foot 845.[address] [id number], [place] [id number] October, Encounter for contraceptive management V25.[address] [id number], [place] [id number] Sep, Dental examination V72.2 [facility] [address] [place] [address] Sep, [facility] [address] [place] [address] Sep, [facility] [id number] [place] [address] Jul, [facility] [id number] [place] [address] Jul, [facility] [id number] [place] [address] Jul, [facility] [id number] [place] [address] Jul, [facility] [place] [facility] [address] [id number] [place] [address] Jul, 2014 [facility] [place] [facility] [address] [id number] [place] [address] Jul, 2014 [facility] [place] [facility] [address] [id number] [place] [address] Jul, 2014 [facility] [place] [facility] [address] [id number] [place] [address] Jul, 2014 [facility] [place] [facility] [address] [id number] [place] [address] Jul, 2014 [facility] [place] [facility] [address] [id number] [place] [address] 2002 Jul, 2014 [facility] [place] [facility] [address] [id number] [place] [address] Jul, 2014 [facility] [place] [facility] [address] [id number] [place] [address] 47[address] Apr, [facility] [place] [facility] [address] [id number] [place] [address] Apr, [facility] [place] [facility] [address] [facility] [id number] [place] [address] Apr, [facility] [place] [facility] [address] [id number] [place] [address]- 9152 Apr, [facility] [place] [facility] [address] [id number] [place] [address] 10 Apr, 2014 [facility] [place] [facility] [address] [id number] [place] [address]- [address]89 30 Mar, 2014 [facility] [place] [facility] [address] [id number] [place] [address]- 8417 30 Mar, 2014 [facility] [place] [facility] [address] [id number] [place] [address]- 58[address] 14 Mar, 2014 [facility] [place] [facility] [address] [id number] [place] [address]- 1996 14 Mar, 2014 [facility] [place] [facility] [address] [id number] [place] [address] Mar, [facility] [place] [facility] [address] [id number] [place] [address] Mar, [facility] [place] [facility] [address] [id number] [place] [address]- 4265 Mar, [facility] [place] [facility] [address] [id number] [place] [address] Mar, [facility] [place] [facility] [address] [id number] [place] [address] Mar, [facility] [place] [facility] [address] [id number] [place] [address]- 2728 Mar, [facility] [place] [facility] [address] [id number] [place] [address]- 5049 Mar, [facility] [place] [facility] [address] [id number] [place] [address] 8151 Feb, [facility] [place] [facility] [address] [id number] [place] [address] 46[address] Feb, [facility] [place] [facility] [address] [id number] [place] [address] 4538 Dec, [facility] [place] [facility] [address] [id number] [place] [address] Dec, [facility] [place] [facility] [address] [id number] [place] [address] October, [facility] [place] [facility] [address] [id number] [place] [address] 0995 October, [facility] [place] [facility] [address] [id number] [place] [address] 0[address] Sep, [facility] [place] [facility] [address] [id number] [place] [address]- 0632 Sep, [facility] [place] [facility] [address] [id number] [place] [address]- 7124 Sep, [facility] [place] [facility] [address] [id number] [place] [address]- 5475 Sep, [facility] [place] [facility] [address] [id number] [place] [address]- 8523 Sep, [facility] [place] [facility] [address] [id number] [place] [address]- 1304 Sep, [facility] [place] [facility] [address] [id number] [place] [address]- 9034 Sep, [facility] [place] [facility] [address] [id number] [place] [address]- 8746 Jul, [facility] [place] [facility] [address] [id number] [place] [address]- 5355 Jul, [facility] [place] [facility] [address] [id number] [place] [address]- 7612 Jul, [facility] [place] [facility] [address] [id number] [place] [address]- 4543 Jul, [facility] [place] [facility] [address] [id number] [place] [address]- 2780 Jul, [facility] [place] [facility] [address] [id number] [place] [address]- 8364 Jul, [facility] [place] [facility] [address] [id number] [place] [address]- 2697 Jun, [facility] [place] [facility] [address] [id number] [place] [address]- 2590 Jun, [facility] [place] [facility] [address] [id number] [place] [address]- 4589 Jun, [facility] [place] [facility] [address] [id number] [place] [address]- 6879 Jun, [facility] [place] [facility] [address] [id number] [address] May, [facility] [address] [id number] [place] [address]- 5257 May, [facility] [place] [facility] [address] [id number] [place] [address]- 2154 Mar, [facility] [address] [id number] [place] [address]- 0576 Mar, [facility] [place] [facility] [address] [id number] [place] [address]- 2353 Mar, [facility] [address] [id number] [place] [address]- 8858 Mar, [facility] [place] [facility] [address] [id number] [place] [address]- 4698 Mar, [facility] [address] [id number] [address]- 28[address] Sep, [facility] [place] [facility] [address] [id number] [place] [address]- 3260 Sep, [facility] [address] [id number] [place] [address]- 7166 Sep, [facility] [place] [facility] [address] [facility] [id number] [place] [address]- 8904 Aug, [facility] [place] [facility] [address] [id number], [place] [address]- [address] Jul, [facility] [place] [facility] [address] [id number][place] [address]- 2587 Jul, [facility] [place] [facility] [address] [id number] [place] [address]- 9983 Jul, [facility] [place] [facility] [address] [id number], [place] [address]- 1125 Jun, [facility] [place] [facility] [address] [facility] [id number], [place] [address]- 7514 Jun, [facility] [place] [facility] [address] [id number] [place] [address]- 8496 Mar, [facility] [address] [id number] [place] [address]- 9936 Feb, [facility] [address] [id number] [place] [address]- 2546 Feb, [facility] [address] [id number] [place] [address]- 2546 October, [facility] [address] [id number] [place] [address]- 0839 Sep, [facility] [address] [id number] [place] [address]- 3626 Sep, [facility] [address] [id number] [place] [address]- 0496 Sep, [facility] [address] [id number] [place] [address]- 5156 Aug, [facility] [address] [id number][place] [address] Jul, [facility] [address] [id number] [place] [address]- 3176 Jun, [facility] [address] [id number][place] [id number] Jun, [facility] [address] [id number] [place] [address]- 2546 May, [facility] [address] [id number] [place] [address]- 2546 Apr, [facility] [place] [facility] [address] [id number] [place] [address]- 2546 Jan, [facility] [place] [facility] [address] [id number] [place] [address]- 2546 Sep, [facility] [address] [id number] [place] [address]- 8846 Jul, [facility] [address] [id number], [place] [address]- [address] 15 Feb, 2010 [facility] [address]65[address], [place] [address] May, [facility] [address] [id number], [place] [address]- [address]99 May, [facility] [address]100[place], [place] [address] 288[address] Apr, [facility] [address] [id number], [place] [address] 379[address] Mar, [facility] [address], [place] [address] Mar, [facility] [address], [place] [address] 38[address] Feb, [facility] [address] [id number], [place] [address]- 6687 Jan, [facility] [address] [id number], [place] [address]- [address]145 Nov, IMMUNIZATIONS No Known Immunizations SOCIAL HISTORY Never Assessed REASON FOR VISIT urine pregancy test [facility] PLAN OF CARE VITAL SIGNS MEDICATIONS Unknown Medications RESULTS Name Result Date Reference Range TEST, URINE (IN HOUSE) 2017-08-12 RESULTS Positive Lot # [id number] Control + Exp date 01/20/19 PROCEDURES Procedure Date Ordered Result Body Site URINE TEST Aug 12, 2017 INSTRUCTIONS MEDICATIONS ADMINISTERED No Known Medications MEDICAL (GENERAL) HISTORY Type Description Date Medical History asthma- Normal PFT 2012 Medical History allergies Medical History acid reflux Medical History anxiety Medical History PCOS Medical History ADHD Surgical History tonsillectomy and adenoidectomy Surgical History oral surgery Hospitalization History overdose on sleeping medication age 9
--- OUTSIDE RECORDS SUMMARY | 2018-04-09 15:34 | XMS REPORT ---
Author ABELINO [facility] e[employer] Address Unknown Phone Unavailable Care Team Providers Care Block Sawyer Name Role Phone ABELINO HIDALGO CP Unavailable Allergies, Adverse Reactions, Alerts Substance Reaction Event Type Ritalin hives Drug Allergy Problems Problem Type Condition Code Onset Dates Condition Status Assessment Acute bronchitis J20.9 Active Assessment Tobacco abuse Z72.0 Active Problem Tobacco abuse Z72.0 Active Assessment Tobacco abuse counseling Z71.6 Active Medications Medication Code System Code Instructions Start Date End Date Status Dosage Zantac [facility] [address]-67 150 mg Apr 05, 2014 1-2 tablet by Oral route 2 times per day PRN ZyrTEC NDC 0 10 mg Quantity Amount, Route, and Frequency Apr 02, 2014 1 tablet by Oral route 1 time per day ProAir HFA [facility] [address]-54 108 (90 Base) MCG/ACT Inhalation every 4 hrs May 08, 2015 2 puffs as needed Celexa [facility] [address]-16 20 mg May 02, 2014 take 1 tablet (20 mg) by oral route once daily doxepin NDC 0 10 mg May 02, 2014 1-3 tabs every night as needed per [facility] Doxycycline Hyclate [facility] [address]-44 100 MG Orally every 12 hrs May 10, 2015 May 20, 2015 1 capsule Procedures Procedure Coding System Code Date THER/PROPH/DIAG INJ, SC/IM CPT-4 40965 May 08, 2015 Office Visit, Est Pt., Level 3 CPT-4 62308 May 08, 2015 SOLUMEDROL (UP TO 125 MG) CPT-4 J2930 May 08, 2015 Vital Signs Date/Time: May 08, 2015 Temperature 97.8 F Weight 232.8 lbs Height 62 in BMI 42.58 Index Blood Pressure Diastolic 76 mmHg Blood Pressure Systolic 110 mmHg Cardiac Monitoring Heart Rate 90 bpm BMIPercentile 98.79 % Wt Percentile 99.04 % Results No Known Results Summary Purpose eClinicalWorks Submission
--- OUTSIDE RECORDS SUMMARY | 2018-04-09 15:37 | XMS REPORT | Continuity of Care Document ---
Author Author [facility] Address Unknown Phone Unavailable Allergies Active Description Code Type Severity Reaction Onset Reported/Identified Relationship to Patient Clinical Status Yes Ritalin Drug Allergy 08/22/2011 Yes Ritalin Drug Allergy N/A N/A 08/22/2011 Medications There is no data. Problems Date Dx Coded Attending Type Code Diagnosis Diagnosed By 12/01/2008 GEOFFREY WEAVER MD 314.01 Attention Deficit Disorder Of Childhood With Hyperactivity 12/01/2008 GEOFFREY WEAVER MD 493.90 Asthma Unspecified 12/01/2008 GEOFFREY WEAVER MD 314.01 Attention Deficit Disorder Of Childhood With Hyperactivity 12/01/2008 GEOFFREY WEAVER MD 493.90 Asthma Unspecified 12/01/2008 314.01 Attention Deficit Disorder Of Childhood With Hyperactivity 12/01/2008 493.90 Asthma Unspecified 12/01/2008 314.01 Attention Deficit Disorder Of Childhood With Hyperactivity 12/01/2008 493.90 Asthma Unspecified 12/01/2008 GEOFFREY WEAVER MD 314.01 Attention Deficit Disorder Of Childhood With Hyperactivity 12/01/2008 GEOFFREY WEAVER MD 493.90 Asthma Unspecified 12/01/2008 GEOFFREY WEAVER MD 314.01 Attention Deficit Disorder Of Childhood With Hyperactivity 12/01/2008 GEOFFREY WEAVER MD 493.90 Asthma Unspecified 12/01/2008 GEOFFREY WEAVER MD 314.01 Attention Deficit Disorder Of Childhood With Hyperactivity 12/01/2008 GEOFFREY WEAVER MD 493.90 Asthma Unspecified 12/01/2008 HARDIK PULIDO DO 314.01 Attention Deficit Disorder Of Childhood With Hyperactivity 12/01/2008 HARDIK PULIDO DO 493.90 Asthma Unspecified 12/01/2008 RAE ALEXIS APRN 314.01 Attention Deficit Disorder Of Childhood With Hyperactivity 12/01/2008 RAE ALEXIS APRN 493.90 Asthma Unspecified 12/01/2008 HARDIK PULIDO DO 314.01 Attention Deficit Disorder Of Childhood With Hyperactivity 12/01/2008 HARDIK PULIDO DO 493.90 Asthma Unspecified 12/01/2008 PULIDO АЛЕКСАНДР CHRISTYA K 314.01 Attention Deficit Disorder Of Childhood With Hyperactivity 12/01/2008 PULIDO АЛЕКСАНДР CHRISTYA K 493.90 Asthma Unspecified 12/01/2008 PULIDO АЛЕКСНАДР CHRISTYA K 314.01 Attention Deficit Disorder Of Childhood With Hyperactivity 12/01/2008 PULIDO DO HARDIK K 493.90 Asthma Unspecified 12/01/2008 ABELINO HIDALGO APRN 314.01 Attention Deficit Disorder Of Childhood With Hyperactivity 12/01/2008 ABELINO HIDALGO APRN 493.90 Asthma Unspecified 12/01/2008 EATON ORESTES CARTAGENASON L 314.01 Attention Deficit Disorder Of Childhood With Hyperactivity 12/01/2008 EATON MITZI RAE L 493.90 Asthma Unspecified 12/01/2008 PULIDO АЛЕКСАНДР CHRISTYA K 314.01 Attention Deficit Disorder Of Childhood With Hyperactivity 12/01/2008 PULIDO АЛЕКСАНДР CHRISTYA K 493.90 Asthma Unspecified 12/01/2008 EATON MITZI RAE L 314.01 Attention Deficit Disorder Of Childhood With Hyperactivity 12/01/2008 EATON ORESTES CARTAGENASON L 493.90 Asthma Unspecified 12/01/2008 EATON MITZI RAE L 314.01 Attention Deficit Disorder Of Childhood With Hyperactivity 12/01/2008 REUBEN CARTAGENA RAE L 493.90 Asthma Unspecified 12/01/2008 ABELINO HIDALGO APRN 314.01 Attention Deficit Disorder Of Childhood With Hyperactivity 12/01/2008 ABELINO HIDALGO APRN 493.90 Asthma Unspecified 12/01/2008 ABELINO HIDALGO APRN 314.01 Attention Deficit Disorder Of Childhood With Hyperactivity 12/01/2008 ABELINO HIDALGO APRN 493.90 Asthma Unspecified 12/01/2008 ABELINO HIDALGO APRN 314.01 Attention Deficit Disorder Of Childhood With Hyperactivity 12/01/2008 ABELINO HIDALGO APRN 493.90 Asthma Unspecified 12/01/2008 АЛЕКСАНДР PULIDO DOA K 314.01 Attention Deficit Disorder Of Childhood With Hyperactivity 12/01/2008 PULIDO АЛЕКСАНДР CHRISTYA K 493.90 Asthma Unspecified 12/01/2008 ABELINO HIDALGO APRN 314.01 Attention Deficit Disorder Of Childhood With Hyperactivity 12/01/2008 ABELINO HIDALGO APRN 493.90 Asthma Unspecified 12/01/2008 HARDIK PULIOD DO K 314.01 Attention Deficit Disorder Of Childhood With Hyperactivity 12/01/2008 HARDIK PULIDO DO K 493.90 Asthma Unspecified 02/01/2009 GEOFFREY WEAVER MD 783.1 Abnormal Weight Gain 02/01/2009 GEOFFREY WEAVER MD 783.1 Abnormal Weight Gain 02/01/2009 783.1 Abnormal Weight Gain 02/01/2009 783.1 Abnormal Weight Gain 02/01/2009 GEOFFREY WEAVER MD 783.1 Abnormal Weight Gain 02/01/2009 GEOFFREY WEAVER MD 783.1 Abnormal Weight Gain 02/01/2009 GEOFFREY WEAVER MD 783.1 Abnormal Weight Gain 02/01/2009 АЛЕКСАНДР PULIDO DOA K 783.1 Abnormal Weight Gain 02/01/2009 RAE ALEXIS APRN L 783.1 Abnormal Weight Gain 02/01/2009 АЛЕКСАНДР PULIDO DOA K 783.1 Abnormal Weight Gain 02/01/2009 АЛЕКСАНДР PULIDO DOA K 783.1 Abnormal Weight Gain 02/01/2009 АЛЕКСАНДР PULIDO DOA K 783.1 Abnormal Weight Gain 02/01/2009 ABELINO HIDALGO APRN J 783.1 Abnormal Weight Gain 02/01/2009 RAE ALEXIS APRN L 783.1 Abnormal Weight Gain 02/01/2009 АЛЕКСАНДР PULIDO DOA K 783.1 Abnormal Weight Gain 02/01/2009 ORESTES ALEXIS APRNSON L 783.1 Abnormal Weight Gain 02/01/2009 RAE ALEXIS APRN L 783.1 Abnormal Weight Gain 02/01/2009 ABELINO HIDALGO APRN 783.1 Abnormal Weight Gain 02/01/2009 ABELINO HIDALGO APRN J 783.1 Abnormal Weight Gain 02/01/2009 ABELINO HIDALGO APRN 783.1 Abnormal Weight Gain 02/01/2009 АЛЕКСАНДР PULIDO DOA K 783.1 Abnormal Weight Gain 02/01/2009 ABELINO HIDALGO APRN 783.1 Abnormal Weight Gain 02/01/2009 АЛЕКСАНДР PULIDO DOA K 783.1 Abnormal Weight Gain 02/10/2009 GEOFFREY WEAVER MD 380.10 Otitis Externa - Right Ear 02/10/2009 GEOFFREY WEAVER MD 380.10 Otitis Externa - Right Ear 02/10/2009 380.10 Otitis Externa - Right Ear 02/10/2009 380.10 Otitis Externa - Right Ear 02/10/2009 GEOFFREY WEAVER MD 380.10 Otitis Externa - Right Ear 02/10/2009 GEOFFREY WEAVER MD 380.10 Otitis Externa - Right Ear 02/10/2009 GEOFFREY WEAVER MD 380.10 Otitis Externa - Right Ear 02/10/2009 TESS CHRISTY HARDIK K 380.10 Otitis Externa - Right Ear 02/10/2009 EATON RAE CARTAGENA L 380.10 Otitis Externa - Right Ear 02/10/2009 PULIDO DO HARDIK K 380.10 Otitis Externa - Right Ear 02/10/2009 PULIDO DO HARDIK K 380.10 Otitis Externa - Right Ear 02/10/2009 TESS CHRISTY HARDIK K 380.10 Otitis Externa - Right Ear 02/10/2009 ABELINO HIDALGO APRN 380.10 Otitis Externa - Right Ear 02/10/2009 RAE ALEXIS APRN L 380.10 Otitis Externa - Right Ear 02/10/2009 АЛЕКСАНДР PULIDO DOA K 380.10 Otitis Externa - Right Ear 02/10/2009 RAE ALEXIS APRN L 380.10 Otitis Externa - Right Ear 02/10/2009 EATREA COPELAND APRN L 380.10 Otitis Externa - Right Ear 02/10/2009 HIDALGOABELINO MUÑOZ APRN 380.10 Otitis Externa - Right Ear 02/10/2009 ABELINO HIDALGO APRN 380.10 Otitis Externa - Right Ear 02/10/2009 ABELINO HIDALGO APRN 380.10 Otitis Externa - Right Ear 02/10/2009 АЛЕКСАНДР PULIDO DOA K 380.10 Otitis Externa - Right Ear 02/10/2009 ABELINO HIDALGO APRN 380.10 Otitis Externa - Right Ear 02/10/2009 TESS CHRISTY HARDIK K 380.10 Otitis Externa - Right Ear 02/16/2009 GEOFFREY WEAVER MD 251.1 OTHER SPECIFIED HYPOGLYCEMIA 02/16/2009 GEOFFREY WEAVER MD 251.1 OTHER SPECIFIED HYPOGLYCEMIA 02/16/2009 251.1 OTHER SPECIFIED HYPOGLYCEMIA 02/16/2009 251.1 OTHER SPECIFIED HYPOGLYCEMIA 02/16/2009 GEOFFREY WEAVER MD 251.1 OTHER SPECIFIED HYPOGLYCEMIA 02/16/2009 GEOFFREY WEAVER MD 251.1 OTHER SPECIFIED HYPOGLYCEMIA 02/16/2009 GEOFFREY WEAVER MD 251.1 OTHER SPECIFIED HYPOGLYCEMIA 02/16/2009 PULIDO DO, HARDIK K 251.1 OTHER SPECIFIED HYPOGLYCEMIA 02/16/2009 EATON IMPLEMENTATION SERVICES ANALYST, RAE L 251.1 OTHER SPECIFIED HYPOGLYCEMIA 02/16/2009 PULIDO DO, HARDIK K 251.1 OTHER SPECIFIED HYPOGLYCEMIA 02/16/2009 PULIDO DO, HARDIK K 251.1 OTHER SPECIFIED HYPOGLYCEMIA 02/16/2009 PULIDO DO, HARDIK K 251.1 OTHER SPECIFIED HYPOGLYCEMIA 02/16/2009 HIDALGO IMPLEMENTATION SERVICES ANALYSTYURYABELINO J 251.1 OTHER SPECIFIED HYPOGLYCEMIA 02/16/2009 EATON IMPLEMENTATION SERVICES ANALYST, RAE L 251.1 OTHER SPECIFIED HYPOGLYCEMIA 02/16/2009 PULIDO DO, HARDIK K 251.1 OTHER SPECIFIED HYPOGLYCEMIA 02/16/2009 EATON IMPLEMENTATION SERVICES ANALYST, RAE L 251.1 OTHER SPECIFIED HYPOGLYCEMIA 02/16/2009 EATON IMPLEMENTATION SERVICES ANALYST, RAE L 251.1 OTHER SPECIFIED HYPOGLYCEMIA 02/16/2009 HIDALGO IMPLEMENTATION SERVICES ANALYSTSHANNON RiosFER J 251.1 OTHER SPECIFIED HYPOGLYCEMIA 02/16/2009 HIDALGO IMPLEMENTATION SERVICES ANALYSTSHANNON RiosFER J 251.1 OTHER SPECIFIED HYPOGLYCEMIA 02/16/2009 HIDALGO IMPLEMENTATION SERVICES ANALYSTSHANNON RiosFER J 251.1 OTHER SPECIFIED HYPOGLYCEMIA 02/16/2009 PULIDO DO, HARDIK K 251.1 OTHER SPECIFIED HYPOGLYCEMIA 02/16/2009 HIDALGO IMPLEMENTATION SERVICES ANALYSTSHANNON RiosFER J 251.1 OTHER SPECIFIED HYPOGLYCEMIA 02/16/2009 PULIDO DO, HARDIK K 251.1 OTHER SPECIFIED HYPOGLYCEMIA 02/23/2009 GEOFFREY WEAVER MD 256.4 POLYCYSTIC OVARIAN SYNDROME 02/23/2009 GEOFFREY WEAVER MD 277.7 DYSMETABOLIC SYNDROME X 02/23/2009 GEOFFREY WEAVER MD 462 Pharyngitis 02/23/2009 GEOFFREY WEAVER MD 626.0 Amenorrhea 02/23/2009 GEOFFREY WEAVER MD 256.4 POLYCYSTIC OVARIAN SYNDROME 02/23/2009 GEOFFREY WEAVER MD 277.7 DYSMETABOLIC SYNDROME X 02/23/2009 GEOFFREY WEAVER MD 46Jesus Pharyngitis 02/23/2009 GEOFFREY WEAVER MD 626.0 Amenorrhea 02/23/2009 256.4 POLYCYSTIC OVARIAN SYNDROME 02/23/2009 277.7 DYSMETABOLIC SYNDROME X 02/23/2009 462 Pharyngitis 02/23/2009 626.0 Amenorrhea 02/23/2009 256.4 POLYCYSTIC OVARIAN SYNDROME 02/23/2009 277.7 DYSMETABOLIC SYNDROME X 02/23/2009 462 Pharyngitis 02/23/2009 626.0 Amenorrhea 02/23/2009 GEOFFREY WEAVER MD 256.4 POLYCYSTIC OVARIAN SYNDROME 02/23/2009 GEOFFREY WEAVER MD 277.7 DYSMETABOLIC SYNDROME X 02/23/2009 GEOFFREY WEAVER MD 462 Pharyngitis 02/23/2009 GEOFFREY WEAVER MD 626.0 Amenorrhea 02/23/2009 GEOFFREY WEAVER MD 256.4 POLYCYSTIC OVARIAN SYNDROME 02/23/2009 GEOFFREY WEAVER MD 277.7 DYSMETABOLIC SYNDROME X 02/23/2009 GEOFFREY WEAVER MD 462 Pharyngitis 02/23/2009 GEOFFREY WEAVER MD 626.0 Amenorrhea 02/23/2009 GEOFFREY WEAVER MD 256.4 POLYCYSTIC OVARIAN SYNDROME 02/23/2009 GEOFFREY WEAEVR MD 277.7 DYSMETABOLIC SYNDROME X 02/23/2009 GEOFFREY WEAVER MD 462 Pharyngitis 02/23/2009 GEOFFREY WEAVER MD 626.0 Amenorrhea 02/23/2009 PULIDO DO HARDIK K 256.4 POLYCYSTIC OVARIAN SYNDROME 02/23/2009 PULIDO DO, HARDIK K 277.7 DYSMETABOLIC SYNDROME X 02/23/2009 PULIDO DO, HARDIK K 462 Pharyngitis 02/23/2009 PULIDO DO HARDIK K 626.0 Amenorrhea 02/23/2009 EATON IMPLEMENTATION SERVICES ANALYST, RAE L 256.4 POLYCYSTIC OVARIAN SYNDROME 02/23/2009 EATON IMPLEMENTATION SERVICES ANALYST, RAE L 277.7 DYSMETABOLIC SYNDROME X 02/23/2009 EATON IMPLEMENTATION SERVICES ANALYST, RAE L 462 Pharyngitis 02/23/2009 EATON IMPLEMENTATION SERVICES ANALYST, RAE L 626.0 Amenorrhea 02/23/2009 PULIDO DO, HARDIK K 256.4 POLYCYSTIC OVARIAN SYNDROME 02/23/2009 PULIDO DO, HARDIK K 277.7 DYSMETABOLIC SYNDROME X 02/23/2009 PULIDO DO, HARDIK K 462 Pharyngitis 02/23/2009 PULIDO DO, HARDIK K 626.0 Amenorrhea 02/23/2009 PULIDO DO HARDIK K 256.4 POLYCYSTIC OVARIAN SYNDROME 02/23/2009 PULIDO DO HARDIK K 277.7 DYSMETABOLIC SYNDROME X 02/23/2009 PULIDO DO, HARDIK K 462 Pharyngitis 02/23/2009 PULIDO DO, HARDIK K 626.0 Amenorrhea 02/23/2009 PULIDO DO, HARDIK K 256.4 POLYCYSTIC OVARIAN SYNDROME 02/23/2009 PULIDO DO, HARDIK K 277.7 DYSMETABOLIC SYNDROME X 02/23/2009 PULIDO DO, HARDIK K 462 Pharyngitis 02/23/2009 PULIDO DO, HARDIK K 626.0 Amenorrhea 02/23/2009 HIDALGO IMPLEMENTATION SERVICES ANALYSTABELINO Rios J 256.4 POLYCYSTIC OVARIAN SYNDROME 02/23/2009 HIDALGO IMPLEMENTATION SERVICES ANALYSTABELINO Rios J 277.7 DYSMETABOLIC SYNDROME X 02/23/2009 HIDALGO ABELINO CARTAGENA J 462 Pharyngitis 02/23/2009 HIDALGO IMPLEMENTATION SERVICES ANALYSTABELINO Rios J 626.0 Amenorrhea 02/23/2009 EATON ORESTES CARTAGENASON L 256.4 POLYCYSTIC OVARIAN SYNDROME 02/23/2009 EATON IMPLEMENTATION SERVICES ANALYSTORESTES RiosSON L 277.7 DYSMETABOLIC SYNDROME X 02/23/2009 EATON IMPLEMENTATION SERVICES ANALYST RAE L 462 Pharyngitis 02/23/2009 EATON IMPLEMENTATION SERVICES ANALYST, RAE L 626.0 Amenorrhea 02/23/2009 PULIDO DO, HARDIK K 256.4 POLYCYSTIC OVARIAN SYNDROME 02/23/2009 PULIDO DO, HARDIK K 277.7 DYSMETABOLIC SYNDROME X 02/23/2009 PULIDO DO, HARDIK K 462 Pharyngitis 02/23/2009 PULIDO DO, HARDIK K 626.0 Amenorrhea 02/23/2009 EATON IMPLEMENTATION SERVICES ANALYST, RAE L 256.4 POLYCYSTIC OVARIAN SYNDROME 02/23/2009 EATON IMPLEMENTATION SERVICES ANALYST, RAE L 277.7 DYSMETABOLIC SYNDROME X 02/23/2009 EATON IMPLEMENTATION SERVICES ANALYST, RAE L 462 Pharyngitis 02/23/2009 EATON IMPLEMENTATION SERVICES ANALYST, RAE L 626.0 Amenorrhea 02/23/2009 EATON IMPLEMENTATION SERVICES ANALYST RAE L 256.4 POLYCYSTIC OVARIAN SYNDROME 02/23/2009 EATON IMPLEMENTATION SERVICES ANALYST, RAE L 277.7 DYSMETABOLIC SYNDROME X 02/23/2009 EATON IMPLEMENTATION SERVICES ANALYST, RAE L 462 Pharyngitis 02/23/2009 EATON IMPLEMENTATION SERVICES ANALYST, RAE L 626.0 Amenorrhea 02/23/2009 ABELINO HIDALGO APRN 256.4 POLYCYSTIC OVARIAN SYNDROME 02/23/2009 ABELINO HIDALGO APRN J 277.7 DYSMETABOLIC SYNDROME X 02/23/2009 ABELINO HIDALGO APRN J 462 Pharyngitis 02/23/2009 HIDALGO ABELINO CARTAGENA J 626.0 Amenorrhea 02/23/2009 HIDALGO ABELINO CARTAGENA J 256.4 POLYCYSTIC OVARIAN SYNDROME 02/23/2009 HIDALGO ABELINO CARTAGENA J 277.7 DYSMETABOLIC SYNDROME X 02/23/2009 HIDALGO ABELINO CARTAGENA J 462 Pharyngitis 02/23/2009 HIDALGO ABELINO CARTAGENA 626.0 Amenorrhea 02/23/2009 ABELINO HIDALGO APRN J 256.4 POLYCYSTIC OVARIAN SYNDROME 02/23/2009 ABELINO HIDALGO APRN J 277.7 DYSMETABOLIC SYNDROME X 02/23/2009 ABELINO HIDALGO APRN J 462 Pharyngitis 02/23/2009 ABELINO HIDALGO APRN J 626.0 Amenorrhea 02/23/2009 PULIDO DO HARDIK K 256.4 POLYCYSTIC OVARIAN SYNDROME 02/23/2009 PULIDO DO HARDIK K 277.7 DYSMETABOLIC SYNDROME X 02/23/2009 PULIDO DO HARDIK K 462 Pharyngitis 02/23/2009 PULIDO DO HARDIK K 626.0 Amenorrhea 02/23/2009 ABELINO HIDALGO APRN J 256.4 POLYCYSTIC OVARIAN SYNDROME 02/23/2009 ABELINO HIDALGO APRN J 277.7 DYSMETABOLIC SYNDROME X 02/23/2009 HIDALGO ABELINO CARTAGENA J 462 Pharyngitis 02/23/2009 HIDALGO SHANNON CARTAGENAFER J 626.0 Amenorrhea 02/23/2009 PLUIDO DO HARDIK K 256.4 POLYCYSTIC OVARIAN SYNDROME 02/23/2009 PULIDO DO HARDIK K 277.7 DYSMETABOLIC SYNDROME X 02/23/2009 PULIDO DO HARDIK K 462 Pharyngitis 02/23/2009 PULIDO DO HARDIK K 626.0 Amenorrhea 03/09/2009 GEOFFREY WEAVER MD 780.79 Malaise 03/09/2009 GEOFFREY WEAVER MD 780.79 Malaise 03/09/2009 780.79 Malaise 03/09/2009 780.79 Malaise 03/09/2009 GEOFFREY WEAVER MD 780.79 Malaise 03/09/2009 GEOFFREY WEAVER MD 780.79 Malaise 03/09/2009 GEOFFREY WEAVER MD 780.79 Malaise 03/09/2009 PULIDO DO, HARDIK K 780.79 Malaise 03/09/2009 EATON IMPLEMENTATION SERVICES ANALYSTRAE Rios L 780.79 Malaise 03/09/2009 PULIDO DO, HARDIK K 780.79 Malaise 03/09/2009 PULIDO DO, HARDIK K 780.79 Malaise 03/09/2009 PULIDO DO, HARDIK K 780.79 Malaise 03/09/2009 ABELINO HIDALGO APRN 780.79 Malaise 03/09/2009 RAE ALEXIS APRN L 780.79 Malaise 03/09/2009 PULIDO DO, HARDIK K 780.79 Malaise 03/09/2009 EATDINORAH IMPLEMENTATION SERVICES ANALYSTRAE Rios L 780.79 Malaise 03/09/2009 EATRAE COPELAND APRN L 780.79 Malaise 03/09/2009 HIDALGO ABELINO CARTAGENA 780.79 Malaise 03/09/2009 ABELINO HIDALGO APRN 780.79 Malaise 03/09/2009 HIDALGO ABELINO CARTAGENA 780.79 Malaise 03/09/2009 PULIDO DO, HARDIK K 780.79 Malaise 03/09/2009 HIDALGO ABELINO CARTAGENA 780.79 Malaise 03/09/2009 PULIDO DO, HARDIK K 780.79 Malaise 03/28/2009 GEOFFREY WEAVER MD 465.9 Upper Respiratory Infection Acute 03/28/2009 GEOFFREY WEAVER MD 465.9 Upper Respiratory Infection Acute 03/28/2009 465.9 Upper Respiratory Infection Acute 03/28/2009 465.9 Upper Respiratory Infection Acute 03/28/2009 GEOFFREY WEAVER MD 465.9 Upper Respiratory Infection Acute 03/28/2009 GEOFFREY WEAVER MD 465.9 Upper Respiratory Infection Acute 03/28/2009 GEOFFREY WEAVER MD 465.9 Upper Respiratory Infection Acute 03/28/2009 PULIDO DO HARDIK K 465.9 Upper Respiratory Infection Acute 03/28/2009 EATON IMPLEMENTATION SERVICES ANALYST, RAE L 465.9 Upper Respiratory Infection Acute 03/28/2009 PULIDO DO, HARDIK K 465.9 Upper Respiratory Infection Acute 03/28/2009 PULIDO DO, HARDIK K 465.9 Upper Respiratory Infection Acute 03/28/2009 PULIDO DO, HARDIK K 465.9 Upper Respiratory Infection Acute 03/28/2009 HIDALGO IMPLEMENTATION SERVICES ANALYST, ABELINO J 465.9 Upper Respiratory Infection Acute 03/28/2009 EATON IMPLEMENTATION SERVICES ANALYST, RAE L 465.9 Upper Respiratory Infection Acute 03/28/2009 PULIDO DO, HARDIK K 465.9 Upper Respiratory Infection Acute 03/28/2009 EATON IMPLEMENTATION SERVICES ANALYST, RAE L 465.9 Upper Respiratory Infection Acute 03/28/2009 EATON IMPLEMENTATION SERVICES ANALYST, RAE L 465.9 Upper Respiratory Infection Acute 03/28/2009 HIDALGO IMPLEMENTATION SERVICES ANALYST, ABELINO J 465.9 Upper Respiratory Infection Acute 03/28/2009 HIDALGO IMPLEMENTATION SERVICES ANALYST, ABELINO J 465.9 Upper Respiratory Infection Acute 03/28/2009 HIDALGO IMPLEMENTATION SERVICES ANALYST, ABELINO J 465.9 Upper Respiratory Infection Acute 03/28/2009 PULIDO DO, HARDIK K 465.9 Upper Respiratory Infection Acute 03/28/2009 HIDALGO IMPLEMENTATION SERVICES ANALYST, ABELINO J 465.9 Upper Respiratory Infection Acute 03/28/2009 PULIDO DO, HARDIK K 465.9 Upper Respiratory Infection Acute 03/07/2010 GEOFFREY WEAVER MD 493.92 Asthma, Unspecified, With (acute) Exacerbation 03/07/2010 GEOFFREY WEAVER MD 493.92 Asthma, Unspecified, With (acute) Exacerbation 03/07/2010 493.92 Asthma, Unspecified, With (acute) Exacerbation 03/07/2010 493.92 Asthma, Unspecified, With (acute) Exacerbation 03/07/2010 GEOFFREY WEAVER MD 493.92 Asthma, Unspecified, With (acute) Exacerbation 03/07/2010 GEOFFREY WEAVER MD 493.92 Asthma, Unspecified, With (acute) Exacerbation 03/07/2010 GEOFFREY WEAVER MD 493.92 Asthma, Unspecified, With (acute) Exacerbation 03/07/2010 HARDIK PULIDO DO 493.92 Asthma, Unspecified, With (acute) Exacerbation 03/07/2010 REUBEN IMPLEMENTATION SERVICES ANALYST, RAE L 493.92 Asthma, Unspecified, With (acute) Exacerbation 03/07/2010 HARDIK PULIDO DO 493.92 Asthma, Unspecified, With (acute) Exacerbation 03/07/2010 HARDIK PULIDO DO 493.92 Asthma, Unspecified, With (acute) Exacerbation 03/07/2010 HARDIK PULIDO DO 493.92 Asthma, Unspecified, With (acute) Exacerbation 03/07/2010 ABELINO HIDALGO APRN 493.92 Asthma, Unspecified, With (acute) Exacerbation 03/07/2010 EATON IMPLEMENTATION SERVICES ANALYSTRAE Rios 493.92 Asthma, Unspecified, With (acute) Exacerbation 03/07/2010 HARDIK PULIDO DO 493.92 Asthma, Unspecified, With (acute) Exacerbation 03/07/2010 EATON IMPLEMENTATION SERVICES ANALYSTRAE Rios L 493.92 Asthma, Unspecified, With (acute) Exacerbation 03/07/2010 ELINORON IMPLEMENTATION SERVICES ANALYSTRAE Rios L 493.92 Asthma, Unspecified, With (acute) Exacerbation 03/07/2010 ABELINO HIDALGO APRN 493.92 Asthma, Unspecified, With (acute) Exacerbation 03/07/2010 ABELINO HIDALGO APRN 493.92 Asthma, Unspecified, With (acute) Exacerbation 03/07/2010 ABELINO HIDALGO APRN 493.92 Asthma, Unspecified, With (acute) Exacerbation 03/07/2010 HARDIK PULIDO DO 493.92 Asthma, Unspecified, With (acute) Exacerbation 03/07/2010 ABELINO HIDALGO APRN 493.92 Asthma, Unspecified, With (acute) Exacerbation 03/07/2010 HARDIK PULIDO DO 493.92 Asthma, Unspecified, With (acute) Exacerbation 10/01/2010 GEOFFREY WEAVER MD 278.01 OBESITY MORBID 10/01/2010 GEOFFREY WEAEVR MD 626.9 menses abnormal 10/01/2010 GEOFFREY WEAVER MD 706.1 ACNE 10/01/2010 GEOFFREY WEAVER MD 278.01 OBESITY MORBID 10/01/2010 GEOFFREY WEAVER MD 626.9 menses abnormal 10/01/2010 GEOFFREY WEAVER MD 706.1 ACNE 10/01/2010 278.01 OBESITY MORBID 10/01/2010 626.9 menses abnormal 10/01/2010 706.1 ACNE 10/01/2010 278.01 OBESITY MORBID 10/01/2010 626.9 menses abnormal 10/01/2010 706.1 ACNE 10/01/2010 OWEN MARCANO, GEOFFREY 278.01 OBESITY MORBID 10/01/2010 OWEN MARCANO, GEOFFREY 626.9 menses abnormal 10/01/2010 GEOFFREY WEAVER MD 706.1 ACNE 10/01/2010 GEOFFREY WEAVER MD 278.01 OBESITY MORBID 10/01/2010 GEOFFREY WEAVER MD 626.9 menses abnormal 10/01/2010 GEOFFREY WEAVER MD 706.1 ACNE 10/01/2010 GEOFFREY WEAVER MD 278.01 OBESITY MORBID 10/01/2010 GEOFFREY WEAVER MD 626.9 menses abnormal 10/01/2010 GEOFFREY WEAVER MD 706.1 ACNE 10/01/2010 PULIDO DO HARDIK K 278.01 OBESITY MORBID 10/01/2010 PULIDO DO HARDIK K 626.9 menses abnormal 10/01/2010 PULIDO DO HARDIK K 706.1 ACNE 10/01/2010 EATRAE COPELAND APRN L 278.01 OBESITY MORBID 10/01/2010 EATRAE COPELAND APRN L 626.9 menses abnormal 10/01/2010 EATON ORESTES CARTAGENASON L 706.1 ACNE 10/01/2010 PULIDO DO, HARDIK K 278.01 OBESITY MORBID 10/01/2010 PULIDO DO HARDIK K 626.9 menses abnormal 10/01/2010 PULIDO DO HARDIK K 706.1 ACNE 10/01/2010 PULIDO DO HARDIK K 278.01 OBESITY MORBID 10/01/2010 PULIDO DO HARDIK K 626.9 menses abnormal 10/01/2010 PULIDO DO HARDIK K 706.1 ACNE 10/01/2010 PULIDO DO HARDIK K 278.01 OBESITY MORBID 10/01/2010 PULIDO DO HARDIK K 626.9 menses abnormal 10/01/2010 PULIDO DO HARDIK K 706.1 ACNE 10/01/2010 ABELINO HIDALGO APRN 278.01 OBESITY MORBID 10/01/2010 HIDALGOABELINO MUÑOZ APRN 626.9 menses abnormal 10/01/2010 HIDALGOABELINO MUÑOZ APRN 706.1 ACNE 10/01/2010 EATON RAE CARTAGENA L 278.01 OBESITY MORBID 10/01/2010 EATORESTES COPELAND APRNSON L 626.9 menses abnormal 10/01/2010 EATON IMPLEMENTATION SERVICES ANALYSTORESTES RiosSON L 706.1 ACNE 10/01/2010 PULIDO DO, HARDIK K 278.01 OBESITY MORBID 10/01/2010 PULIDO DO, HARDIK K 626.9 menses abnormal 10/01/2010 PULIDO DO, HARDIK K 706.1 ACNE 10/01/2010 EATON ORESTES CARTAGENASON L 278.01 OBESITY MORBID 10/01/2010 EATON ORESTES CARTAGENASON L 626.9 menses abnormal 10/01/2010 EATON IMPLEMENTATION SERVICES ANALYSTORESTES RiosSON L 706.1 ACNE 10/01/2010 EATON IMPLEMENTATION SERVICES ANALYSTORESTES RiosSON L 278.01 OBESITY MORBID 10/01/2010 EATON IMPLEMENTATION SERVICES ANALYSTORESTES RiosSON L 626.9 menses abnormal 10/01/2010 EATON ORESTES CARTAGENASON L 706.1 ACNE 10/01/2010 ABELINO HIDALGO APRN 278.01 OBESITY MORBID 10/01/2010 ABELINO HIDALGO APRN 626.9 menses abnormal 10/01/2010 HIDALGOABELINO MUÑOZ APRN 706.1 ACNE 10/01/2010 HIDALGOABELINO MUÑOZ APRN 278.01 OBESITY MORBID 10/01/2010 ABELINO HIDALGO APRN 626.9 menses abnormal 10/01/2010 HIDALGOABELINO MUÑOZ APRN 706.1 ACNE 10/01/2010 HIDALGO ABELINO CARTAGENA 278.01 OBESITY MORBID 10/01/2010 ABELINO HIDALGO APRN 626.9 menses abnormal 10/01/2010 HIDALGO ABELINO CARTAGENA 706.1 ACNE 10/01/2010 PULIDO DO, HARDIK K 278.01 OBESITY MORBID 10/01/2010 PULIDO DO, HARDIK K 626.9 menses abnormal 10/01/2010 PULIDO DO, HARDIK K 706.1 ACNE 10/01/2010 HIDALGO ABELINO CARTAGENA 278.01 OBESITY MORBID 10/01/2010 HIDALGO ABELINO CARTAGENA 626.9 menses abnormal 10/01/2010 HIDALGO ABELINO CARTAGENA 706.1 ACNE 10/01/2010 PULIDO DO, HARDIK K 278.01 OBESITY MORBID 10/01/2010 PULIDO DO, HARDIK K 626.9 menses abnormal 10/01/2010 HARDIK PULIDO DO 706.1 ACNE 02/12/2011 GEOFFREY WEAVER MD 790.29 PREDIABETES (IMPAIRED GLUCOSE TOLERANCE) 02/12/2011 GEOFFREY WEAVER MD 790.29 PREDIABETES (IMPAIRED GLUCOSE TOLERANCE) 02/12/2011 790.29 PREDIABETES ( IMPAIRED GLUCOSE TOLERANCE) 02/12/2011 790.29 PREDIABETES ( IMPAIRED GLUCOSE TOLERANCE) 02/12/2011 GEOFFREY WEAVER MD 790.29 PREDIABETES (IMPAIRED GLUCOSE TOLERANCE) 02/12/2011 GEOFFREY WEAVER MD 790.29 PREDIABETES (IMPAIRED GLUCOSE TOLERANCE) 02/12/2011 GEOFFREY WEAVER MD 790.29 PREDIABETES (IMPAIRED GLUCOSE TOLERANCE) 02/12/2011 HARDIK PULIDO DO 790.29 PREDIABETES (IMPAIRED GLUCOSE TOLERANCE) 02/12/2011 RAE ALEXIS APRN 790.29 PREDIABETES (IMPAIRED GLUCOSE TOLERANCE) 02/12/2011 HARDIK PULIDO DO K 790.29 PREDIABETES (IMPAIRED GLUCOSE TOLERANCE) 02/12/2011 HARDIK PULIDO DO K 790.29 PREDIABETES (IMPAIRED GLUCOSE TOLERANCE) 02/12/2011 АЛЕКСАНДР PULIDO DOA K 790.29 PREDIABETES (IMPAIRED GLUCOSE TOLERANCE) 02/12/2011 ABELINO HIDALGO APRN 790.29 PREDIABETES (IMPAIRED GLUCOSE TOLERANCE) 02/12/2011 RAE ALEXIS APRN L 790.29 PREDIABETES (IMPAIRED GLUCOSE TOLERANCE) 02/12/2011 HARDIK PULIDO DO K 790.29 PREDIABETES (IMPAIRED GLUCOSE TOLERANCE) 02/12/2011 RAE ALEXIS APRN L 790.29 PREDIABETES (IMPAIRED GLUCOSE TOLERANCE) 02/12/2011 RAE ALEXIS APRN L 790.29 PREDIABETES (IMPAIRED GLUCOSE TOLERANCE) 02/12/2011 ABELINO HIDALGO APRN 790.29 PREDIABETES (IMPAIRED GLUCOSE TOLERANCE) 02/12/2011 ABELINO HIDALGO APRN 790.29 PREDIABETES (IMPAIRED GLUCOSE TOLERANCE) 02/12/2011 ABELINO HIDALGO APRN 790.29 PREDIABETES (IMPAIRED GLUCOSE TOLERANCE) 02/12/2011 HARDIK PULIDO DO 790.29 PREDIABETES (IMPAIRED GLUCOSE TOLERANCE) 02/12/2011 ABELINO HIDALGO APRN Issa 790.29 PREDIABETES (IMPAIRED GLUCOSE TOLERANCE) 02/12/2011 HARDIK PULIDO DO 790.29 PREDIABETES (IMPAIRED GLUCOSE TOLERANCE) 02/15/2011 GEOFFREY WEAVER MD 478.19 Other Diseases Of Nasal Cavity And Sinuses 02/15/2011 GEOFFREY WEAVER MD 780.60 Fever, Unspecified 02/15/2011 GEOFFREY WEAVER MD 786.2 Cough 02/15/2011 GEOFFREY WEAVER MD 478.19 Other Diseases Of Nasal Cavity And Sinuses 02/15/2011 GEOFFREY WEAVER MD 780.60 Fever, Unspecified 02/15/2011 GEOFFREY WEAVER MD 786.2 Cough 02/15/2011 478.19 Other Diseases Of Nasal Cavity And Sinuses 02/15/2011 780.60 Fever, Unspecified 02/15/2011 786.2 Cough 02/15/2011 478.19 Other Diseases Of Nasal Cavity And Sinuses 02/15/2011 780.60 Fever, Unspecified 02/15/2011 786.2 Cough 02/15/2011 GEOFFREY WEAVER MD 478.19 Other Diseases Of Nasal Cavity And Sinuses 02/15/2011 GEOFFREY WEAVER MD 780.60 Fever, Unspecified 02/15/2011 GEOFFREY WEAVER MD 786.2 Cough 02/15/2011 GEOFFREY WEAVER MD 478.19 Other Diseases Of Nasal Cavity And Sinuses 02/15/2011 GEOFFREY WEAVER MD 780.60 Fever, Unspecified 02/15/2011 GEOFFREY WEAVER MD 786.2 Cough 02/15/2011 GEOFFREY WEAVER MD 478.19 Other Diseases Of Nasal Cavity And Sinuses 02/15/2011 GEOFFREY WEAVER MD 780.60 Fever, Unspecified 02/15/2011 GEOFFREY WEAVER MD 786.2 Cough 02/15/2011 HARDIK PULIDO DO 478.19 Other Diseases Of Nasal Cavity And Sinuses 02/15/2011 HARDIK PUILDO DO 780.60 Fever, Unspecified 02/15/2011 HARDIK PULIDO DO 786.2 Cough 02/15/2011 RAE ALEXIS APRN 478.19 Other Diseases Of Nasal Cavity And Sinuses 02/15/2011 RAE ALEXIS APRN 780.60 Fever, Unspecified 02/15/2011 EATON IMPLEMENTATION SERVICES ANALYST, ARE L 786.2 Cough 02/15/2011 PULIDO DO, HARDIK K 478.19 Other Diseases Of Nasal Cavity And Sinuses 02/15/2011 PULIDO DO, HARDIK K 780.60 Fever, Unspecified 02/15/2011 PULIDO DO, HARDIK K 786.2 Cough 02/15/2011 PULIDO DO, HARDIK K 478.19 Other Diseases Of Nasal Cavity And Sinuses 02/15/2011 PULIDO DO, HARDIK K 780.60 Fever, Unspecified 02/15/2011 PULIDO DO, HARDIK K 786.2 Cough 02/15/2011 PULIDO DO, HARDIK K 478.19 Other Diseases Of Nasal Cavity And Sinuses 02/15/2011 PULIDO DO, HARDIK K 780.60 Fever, Unspecified 02/15/2011 PULIDO DO, HARDIK K 786.2 Cough 02/15/2011 HIDALGO ABELINO CARTAGENA 478.19 Other Diseases Of Nasal Cavity And Sinuses 02/15/2011 HIDALGO ABELINO CARTAGENA 780.60 Fever, Unspecified 02/15/2011 HIDALGO ABELINO CARTAGENA 786.2 Cough 02/15/2011 EATON IMPLEMENTATION SERVICES ANALYST, RAE L 478.19 Other Diseases Of Nasal Cavity And Sinuses 02/15/2011 EATON IMPLEMENTATION SERVICES ANALYST, RAE L 780.60 Fever, Unspecified 02/15/2011 EATON IMPLEMENTATION SERVICES ANALYST, RAE L 786.2 Cough 02/15/2011 PULIDO DO, HARDIK K 478.19 Other Diseases Of Nasal Cavity And Sinuses 02/15/2011 PULIDO DO, HARDIK K 780.60 Fever, Unspecified 02/15/2011 PULIDO DO, HARDIK K 786.2 Cough 02/15/2011 EATON IMPLEMENTATION SERVICES ANALYST, RAE L 478.19 Other Diseases Of Nasal Cavity And Sinuses 02/15/2011 EATON IMPLEMENTATION SERVICES ANALYST, RAE L 780.60 Fever, Unspecified 02/15/2011 EATON IMPLEMENTATION SERVICES ANALYST, RAE L 786.2 Cough 02/15/2011 EATON IMPLEMENTATION SERVICES ANALYST, RAE L 478.19 Other Diseases Of Nasal Cavity And Sinuses 02/15/2011 EATON IMPLEMENTATION SERVICES ANALYST, RAE L 780.60 Fever, Unspecified 02/15/2011 EATON IMPLEMENTATION SERVICES ANALYST, RAE L 786.2 Cough 02/15/2011 ABELINO HIDALGO APRN 478.19 Other Diseases Of Nasal Cavity And Sinuses 02/15/2011 ABELINO HIDALGO APRN 780.60 Fever, Unspecified 02/15/2011 ABELINO HIDALGO APRN 786.2 Cough 02/15/2011 ABELINO HIDALGO APRN 478.19 Other Diseases Of Nasal Cavity And Sinuses 02/15/2011 ABELINO HIDALGO APRN 780.60 Fever, Unspecified 02/15/2011 ABELINO HIDALGO APRN 786.2 Cough 02/15/2011 ABELINO HIDALGO APRN 478.19 Other Diseases Of Nasal Cavity And Sinuses 02/15/2011 ABELINO HIDALGO APRN 780.60 Fever, Unspecified 02/15/2011 ABELINO HIDALGO APRN 786.2 Cough 02/15/2011 HARDIK PULIDO DO 478.19 Other Diseases Of Nasal Cavity And Sinuses 02/15/2011 HARDIK PULIDO DO 780.60 Fever, Unspecified 02/15/2011 HARDIK PULIDO DO 786.2 Cough 02/15/2011 ABELINO HIDALGO APRN 478.19 Other Diseases Of Nasal Cavity And Sinuses 02/15/2011 ABELINO HIDALGO APRN 780.60 Fever, Unspecified 02/15/2011 ABELINO HIDALGO APRN 786.2 Cough 02/15/2011 HARDIK PULIDO DO K 478.19 Other Diseases Of Nasal Cavity And Sinuses 02/15/2011 HARDIK PULIDO DO 780.60 Fever, Unspecified 02/15/2011 HARDIK PULIDO DO K 786.2 Cough 05/21/2011 GEOFFREY WEAVER MD 034.0 Streptococcal Sore Throat 05/21/2011 GEOFFREY WEAVER MD 054.9 HERPES SIMPLEX WITHOUT COMPLICATION 05/21/2011 GEOFFREY WEAVER MD 034.0 Streptococcal Sore Throat 05/21/2011 GEOFFREY WEAVER MD 054.9 HERPES SIMPLEX WITHOUT COMPLICATION 05/21/2011 034.0 Streptococcal Sore Throat 05/21/2011 054.9 HERPES SIMPLEX WITHOUT COMPLICATION 05/21/2011 034.0 Streptococcal Sore Throat 05/21/2011 054.9 HERPES SIMPLEX WITHOUT COMPLICATION 05/21/2011 GEOFFREY WEAVER MD 034.0 Streptococcal Sore Throat 05/21/2011 GEOFFREY WEAVER MD 054.9 HERPES SIMPLEX WITHOUT COMPLICATION 05/21/2011 GEOFFREY WAEVER MD 034.0 Streptococcal Sore Throat 05/21/2011 GEOFFREY WEAVER MD 054.9 HERPES SIMPLEX WITHOUT COMPLICATION 05/21/2011 GEOFFREY WEAVER MD 034.0 Streptococcal Sore Throat 05/21/2011 GEOFFREY WEAVER MD 054.9 HERPES SIMPLEX WITHOUT COMPLICATION 05/21/2011 PULIDO DO, HARDIK K 034.0 Streptococcal Sore Throat 05/21/2011 PULIDO DO, HARDIK K 054.9 HERPES SIMPLEX WITHOUT COMPLICATION 05/21/2011 EATON IMPLEMENTATION SERVICES ANALYST, RAE L 034.0 Streptococcal Sore Throat 05/21/2011 EATON IMPLEMENTATION SERVICES ANALYST, RAE L 054.9 HERPES SIMPLEX WITHOUT COMPLICATION 05/21/2011 PULIDO DO, HARDIK K 034.0 Streptococcal Sore Throat 05/21/2011 PULIDO DO, HARDIK K 054.9 HERPES SIMPLEX WITHOUT COMPLICATION 05/21/2011 PULIDO DO, HARDIK K 034.0 Streptococcal Sore Throat 05/21/2011 PULIDO DO, HARDIK K 054.9 HERPES SIMPLEX WITHOUT COMPLICATION 05/21/2011 PULIDO DO, HARDIK K 034.0 Streptococcal Sore Throat 05/21/2011 PULIDO DO, HARDIK K 054.9 HERPES SIMPLEX WITHOUT COMPLICATION 05/21/2011 ABELINO HIDALGO APRN 034.0 Streptococcal Sore Throat 05/21/2011 ABELINO HIDALGO APRN 054.9 HERPES SIMPLEX WITHOUT COMPLICATION 05/21/2011 EATON IMPLEMENTATION SERVICES ANALYST, RAE L 034.0 Streptococcal Sore Throat 05/21/2011 EATON IMPLEMENTATION SERVICES ANALYST, RAE L 054.9 HERPES SIMPLEX WITHOUT COMPLICATION 05/21/2011 PULIDO DO, HARDIK K 034.0 Streptococcal Sore Throat 05/21/2011 PULIDO DO, HARDIK K 054.9 HERPES SIMPLEX WITHOUT COMPLICATION 05/21/2011 EATON IMPLEMENTATION SERVICES ANALYST, RAE L 034.0 Streptococcal Sore Throat 05/21/2011 EATON IMPLEMENTATION SERVICES ANALYST, RAE L 054.9 HERPES SIMPLEX WITHOUT COMPLICATION 05/21/2011 EATON IMPLEMENTATION SERVICES ANALYST, RAE L 034.0 Streptococcal Sore Throat 05/21/2011 EATON IMPLEMENTATION SERVICES ANALYST, RAE L 054.9 HERPES SIMPLEX WITHOUT COMPLICATION 05/21/2011 ABELINO HIDALGO APRN 034.0 Streptococcal Sore Throat 05/21/2011 ABELINO HIDALGO APRN 054.9 HERPES SIMPLEX WITHOUT COMPLICATION 05/21/2011 ABELINO HIDALGO APRN 034.0 Streptococcal Sore Throat 05/21/2011 ABELINO HIDALGO APRN 054.9 HERPES SIMPLEX WITHOUT COMPLICATION 05/21/2011 HIDALGO ABELINO CARTAGENA 034.0 Streptococcal Sore Throat 05/21/2011 ABELINO HIDALGO APRN 054.9 HERPES SIMPLEX WITHOUT COMPLICATION 05/21/2011 PULIDO DO, HARDIK K 034.0 Streptococcal Sore Throat 05/21/2011 PULIDO DO, HARDIK K 054.9 HERPES SIMPLEX WITHOUT COMPLICATION 05/21/2011 HIDALGO ABELINO CARTAGENA 034.0 Streptococcal Sore Throat 05/21/2011 HIDALGO ABELINO CARTAGENA 054.9 HERPES SIMPLEX WITHOUT COMPLICATION 05/21/2011 PULIDO DO, HARDIK K 034.0 Streptococcal Sore Throat 05/21/2011 PLUIDO DO, HARDIK K 054.9 HERPES SIMPLEX WITHOUT COMPLICATION 07/16/2011 GEOFFREY WEAVER MD 478.19 Other Diseases Of Nasal Cavity And Sinuses 07/16/2011 GEOFFREY WEAVER MD 493.90 ASTHMA UNSPECIFIED 07/16/2011 GEOFFREY WEAVER MD 786.2 Cough 07/16/2011 GEOFFREY WEAVER MD 478.19 Other Diseases Of Nasal Cavity And Sinuses 07/16/2011 GEOFFREY WEAVER MD 493.90 ASTHMA UNSPECIFIED 07/16/2011 GEOFFREY WEAVER MD 786.2 Cough 07/16/2011 478.19 Other Diseases Of Nasal Cavity And Sinuses 07/16/2011 493.90 ASTHMA UNSPECIFIED 07/16/2011 786.2 Cough 07/16/2011 478.19 Other Diseases Of Nasal Cavity And Sinuses 07/16/2011 493.90 ASTHMA UNSPECIFIED 07/16/2011 786.2 Cough 07/16/2011 GEOFFREY WEAVER MD 478.19 Other Diseases Of Nasal Cavity And Sinuses 07/16/2011 GEOFFREY WEAVER MD 493.90 ASTHMA UNSPECIFIED 07/16/2011 GEOFFREY WEAVER MD 786.2 Cough 07/16/2011 GEOFFREY WEAVER MD 478.19 Other Diseases Of Nasal Cavity And Sinuses 07/16/2011 GEOFFREY WEAVER MD 493.90 ASTHMA UNSPECIFIED 07/16/2011 GEOFFREY WEAVER MD 786.2 Cough 07/16/2011 GEOFFREY WEAVER MD 478.19 Other Diseases Of Nasal Cavity And Sinuses 07/16/2011 GEOFFREY WEAVER MD 493.90 ASTHMA UNSPECIFIED 07/16/2011 GEOFFREY WEAVER MD 786.2 Cough 07/16/2011 PULIDO DO, HARDIK K 478.19 Other Diseases Of Nasal Cavity And Sinuses 07/16/2011 PULIDO DO, HARDIK K 493.90 ASTHMA UNSPECIFIED 07/16/2011 PULIDO DO, HARDIK K 786.2 Cough 07/16/2011 EATON IMPLEMENTATION SERVICES ANALYSTORESTES RiosSON L 478.19 Other Diseases Of Nasal Cavity And Sinuses 07/16/2011 EATON IMPLEMENTATION SERVICES ANALYSTORESTESRAE L 493.90 ASTHMA UNSPECIFIED 07/16/2011 EATON IMPLEMENTATION SERVICES ANALYSTORESTES RiosSON L 786.2 Cough 07/16/2011 PULIDO DO, HARDIK K 478.19 Other Diseases Of Nasal Cavity And Sinuses 07/16/2011 PULIDO DO, HARDIK K 493.90 ASTHMA UNSPECIFIED 07/16/2011 PULIDO DO, HARDIK K 786.2 Cough 07/16/2011 PULIDO DO, HARDIK K 478.19 Other Diseases Of Nasal Cavity And Sinuses 07/16/2011 PULIDO DO, HARDIK K 493.90 ASTHMA UNSPECIFIED 07/16/2011 PULIDO DO, HARDIK K 786.2 Cough 07/16/2011 PULIDO DO, HARDIK K 478.19 Other Diseases Of Nasal Cavity And Sinuses 07/16/2011 PULIDO DO, HARDIK K 493.90 ASTHMA UNSPECIFIED 07/16/2011 PULIDO DO, HARDIK K 786.2 Cough 07/16/2011 ABELINO HIDALGO APRN 478.19 Other Diseases Of Nasal Cavity And Sinuses 07/16/2011 ABELINO HIDALGO APRN 493.90 ASTHMA UNSPECIFIED 07/16/2011 ABELINO HIDALGO APRN 786.2 Cough 07/16/2011 EATRAE COPELAND APRN L 478.19 Other Diseases Of Nasal Cavity And Sinuses 07/16/2011 EATON ORESTES CARTAGENASON L 493.90 ASTHMA UNSPECIFIED 07/16/2011 EATON IMPLEMENTATION SERVICES ANALYST, RAE L 786.2 Cough 07/16/2011 PULIDO DO, HARDIK K 478.19 Other Diseases Of Nasal Cavity And Sinuses 07/16/2011 PULIDO DO HARDIK K 493.90 ASTHMA UNSPECIFIED 07/16/2011 PULIDO DO, HARDIK K 786.2 Cough 07/16/2011 REUBEN CARTAGENA RAE L 478.19 Other Diseases Of Nasal Cavity And Sinuses 07/16/2011 REUBEN CARTAGENA RAE L 493.90 ASTHMA UNSPECIFIED 07/16/2011 ORESTES ALEXIS APRNSON L 786.2 Cough 07/16/2011 REUBEN CARTAGENA RAE L 478.19 Other Diseases Of Nasal Cavity And Sinuses 07/16/2011 REUBEN CARTAGENA RAE L 493.90 ASTHMA UNSPECIFIED 07/16/2011 REUBEN HANKINSNORESTESRAE L 786.2 Cough 07/16/2011 HIDALGO ABELINO CARTAGENA 478.19 Other Diseases Of Nasal Cavity And Sinuses 07/16/2011 ABELINO HIDALGO APRN 493.90 ASTHMA UNSPECIFIED 07/16/2011 ABELINO HIDALGO APRN 786.2 Cough 07/16/2011 ABELINO HIDALGO APRN 478.19 Other Diseases Of Nasal Cavity And Sinuses 07/16/2011 ABELINO HIDALGO APRN 493.90 ASTHMA UNSPECIFIED 07/16/2011 ABELINO HIDALGO APRN 786.2 Cough 07/16/2011 ABELINO HIDALGO APRN 478.19 Other Diseases Of Nasal Cavity And Sinuses 07/16/2011 ABELINO HIDALGO APRN 493.90 ASTHMA UNSPECIFIED 07/16/2011 ABELINO HIDALGO APRN 786.2 Cough 07/16/2011 HARDIK PULIDO DO K 478.19 Other Diseases Of Nasal Cavity And Sinuses 07/16/2011 АЛЕКСАНДР PULIDO DOA K 493.90 ASTHMA UNSPECIFIED 07/16/2011 АЛЕКСАНДР PULIDO DOA K 786.2 Cough 07/16/2011 HIDALGOABELINO MUÑOZ APRN 478.19 Other Diseases Of Nasal Cavity And Sinuses 07/16/2011 ABELINO HIDALGO APRN 493.90 ASTHMA UNSPECIFIED 07/16/2011 ABELINO HIDALGO APRN 786.2 Cough 07/16/2011 АЛЕКСАНДР PULIDO DOA K 478.19 Other Diseases Of Nasal Cavity And Sinuses 07/16/2011 АЛЕКСАНДР PULIDO DOA K 493.90 ASTHMA UNSPECIFIED 07/16/2011 АЛЕКСАНДР PULIDO DOA K 786.2 Cough 07/25/2011 OWEN MARCANO, GEOFFREY V67.9 Unspecified Follow-up Examination 07/25/2011 OWEN MARCANO, GEOFFREY V67.9 Unspecified Follow-up Examination 07/25/2011 V67.9 Unspecified Follow-up Examination 07/25/2011 V67.9 Unspecified Follow-up Examination 07/25/2011 OWEN MARCANO, GEOFFREY V67.9 Unspecified Follow-up Examination 07/25/2011 OWEN MARCANO, GEOFFREY V67.9 Unspecified Follow-up Examination 07/25/2011 OWEN MARCANO, GEOFFREY V67.9 Unspecified Follow-up Examination 07/25/2011 PULIDO DO, HARDIK K V67.9 Unspecified Follow-up Examination 07/25/2011 EATON IMPLEMENTATION SERVICES ANALYST, RAE L V67.9 Unspecified Follow-up Examination 07/25/2011 PULIDO DO, HARDIK K V67.9 Unspecified Follow-up Examination 07/25/2011 PULIDO DO, HARDIK K V67.9 Unspecified Follow-up Examination 07/25/2011 PULIDO DO, HARDIK K V67.9 Unspecified Follow-up Examination 07/25/2011 ABELINO HIDALGO APRN J V67.9 Unspecified Follow-up Examination 07/25/2011 EATON IMPLEMENTATION SERVICES ANALYST, RAE L V67.9 Unspecified Follow-up Examination 07/25/2011 PULIDO DO, HARDIK K V67.9 Unspecified Follow-up Examination 07/25/2011 EATON IMPLEMENTATION SERVICES ANALYST, RAE L V67.9 Unspecified Follow-up Examination 07/25/2011 EATON IMPLEMENTATION SERVICES ANALYST, RAE L V67.9 Unspecified Follow-up Examination 07/25/2011 HIDALGOABELINO MUÑOZ APRN V67.9 Unspecified Follow-up Examination 07/25/2011 ABELINO HIDALGO APRN V67.9 Unspecified Follow-up Examination 07/25/2011 ABELINO HIDALGO APRN J V67.9 Unspecified Follow-up Examination 07/25/2011 PULIDO DO, HARDIK K V67.9 Unspecified Follow-up Examination 07/25/2011 ABELINO HIDALGO APRN J V67.9 Unspecified Follow-up Examination 07/25/2011 PULIDO DOАЛЕКСАНДРA K V67.9 Unspecified Follow-up Examination 08/22/2011 OWEN MARCANO, GEOFFREY 796.2 Blood Pressure Isolated Elevated 08/22/2011 GEOFFREY WEAVER MD 796.2 Blood Pressure Isolated Elevated 08/22/2011 796.2 Blood Pressure Isolated Elevated 08/22/2011 796.2 Blood Pressure Isolated Elevated 08/22/2011 GEOFFREY WEAVER MD 796.2 Blood Pressure Isolated Elevated 08/22/2011 GEOFFREY WEAVER MD 796.2 Blood Pressure Isolated Elevated 08/22/2011 GEOFFREY WEAVER MD 796.2 Blood Pressure Isolated Elevated 08/22/2011 PULIDO DO, HARDIK K 796.2 Blood Pressure Isolated Elevated 08/22/2011 EATRAE COPELAND APRN L 796.2 Blood Pressure Isolated Elevated 08/22/2011 PULIDO DO, HARDIK K 796.2 Blood Pressure Isolated Elevated 08/22/2011 PULIDO DO, HARDIK K 796.2 Blood Pressure Isolated Elevated 08/22/2011 PULIDO DO, HARDIK K 796.2 Blood Pressure Isolated Elevated 08/22/2011 ABELINO HIDALGO APRN J 796.2 Blood Pressure Isolated Elevated 08/22/2011 RAE ALEXIS APRN L 796.2 Blood Pressure Isolated Elevated 08/22/2011 PULIDO DO, HARDIK K 796.2 Blood Pressure Isolated Elevated 08/22/2011 RAE ALEXIS APRN L 796.2 Blood Pressure Isolated Elevated 08/22/2011 RAE ALEXIS APRN L 796.2 Blood Pressure Isolated Elevated 08/22/2011 ABELINO HIDALGO APRN J 796.2 Blood Pressure Isolated Elevated 08/22/2011 ABELINO HIDALGO APRN J 796.2 Blood Pressure Isolated Elevated 08/22/2011 ABELINO HIDALGO APRN 796.2 Blood Pressure Isolated Elevated 08/22/2011 PULIDO DO, HARDIK K 796.2 Blood Pressure Isolated Elevated 08/22/2011 ABELINO HIDALGO APRN J 796.2 Blood Pressure Isolated Elevated 08/22/2011 PULIDO DO, HARDIK K 796.2 Blood Pressure Isolated Elevated 10/04/2011 GEOFFREY WEAVER MD 477.0 ALLERGIC RHINITIS DUE TO POLLEN 10/04/2011 GEOFFREY WEAVER MD 477.0 ALLERGIC RHINITIS DUE TO POLLEN 10/04/2011 477.0 ALLERGIC RHINITIS DUE TO POLLEN 10/04/2011 477.0 ALLERGIC RHINITIS DUE TO POLLEN 10/04/2011 GEOFFREY WEAVER MD 477.0 ALLERGIC RHINITIS DUE TO POLLEN 10/04/2011 OWEN MARCANO, GEOFFREY 477.0 ALLERGIC RHINITIS DUE TO POLLEN 10/04/2011 OWEN MARCANO, GEOFFREY 477.0 ALLERGIC RHINITIS DUE TO POLLEN 10/04/2011 PULIDO DO, HARDIK K 477.0 ALLERGIC RHINITIS DUE TO POLLEN 10/04/2011 EATON IMPLEMENTATION SERVICES ANALYSTRAE Rios L 477.0 ALLERGIC RHINITIS DUE TO POLLEN 10/04/2011 PULIDO DO, HARDIK K 477.0 ALLERGIC RHINITIS DUE TO POLLEN 10/04/2011 PULIDO DO, HARDIK K 477.0 ALLERGIC RHINITIS DUE TO POLLEN 10/04/2011 PULIDO DO, HARDIK K 477.0 ALLERGIC RHINITIS DUE TO POLLEN 10/04/2011 HIDALGO IMPLEMENTATION SERVICES ANALYSTABELINO Rios J 477.0 ALLERGIC RHINITIS DUE TO POLLEN 10/04/2011 EATON IMPLEMENTATION SERVICES ANALYST, RAE L 477.0 ALLERGIC RHINITIS DUE TO POLLEN 10/04/2011 PULIDO DO, HARDIK K 477.0 ALLERGIC RHINITIS DUE TO POLLEN 10/04/2011 EATON IMPLEMENTATION SERVICES ANALYSTRAE L 477.0 ALLERGIC RHINITIS DUE TO POLLEN 10/04/2011 EATON IMPLEMENTATION SERVICES ANALYSTRAE L 477.0 ALLERGIC RHINITIS DUE TO POLLEN 10/04/2011 HIDALGO IMPLEMENTATION SERVICES ANALYSTABELINO Rios J 477.0 ALLERGIC RHINITIS DUE TO POLLEN 10/04/2011 HIDALGO ABELINO CARTAGENA J 477.0 ALLERGIC RHINITIS DUE TO POLLEN 10/04/2011 HIDALGO IMPLEMENTATION SERVICES ANALYSTABELINO Rios J 477.0 ALLERGIC RHINITIS DUE TO POLLEN 10/04/2011 PULIDO DO, HARDIK K 477.0 ALLERGIC RHINITIS DUE TO POLLEN 10/04/2011 HIDALGO ABELINO CARTAGENA J 477.0 ALLERGIC RHINITIS DUE TO POLLEN 10/04/2011 PULIDO DO, HARDIK K 477.0 ALLERGIC RHINITIS DUE TO POLLEN 10/24/2011 OWEN MARCANO, GEOFFREY 463 TONSILLITIS 10/24/2011 OWEN MARCANO, GEOFFREY 463 TONSILLITIS 10/24/2011 463 TONSILLITIS 10/24/2011 463 TONSILLITIS 10/24/2011 OWEN MARCANO, GEOFFREY 463 TONSILLITIS 10/24/2011 OWEN MARCANO, GEOFFREY 463 TONSILLITIS 10/24/2011 OWEN MARCANO, GEOFFREY 463 TONSILLITIS 10/24/2011 HARDIK PULIDO DO 463 TONSILLITIS 10/24/2011 EATON IMPLEMENTATION SERVICES ANALYST, RAE L 463 TONSILLITIS 10/24/2011 PULIDO DO, HARDIK K 463 TONSILLITIS 10/24/2011 PULIDO DO, HARDIK K 463 TONSILLITIS 10/24/2011 PULIDO DO, HARDIK K 463 TONSILLITIS 10/24/2011 HIDALGO IMPLEMENTATION SERVICES ANALYSTABELINO Rios 463 TONSILLITIS 10/24/2011 EATON IMPLEMENTATION SERVICES ANALYSTORESTES RiosSON L 463 TONSILLITIS 10/24/2011 PULIDO DO HARDIK K 463 TONSILLITIS 10/24/2011 EATON IMPLEMENTATION SERVICES ANALYST RAE L 463 TONSILLITIS 10/24/2011 EATON IMPLEMENTATION SERVICES ANALYSTORESTESRAE L 463 TONSILLITIS 10/24/2011 HIDALGO IMPLEMENTATION SERVICES ANALYSTABELINO Rios 463 TONSILLITIS 10/24/2011 HIDALGO IMPLEMENTATION SERVICES ANALYSTABELINO Rios 463 TONSILLITIS 10/24/2011 HIDALGO IMPLEMENTATION SERVICES ANALYSTABELINO Rios 463 TONSILLITIS 10/24/2011 PULIDO DOАЛЕКСАНДРA K 463 TONSILLITIS 10/24/2011 HIDALGO IMPLEMENTATION SERVICES ANALYSTABELINO Rios 463 TONSILLITIS 10/24/2011 PULIDO DO, HARDIK K 463 TONSILLITIS 03/05/2012 GEOFFREY WEAVER MD 465.9 UPPER RESPIRATORY INFECTION 03/05/2012 GEOFFREY WEAVER MD 465.9 UPPER RESPIRATORY INFECTION 03/05/2012 465.9 UPPER RESPIRATORY INFECTION 03/05/2012 465.9 UPPER RESPIRATORY INFECTION 03/05/2012 GEOFFREY WEAVER MD 465.9 UPPER RESPIRATORY INFECTION 03/05/2012 GEOFFREY WEAVER MD 465.9 UPPER RESPIRATORY INFECTION 03/05/2012 GEOFFREY WEAVER MD 465.9 UPPER RESPIRATORY INFECTION 03/05/2012 PULIDO DO HARDIK K 465.9 UPPER RESPIRATORY INFECTION 03/05/2012 EATON IMPLEMENTATION SERVICES ANALYSTRAE Rios L 465.9 UPPER RESPIRATORY INFECTION 03/05/2012 PULIDO DO HARDIK K 465.9 UPPER RESPIRATORY INFECTION 03/05/2012 PULIDO DO HARDIK K 465.9 UPPER RESPIRATORY INFECTION 03/05/2012 PULIDO DO, HARDIK K 465.9 UPPER RESPIRATORY INFECTION 03/05/2012 HIDALGO ABELINO CARTAGENA 465.9 UPPER RESPIRATORY INFECTION 03/05/2012 EATON IMPLEMENTATION SERVICES ANALYSTRAE Rios L 465.9 UPPER RESPIRATORY INFECTION 03/05/2012 PULIDO DO HARDIK K 465.9 UPPER RESPIRATORY INFECTION 03/05/2012 ELINORDINORAH IMPLEMENTATION SERVICES ANALYST, RAE L 465.9 UPPER RESPIRATORY INFECTION 03/05/2012 ELINORON IMPLEMENTATION SERVICES ANALYST, RAE L 465.9 UPPER RESPIRATORY INFECTION 03/05/2012 HIDALGO IMPLEMENTATION SERVICES ANALYSTABELINO Rios J 465.9 UPPER RESPIRATORY INFECTION 03/05/2012 HIDALGO IMPLEMENTATION SERVICES ANALYST, ABELINO J 465.9 UPPER RESPIRATORY INFECTION 03/05/2012 HIDALGO IMPLEMENTATION SERVICES ANALYST, ABELINO J 465.9 UPPER RESPIRATORY INFECTION 03/05/2012 TESS CHRISTY HARDIK K 465.9 UPPER RESPIRATORY INFECTION 03/05/2012 HIDALGO IMPLEMENTATION SERVICES ANALYST, ABELINO J 465.9 UPPER RESPIRATORY INFECTION 03/05/2012 PULIDO DO HARDIK K 465.9 UPPER RESPIRATORY INFECTION 03/31/2012 GEOFFERY WEAVER MD 461.9 SINUSITIS ACUTE 03/31/2012 GEOFFREY WEAVER MD 525.9 tooth pain 03/31/2012 GEOFFREY WEAVER MD 719.41 COMPRESSION ARTHRALGIA - SHOULDER REGION RIGHT 03/31/2012 GEOFFREY WEAVER MD 786.2 cough 03/31/2012 GEOFFREY WEAVER MD 461.9 SINUSITIS ACUTE 03/31/2012 GEOFFREY WEAVER MD 525.9 tooth pain 03/31/2012 GEOFFREY WEAVER MD 719.41 COMPRESSION ARTHRALGIA - SHOULDER REGION RIGHT 03/31/2012 GEOFFREY WEAVER MD 786.2 cough 03/31/2012 461.9 SINUSITIS ACUTE 03/31/2012 525.9 tooth pain 03/31/2012 719.41 COMPRESSION ARTHRALGIA - SHOULDER REGION RIGHT 03/31/2012 786.2 cough 03/31/2012 461.9 SINUSITIS ACUTE 03/31/2012 525.9 tooth pain 03/31/2012 719.41 COMPRESSION ARTHRALGIA - SHOULDER REGION RIGHT 03/31/2012 786.2 cough 03/31/2012 GEOFFREY WEAVER MD 461.9 SINUSITIS ACUTE 03/31/2012 GEOFFREY WEAVER MD 525.9 tooth pain 03/31/2012 GEOFFREY WEAVER MD 719.41 COMPRESSION ARTHRALGIA - SHOULDER REGION RIGHT 03/31/2012 GEOFFREY WEAVER MD 786.2 cough 03/31/2012 GEOFFREY WEAVER MD 461.9 SINUSITIS ACUTE 03/31/2012 GEOFFREY WEAVER MD 525.9 tooth pain 03/31/2012 GEOFFREY WEAVER MD 719.41 COMPRESSION ARTHRALGIA - SHOULDER REGION RIGHT 03/31/2012 WOEN MARCANO, GEOFFREY 786.2 cough 03/31/2012 OWEN MARCANO, GEOFFREY 461.9 SINUSITIS ACUTE 03/31/2012 GEOFFREY WEAVER MD 525.9 tooth pain 03/31/2012 GEOFFREY WEAVER MD 719.41 COMPRESSION ARTHRALGIA - SHOULDER REGION RIGHT 03/31/2012 GEOFFREY WEAVER MD 786.2 cough 03/31/2012 PULIDO DO, HARDIK K 461.9 SINUSITIS ACUTE 03/31/2012 PULIDO DO, HARDIK K 525.9 tooth pain 03/31/2012 PULIDO DO, HARDIK K 719.41 COMPRESSION ARTHRALGIA - SHOULDER REGION RIGHT 03/31/2012 PULIDO DO, HARDIK K 786.2 cough 03/31/2012 EATRAE COPELAND APRN L 461.9 SINUSITIS ACUTE 03/31/2012 [employer]LYSTORESTES RiosSON L 525.9 tooth pain 03/31/2012 [employer] RiosSON L 719.41 COMPRESSION ARTHRALGIA - SHOULDER REGION RIGHT 03/31/2012 EATORESTES COPELAND APRNSON L 786.2 cough 03/31/2012 PULIDO DO, HARDIK K 461.9 SINUSITIS ACUTE 03/31/2012 PULIDO DO, HARDIK K 525.9 tooth pain 03/31/2012 PULIDO DO, HARDIK K 719.41 COMPRESSION ARTHRALGIA - SHOULDER REGION RIGHT 03/31/2012 PULIDO DO, HARDIK K 786.2 cough 03/31/2012 PULIDO DO, HARDKI K 461.9 SINUSITIS ACUTE 03/31/2012 PULIDO DO, HARDIK K 525.9 tooth pain 03/31/2012 PULIDO DO, HARDIK K 719.41 COMPRESSION ARTHRALGIA - SHOULDER REGION RIGHT 03/31/2012 PULIDO DO, HARDIK K 786.2 cough 03/31/2012 PULIDO DO, HARDIK K 461.9 SINUSITIS ACUTE 03/31/2012 PULIDO DO, HARDIK K 525.9 tooth pain 03/31/2012 PULIDO DO, HARDIK K 719.41 COMPRESSION ARTHRALGIA - SHOULDER REGION RIGHT 03/31/2012 PULIDO DO, HARDIK K 786.2 cough 03/31/2012 ABELINO HIDALGO APRN 461.9 SINUSITIS ACUTE 03/31/2012 ABELINO HIDALGO APRN 525.9 tooth pain 03/31/2012 ABELINO HIDALGO APRN 719.41 COMPRESSION ARTHRALGIA - SHOULDER REGION RIGHT 03/31/2012 ABELINO HIDALGO APRN 786.2 cough 03/31/2012 REUBEN HANKINSRAE Rios L 461.9 SINUSITIS ACUTE 03/31/2012 REUBEN HANKINSRAE Rios L 525.9 tooth pain 03/31/2012 REUBEN HANKINSRAE Rios L 719.41 COMPRESSION ARTHRALGIA - SHOULDER REGION RIGHT 03/31/2012 REUBEN HANKINSRAE Rios L 786.2 cough 03/31/2012 PULIDO DO, HARDIK K 461.9 SINUSITIS ACUTE 03/31/2012 PULIDO DO, HARDIK K 525.9 tooth pain 03/31/2012 PULIDO DO, HARDIK K 719.41 COMPRESSION ARTHRALGIA - SHOULDER REGION RIGHT 03/31/2012 PULIDO DO, HARDIK K 786.2 cough 03/31/2012 REUBEN HANKINSRAE Rios L 461.9 SINUSITIS ACUTE 03/31/2012 REUBEN HANKINSRAE Rios L 525.9 tooth pain 03/31/2012 REUBEN HANKINSGabriel RAE L 719.41 COMPRESSION ARTHRALGIA - SHOULDER REGION RIGHT 03/31/2012 REUBEN HANKINSRAE Rios L 786.2 cough 03/31/2012 REUBEN RAE CARTAGENA L 461.9 SINUSITIS ACUTE 03/31/2012 REUBEN RAE CARTAGENA L 525.9 tooth pain 03/31/2012 REUBEN RAE CARTAGENA L 719.41 COMPRESSION ARTHRALGIA - SHOULDER REGION RIGHT 03/31/2012 REUBEN RAE CARTAGENA L 786.2 cough 03/31/2012 ABELINO HIDALGO APRN 461.9 SINUSITIS ACUTE 03/31/2012 ABELINO HIDALGO APRN 525.9 tooth pain 03/31/2012 ABELION HIDALGO APRN 719.41 COMPRESSION ARTHRALGIA - SHOULDER REGION RIGHT 03/31/2012 ABELINO HIDALGO APRN 786.2 cough 03/31/2012 ABELINO HIDALGO APRN 461.9 SINUSITIS ACUTE 03/31/2012 ABELINO HIDALGO APRN 525.9 tooth pain 03/31/2012 ABELINO HIDALGO APRN 719.41 COMPRESSION ARTHRALGIA - SHOULDER REGION RIGHT 03/31/2012 ABELINO HIDALGO APRN 786.2 cough 03/31/2012 ABELINO HIDALGO APRN 461.9 SINUSITIS ACUTE 03/31/2012 ABELINO HIDALGO APRN 525.9 tooth pain 03/31/2012 ABELINO HIDALGO APRN 719.41 COMPRESSION ARTHRALGIA - SHOULDER REGION RIGHT 03/31/2012 ABELINO HIDALGO APRN 786.2 cough 03/31/2012 АЛЕКСАНДР PULIDO DOA K 461.9 SINUSITIS ACUTE 03/31/2012 АЛЕКСАНДР PULIDO DOA K 525.9 tooth pain 03/31/2012 PULIDO DO HARDIK K 719.41 COMPRESSION ARTHRALGIA - SHOULDER REGION RIGHT 03/31/2012 АЛЕКСАНДР PULIDO DOA K 786.2 cough 03/31/2012 ABELINO HIDALGO APRN 461.9 SINUSITIS ACUTE 03/31/2012 ABELINO HIDALGO APRN 525.9 tooth pain 03/31/2012 ABELINO HIDALGO APRN 719.41 COMPRESSION ARTHRALGIA - SHOULDER REGION RIGHT 03/31/2012 ABELINO HIDALGO APRN 786.2 cough 03/31/2012 АЛЕКСАНДР PULIDO DOA K 461.9 SINUSITIS ACUTE 03/31/2012 АЛЕКСАНДР PULIDO DOA K 525.9 tooth pain 03/31/2012 PULIDO DO HARDIK K 719.41 COMPRESSION ARTHRALGIA - SHOULDER REGION RIGHT 03/31/2012 АЛЕКСАНДР PULIDO DOA K 786.2 cough 07/23/2012 GEOFFREY WEAVER MD 493.82 ASTHMA COUGH VARIANT 07/23/2012 GEOFFREY WEAVER MD 493.82 ASTHMA COUGH VARIANT 07/23/2012 493.82 ASTHMA COUGH VARIANT 07/23/2012 493.82 ASTHMA COUGH VARIANT 07/23/2012 GEOFFREY WEAVER MD 493.82 ASTHMA COUGH VARIANT 07/23/2012 GEOFFREY WEAVER MD 493.82 ASTHMA COUGH VARIANT 07/23/2012 GEOFFREY WEAVER MD 493.82 ASTHMA COUGH VARIANT 07/23/2012 HARDIK PULIDO DO 493.82 ASTHMA COUGH VARIANT 07/23/2012 RAE ALEXIS APRN 493.82 ASTHMA COUGH VARIANT 07/23/2012 HARDIK PULIDO DO K 493.82 ASTHMA COUGH VARIANT 07/23/2012 HARDIK PULIDO DO K 493.82 ASTHMA COUGH VARIANT 07/23/2012 HARDIK PULIDO DO K 493.82 ASTHMA COUGH VARIANT 07/23/2012 ABELINO HIDALGO APRN 493.82 ASTHMA COUGH VARIANT 07/23/2012 EATRAE COPELAND APRN L 493.82 ASTHMA COUGH VARIANT 07/23/2012 HARDIK PULIDO DO K 493.82 ASTHMA COUGH VARIANT 07/23/2012 EATON MITZI RAE L 493.82 ASTHMA COUGH VARIANT 07/23/2012 EATON MITZI RAE L 493.82 ASTHMA COUGH VARIANT 07/23/2012 ABELINO HIDALGO APRN 493.82 ASTHMA COUGH VARIANT 07/23/2012 ABELINO HIDALGO APRN 493.82 ASTHMA COUGH VARIANT 07/23/2012 ABELINO HIDALGO APRN 493.82 ASTHMA COUGH VARIANT 07/23/2012 HARDIK PULIDO DO K 493.82 ASTHMA COUGH VARIANT 07/23/2012 ABELINO HIDALGO APRN 493.82 ASTHMA COUGH VARIANT 07/23/2012 HARDIK PULIDO DO K 493.82 ASTHMA COUGH VARIANT 08/03/2012 GEOFFREY WEAVER MD 381.01 OTITIS MEDIA ACUTE SEROUS LEFT EAR 08/03/2012 GEOFFREY WEAVER MD 493.92 ASTHMA WITH ACUTE EXACERBATION 08/03/2012 381.01 OTITIS MEDIA ACUTE SEROUS LEFT EAR 08/03/2012 493.92 ASTHMA WITH ACUTE EXACERBATION 08/03/2012 381.01 OTITIS MEDIA ACUTE SEROUS LEFT EAR 08/03/2012 493.92 ASTHMA WITH ACUTE EXACERBATION 08/03/2012 GEOFFREY WEAVER MD 381.01 OTITIS MEDIA ACUTE SEROUS LEFT EAR 08/03/2012 GEOFFREY WEAVER MD 493.92 ASTHMA WITH ACUTE EXACERBATION 08/03/2012 GEOFFREY WEAVER MD 381.01 OTITIS MEDIA ACUTE SEROUS LEFT EAR 08/03/2012 GEOFFREY WEAVER MD 493.92 ASTHMA WITH ACUTE EXACERBATION 08/03/2012 GEOFFREY WEAVER MD 381.01 OTITIS MEDIA ACUTE SEROUS LEFT EAR 08/03/2012 GEOFFREY WEAVER MD 493.92 ASTHMA WITH ACUTE EXACERBATION 08/03/2012 HARDIK PULIDO DO K 381.01 OTITIS MEDIA ACUTE SEROUS LEFT EAR 08/03/2012 АЛЕКСАНДР PULIDO DOA K 493.92 ASTHMA WITH ACUTE EXACERBATION 08/03/2012 EATORESTES COPELAND APRNSON L 381.01 OTITIS MEDIA ACUTE SEROUS LEFT EAR 08/03/2012 EATON IMPLEMENTATION SERVICES ANALYST, RAE L 493.92 ASTHMA WITH ACUTE EXACERBATION 08/03/2012 PULIDO АЛЕКСАНДР CHRISTYA K 381.01 OTITIS MEDIA ACUTE SEROUS LEFT EAR 08/03/2012 PULIDO АЛЕКСАНДР CHRISTYA K 493.92 ASTHMA WITH ACUTE EXACERBATION 08/03/2012 PULIDO DOАЛЕКСАНДРA K 381.01 OTITIS MEDIA ACUTE SEROUS LEFT EAR 08/03/2012 PULIDO АЛЕКСАНДР CHRISTYA K 493.92 ASTHMA WITH ACUTE EXACERBATION 08/03/2012 PULIDO DOАЛЕКСАНДРA K 381.01 OTITIS MEDIA ACUTE SEROUS LEFT EAR 08/03/2012 PULIDO АЛЕКСАНДР CHRISTYA K 493.92 ASTHMA WITH ACUTE EXACERBATION 08/03/2012 ABELINO HIDALGO APRN 381.01 OTITIS MEDIA ACUTE SEROUS BOTH EARS 08/03/2012 ABELINO HIDALGO APRN 493.92 ASTHMA WITH ACUTE EXACERBATION 08/03/2012 EATON IMPLEMENTATION SERVICES ANALYST, RAE L 381.01 OTITIS MEDIA ACUTE SEROUS BOTH EARS 08/03/2012 REUBEN CARTAGENA RAE L 493.92 ASTHMA WITH ACUTE EXACERBATION 08/03/2012 PULIDO АЛЕКСАНДР CHRISTYA K 381.01 OTITIS MEDIA ACUTE SEROUS BOTH EARS 08/03/2012 АЛЕКСАНДР PULIDO DOA K 493.92 ASTHMA WITH ACUTE EXACERBATION 08/03/2012 EATON IMPLEMENTATION SERVICES ANALYST, RAE L 381.01 OTITIS MEDIA ACUTE SEROUS BOTH EARS 08/03/2012 EATON MITZI RAE L 493.92 ASTHMA WITH ACUTE EXACERBATION 08/03/2012 EATON IMPLEMENTATION SERVICES ANALYST, RAE L 381.01 OTITIS MEDIA ACUTE SEROUS BOTH EARS 08/03/2012 EATON IMPLEMENTATION SERVICES ANALYST, RAE L 493.92 ASTHMA WITH ACUTE EXACERBATION 08/03/2012 ABELINO HIDALGO APRN 381.01 OTITIS MEDIA ACUTE SEROUS BOTH EARS 08/03/2012 ABELINO HIDALGO APRN 493.92 ASTHMA WITH ACUTE EXACERBATION 08/03/2012 ABELINO HIDALGO APRN 381.01 OTITIS MEDIA ACUTE SEROUS BOTH EARS 08/03/2012 ABELINO HIDALGO APRN 493.92 ASTHMA WITH ACUTE EXACERBATION 08/03/2012 ABELINO HIDALGO APRN 381.01 OTITIS MEDIA ACUTE SEROUS BOTH EARS 08/03/2012 ABELINO HIDALGO APRN 493.92 ASTHMA WITH ACUTE EXACERBATION 08/03/2012 PULIDO АЛЕКСАНДР CHRISTYA K 381.01 OTITIS MEDIA ACUTE SEROUS BOTH EARS 08/03/2012 HARDIK PLUIDO DO K 493.92 ASTHMA WITH ACUTE EXACERBATION 08/03/2012 ABELINO HIDALGO APRN 381.01 OTITIS MEDIA ACUTE SEROUS BOTH EARS 08/03/2012 ABELINO HIDALGO APRN 493.92 ASTHMA WITH ACUTE EXACERBATION 08/03/2012 HARDIK PULIDO DO K 381.01 OTITIS MEDIA ACUTE SEROUS BOTH EARS 08/03/2012 АЛЕКСАНДР PULIDO DOA K 493.92 ASTHMA WITH ACUTE EXACERBATION 08/24/2012 786.05 SHORTNESS OF BREATH 08/24/2012 GEOFFREY WEAVER MD 786.05 SHORTNESS OF BREATH 08/24/2012 GEOFFREY WEAVER MD 786.05 SHORTNESS OF BREATH 08/24/2012 GEOFFREY WEAVER MD 786.05 SHORTNESS OF BREATH 08/24/2012 PULIDO DO HARDIK K 786.05 SHORTNESS OF BREATH 08/24/2012 EATRAE COPELAND APRN L 786.05 SHORTNESS OF BREATH 08/24/2012 PULIDO DO HARDIK K 786.05 SHORTNESS OF BREATH 08/24/2012 PULIDO DO, HARDIK K 786.05 SHORTNESS OF BREATH 08/24/2012 PULIDO DO HARDIK K 786.05 SHORTNESS OF BREATH 08/24/2012 ABELINO HIDALGO APRN 786.05 SHORTNESS OF BREATH 08/24/2012 EATRAE COPELAND APRN L 786.05 SHORTNESS OF BREATH 08/24/2012 PULIDO DO, HARDIK K 786.05 SHORTNESS OF BREATH 08/24/2012 ORESTES ALEXIS APRNSON L 786.05 SHORTNESS OF BREATH 08/24/2012 EATORESTES COPELAND APRNSON L 786.05 SHORTNESS OF BREATH 08/24/2012 ABELINO HIDALGO APRN 786.05 SHORTNESS OF BREATH 08/24/2012 ABELINO HIDALGO APRN 786.05 SHORTNESS OF BREATH 08/24/2012 ABELINO HIDALGO APRN 786.05 SHORTNESS OF BREATH 08/24/2012 PULIDO DOАЛЕКСАНДРA K 786.05 SHORTNESS OF BREATH 08/24/2012 ABELINO HIDALGO APRN 786.05 SHORTNESS OF BREATH 08/24/2012 PULIDO DO, HARDIK K 786.05 SHORTNESS OF BREATH 09/22/2012 474.11 Tonsils Enlargement 09/22/2012 GEOFFREY WEAVER MD 474.11 Tonsils Enlargement 09/22/2012 GEOFFREY WEAVER MD 474.11 Tonsils Enlargement 09/22/2012 GEOFFREY WEAVER MD 474.11 Tonsils Enlargement 09/22/2012 PULIDO DO, HARDIK K 474.11 Tonsils Enlargement 09/22/2012 EATON RAE CARTAGENA L 474.11 Tonsils Enlargement 09/22/2012 PULIDO DO, HARDIK K 474.11 Tonsils Enlargement 09/22/2012 PULIDO DO, HARDIK K 474.11 Tonsils Enlargement 09/22/2012 PULIDO DO, HARDIK K 474.11 Tonsils Enlargement 09/22/2012 ABELINO HIDALGO APRN 474.11 Tonsils Enlargement 09/22/2012 EATRAE COPELAND APRN 474.11 Tonsils Enlargement 09/22/2012 PULIDO DO, HARDIK K 474.11 Tonsils Enlargement 09/22/2012 EATRAE COPELAND APRN 474.11 Tonsils Enlargement 09/22/2012 RAE ALEXIS APRN 474.11 Tonsils Enlargement 09/22/2012 ABELINO HIDALGO APRN 474.11 Tonsils Enlargement 09/22/2012 ABELINO HIDALGO APRN 474.11 Tonsils Enlargement 09/22/2012 ABELINO HIDALGO APRN 474.11 Tonsils Enlargement 09/22/2012 PULIDO DO HARDIK K 474.11 Tonsils Enlargement 09/22/2012 HIDALGO ABELINO CARTAGENA 474.11 Tonsils Enlargement 09/22/2012 PULIDO DO HARDIK K 474.11 Tonsils Enlargement 03/23/2013 GEOFFREY WEAVER MD 535.50 GASTRITIS 03/23/2013 GEOFFREY WEAVER MD 780.50 sleep disturbances 03/23/2013 GEOFFREY WEAVER MD V25.01 Oral Contraceptives 03/23/2013 GEOFFREY WEAVER MD 535.50 GASTRITIS 03/23/2013 GEOFFREY WEAVER MD 780.50 sleep disturbances 03/23/2013 GEOFFREY WEAVER MD V25.01 Oral Contraceptives 03/23/2013 PULIDO DO HARDIK K 535.50 GASTRITIS 03/23/2013 PULIDO DO, HARDIK K 780.50 sleep disturbances 03/23/2013 PULIDO DO, HARDIK K V25.01 Oral Contraceptives 03/23/2013 RAE ALEXIS APRN 535.50 GASTRITIS 03/23/2013 RAE ALEXIS APRN 780.50 sleep disturbances 03/23/2013 RAE ALEXIS APRN V25.01 Oral Contraceptives 03/23/2013 PULIDO DO, HARDIK K 535.50 GASTRITIS 03/23/2013 PULIDO DO, HARDIK K 780.50 sleep disturbances 03/23/2013 PULIDO DO, HARDIK K V25.01 Oral Contraceptives 03/23/2013 PULIDO DO, HARDIK K 535.50 GASTRITIS 03/23/2013 PULIDO DO, HARDIK K 780.50 sleep disturbances 03/23/2013 PULIDO DO, HARDIK K V25.01 Oral Contraceptives 03/23/2013 PULIDO DO, HARDIK K 535.50 GASTRITIS 03/23/2013 PULIDO DO, HARDIK K 780.50 sleep disturbances 03/23/2013 PULIDO DO, HARDIK K V25.01 Oral Contraceptives 03/23/2013 ABELINO HIDALGO APRN 535.50 GASTRITIS 03/23/2013 ABELINO HIDALGO APRN 780.50 sleep disturbances 03/23/2013 ABELINO HIDALGO APRN V25.01 Oral Contraceptives 03/23/2013 EATRAE COPELAND APRN 535.50 GASTRITIS 03/23/2013 EATRAE COPELAND APRN 780.50 sleep disturbances 03/23/2013 EATON ORESTES CARTAGENASON L V25.01 Oral Contraceptives 03/23/2013 PULIDO DO, HARDIK K 535.50 GASTRITIS 03/23/2013 PULIDO DO, HARDIK K 780.50 sleep disturbances 03/23/2013 PULIDO DO, HARDIK K V25.01 Oral Contraceptives 03/23/2013 EATRAE COPELAND APRN 535.50 GASTRITIS 03/23/2013 RAE ALEXIS APRN 780.50 sleep disturbances 03/23/2013 RAE ALEXIS APRN L V25.01 Oral Contraceptives 03/23/2013 EATRAE COPELAND APRN L 535.50 GASTRITIS 03/23/2013 EATRAE COPELAND APRN 780.50 sleep disturbances 03/23/2013 EATON RAE CARTAGENA L V25.01 Oral Contraceptives 03/23/2013 ABELINO HIDALGO APRN 535.50 GASTRITIS 03/23/2013 ABELINO HIDALGO APRN 780.50 sleep disturbances 03/23/2013 ABELINO HIDALGO APRN V25.01 Oral Contraceptives 03/23/2013 ABELINO HIDALGO APRN 535.50 GASTRITIS 03/23/2013 ABELINO HIDALGO APRN 780.50 sleep disturbances 03/23/2013 ABELINO HIDALGO APRN V25.01 Oral Contraceptives 03/23/2013 ABELINO HIDALGO APRN 535.50 GASTRITIS 03/23/2013 ABELINO HIDALGO APRN 780.50 sleep disturbances 03/23/2013 ABELINO HIDALGO APRN V25.01 Oral Contraceptives 03/23/2013 PULIDO HARDIK CHRISTY 535.50 GASTRITIS 03/23/2013 PULIDO АЛЕКСАНДР CHRISTYA K 780.50 sleep disturbances 03/23/2013 PULIDO DO HARDIK K V25.01 Oral Contraceptives 03/23/2013 ABELINO HIDALGO APRN 535.50 GASTRITIS 03/23/2013 ABELINO HIDALGO APRN 780.50 sleep disturbances 03/23/2013 ABELINO HIDALGO APRN V25.01 Oral Contraceptives 03/23/2013 PULIDO АЛЕКСАНДР CHRISTYA Pura 535.50 GASTRITIS 03/23/2013 PULIDO DO HARDIK K 780.50 sleep disturbances 03/23/2013 PULIDO DO HARDIK K V25.01 Oral Contraceptives 04/15/2013 GEOFFREY WEAVER MD 70Jesus SKIN DISORDERS 04/15/2013 GEOFFREY WEAVER MD 789.00 abdominal pain feels crampy / colicky 04/15/2013 PULIDO DO, HARDIK K 702 SKIN DISORDERS 04/15/2013 PULIDO DO, HARDIK K 789.00 abdominal pain feels crampy / colicky 04/15/2013 RAE ALEXIS APRN 702 SKIN DISORDERS 04/15/2013 RAE ALEXIS APRN L 789.00 abdominal pain feels crampy / colicky 04/15/2013 PULIDO DO, HARDIK K 702 SKIN DISORDERS 04/15/2013 PULIDO DO, HARDIK K 789.00 abdominal pain feels crampy / colicky 04/15/2013 PULIDO DO, HARDIK K 702 SKIN DISORDERS 04/15/2013 PULIDO DO, HARDIK K 789.00 abdominal pain feels crampy / colicky 04/15/2013 PULIDO DO, HARDIK K 702 SKIN DISORDERS 04/15/2013 PULIDO DO, HARDIK K 789.00 abdominal pain feels crampy / colicky 04/15/2013 ABELINO HIDALGO APRN 702 SKIN DISORDERS 04/15/2013 ABELINO HIDALGO APRN 789.00 abdominal pain feels crampy / colicky 04/15/2013 REUBEN IMPLEMENTATION SERVICES ANALYST, RAE L 702 SKIN DISORDERS 04/15/2013 REUBEN HANKINSNRAE L 789.00 abdominal pain feels crampy / colicky 04/15/2013 PULIDO DO, HARDIK K 702 SKIN DISORDERS 04/15/2013 PULIDO DO, HARDIK K 789.00 abdominal pain feels crampy / colicky 04/15/2013 ORESTES ALEXIS APRNSON L 702 SKIN DISORDERS 04/15/2013 REUBEN HANKINSNORESTESRAE L 789.00 abdominal pain feels crampy / colicky 04/15/2013 REUBEN CARTAGENA RAE L 702 SKIN DISORDERS 04/15/2013 ELINORDINORAH IMPLEMENTATION SERVICES ANALYST, RAE L 789.00 abdominal pain feels crampy / colicky 04/15/2013 ABELINO HIDALGO APRN 702 SKIN DISORDERS 04/15/2013 ABELINO HIDALGO APRN 789.00 abdominal pain feels crampy / colicky 04/15/2013 ABELINO HIDALGO APRN 702 SKIN DISORDERS 04/15/2013 ABELINO HIDALGO APRN 789.00 abdominal pain feels crampy / colicky 04/15/2013 ABELINO HIDALGO APRN 702 SKIN DISORDERS 04/15/2013 ABELINO HIDALGO APRN 789.00 abdominal pain feels crampy / colicky 04/15/2013 PULIDO DO, HARDIK K 702 SKIN DISORDERS 04/15/2013 PULIDO DO, HARDIK K 789.00 abdominal pain feels crampy / colicky 04/15/2013 ABELINO HIDALGO APRN 702 SKIN DISORDERS 04/15/2013 ABELINO HIDALGO APRN 789.00 abdominal pain feels crampy / colicky 04/15/2013 PULIDO DO, HARDIK K 702 SKIN DISORDERS 04/15/2013 PULIDO DO, HARDIK K 789.00 abdominal pain feels crampy / colicky 04/19/2013 PULIDO DO HARDIK K 461.8 OTHER ACUTE SINUSITIS 04/19/2013 REUBEN CARTAGENA RAE L 461.8 OTHER ACUTE SINUSITIS 04/19/2013 PULIDO DO, HARDIK K 461.8 OTHER ACUTE SINUSITIS 04/19/2013 PULIDO DO, HARDIK K 461.8 OTHER ACUTE SINUSITIS 04/19/2013 PULIDO DO, HARDIK K 461.8 OTHER ACUTE SINUSITIS 04/19/2013 HIDALGO ABELINO CARTAGENA 461.8 OTHER ACUTE SINUSITIS 04/19/2013 EATON IMPLEMENTATION SERVICES ANALYST RAE L 461.8 OTHER ACUTE SINUSITIS 04/19/2013 PULIDO DO, HARDIK K 461.8 OTHER ACUTE SINUSITIS 04/19/2013 EATON IMPLEMENTATION SERVICES ANALYST RAE L 461.8 OTHER ACUTE SINUSITIS 04/19/2013 EATON IMPLEMENTATION SERVICES ANALYST RAE L 461.8 OTHER ACUTE SINUSITIS 04/19/2013 HIDALGO ABELINO CARTAGENA 461.8 OTHER ACUTE SINUSITIS 04/19/2013 ABELINO HIDALGO APRN 461.8 OTHER ACUTE SINUSITIS 04/19/2013 HIDALGO ABELINO CARTAGENA 461.8 OTHER ACUTE SINUSITIS 04/19/2013 PULIDO DO, HARDIK K 461.8 OTHER ACUTE SINUSITIS 04/19/2013 HIDALGO IMPLEMENTATION SERVICES ANALYSTABELINO Rios 461.8 OTHER ACUTE SINUSITIS 04/19/2013 PULIDO DO, HARDIK K 461.8 OTHER ACUTE SINUSITIS 07/06/2013 PULIDO DO, HARDIK K 686.8 BACTERID 07/06/2013 PULIDO DO, HARDIK K 686.8 BACTERID 07/06/2013 PULIDO DO, HARDIK K 686.8 BACTERID 07/06/2013 HIDALGO ABELINO CARTAGENA 686.8 BACTERID 07/06/2013 EATON IMPLEMENTATION SERVICES ANALYSTORESTES RiosSON L 686.8 BACTERID 07/06/2013 PULIDO DO, HARDIK K 686.8 BACTERID 07/06/2013 EATON IMPLEMENTATION SERVICES ANALYST RAE L 686.8 BACTERID 07/06/2013 EATON IMPLEMENTATION SERVICES ANALYST RAE L 686.8 BACTERID 07/06/2013 ABELINO HIDALGO APRN 686.8 BACTERID 07/06/2013 HIDALGO ABELINO CARTAGENA 686.8 BACTERID 07/06/2013 HIDALGOABELINO MUÑOZ APRN 686.8 BACTERID 07/06/2013 PULIDO DO, HARDIK K 686.8 BACTERID 07/06/2013 ABELINO HIDALGO APRN 686.8 BACTERID 07/06/2013 PULIDO DO, HARDIK K 686.8 BACTERID 07/20/2013 PULIDO DO, HARDIK K 462 sore throat 07/20/2013 PULIDO DO, HARDIK K 845.00 ANKLE SPRAIN LEFT 07/20/2013 PULIDO DO, HARDIK K E880.9 a fall from stairs 07/20/2013 PULIDO DO, HARDIK K 462 sore throat 07/20/2013 PULIDO DO, HARDIK K 845.00 ANKLE SPRAIN LEFT 07/20/2013 PULIDO DO, HARDIK K E880.9 a fall from stairs 07/20/2013 ABELINO HIDALGO APRN 462 sore throat 07/20/2013 ABELINO HIDALGO APRN 845.00 ANKLE SPRAIN LEFT 07/20/2013 ABELINO HIDALGO APRN E880.9 a fall from stairs 07/20/2013 REUBEN CARTAGENA RAE L 462 sore throat 07/20/2013 EATON IMPLEMENTATION SERVICES ANALYST, RAE L 845.00 ANKLE SPRAIN LEFT 07/20/2013 EATON MTIZI RAE L E880.9 a fall from stairs 07/20/2013 PULIDO DO, HARDIK K 462 sore throat 07/20/2013 PULIDO DO, HARDIK K 845.00 ANKLE SPRAIN LEFT 07/20/2013 PULIDO DO, HARDIK K E880.9 a fall from stairs 07/20/2013 EATON IMPLEMENTATION SERVICES ANALYST, RAE L 462 sore throat 07/20/2013 EATON IMPLEMENTATION SERVICES ANALYST, RAE L 845.00 ANKLE SPRAIN LEFT 07/20/2013 EATON IMPLEMENTATION SERVICES ANALYST, RAE L E880.9 a fall from stairs 07/20/2013 EATON IMPLEMENTATION SERVICES ANALYST, RAE L 462 sore throat 07/20/2013 EATON IMPLEMENTATION SERVICES ANALYST, RAE L 845.00 ANKLE SPRAIN LEFT 07/20/2013 EATON MITZI RAE L E880.9 a fall from stairs 07/20/2013 ABELINO HIDALGO APRN 462 sore throat 07/20/2013 ABELINO HIDALGO APRN 845.00 ANKLE SPRAIN LEFT 07/20/2013 ABELINO HIDALGO APRN E880.9 a fall from stairs 07/20/2013 ABELINO HIDALGO APRN 462 sore throat 07/20/2013 ABELINO HIDALGO APRN 845.00 ANKLE SPRAIN LEFT 07/20/2013 ABELINO HIDALGO APRN E880.9 a fall from stairs 07/20/2013 ABELINO HIDALGO APRN 462 sore throat 07/20/2013 ABELINO HIDALGO APRN 845.00 ANKLE SPRAIN LEFT 07/20/2013 ABELINO HIDALGO APRN E880.9 a fall from stairs 07/20/2013 PULIDO DO, HARDIK K 462 sore throat 07/20/2013 PULIDO DO, HARDIK K 845.00 ANKLE SPRAIN LEFT 07/20/2013 PULIDO DO, HARDIK K E880.9 a fall from stairs 07/20/2013 ABELINO HIDALGO APRN 462 sore throat 07/20/2013 ABELINO HIDALGO APRN 845.00 ANKLE SPRAIN LEFT 07/20/2013 ABELINO HIDALGO APRN E880.9 a fall from stairs 07/20/2013 PULIDO DO, HARDIK K 462 sore throat 07/20/2013 PULIDO DO, HARDIK K 845.00 ANKLE SPRAIN LEFT 07/20/2013 PULIDO DO, HARDIK K E880.9 a fall from stairs 09/28/2013 RAE ALEXIS APRN L 599.0 URINARY TRACT INFECTION 09/28/2013 PULIDO DO, HARDIK K 599.0 URINARY TRACT INFECTION 09/28/2013 EATORESTES COPELAND APRNSON L 599.0 URINARY TRACT INFECTION 09/28/2013 RAE ALEXIS APRN L 599.0 URINARY TRACT INFECTION 09/28/2013 ABELINO HIDALGO APRN 599.0 URINARY TRACT INFECTION 09/28/2013 ABELINO HIDALGO APRN 599.0 URINARY TRACT INFECTION 09/28/2013 ABELINO HIDALGO APRN 599.0 URINARY TRACT INFECTION 09/28/2013 PULIDO DO, HARDIK K 599.0 URINARY TRACT INFECTION 09/28/2013 ABELINO HIDALGO APRN 599.0 URINARY TRACT INFECTION 09/28/2013 HARDIK PULIDO DO K 599.0 URINARY TRACT INFECTION 11/04/2013 RAE ALEXIS APRN 466.0 BRONCHITIS, ACUTE 11/04/2013 RAE ALEIXS APRN 466.0 BRONCHITIS, ACUTE 11/04/2013 ABELINO HIDALGO APRN 466.0 BRONCHITIS, ACUTE 11/04/2013 ABELINO HIDALGO APRN 466.0 BRONCHITIS, ACUTE 11/04/2013 ABELINO HIDALGO APRN 466.0 BRONCHITIS, ACUTE 11/04/2013 АЛЕКСАНДР PULIDO DOA K 466.0 BRONCHITIS, ACUTE 11/04/2013 ABELINO HIDALGO APRN 466.0 BRONCHITIS, ACUTE 11/04/2013 АЛЕКСАНДР PULIDO DOA K 466.0 BRONCHITIS, ACUTE 03/22/2014 RAE ALEXIS APRN 131.01 TRICHOMONAL VULVOVAGINITIS 03/22/2014 RAE ALEXIS APRN V65.45 STD COUNSELING 03/22/2014 RAE ALEXIS APRN V74.5 STD SCREEN 03/22/2014 ABELINO HIDALGO APRN 131.01 TRICHOMONAL VULVOVAGINITIS 03/22/2014 ABELINO HIDALGO APRN V65.45 STD COUNSELING 03/22/2014 ABELINO HIDALGO APRN V74.5 STD SCREEN 03/22/2014 ABELINO HIDALGO APRN 131.01 TRICHOMONAL VULVOVAGINITIS 03/22/2014 ABELINO HIDALGO APRN V65.45 STD COUNSELING 03/22/2014 ABELINO HIDALGO APRN V74.5 STD SCREEN 03/22/2014 ABELINO HIDALGO APRN 131.01 TRICHOMONAL VULVOVAGINITIS 03/22/2014 ABELINO HIDALGO APRN V65.45 STD COUNSELING 03/22/2014 ABELINO HIDALGO APRN V74.5 STD SCREEN 03/22/2014 АЛЕКСАНДР PULIDO DOA K 131.01 TRICHOMONAL VULVOVAGINITIS 03/22/2014 HARDIK PULIDO DO K V65.45 STD COUNSELING 03/22/2014 HARDIK PULIDO DO K V74.5 STD SCREEN 03/22/2014 ABELINO HIDALGO APRN 131.01 TRICHOMONAL VULVOVAGINITIS 03/22/2014 ABELINO HIDALGO APRN V65.45 STD COUNSELING 03/22/2014 ABELINO HIDALGO APRN V74.5 STD SCREEN 03/22/2014 АЛЕКСАНДР PULIDO DOA K 131.01 TRICHOMONAL VULVOVAGINITIS 03/22/2014 АЛЕКСАНДР PULIDO DOA K V65.45 STD COUNSELING 03/22/2014 АЛЕКСАНДР PULIDO DOA K V74.5 STD SCREEN 04/02/2014 ABELINO HIDALGO APRN 477.9 ALLERGIC RHINITIS CAUSE UNSPECIFIED 04/02/2014 ABELINO HIDALGO APRN 911.4 INSECT BITE NONVENOMOUS OF TRUNK WITHOUT INFECTION 04/02/2014 ABELINO HIDALGO APRN 477.9 ALLERGIC RHINITIS CAUSE UNSPECIFIED 04/02/2014 ABELINO HIDALGO APRN 911.4 INSECT BITE NONVENOMOUS OF TRUNK WITHOUT INFECTION 04/02/2014 ABELINO HIDALGO APRN 477.9 ALLERGIC RHINITIS CAUSE UNSPECIFIED 04/02/2014 ABELINO HIDALGO APRN 911.4 INSECT BITE NONVENOMOUS OF TRUNK WITHOUT INFECTION 04/02/2014 АЛЕКСАНДР PULIDO DOA K 477.9 ALLERGIC RHINITIS CAUSE UNSPECIFIED 04/02/2014 PULIDO DO, HARDIK K 911.4 INSECT BITE NONVENOMOUS OF TRUNK WITHOUT INFECTION 04/02/2014 ABELINO HIDALGO APRN 477.9 ALLERGIC RHINITIS CAUSE UNSPECIFIED 04/02/2014 ABELINO HIDALGO APRN 911.4 INSECT BITE NONVENOMOUS OF TRUNK WITHOUT INFECTION 04/02/2014 PULIDO DO HARDIK K 477.9 ALLERGIC RHINITIS CAUSE UNSPECIFIED 04/02/2014 PULIDO DO, HARDIK K 911.4 INSECT BITE NONVENOMOUS OF TRUNK WITHOUT INFECTION 05/02/2014 ABELINO HIDALGO APRN 305.1 NONDEPENDENT TOBACCO USE DISORDER 05/02/2014 ABELINO HIDALGO APRN V15.82 current smoker 05/02/2014 ABELINO HIDALGO APRN V65.42 COUNSELING ON SUBSTANCE USE AND ABUSE 05/02/2014 HARDIK PULIDO DO 305.1 NONDEPENDENT TOBACCO USE DISORDER 05/02/2014 HARDIK PULIDO DO V15.82 current smoker 05/02/2014 HARDIK PULIDO DO V65.42 COUNSELING ON SUBSTANCE USE AND ABUSE 05/02/2014 ABELINO HIDALGO APRN 305.1 NONDEPENDENT TOBACCO USE DISORDER 05/02/2014 ABELINO HIDALGO APRN V15.82 current smoker 05/02/2014 ABELINO HIDALGO APRN V65.42 COUNSELING ON SUBSTANCE USE AND ABUSE 05/02/2014 HARDIK PULIDO DO 305.1 NONDEPENDENT TOBACCO USE DISORDER 05/02/2014 HARDIK PULIDO DO V15.82 current smoker 05/02/2014 HARDIK PULIDO DO V65.42 COUNSELING ON SUBSTANCE USE AND ABUSE 05/18/2014 HARDIK PULIDO DO V25.02 GENERAL COUNSELING ON INITIATION OF OTHER CONTRACEPTIVE MEASURES 05/18/2014 ABELINO HIDALGO APRN V25.02 GENERAL COUNSELING ON INITIATION OF OTHER CONTRACEPTIVE MEASURES 05/18/2014 HARDIK PULIDO DO V25.02 GENERAL COUNSELING ON INITIATION OF OTHER CONTRACEPTIVE MEASURES 07/25/2014 ABELINO HIDALGO APRN 780.79 OTHER MALAISE AND FATIGUE 07/25/2014 ABELINO HIDALGO APRN V69.0 LACK OF PHYSICAL EXERCISE 07/25/2014 ABELINO HIDALGO APRN V69.1 INAPPROPRIATE DIET AND EATING HABITS 07/25/2014 HARDIK PULIDO DO 780.79 OTHER MALAISE AND FATIGUE 07/25/2014 HARDIK PULIDO DO V69.0 LACK OF PHYSICAL EXERCISE 07/25/2014 HARDIK PULIDO DO V69.1 INAPPROPRIATE DIET AND EATING HABITS 08/01/2014 ABELINO HIDALGO APRN 384.20 PERFORATION OF TYMPANIC MEMBRANE UNSPECIFIED 08/01/2014 HARDIK PULIDO DO 384.20 PERFORATION OF TYMPANIC MEMBRANE UNSPECIFIED 09/21/2014 HARDIK PULIDO DO 079.99 UNSPECIFIED VIRAL INFECTION 09/21/2014 HARDIK PULIDO DO 478.19 OTHER DISEASES OF NASAL CAVITY AND SINUSES 09/21/2014 HARDIK PULIDO DO 784.1 THROAT PAIN 09/02/2017 MATHEUS RAY DO, Ot Z34.01 ENCNTR FOR SUPRVSN OF NORMAL FIRST PREG, 09/02/2017 BARNIDGE DO, MATHEUS E Ot Z3A.01 LESS THAN 8 WEEKS GESTATION OF 09/09/2017 BARNIDGE DO, MATHEUS E Ot Z34.01 ENCNTR FOR SUPRVSN OF NORMAL FIRST PREG, 09/09/2017 BARNIDGE DO, MATHEUS E Ot Z3A.01 LESS THAN 8 WEEKS GESTATION OF 09/09/2017 B[place]GE DO, MATHEUS E Ot Z34.01 ENCNTR FOR SUPRVSN OF NORMAL FIRST PREG, 09/09/2017 B[place]IDGE DO, MATHEUS E Ot Z3A.01 LESS THAN 8 WEEKS GESTATION OF 09/23/2017 B[place]IDGE DO, MATHEUS E Ot Z34.01 ENCNTR FOR SUPRVSN OF NORMAL FIRST PREG, 09/23/2017 BARNIDGE DO, MATHEUS E Ot Z3A.01 LESS THAN 8 WEEKS GESTATION OF 09/23/2017 BARNIDGE DO, MATHEUS E Ot Z34.01 ENCNTR FOR SUPRVSN OF NORMAL FIRST PREG, 09/23/2017 BARNIDGE DO, MATHEUS E Ot Z3A.01 LESS THAN 8 WEEKS GESTATION OF 09/24/2017 BARNIDGE DO, MATHEUS E Ot Z34.01 ENCNTR FOR SUPRVSN OF NORMAL FIRST PREG, 09/24/2017 B[place]IDGE DO, MATHEUS E Ot Z3A.01 LESS THAN 8 WEEKS GESTATION OF 11/25/2017 BARNIDGE DO, MATHEUS E Ot Z34.01 ENCNTR FOR SUPRVSN OF NORMAL FIRST PREG, 11/25/2017 BARNIDGE DO, MATHEUS E Ot Z3A.01 LESS THAN 8 WEEKS GESTATION OF 11/28/2017 VINOD CARMEN MD R Ot Z36.89 ENCOUNTER FOR OTHER SPECIFIED 11/28/2017 VINOD CARMEN MD Ot Z3A.18 18 WEEKS GESTATION OF 12/11/2017 VINOD CARMEN MD Ot Z36.89 ENCOUNTER FOR OTHER SPECIFIED 12/11/2017 VINOD CARMEN MD Ot Z3A.18 18 WEEKS GESTATION OF 01/16/2018 BARNIDGE DOMATHEUS E Ot Z34.02 ENCNTR FOR SUPRVSN OF NORMAL FIRST PREG, 01/16/2018 BARNIDGE DO, MATHEUS E Ot Z3A.00 WEEKS OF GESTATION OF NOT SPEC 03/03/2018 BARNIDGE DO, MATHEUS E Ot Z34.01 ENCNTR FOR SUPRVSN OF NORMAL FIRST PREG, 03/03/2018 BARNIDGE DO, MATHEUS E Ot Z3A.01 LESS THAN 8 WEEKS GESTATION OF 03/03/2018 KERMIT MARCANO, VINOD Zimmerman Ot Z36.89 ENCOUNTER FOR OTHER SPECIFIED 03/03/2018 VINOD CARMEN MD Ot Z3A.18 18 WEEKS GESTATION OF 03/03/2018 BARNIDGE DO, MATHEUS E Ot Z34.02 ENCNTR FOR SUPRVSN OF NORMAL FIRST PREG, 03/03/2018 BARNIDGE DO, MATHEUS E Ot Z3A.00 WEEKS OF GESTATION OF NOT SPEC 03/04/2018 BARNIDGE DO, MATHEUS E Ot Z34.03 ENCNTR FOR SUPRVSN OF NORMAL FIRST PREG, 03/04/2018 BARNIDGE DO, MATHEUS E Ot Z3A.00 WEEKS OF GESTATION OF NOT SPEC 03/09/2018 BARNIDGE DO, MATHEUS E Ot O36.8130 DECREASED MOVEMENTS, THIRD TRIMEST 03/09/2018 BARNIDGE DO, MATHEUS E Ot Z3A.00 WEEKS OF GESTATION OF NOT SPEC 03/09/2018 BARNIDGE DO, MATHEUS E Ot O36.8130 DECREASED MOVEMENTS, THIRD TRIMEST 03/09/2018 BARNIDGE DO, MATHEUS E Ot Z3A.00 WEEKS OF GESTATION OF NOT SPEC 03/19/2018 BARNIDGE DO, MATHEUS E Ot O36.8130 DECREASED MOVEMENTS, THIRD TRIMEST 03/19/2018 BARNIDGE DO, MATHEUS E Ot Z3A.00 WEEKS OF GESTATION OF NOT SPEC Procedures Code Description [place] [address] STREP A (IN-HOUSE) 07/23/2012 50130 SPIROMETRY 07/24/2012 79261 SPIROMETRY 08/24/2012 79053 BRONCHODILATION PRE/POST 08/24/2012 65611 RESPIRATORY FLOW VOLUME LOOP 08/24/2012 88010 ROUTINE VENIPUNCTURE 09/29/2012 31318 CMP 09/29/2012 44104 LIPID PANEL 09/29/2012 08729 A1C (RML) 09/29/2012 97088 INSULIN LEVEL 09/29/2012 62085 URINE TEST (IN- HOUSE) 03/23/2013 01375 INFLUENZA A & B (IN-HOUSE) 07/06/2013 10740 CULTURE URINE 09/28/2013 84699 UA LONG DIP 09/28/2013 2000F BLOOD PRESSURE CHECK 10/13/2013 61480 CHLAMYDIA PROBE/URINE 03/22/2014 68536 GC PROBE/URINE 03/22/2014 00297 SYPHILLIS-[facility] 04/21/2014 33138 HIV ([facility]) 04/21/2014 73152 UA LONG DIP 04/21/2014 87086 TEST, URINE (IN- HOUSE) 05/18/2014 76013 THERAPUTIC INJ SQ/IM 05/18/2014 J1050 DEPO PROVERA 05/18/2014 Results Test Result Range CULTURE, URINE - 09/15/17 16:14 CULTURE, URINE, ROUTINE SEE NOTE NRG CULTURE, GENITAL - 09/15/17 16:14 CULTURE, GENITAL SEE NOTE NRG SUREPATH PAP RFX HPV mRNA E6/E7 - 09/15/17 16:14 CLINICAL INFORMATION: NRG LMP: 07/10/17 NRG PREV. PAP: NRG PREV. BX: NRG SOURCE: [employer] NRG STATEMENT OF ADEQUACY: NRG INTERPRETATION/RESULT: NRG LENS GAUGER: NRG INFECTION: NRG COMMENT NRG A1C - 09/22/17 12:57 HEMOGLOBIN A1c 4.7 % of total Hgb <5.7 QNATAL - 09/22/17 12:57 NUMBER OF FETUSES? 1 NRG ADVANCED MATERNAL AGE? NO NRG ABNORMAL GELA? NOT GIVEN NRG ABNORMAL US? NO NRG PERSONAL/FAM HISTORY? NO NRG INTERPRETATION SEE NOTE NRG TRISOMY 21 (T21) Negative NRG TRISOMY 18 (T18) Negative NRG TRISOMY 13 (T13) Negative NRG Y CHROMOSOME Detected NRG Y CHR. INTERPRETATION SEE NOTE NRG SEX CHROMOSOME No aneuploidy NRG SEX CHROMOSOME INTERP SEE NOTE NRG MICRODELETION Not detected NRG MICRODELETION INTERP SEE NOTE NRG GESTATIONAL AGE(IN WEEKS) 10 NRG GESTATIONAL AGE (IN DAYS) 4 NRG FRACTION 6.14% NRG LABORATORY COMMENTS SEE NOTE NRG LIMITATIONS SEE NOTE NRG SPECIFICATIONS SEE NOTE NRG METHODOLOGY SEE NOTE NRG GC/CHLAMYDIA (SWAB OR URINE)-RAPID - 11/10/17 09:05 CHLAMYDIA TRACHOMATIS RNA, TMA NOT DETECTED NOT DETECTED NEISSERIA GONORRHOEAE RNA, TMA NOT DETECTED NOT DETECTED COMMENT NRG CULTURE, URINE - 11/10/17 09:05 CULTURE, URINE, ROUTINE SEE NOTE NRG CBC - 01/06/18 15:29 WHITE BLOOD CELL COUNT 12.6 Thousand/uL 3.8-10.8 RED BLOOD CELL COUNT 3.60 Million/uL 3.80-5.10 HEMOGLOBIN 11.4 g/dL 11.7-15.5 HEMATOCRIT 32.8 % 35.0-45.0 MCV 91.1 fL 80.0-100.0 MCH 31.7 pg 27.0-33.0 MCHC 34.8 g/dL 32.0-36.0 RDW 11.5 % 11.0-15.0 PLATELET COUNT 202 Thousand/uL 140-400 MPV 11.0 fL 7.5-12.5 ABSOLUTE NEUTROPHILS 9110 cells/uL 3169-2398 ABSOLUTE LYMPHOCYTES 2684 cells/uL 850-3900 ABSOLUTE MONOCYTES 668 cells/uL 200-950 ABSOLUTE EOSINOPHILS 113 cells/uL 15-500 ABSOLUTE BASOPHILS 25 cells/uL 0-200 NEUTROPHILS 72.3 % NRG LYMPHOCYTES 21.3 % NRG MONOCYTES 5.3 % NRG EOSINOPHILS 0.9 % NRG BASOPHILS 0.2 % NRG TSH - 01/06/18 15:29 TSH 1.31 mIU/L NRG GC/CHLAMYDIA (SWAB OR URINE)-RAPID - 01/06/18 15:29 CHLAMYDIA TRACHOMATIS RNA, TMA NOT DETECTED NOT DETECTED NEISSERIA GONORRHOEAE RNA, TMA NOT DETECTED NOT DETECTED COMMENT NRG CULTURE, URINE - 02/03/18 13:23 CULTURE, URINE, ROUTINE SEE NOTE NRG GC/CHLAMYDIA (SWAB OR URINE)-RAPID - 03/20/18 14:38 CHLAMYDIA TRACHOMATIS RNA, TMA NOT DETECTED NOT DETECTED NEISSERIA GONORRHOEAE RNA, TMA NOT DETECTED NOT DETECTED COMMENT NRG Encounters ACCT No. Visit Date/Time Discharge Status Pt. Type Provider Facility Loc./Unit Complaint [id number] 09/21/2014 13:01:00 09/21/2014 23:59:59 CLS Outpatient HARDIK PULIDO DO [id number] 08/01/2014 14:45:00 08/01/2014 23:59:59 CLS Outpatient [facility] [employer] ANALYST, ABELINO J [id number] 07/26/2014 11:27:00 07/26/2014 23:59:59 CLS Outpatient PULIDO DOHARDIK [id number] 07/25/2014 14:10:00 07/25/2014 23:59:59 CLS Outpatient [facility] [employer] ANALYSTABELINO Rios [id number] 05/18/2014 13:50:00 05/18/2014 23:59:59 CLS Outpatient PULIDO DOHARDIK [id number] 05/02/2014 16:19:00 05/02/2014 23:59:59 CLS Outpatient [facility] [employer] ANALYSTABELINO Rios [id number] 04/21/2014 16:37:00 04/21/2014 23:59:59 CLS Outpatient ABELINO HIDALGO APRN [id number] 04/02/2014 13:37:00 04/02/2014 23:59:59 CLS Outpatient HIDALGO ABELINO CARTAGENA [id number] 03/22/2014 15:29:00 03/22/2014 23:59:59 CLS Outpatient EATON [employer] SERVICES ANALYSTRAE Rios [id number] 11/04/2013 12:08:00 11/04/2013 23:59:59 CLS Outpatient EATON RAE CARTAGENA [id number] 10/13/2013 11:49:00 10/13/2013 23:59:59 CLS Outpatient PULIDO DOHARDIK [id number] 09/28/2013 12:47:00 09/28/2013 23:59:59 CLS Outpatient [facility] [employer] ANALYSTRAE Rios [id number] 08/05/2013 15:25:00 08/05/2013 23:59:59 CLS Outpatient [facility] [employer] ANALYSTABELINO Rios [id number] 08/03/2013 18:16:00 08/03/2013 23:59:59 CLS Outpatient PULIDO DOHARDIK [id number] 07/20/2013 17:46:00 07/20/2013 23:59:59 CLS Outpatient PULIDO DOHARDIK [id number] 07/06/2013 14:19:00 07/06/2013 23:59:59 CLS Outpatient PULIDO DOHARDIK [id number] 05/25/2013 18:34:00 05/25/2013 23:59:59 CLS Outpatient [facility] [employer] ANALYSTRAE [id number] 04/19/2013 15:34:00 04/19/2013 23:59:59 CLS Outpatient TESS HARDIK Pura [id number] 04/15/2013 15:53:00 04/15/2013 23:59:59 CLS Outpatient GEOFFREY WEAVER MD [id number] 03/23/2013 18:36:00 03/23/2013 23:59:59 CLS Outpatient GEOFFREY WEAVER MD [id number] 09/29/2012 10:22:00 09/29/2012 23:59:59 CLS Outpatient GEOFFREY WEAVER MD [id number] 09/22/2012 18:41:00 09/22/2012 23:59:59 CLS Outpatient [id number] 08/24/2012 15:51:00 08/24/2012 23:59:59 CLS Outpatient [id number] 08/03/2012 15:49:00 08/03/2012 23:59:59 CLS Outpatient GEOFFREY WEAVER MD [id number] 07/23/2012 14:41:00 07/23/2012 23:59:59 CLS Outpatient GEOFFREY WEAVER MD [id number] 03/03/2018 09:05:00 03/03/2018 23:59:59 CLS Outpatient MATHEUS RAY DO [facility] RAD Z34.03 SUPERVISION OF FIRST PREG,THIRD TRIMESTER [id number] 01/01/2018 14:42:00 01/01/2018 23:59:59 CLS Outpatient MATHEUS RAY DO [facility] RAD SUPERVISION OF NORMAL FIRST IN SECOND TR [id number] 11/27/2017 10:10:00 11/27/2017 23:59:59 CLS Outpatient VINOD CARMEN MD [facility] RAD Z34.02 SUPERVISION OF NORMAL FIRST PREGANCY [id number] 08/18/2017 12:58:00 08/18/2017 23:59:59 CLS Outpatient MATHEUS RAY DO [facility] RAD Z34.01 SUPERVISION OF FIRST [id number] 01/27/2018 13:00:00 01/27/2018 23:59:59 CLS Outpatient RAE ALEXIS APRN [facility] [id number] 03/20/2018 09:00:00 Document Registration [id number] 02/03/2018 11:20:00 Document Registration [id number] 01/06/2018 14:40:00 Document Registration [id number] 11/10/2017 08:40:00 Document Registration [id number] 09/22/2017 12:20:00 Document Registration [id number] 09/15/2017 08:20:00 Document Registration
--- NOTE | 2018-04-09 15:51 | Diagnostic Imaging Report ---
INDICATION: Decreased movement. TECHNIQUE: Multiple real-time grayscale images were obtained over the gravid uterus. COMPARISON: 03/03/2018. FINDINGS: There is a single live fetus in a cephalic presentation. heart rate is 124 beats per minute. Placenta is anterior. Amniotic fluid volume appears to be significantly low. Amniotic fluid index is 4.1 cm. A biophysical profile was performed. Profile score is 0/8. Deductions were given for lack of breathing movements, lack of movement as well as lack of posture and tone as well as low amniotic fluid index. Biometrical measurements are as follows: Biparietal 8.29 cm, age 33 weeks 3 days. Head circumference 30.95 cm, age 34 weeks 4 days. Abdominal circumference 28.68 cm, age 32 weeks 5 days. Femur length 6.74 cm, age 34 weeks 5 days. Sonographic estimate age: 33 weeks 6 days. Sonographic estimated date of delivery: 05/22/18. Estimated Weight: 2215 gm (+/- 323 gm). LMP percentile: 2%. heart rate: 124 beats per minute. number: 1 of 1. IMPRESSION: Single live IUP of approximately 34 weeks gestational age. Amniotic fluid index is significantly low at 4 cm. Biophysical profile score is abnormal, measuring 0/8. Dr. Pike was notified of these results by the technologist at the time of the study. Dictated by: Dictated on workstation # [id number]
== END ==
LOC: RAD 13:44 → LDRP 15:22 → UNDOADMIN 15:22
PROVIDERS: ATTEND Family Medicine
DX: O36.8130 Decreased fetal movements, third trimester, not applicable or unspecified (principal); Z3A.34 34 weeks gestation of pregnancy
CPT/HCPCS: 76805; 76819